=== PATIENT | male | born 1950 | race Caucasian/White ===

== ENCOUNTER 2021-11-20 10:47 | Inpatient (IN) | payer MEDICARE, OTHER ==
[~2021-11-20] VITALS: Ht 170.2 cm; Wt 103.4 kg
--- NOTE | 2021-11-20 10:50 | NUR ---
BIB JAIL STAFF, TOLD BY DR KAUR TO COME HERE,C/O BILATERAL KNEE/LEG PAIN,"CHRONICALLY SHORT OF BREATH BEC.OF 3 VT'S." PT ATTACHED TO MONITOR. VITALS ARE WITHIN NORMAL LIMITS, NO RESPIRATORY DISTRESS NOTED. PT IS A&OX4. DR MARCIAL AT BEDSIDE.
--- NOTE | 2021-11-20 11:01 | NUR ---
IV ESTABLISHED L UPPER ARM 20G. LABS DRAWN AND COLLECTED AT BEDSIDE. CONVERTED TO SALINE LOCK.
--- NOTE | 2021-11-20 11:15 | NUR ---
[facility].
--- NOTE | 2021-11-20 11:18 | NUR ---
COVID TEST COLLECTED AND SENT
[2021-11-20 11:29] LABS: BASOPHILS % (AUTO) 0.4 % (0.0-2.0); EOSINOPHILS % (AUTO) 4.2 % (0.0-6.0); HEMATOCRIT 40 % (39-51); HEMOGLOBIN 13.1 g/dL (13.5-17.5); LYMPHOCYTES % (AUTO) 15.1 % (20.0-44.0); MEAN CORPUSCULAR HGB CONC 33 g/dl (31.0-36.0); MEAN CORPUSCULAR VOLUME 94 fL (80-96); MONOCYTES # (AUTO) 0.9 K/uL (0.1-1.30); MONOCYTES % (AUTO) 13.4 % (2.0-12.0); NEUTROPHILS # (AUTO) 4.3 K/uL (1.8-8.9); NEUTROPHILS % (AUTO) 66.9 % (43.0-81.0); PLATELET COUNT (AUTO) 219 K/uL (150-450); RED BLOOD CELL COUNT(AUTO) 4.21 MIL/uL (4.5-6.0); WHITE BLOOD COUNT (AUTO) 6.4 K/uL (4.3-11.0)
[2021-11-20 11:52] LABS: ALANINE AMINOTRANSFERASE 10 U/L (12-78); ALBUMIN 3.7 g/dL (3.4-5.0); ALKALINE PHOSPHATASE 101 U/L (46-116); ASPARTATE AMINOTRANSFERASE 10 U/L (15-37); BILIRUBIN,DIRECT 0.1 mg/dL (0.0-0.2); BILIRUBIN,TOTAL 0.6 mg/dL (0.2-1.0); CALCIUM, SERUM 8.8 mg/dL (8.5-10.1); CARBON DIOXIDE 33 mmol/L (21-32); CHLORIDE 102 mmol/L (98-107); CREATININE 1.2 mg/dL (0.6-1.3); GLUCOSE 92 mg/dL (74-106); POTASSIUM 3.8 mmol/L (3.5-5.1); SODIUM SERUM 139 mmol/L (136-145); TOTAL PROTEIN, SERUM 8.5 g/dL (6.4-8.2); UREA NITROGEN, BLOOD 18 mg/dL (7-18)
--- NOTE | 2021-11-20 11:54 | NUR ---
HOSPTIALIST SPEAKING WITH DR. MARCIAL.
[2021-11-20] MEDS ORDERED: SACU1TAB PO (12:06)
[2021-11-20] MEDS ORDERED: PANT40TA49 PO (12:06)
[2021-11-20] MEDS ORDERED: ASPI-1169 PO (12:06)
[2021-11-20] MEDS ORDERED: CARV3.12 PO (12:06)
[2021-11-20] MEDS ORDERED: DOCU-141 PO (12:06)
[2021-11-20] MEDS ORDERED: FURO-144 PO (12:06)
[2021-11-20] MEDS ORDERED: SPIR25TA6 PO (12:06)
[2021-11-20] MEDS ORDERED: CHOL50009 PO (12:06)
[2021-11-20] MEDS ORDERED: ATOR40TA PO (12:06)
[2021-11-20] MEDS ORDERED: CLOP75TA15 PO (12:06)
[2021-11-20] MEDS ORDERED: DIGO125T PO (12:06)
[2021-11-20] MEDS ORDERED: FUROSEMIDE 40 MG/4 ML VIAL IV ONE (13:00)
[2021-11-20] MEDS ORDERED: FUROSEMIDE 100 MG/10 ML VIAL ONE (13:40)
[2021-11-20] MEDS ORDERED: LIDOCAINE 2% JEL UROJET 10 ML MM ONE (13:44)
[2021-11-20] MEDS ORDERED: ACETAMINOPHEN 325 MG TABLET PO PRN (14:00)
[2021-11-20] MEDS ORDERED: ONDANSETRON HCL/PF 4 MG/2 ML VIAL IVP PRN (14:00)
--- NOTE | 2021-11-20 14:56 | NUR ---
BED ASSIGNED= 107
[2021-11-20] MEDS ORDERED: IPRATROPIUM NEB FS 0.5 MG/2.5 ML AMPUL.NEB NEB PRN (15:30)
[2021-11-20] MEDS ORDERED: ENOXAPARIN SODIUM 40 MG/0.4 ML DISP.SYRIN SQ ONE (15:35)
--- NOTE | 2021-11-20 15:54 | NUR ---
REPORT GIVEN TO LUCIANA FOR NOLAN
[2021-11-20] MEDS: ENOXAPARIN SODIUM 40 MG/0.4 ML DISP.SYRIN SQ SCH (16:10)
--- NOTE | 2021-11-20 16:29 | NUR ---
PT TRANSFERRED TO ROOM 107 IN STABLE CONDITION
[2021-11-20 17:42] LABS: ABG OXYGEN SATURATION 94.2 % (92.0-98.5); ABG PCO2 42.5 mmHg (35.0-45.0); ABG PH 7.432 (7.350-7.450); ABG PO2 71.2 mmHg (75.0-100.0); AaDO2 27.6 mmHg; COHb 1.1 % (0.5-1.5); MetHb 0.3 % (0.0-1.5); O2Hb 92.9 % (94.0-97.0); SITE, ABG Left Radial; VENT MODE, BG RA
--- NOTE | 2021-11-20 17:50 | NUR ---
ms rn received a new admission from er,71 year old patient, came in w/ sob,dx of heart failure, awake,alert,oriented x4,not in any form of distress, respirations even and unlabored,no sob noted, lungs are diminished,abdomen soft,positive bowel sounds,denies pain at this time, will monitor patient's condition.
--- NOTE | 2021-11-20 17:55 | NUR ---
ms rn lying comfordatbly on be, no distress noted.
--- NOTE | 2021-11-20 18:05 | NUR ---
ms rn orders on file and carried out.
[2021-11-20] MEDS: DOCUSATE SODIUM 100 MG CAPSULE PO SCH (18:42)
[2021-11-20] MEDS: CARVEDILOL 3.125 MG TABLET PO SCH (18:43)
[2021-11-20 20:00] VITALS: BP 126/68
--- NOTE | 2021-11-20 20:00 | NUR ---
RECEIVED PATIENT IN BED, NEW ADMIT FROM AM SHIFT, ALERT/ORIENTED X3, FORGETFUL, ROOM AIR, NO COMPLAIN OF PAIN, AMBULATORY, WAS GIVEN LASIX IN ED, VOIDING VIA TOILET. BLE EDEMA +3, SKIN INTACT, ON ENTRESTO, NON-FORMULARY, NOTIFIED DIVINE RETANA, WILL BRING MEDICATIONS FROM [facility] IN AM.
[2021-11-20] MEDS: ATORVASTATIN 40 MG TABLET PO SCH (22:06)
[2021-11-21 00:26] VITALS: BP 132/69
[2021-11-21 04:00] VITALS: BP 110/65
--- NOTE | 2021-11-21 06:39 | NUR ---
ALERT/ORIENTED X3, FORGETFUL, ROOM AIR, AMBULATORY, NO COMPLAIN OF PAIN, WAS GIVEN LASIX IN ED, VOIDING, BLE EDEMA +3, CARDIO FOLLOWING, GENTLE DIURESIS, BROCHODILATORS, POLYSOMNOGRAM, PULMONARY FUNCTION TEST OUTPATIENT.
--- NOTE | 2021-11-21 07:15 | NUR ---
RN OPENING NOTES RECEIVED PATIENT IN BED, AWAKE, A/O X4, VERBALLY RESPONSIVE. NO SIGNS OF ACUTE DISTRESS NOTED. STABLE ON ROOM AIR, NO SOB NOTED, BREATHING EVEN AND UNLABORED. IV ACCESS ON LEFT UPPER ARM #20G, INTACT AND PATENT, SALINE LOCKED. NO C/O PAIN AT THIS TIME. SAFETY MEASURE IN PLACE. WILL CONTINUE TO MONITOR PATIENT.
[2021-11-21 07:33] LABS: BASOPHILS % (AUTO) 0.6 % (0.0-2.0); EOSINOPHILS % (AUTO) 3.7 % (0.0-6.0); HEMATOCRIT 38 % (39-51); HEMOGLOBIN 12.9 g/dL (13.5-17.5); LYMPHOCYTES % (AUTO) 16.2 % (20.0-44.0); MEAN CORPUSCULAR HGB CONC 34 g/dl (31.0-36.0); MEAN CORPUSCULAR VOLUME 93 fL (80-96); MONOCYTES # (AUTO) 0.8 K/uL (0.1-1.30); MONOCYTES % (AUTO) 12.3 % (2.0-12.0); NEUTROPHILS # (AUTO) 4.2 K/uL (1.8-8.9); NEUTROPHILS % (AUTO) 67.2 % (43.0-81.0); PLATELET COUNT (AUTO) 205 K/uL (150-450); RED BLOOD CELL COUNT(AUTO) 4.11 MIL/uL (4.5-6.0); WHITE BLOOD COUNT (AUTO) 6.2 K/uL (4.3-11.0)
[2021-11-21 07:47] LABS: CALCIUM, SERUM 9.1 mg/dL (8.5-10.1); CARBON DIOXIDE 31 mmol/L (21-32); CHLORIDE 101 mmol/L (98-107); CREATININE 1.2 mg/dL (0.6-1.3); GLUCOSE 98 mg/dL (74-106); MAGNESIUM 2.2 mg/dL (1.8-2.4); POTASSIUM 3.9 mmol/L (3.5-5.1); SODIUM SERUM 139 mmol/L (136-145); UREA NITROGEN, BLOOD 20 mg/dL (7-18)
[2021-11-21 07:53] LABS: CHOLESTEROL 126 mg/dL (<200); HDL CHOLESTEROL 34 mg/dL (40-60); LDL 79 mg/dL (0-99); TRIGLYCERIDES 124 mg/dL (30-150)
[2021-11-21 08:00] VITALS: BP 138/72
[2021-11-21] MEDS: CLOPIDOGREL BISULFATE 75 MG TABLET PO SCH (08:28)
[2021-11-21] MEDS: PANTOPRAZOLE 40 MG TABLET.DR PO SCH (08:28)
[2021-11-21] MEDS: DOCUSATE SODIUM 100 MG CAPSULE PO SCH ×2 (08:28→17:09)
[2021-11-21] MEDS: ASPIRIN 81 MG TAB.CHEW PO SCH (08:28)
[2021-11-21] MEDS: CHOLECALCIFEROL 1,000 UNIT TABLET (VIT D3) PO SCH (08:28)
[2021-11-21] MEDS: SPIRONOLACTONE 25 MG TABLET PO SCH (08:29)
[2021-11-21] MEDS: POTASSIUM CHLORIDE 20 MEQ TAB.PRT.SR PO SCH ×3 (08:29→11:20)
[2021-11-21] MEDS: CARVEDILOL 3.125 MG TABLET PO SCH ×2 (08:29→17:09)
[2021-11-21] MEDS: FUROSEMIDE 100 MG/10 ML VIAL IV SCH ×3 (08:30→17:09)
[2021-11-21] MEDS ORDERED: Medication Not On Formulary EA (Cholecalciferol (Vitamin D3) (Vitamin D3) 5,000 UNITS) PO SCH (09:00)
[2021-11-21] MEDS: ENTRESTO PO SCH ×2 (09:00→17:00)
--- NOTE | 2021-11-21 09:00 | NUR ---
RN NOTES ENTRESTO 24 MG-26 MG NOT ADMINISTERED, MEDICATION NOT AVAILABLE. FAMILY WILL BRING MEDICATION LATER.
[2021-11-21 09:45] LABS: THYROID STIMULATING HORMONE 1.902 uIU/mL (0.358-3.74)
[2021-11-21 12:00] VITALS: BP 104/51
[2021-11-21] MEDS: ENOXAPARIN SODIUM 40 MG/0.4 ML DISP.SYRIN SQ SCH (15:08)
[2021-11-21 16:00] VITALS: BP 125/77
--- NOTE | 2021-11-21 18:40 | NUR ---
RN CLOSING NOTES PATIENT SITTING ON BED, AWAKE, A/O X4, VERBALLY RESPONSIVE. NO SIGNS OF ACUTE DISTRESS NOTED. REMAINS STABLE ON ROOM AIR, BREATHING EVEN AND UNLABORED. IV ACCESS ON LEFT UPPER ARM #20G, INTACT AND PATENT, SALINE LOCKED. DENIES ANY PAIN. ALL DUE MEDS GIVEN, TOLERATED WELL. PATIENT REFUSE TO USE URINAL TO MEASURE URINE OUTPUT. PREFERS TO VOID IN THE TOILET. ENCOURAGE PATIENT TO USE URINAL TO ACCURATELY MEASURE URINE OUTPUT. SAFETY MEASURE MAINTAINED. BED IN LOWEST AND LOCKED POSITION, SIDE RAILS UP X2, CALL LIGHT PLACED WITHIN EASY REACH. WILL ENDORSE TO NEXT SHIFT.
[2021-11-21 20:00] VITALS: BP 104/57
[2021-11-21] MEDS: ATORVASTATIN 40 MG TABLET PO SCH (21:20)
[2021-11-22] VITALS: BP 96/54
[2021-11-22 04:00] VITALS: BP 97/52
--- NOTE | 2021-11-22 07:09 | NUR ---
RN CLOSING NOTES PATIENT IN BED, AWAKE, A/O X4, VERBALLY RESPONSIVE. NO SIGNS OF ACUTE DISTRESS NOTED. REMAINS STABLE ON ROOM AIR, BREATHING EVEN AND UNLABORED. IV ACCESS ON LEFT UPPER ARM #20G, INTACT AND PATENT, SALINE LOCKED. DENIES ANY PAIN. ALL DUE MEDS GIVEN, TOLERATED WELL. PATIENT REFUSE TO USE URINAL TO MEASURE URINE OUTPUT. PREFERS TO VOID IN THE TOILET. ENCOURAGE PATIENT TO USE URINAL TO ACCURATELY MEASURE URINE OUTPUT. SAFETY MEASURE MAINTAINED. BED IN LOWEST AND LOCKED POSITION, SIDE RAILS UP X2, CALL LIGHT PLACED WITHIN EASY REACH. WILL ENDORSE TO NEXT SHIFT.
[2021-11-22 07:20] LABS: BASOPHILS % (AUTO) 0.6 % (0.0-2.0); HEMATOCRIT 39 % (39-51); HEMOGLOBIN 12.8 g/dL (13.5-17.5); LYMPHOCYTES # (AUTO) 1.1 K/uL (0.8-4.8); LYMPHOCYTES % (AUTO) 16.9 % (20.0-44.0); MEAN CORPUSCULAR HGB CONC 33 g/dl (31.0-36.0); MEAN CORPUSCULAR VOLUME 93 fL (80-96); MONOCYTES # (AUTO) 0.8 K/uL (0.1-1.30); MONOCYTES % (AUTO) 12.5 % (2.0-12.0); NEUTROPHILS # (AUTO) 4.2 K/uL (1.8-8.9); PLATELET COUNT (AUTO) 223 K/uL (150-450); RED BLOOD CELL COUNT(AUTO) 4.18 MIL/uL (4.5-6.0); WHITE BLOOD COUNT (AUTO) 6.3 K/uL (4.3-11.0)
[2021-11-22 07:30] LABS: ALBUMIN 3.6 g/dL (3.4-5.0); BILIRUBIN,TOTAL 0.9 mg/dL (0.2-1.0); CALCIUM, SERUM 8.8 mg/dL (8.5-10.1); CREATININE 1.3 mg/dL (0.6-1.3); MAGNESIUM 2.2 mg/dL (1.8-2.4); POTASSIUM 3.5 mmol/L (3.5-5.1); TOTAL PROTEIN, SERUM 8.2 g/dL (6.4-8.2)
--- NOTE | 2021-11-22 07:30 | NUR ---
SAFETY COUNSELOR NOTE PATIENT IN BED, ALERT ORIENTED, ON RA, NO SOB NOTED AT THIS TIME, ON TELEMONITOR V PACING HR 85, LT FA HL INTACT, BED IN LOWEST AND LOCKED POSITION , WILL CONT TO MONITOR
[2021-11-22 08:00] VITALS: BP 119/83
[2021-11-22] MEDS: ASPIRIN 81 MG TAB.CHEW PO SCH (08:34)
[2021-11-22] MEDS: CHOLECALCIFEROL 1,000 UNIT TABLET (VIT D3) PO SCH (08:34)
[2021-11-22] MEDS: SPIRONOLACTONE 25 MG TABLET PO SCH (08:35)
[2021-11-22] MEDS: PANTOPRAZOLE 40 MG TABLET.DR PO SCH (08:35)
[2021-11-22] MEDS: CLOPIDOGREL BISULFATE 75 MG TABLET PO SCH (08:35)
[2021-11-22] MEDS: DOCUSATE SODIUM 100 MG CAPSULE PO SCH ×2 (08:36→16:12)
[2021-11-22] MEDS: CARVEDILOL 3.125 MG TABLET PO SCH ×2 (08:37→16:12)
[2021-11-22] MEDS: ENTRESTO PO SCH ×2 (08:39→16:54)
[2021-11-22] MEDS ORDERED: DIGOXIN 0.125 MG TABLET PO SCH (09:00)
--- NOTE | 2021-11-22 11:00 | NUR ---
telephone quotation clerk note seen by Love blackwell rn director of career resources notified that patient on asa Plavix Lovenox stated ok to give all three Meds will f\u
[2021-11-22 12:00] VITALS: BP 99/59
[2021-11-22] MEDS: ENOXAPARIN SODIUM 40 MG/0.4 ML DISP.SYRIN SQ SCH (13:35)
--- NOTE | 2021-11-22 15:22 | NUR ---
tele grout sewer line repairer note taken to ct chest, all needs attended
[2021-11-22 16:00] VITALS: BP 110/70
--- NOTE | 2021-11-22 17:02 | NUR ---
telephone clerk note rounds made , all needs attended,sitting at edge of bed ,no sob noted , not in distress
--- NOTE | 2021-11-22 18:12 | NUR ---
telephone assembler note ct chest result reported to Love Bey rn p ,no new order gven at this time
--- NOTE | 2021-11-22 18:37 | NUR ---
VIROLOGIST NOTE PATIENT SITTING UP AT EDGE OF BED ,HAVING DINNER , ABLE TO EAT SELF, ON TELE MONITOR V PACING , LT UPPER ARM HL INTACT AND FLUSHED WELL, ABLE TO GO TO BR AND URINATE WELL, BED IN LOWEST AND LOCKED POSITION, NO SOB NOTED AT THIS TIME ,ALL NEEDS ATTENDED,CALL LIGHT WITHIN REACH, WILL CONT TO MONITOR
[2021-11-22 20:00] VITALS: BP 111/60
[2021-11-22] MEDS: ATORVASTATIN 40 MG TABLET PO SCH (21:09)
[2021-11-23] VITALS: BP 108/70
[2021-11-23 04:00] VITALS: BP 104/60
--- NOTE | 2021-11-23 07:30 | NUR ---
FURNACE FILLER OPENING NOTES RECEIVED PATIENT AWAKE IN BED. PATIENT IS ALERT AND ORIENTED TIMES 4, SAO TOMEAN SPEAKER. ABLE TO MAKE NEEDS KNOWN. NO PAIN NOTED. NO SOB NOTED. NO DISCOMFORT NOTED. ON ROOM AIR TOLERATING WELL. AMBULATORY . ABLE TO USE RESTROOM. IV SITE ON THE ERIKA # 20 INTACT AND SALINE LOCKED. ON TELE MONITOR. SAFETY MEASURES IN PLACE. BED LOCKED IN THE LOWEST POSITION. CALL LIGHT AND TABLE IN REACH. WILL CONTINUE TO MONITOR .
[2021-11-23 07:45] LABS: BASOPHILS % (AUTO) 0.8 % (0.0-2.0); EOSINOPHILS % (AUTO) 4.6 % (0.0-6.0); HEMATOCRIT 39 % (39-51); HEMOGLOBIN 12.9 g/dL (13.5-17.5); LYMPHOCYTES # (AUTO) 0.9 K/uL (0.8-4.8); LYMPHOCYTES % (AUTO) 15.7 % (20.0-44.0); MEAN CORPUSCULAR HGB CONC 34 g/dl (31.0-36.0); MEAN CORPUSCULAR VOLUME 93 fL (80-96); MONOCYTES # (AUTO) 0.7 K/uL (0.1-1.30); MONOCYTES % (AUTO) 11.9 % (2.0-12.0); PLATELET COUNT (AUTO) 209 K/uL (150-450); RED BLOOD CELL COUNT(AUTO) 4.16 MIL/uL (4.5-6.0)
[2021-11-23 07:52] LABS: CALCIUM, SERUM 9.4 mg/dL (8.5-10.1); CREATININE 1.3 mg/dL (0.6-1.3); MAGNESIUM 2.2 mg/dL (1.8-2.4); PHOSPHORUS 3.9 mg/dL (2.5-4.9); POTASSIUM 3.5 mmol/L (3.5-5.1)
[2021-11-23 08:00] VITALS: BP 115/53
[2021-11-23] MEDS: ASPIRIN 81 MG TAB.CHEW PO SCH (09:21)
[2021-11-23] MEDS: DOCUSATE SODIUM 100 MG CAPSULE PO SCH (09:21)
[2021-11-23] MEDS: CHOLECALCIFEROL 1,000 UNIT TABLET (VIT D3) PO SCH (09:21)
[2021-11-23] MEDS: PANTOPRAZOLE 40 MG TABLET.DR PO SCH (09:21)
[2021-11-23] MEDS: CARVEDILOL 3.125 MG TABLET PO SCH (09:22)
[2021-11-23] MEDS: SPIRONOLACTONE 25 MG TABLET PO SCH (09:22)
[2021-11-23] MEDS: CLOPIDOGREL BISULFATE 75 MG TABLET PO SCH (09:22)
[2021-11-23] MEDS: ENTRESTO PO SCH (09:26)
[2021-11-23 12:00] VITALS: BP 97/56
[2021-11-23 13:05] LABS: *SPE A/G RATIO 0.8 (0.7-1.7); *SPE ALPHA-1-GLOBULIN 0.2 g/dL (0.0-0.4); *SPE ALPHA-2-GLOBULIN 0.9 g/dL (0.4-1.0); *SPE BETA GLOBULIN 1.2 g/dL (0.7-1.3); *SPE M-SPIKE Not Observed g/dL (Not Observed)
[2021-11-23] MEDS ORDERED: PNEUMOCOCCAL 23-VAL P-SAC VAC 0.5 ML VIAL SQ ONE (13:30)
[2021-11-23] MEDS ORDERED: INFLUENZA VACCINE 2021-22 0.5 ML DISP.SYRIN IM ONE (13:30)
[2021-11-23] MEDS: ENOXAPARIN SODIUM 40 MG/0.4 ML DISP.SYRIN SQ SCH (13:56)
--- NOTE | 2021-11-23 14:30 | NUR ---
RN NOTES CALLED HO MCCURDY RN FROM [facility] WITH PHONE NUMBER [phone] AND GAVE REPORT OF THE PATIENT.
--- NOTE | 2021-11-23 14:30 | NUR ---
RN KAY BROOKS THE POA CALLED AND REMINDED TO GIVE BOTH VACCINES OF FLU AND PNEUMONIA TO THE PATIENT.
--- NOTE | 2021-11-23 14:40 | NUR ---
RN NOTES FLU VACCINE GIVEN TO THE LEFT DELTOID . PNEUMONIA VACCINE GIVEN TO THE RIGHT DELTOID. NO BLEEDING NOTED. COVERED WITH BANDAGE.
--- NOTE | 2021-11-23 15:40 | NUR ---
RN NOTES DISCHARGE PATIENT IN STABLE CONDITION WITH STABLE VITAL SIGNS. NO PAIN NOTED. NO SOB BNOTED NO DISTRESS NOTED. 2 MT FROM AM WEST ARRIVED AROUND 1500. ALL THE BELONGINGS ACCOUNTED AND SIGNED FOR. IV SITE REMOVED. COVERED WITH DRY DRESSING. NO BLEEDING NOTED. EXTERNAL BOILING HOUSE HAND REMOVED. ALL NEEDS ATTENDED. PATIENT LEFT HOSPITAL AT 1540. MD AND CHARGE NURSE AWARE OF THE DISCHARGE.
== END 2021-11-23 15:37 | DRG 291 ==
LOC: ER 10:54 → TELE1 15:06
PROVIDERS: ADMIT Nurse Practitioner Acute Care; ATTEND Nurse Practitioner Acute Care
DX: I11.0 Hypertensive heart disease with heart failure (principal); I50.31 Acute diastolic (congestive) heart failure; D68.59 Other primary thrombophilia; E66.2 Morbid (severe) obesity with alveolar hypoventilation; J98.11 Atelectasis; I25.5 Ischemic cardiomyopathy; Z95.810 Presence of automatic (implantable) cardiac defibrillator; Z20.822 Contact with and (suspected) exposure to COVID-19; I25.2 Old myocardial infarction; I25.10 Atherosclerotic heart disease of native coronary artery without angina pectoris; Z88.8 Allergy status to other drugs, medicaments and biological substances; Z79.02 Long term (current) use of antithrombotics/antiplatelets; Z79.82 Long term (current) use of aspirin; Z79.899 Other long term (current) drug therapy; I73.9 Peripheral vascular disease, unspecified; Z68.35 Body mass index [BMI] 35.0-35.9, adult; Z87.891 Personal history of nicotine dependence; R09.02 Hypoxemia; I50.82 Biventricular heart failure; R91.8 Other nonspecific abnormal finding of lung field
CPT/HCPCS: 36415; 36600; 71045-TC; 71250-TC; 80048-TC; 80053-TC; 80061-TC; 80076-TC; 80162-TC; 82803-TC; 83540-TC; 83735-TC; 83880; 84100-TC; 84155; 84165; 84439-TC; 84443-TC; 84484-TC; 85025-TC; 87081-TC; 90732; 93307-TC; 94799-TC; C9803; G0378; J1650; J1940; J3490; Q2036

== ENCOUNTER 2022-03-05 11:09 | Inpatient (IN) | payer MEDICARE, OTHER ==
[~2022-03-05] VITALS: Ht 154.9 cm; Wt 83.5 kg
[2022-03-05] VITALS (7 sets, daily range): BP systolic 99–129; BP diastolic 63–71
[~2022-03-05 11:09] MED LIST: ASPI-1169 PO; ATOR40TA PO; CARV3.12 PO; CHOL50009 PO; CLOP75TA15 PO; DIGO125T PO; DOCU-141 PO; FURO-144 PO; PANT40TA49 PO; SACU1TAB PO; SPIR25TA6 PO
--- NOTE | 2022-03-05 11:17 | NUR ---
IV LINE IS ESTABLISHED, BLOOD SPECIMEN COLLECTED AND SENT TO THE LAB. THE LINE IS SALINE LOCKED.
--- NOTE | 2022-03-05 11:20 | NUR ---
AMBER FROM [facility] FOR SOB SINCE THIS MORNING, COVID+ PER. THE PATIENT IS ALERT TO HIS NAME. OXYGEN SATURATION IN ROOM AIR IS AT 87%. THE PATIENT IS RECEIVED ON OXYGEN AT 5L/MIN VIA NASAL CANNULA AND SATURATION IS AT 94%. THE PATIENT IS ATTACHED TO THE MONITOR. RT AT THE BEDSIDE. MD AT THE BEDSIDE. WILL CONTINUE TO MONITOR THE PATIENT.
[2022-03-05 11:23] LABS: ABG BASE EXCESS -2.5 mmol/L; ABG PCO2 47.1 mmHg (35.0-45.0); ABG PH 7.323 (7.350-7.450); ABG PO2 79.4 mmHg (75.0-100.0); COHb 0.5 % (0.5-1.5); MetHb 0.4 % (0.0-1.5); O2Hb 92.9 % (94.0-97.0); SITE, ABG Left Radial; VENT MODE, BG 5L NC
--- NOTE | 2022-03-05 11:24 | NUR ---
MOVE SHEET SUBMITTED.
[2022-03-05] MEDS ORDERED: ACETAMINOPHEN 650 MG/SUPP.RECT RC ONE (11:29)
[2022-03-05 11:37] LABS: BASOPHILS % (AUTO) 0.3 % (0.0-2.0); HEMATOCRIT 46 % (39-51); HEMOGLOBIN 14.7 g/dL (13.5-17.5); LYMPHOCYTES # (AUTO) 0.4 K/uL (0.8-4.8); LYMPHOCYTES % (AUTO) 4.6 % (20.0-44.0); MEAN CORPUSCULAR HGB CONC 32 g/dl (31.0-36.0); MEAN CORPUSCULAR VOLUME 90 fL (80-96); MONOCYTES # (AUTO) 0.8 K/uL (0.1-1.30); MONOCYTES % (AUTO) 8.8 % (2.0-12.0); NEUTROPHILS # (AUTO) 7.9 K/uL (1.8-8.9); NEUTROPHILS % (AUTO) 86.3 % (43.0-81.0); PLATELET COUNT (AUTO) 256 K/uL (150-450); RED BLOOD CELL COUNT(AUTO) 5.08 MIL/uL (4.5-6.0); WHITE BLOOD COUNT (AUTO) 9.2 K/uL (4.3-11.0)
--- NOTE | 2022-03-05 11:37 | NUR ---
RT pt placed on hhfnc post abg results on 5lnc. settings 40L 100%. pt tolerating well. follow up abg in 1 hr
[2022-03-05] MEDS ORDERED: MULT-439 PO (11:44)
[2022-03-05] MEDS ORDERED: NUTR1PAC14 PO (11:44)
[2022-03-05] MEDS ORDERED: AMIN887L PO (11:44)
[2022-03-05] MEDS ORDERED: ASCO500C17 PO (11:44)
[2022-03-05] MEDS ORDERED: POTA10CA43 PO (11:44)
--- NOTE | 2022-03-05 11:44 | NUR ---
URINE COLLECTED AND SENT TO THE LAB
--- NOTE | 2022-03-05 11:44 | NUR ---
COVID ANTIGEN SWAB DONE AND SENT TO THE LAB
[2022-03-05 11:48] LABS: CALCIUM, SERUM 8.7 mg/dL (8.5-10.1); CARBON DIOXIDE 29 mmol/L (21-32); CHLORIDE 101 mmol/L (98-107); CREATININE 1.6 mg/dL (0.6-1.3); GLUCOSE 145 mg/dL (74-106); SODIUM SERUM 138 mmol/L (136-145); UREA NITROGEN, BLOOD 29 mg/dL (7-18)
[2022-03-05] MEDS ORDERED: VANCOMYCIN 1 GM in IV D5W 250 ML IV ONE (12:00)
[2022-03-05] MEDS ORDERED: PIPERACILLIN /TAZOBACTAM 3.375 G in IV D5W 50 ML IV ONE (12:00)
[2022-03-05 12:02] LABS: BILIRUBIN,URINE NEGATIVE (NEGATIVE); COLOR,URINE YELLOW (YELLOW); LEUKOCYTE ESTERASE ,URINE NEGATIVE (NEGATIVE); NITRITE, URINE NEGATIVE (NEGATIVE); PROTEIN,URINE 100 mg/dl (NEGATIVE); UGLUCOSE NEGATIVE (NEGATIVE)
[2022-03-05 12:02] LABS: ALANINE AMINOTRANSFERASE 209 U/L (12-78); ALBUMIN 3.2 g/dL (3.4-5.0); ALKALINE PHOSPHATASE 128 U/L (46-116); ASPARTATE AMINOTRANSFERASE 407 U/L (15-37); BILIRUBIN,TOTAL 1.3 mg/dL (0.2-1.0); TOTAL PROTEIN, SERUM 8.4 g/dL (6.4-8.2)
[2022-03-05 12:05] LABS: C-REACTIVE PROTEIN 4.7 mg/dL (0.0-0.9); CREATINE KINASE, TOTAL 135 U/L (39-308)
[2022-03-05 12:22] LABS: D-DIMER 1.92 mg/L(FEU (0.17-0.50)
[2022-03-05 12:53] LABS: ABG BASE EXCESS 0.8 mmol/L; ABG PCO2 63.2 mmHg (35.0-45.0); ABG PH 7.283 (7.350-7.450); COHb 0.6 % (0.5-1.5); MetHb 0.6 % (0.0-1.5); O2Hb 96.9 % (94.0-97.0); SITE, ABG Right Radial; VENT MODE, BG HFNC 40L 100%
[2022-03-05] MEDS ORDERED: ALBUTEROL SULFATE 8 GM HFA.AER.AD IH PRN (13:00)
[2022-03-05] MEDS ORDERED: MAG HYDROX/AL HYDROX/SIMETH 30 ML UDC PO PRN (13:00)
[2022-03-05] MEDS ORDERED: HYDROCODONE/APAP 5/325MG TABLET PO PRN (13:00)
[2022-03-05] MEDS ORDERED: ACETAMINOPHEN 325 MG TABLET PO PRN (13:00)
[2022-03-05] MEDS ORDERED: Z GUARD REMEDY 4 OZ OINT TP PRN (13:00)
[2022-03-05] MEDS ORDERED: ONDANSETRON HCL/PF 4 MG/2 ML VIAL IVP PRN (13:00)
[2022-03-05] MEDS ORDERED: ENOXAPARIN SODIUM 30 MG/0.3 ML DISP.SYRIN SQ SCH (13:00)
[2022-03-05] MEDS ORDERED: MAGNESIUM HYDROXIDE 30 ML UDC PO PRN (13:00)
[2022-03-05 13:12] LABS: BACTERIA,URINE Rare /HPF (None Seen); SQUAMOUS EPITHELIAL CELL,UR Few /HPF (None Seen)
[2022-03-05] MEDS ORDERED: DEXAMETHASONE SOD PHOSPHATE 10 MG/ML VIAL ONE (13:44)
[2022-03-05] MEDS ORDERED: DEXAMETHASONE SOD PHOSPHATE 10 MG/ML VIAL IV ONE (14:00)
[2022-03-05 15:43] LABS: BILIRUBIN,DIRECT 0.5 mg/dL (0.0-0.2)
[2022-03-05] MEDS ORDERED: ENOXAPARIN SODIUM 30 MG/0.3 ML DISP.SYRIN ONE (16:48)
[2022-03-05] MEDS: ENOXAPARIN SODIUM 30 MG/0.3 ML DISP.SYRIN SQ SCH (16:50)
[2022-03-05] MEDS ORDERED: REMDESIVIR (CHARGED) 200 MG, *LOADING DOSE 1 EA in IV NS 0.9% 210 ML IV ONE (17:00)
[2022-03-05] MEDS: CARVEDILOL 3.125 MG TABLET PO SCH (17:00)
--- NOTE | 2022-03-05 18:45 | NUR ---
MID LINE INSITU AT UPPER RIGHT ARM G18
--- NOTE | 2022-03-05 19:25 | NUR ---
ROOM 260
--- NOTE | 2022-03-05 19:50 | NUR ---
REPORT GIVEN TO NURSE ARORA FOR NOLAN
--- NOTE | 2022-03-05 20:30 | NUR ---
RN OPENING NOTES RECEIVED CARE OF PATIENT FROM AM NURSE, PATIENT CONFUSED, MAKING NON COMPREHENSIBLE WORKS. PATIENT ON O2 THERAPY VIA NRB MASK AT 15 L/MIN, NO SOB NOTED, O2 SAT IS 97%. PATIENT'S TELE MONITOR READING SINUS RHYTHM WITH BBB AND PVC, NO DISTRESS NOTED ON PATIENT, HR IS 77. PATIENT NOTED WITH GARNETT DRAINING YELLOW URINE TO GRAVITY. SAFETY MEASURES IMPLEMENTED PER HOSPITAL PROTOCOLS. CARE PLAN REVIEWED. WILL CONTINUE TO MONITOR PATIENT.
[2022-03-05] MEDS: IV NS 0.9% 1,000 ML IV PRN (20:42)
[2022-03-05] MEDS ORDERED: ATORVASTATIN 40 MG TABLET PO SCH (22:00)
[2022-03-06] VITALS (29 sets, daily range): BP systolic 75–121; BP diastolic 31–69
[2022-03-06 05:15] LABS: BASOPHILS % (AUTO) 0.2 % (0.0-2.0); HEMATOCRIT 44 % (39-51); LYMPHOCYTES # (AUTO) 0.3 K/uL (0.8-4.8); LYMPHOCYTES % (AUTO) 3.1 % (20.0-44.0); MEAN CORPUSCULAR HGB CONC 32 g/dl (31.0-36.0); MEAN CORPUSCULAR VOLUME 91 fL (80-96); MONOCYTES # (AUTO) 0.3 K/uL (0.1-1.30); MONOCYTES % (AUTO) 3.1 % (2.0-12.0); NEUTROPHILS # (AUTO) 8.3 K/uL (1.8-8.9); NEUTROPHILS % (AUTO) 93.6 % (43.0-81.0); PLATELET COUNT (AUTO) 187 K/uL (150-450); RED BLOOD CELL COUNT(AUTO) 4.84 MIL/uL (4.5-6.0); WHITE BLOOD COUNT (AUTO) 8.8 K/uL (4.3-11.0)
[2022-03-06 05:37] LABS: ALBUMIN 2.4 g/dL (3.4-5.0); BILIRUBIN,DIRECT 0.4 mg/dL (0.0-0.2); BILIRUBIN,TOTAL 0.9 mg/dL (0.2-1.0); TOTAL PROTEIN, SERUM 6.9 g/dL (6.4-8.2)
[2022-03-06 05:38] LABS: ALANINE AMINOTRANSFERASE 975 U/L (12-78); ALBUMIN 2.4 g/dL (3.4-5.0); ALKALINE PHOSPHATASE 105 U/L (46-116); ASPARTATE AMINOTRANSFERASE 1663 U/L (15-37); BILIRUBIN,TOTAL 0.8 mg/dL (0.2-1.0); CARBON DIOXIDE 33 mmol/L (21-32); CHLORIDE 104 mmol/L (98-107); CREATININE 1.7 mg/dL (0.6-1.3); GLUCOSE 108 mg/dL (74-106); MAGNESIUM 2.3 mg/dL (1.8-2.4); PHOSPHORUS 5.5 mg/dL (2.5-4.9); POTASSIUM 4.5 mmol/L (3.5-5.1); SODIUM SERUM 141 mmol/L (136-145); UREA NITROGEN, BLOOD 34 mg/dL (7-18)
--- NOTE | 2022-03-06 06:45 | NUR ---
RN CLOSING NOTES PATIENT'S NEURO STATUS IMPROVED, PATIENT IS NOW A/O X3, ABLE TO MAKE NEEDS KNOWN. PATIENT IN NO PAIN OR DISCOMFORT AT THIS TIME. PATIENT ON O2 THERAPY VIA NC AT 5L/MIN, NO SOB NOTED, O2 SAT 97%. NO SIGNIFICANT FINDINGS UPON ALL NURSING ASSESSMENTS. SAFETY MEARES KEPT IN PLACE. WILL ENDORSE TO AM NURSE FOR NOLAN.
--- NOTE | 2022-03-06 07:20 | NUR ---
RN OPENING NOTES RECEIVED CARE OF PATIENT FROM PM NURSE, P, A/OX2. PATIENT ON O2 THERAPY VIA NC MASK AT 5 L/MIN, NO SOB NOTED, O2 SAT IS 97%. PATIENT'S TELE MONITOR READING SINUS RHYTHM WITH BBB AND PVC, NO DISTRESS NOTED ON PATIENT, HR IS 84. PATIENT NOTED WITH GARNETT DRAINING YELLOW URINE TO GRAVITY. SAFETY MEASURES IMPLEMENTED PER HOSPITAL PROTOCOLS.
[2022-03-06] MEDS: ASPIRIN 81 MG TAB.CHEW PO SCH (08:12)
[2022-03-06] MEDS: CHOLECALCIFEROL 1,000 UNIT TABLET (VIT D3) PO SCH (08:13)
[2022-03-06] MEDS: DIGOXIN 0.125 MG TABLET PO SCH (08:13)
[2022-03-06] MEDS: DEXAMETHASONE SOD PHOSPHATE 10 MG/ML VIAL IV SCH (08:13)
[2022-03-06] MEDS: PANTOPRAZOLE 40 MG TABLET.DR PO SCH (08:13)
[2022-03-06] MEDS: CARVEDILOL 3.125 MG TABLET PO SCH ×2 (08:14→17:00)
[2022-03-06] MEDS: ENOXAPARIN SODIUM 30 MG/0.3 ML DISP.SYRIN SQ SCH (08:21)
[2022-03-06] MEDS: CLOPIDOGREL BISULFATE 75 MG TABLET PO SCH (08:31)
[2022-03-06] MEDS ORDERED: LOSARTAN POTASSIUM 25 MG TABLET PO ONE (09:00)
[2022-03-06] MEDS: IV NS 0.9% 1,000 ML IV PRN (09:05)
[2022-03-06] MEDS ORDERED: IV NS 0.9% 1,000 ML IV PRN (10:09)
[2022-03-06] MEDS: CEFEPIME 2 GM in IV D5W 100 ML IV SCH (10:41)
[2022-03-06 10:42] LABS: ABG BASE EXCESS 3.7 mmol/L; ABG OXYGEN SATURATION 96.2 % (92.0-98.5); ABG PCO2 75.6 mmHg (35.0-45.0); ABG PH 7.262 (7.350-7.450); ABG PO2 93.6 mmHg (75.0-100.0); AaDO2 104.7 mmHg; MetHb 0.2 % (0.0-1.5); SITE, ABG Right Radial; VENT MODE, BG nasal cannula
[2022-03-06] MEDS ORDERED: diphenhydrAMINE HCL 50 MG/ML VIAL IV ONE (12:00)
[2022-03-06] MEDS ORDERED: ACETAMINOPHEN 325 MG TABLET PO ONE (12:00)
[2022-03-06] MEDS ORDERED: methylPREDNISolone SOD SUCC 40 MG/ML VIAL IV ONE (12:00)
[2022-03-06] MEDS ORDERED: NS 0.9% IV ONE (13:00)
[2022-03-06] MEDS ORDERED: TOCILIZUMAB IV ONE (13:00)
[2022-03-06] MEDS ORDERED: REMDESIVIR (CHARGED) 100 MG in IV NS 0.9% 100 ML IV SCH (15:00)
[2022-03-06] MEDS ORDERED: HEPARIN INFUSION/D5W 500 ML IV PRN (16:00)
[2022-03-06] MEDS ORDERED: HEPARIN SODIUM, PORCINE 5000 UNITS/1 ML VIAL IV ONE (16:30)
--- NOTE | 2022-03-06 18:55 | NUR ---
RN CLOSING NOTES PATIENT'S NEURO STATUS IMPROVED, PATIENT IS NOW A/O X3, ABLE TO MAKE NEEDS KNOWN. PATIENT IN NO PAIN OR DISCOMFORT AT THIS TIME. PATIENT ON O2 THERAPY VIA NC AT 3L/MIN, NO SOB NOTED, O2 SAT 97%. NO SIGNIFICANT FINDINGS UPON ALL NURSING ASSESSMENTS. SAFETY MEARES KEPT IN PLACE. WILL ENDORSE TO PM NURSE FOR NOLAN.
--- NOTE | 2022-03-06 19:30 | NUR ---
ICU OPENING NOTE REPORT RECEIVED PATIENT AWAKE AND ALERT A&OX2-3 CONFUSED AT TIMES. ALL VSS. PATIENT SATTING AT 3L NC. DIET CCHO. VOIDING GARNETT. IV JEREMIAH MIDLINE #20 PATENT AND INTACT. ALL SAFETY FALL PRECAUTIONS IN PLACE BED LOCK ON, BED IN LOWEST POSITION, SIDE RAILS UP, BED ALARM ON. CALL LIGHT WITHIN REACH. WILL CONTINUE TO MONITOR.
[2022-03-07] VITALS (18 sets, daily range): BP systolic 89–128; BP diastolic 25–93
--- NOTE | 2022-03-07 | NUR ---
ICU NOTE HEPRIN DRIP STOPPED PER PROTOCAL aPTT 115.6. RATE WILL BE ADJUSTED WHEN IT IS STARTED AGAIN. PATIENT RESTING COMFORTABLY ON THE BED. BIPAP CURRENTLY ON. ALL SAFETY FALL PRECAUTIONS IN PLACE.
--- NOTE | 2022-03-07 01:00 | NUR ---
ICU NOTE HEPRIN DRIP WAS STARTED AGAIN RATE WAS REDUCED PER PROTOCAL FROM 1200 TO 950 AFTER BEING HELD FOR ONE HOUR PER PROTOCAL. NEW aPTT DRAW ORDER IS SET FOR 0700. PATIENT RESTING WILL CONTINUE TO MONITOR.
--- NOTE | 2022-03-07 06:00 | NUR ---
ICU NOTE PATIENT WAS CLEANED, ALL LINEN AND GOWN WAS CHANGED. SAFETY FALL PRECAUTIONS IN PLACE.
[2022-03-07 06:02] LABS: HEMATOCRIT 39 % (39-51); HEMOGLOBIN 12.5 g/dL (13.5-17.5); LYMPHOCYTES # (AUTO) 0.4 K/uL (0.8-4.8); LYMPHOCYTES % (AUTO) 3.1 % (20.0-44.0); MEAN CORPUSCULAR HGB CONC 32 g/dl (31.0-36.0); MEAN CORPUSCULAR VOLUME 90 fL (80-96); MONOCYTES # (AUTO) 0.5 K/uL (0.1-1.30); NEUTROPHILS % (AUTO) 92.9 % (43.0-81.0); PLATELET COUNT (AUTO) 193 K/uL (150-450); RED BLOOD CELL COUNT(AUTO) 4.37 MIL/uL (4.5-6.0)
[2022-03-07 06:31] LABS: ALANINE AMINOTRANSFERASE 906 U/L (12-78); ALBUMIN 2.4 g/dL (3.4-5.0); ALKALINE PHOSPHATASE 86 U/L (46-116); ASPARTATE AMINOTRANSFERASE 946 U/L (15-37); BILIRUBIN,TOTAL 0.9 mg/dL (0.2-1.0); CALCIUM, SERUM 7.9 mg/dL (8.5-10.1); CARBON DIOXIDE 34 mmol/L (21-32); CHLORIDE 105 mmol/L (98-107); CREATININE 1.5 mg/dL (0.6-1.3); GLUCOSE 104 mg/dL (74-106); MAGNESIUM 2.6 mg/dL (1.8-2.4); PHOSPHORUS 3.4 mg/dL (2.5-4.9); POTASSIUM 4.2 mmol/L (3.5-5.1); SODIUM SERUM 140 mmol/L (136-145); TOTAL PROTEIN, SERUM 6.4 g/dL (6.4-8.2); UREA NITROGEN, BLOOD 42 mg/dL (7-18)
[2022-03-07 06:33] LABS: ALBUMIN 2.4 g/dL (3.4-5.0); BILIRUBIN,DIRECT 0.5 mg/dL (0.0-0.2); BILIRUBIN,TOTAL 0.9 mg/dL (0.2-1.0); TOTAL PROTEIN, SERUM 6.5 g/dL (6.4-8.2)
[2022-03-07 06:55] LABS: C-REACTIVE PROTEIN 6.2 mg/dL (0.0-0.9)
--- NOTE | 2022-03-07 07:05 | NUR ---
SOLAR ENERGY SALES SPECIALIST Bedside report taken from [facility] nurse Haas RN. pt asleep, easily arousable, AAO x2, follows commands but confused. pt moves bue 3/5 and ble 2/5. PERRLA. pt on bipap with fio2 30%, pt tolerating well. spo2 97%, prashant lung sounds diminished. pt nsr v pacing on the monitor. bue and ble pulses present. bowel sounds present. abd soft but rounded. pt has youngblood intact and draining lorin colored urine. sacral and rle redness noted. all lines traced. all drips verified. safety measures in place. will continue to monitor.
--- NOTE | 2022-03-07 07:11 | NUR ---
ICU CLOSING NOTE PATIENT AWAKE AND ALERT A&OX2-3 CONFUSED AT TIMES. ALL VSS. PATIENT SATTING AT 95% ON BIPAP AT NIGHT 3L NC DURING THE DAY. DIET CCHO. VOIDING GARNETT. IV JEREMIAH MIDLINE #20 PATENT AND INTACT. ALL SAFETY FALL PRECAUTIONS IN PLACE BED LOCK ON, BED IN LOWEST POSITION, SIDE RAILS UP, BED ALARM ON. CALL LIGHT WITHIN REACH. ALL QUESTIONS HAVE BEEN ANSWERED AND CARE ENDORSED TO DAY SHIFT RN.
--- NOTE | 2022-03-07 07:45 | NUR ---
TRAILHEAD CONSTRUCTION WORKER Heparin drip decreased to 850 units/hr based on PTT 80 per protocol. witnessed with charge nurse Henrietta FERREIRA
[2022-03-07] MEDS: ASPIRIN 81 MG TAB.CHEW PO SCH (08:17)
[2022-03-07] MEDS: DEXAMETHASONE SOD PHOSPHATE 10 MG/ML VIAL IV SCH (08:17)
[2022-03-07] MEDS: PANTOPRAZOLE 40 MG TABLET.DR PO SCH (08:17)
[2022-03-07] MEDS: CLOPIDOGREL BISULFATE 75 MG TABLET PO SCH (08:18)
[2022-03-07] MEDS: CHOLECALCIFEROL 1,000 UNIT TABLET (VIT D3) PO SCH (08:18)
[2022-03-07] MEDS: CARVEDILOL 3.125 MG TABLET PO SCH ×2 (08:19→17:00)
[2022-03-07] MEDS: DIGOXIN 0.125 MG TABLET PO SCH (08:20)
--- NOTE | 2022-03-07 09:00 | NUR ---
CHRISTIAN EDUCATION DIRECTOR Pt taken off bipap by Orion LOCKHART per md order and placed on 2 L n/c, pt awake, alert and oriented x1 follows commands and talking, pt tolerating well. spo2 >94, other vitals stable. will continue to monitor.
[2022-03-07 09:23] LABS: ALANINE AMINOTRANSFERASE 924 U/L (12-78); ALBUMIN 2.4 g/dL (3.4-5.0); ALKALINE PHOSPHATASE 91 U/L (46-116); ASPARTATE AMINOTRANSFERASE 905 U/L (15-37); BILIRUBIN,TOTAL 0.9 mg/dL (0.2-1.0); CARBON DIOXIDE 31 mmol/L (21-32); CHLORIDE 105 mmol/L (98-107); CREATININE 1.4 mg/dL (0.6-1.3); GLUCOSE 107 mg/dL (74-106); POTASSIUM 4.2 mmol/L (3.5-5.1); SODIUM SERUM 140 mmol/L (136-145); TOTAL PROTEIN, SERUM 6.6 g/dL (6.4-8.2); UREA NITROGEN, BLOOD 42 mg/dL (7-18)
--- NOTE | 2022-03-07 09:45 | NUR ---
BEER MERCHANT Heparin drip off per Dr Young orders, verified and witnessed with charge nurse Henrietta FERREIRA
[2022-03-07 10:01] LABS: ABG BASE EXCESS -0.5 mmol/L; ABG OXYGEN SATURATION 94.4 % (92.0-98.5); ABG PCO2 58.8 mmHg (35.0-45.0); ABG PH 7.286 (7.350-7.450); ABG PO2 83.1 mmHg (75.0-100.0); AaDO2 47.2 mmHg; COHb 0.6 % (0.5-1.5); MetHb 0.4 % (0.0-1.5); O2Hb 93.5 % (94.0-97.0); SITE, ABG Right Radial; VENT MODE, BG NASAL CANNUA
[2022-03-07] MEDS: CEFEPIME 2 GM in IV D5W 100 ML IV SCH ×2 (10:50→21:13)
--- NOTE | 2022-03-07 14:32 | NUR ---
CHAIRMAN OF THE BOARD Dr roel at bedside assessing pt and updated on pt status. md aware that pt off heparin drip in am., pt not on iv meds, pt eating and drinking but is big risk for aspiration. pt on 2 L n/c spo2 93-97%, pt stable to transfer out of ICU, md to review pt chart, possible transfer orders pending. charge nurse Henrietta FERREIRA aware.
--- NOTE | 2022-03-07 17:20 | NUR ---
RN notes: received pt from ICU, alert and oriented x 1,respiration is even and unlabored, on O2 via NC @3l/min,no SOB or respiratory distress noted, midline of right upper arm patent and flushed well, with youngblood catheter patent with yellow anber urine, vital signs checked BP 90/57, temp 98.2,pulse 76,RR 22 O2 sat 96%, noted with bilateral wrist restraint, skin and circulation checked without any complication, bed kept in low and locked position, also noted with left chest pacemaker, siderail up, will monitor pt
--- NOTE | 2022-03-07 17:20 | NUR ---
LIVESTOCK BUYER Pt transfered to tele room 108 via bed with shirt and pants, pt has no other belongings. bedside report given to FELIPA nurse Chica FERREIRA. pt awake, but confused and talking. pt on 2 L n/c tolerating well. all lines traced. vitals stable. safety measures in place. pt reoriented to new room. RN at bedside. no signs of acute distress at this time.
--- NOTE | 2022-03-07 19:46 | NUR ---
DUST OPERATOR CLOSING NOTE: PATIENT AWAKE AND ALERT A&OX2-3 CONFUSED AT TIMES. ALL VSS. PATIENT SATTING AT 95% ON BIPAP AT NIGHT 3L NC DURING THE DAY. DIET CCHO. VOIDING GARNETT. IV JEREMIAH MIDLINE #20 PATENT AND INTACT. ALL SAFETY FALL PRECAUTIONS IN PLACE BED LOCK ON, BED IN LOWEST POSITION, SIDE RAILS UP, BED ALARM ON. CALL LIGHT WITHIN REACH. ALL QUESTIONS HAVE BEEN ANSWERED AND CARE ENDORSED TOIGHT SHIFT RN.
[2022-03-07] MEDS: HEPARIN SODIUM, PORCINE 5000 UNITS/1 ML VIAL SQ SCH (21:17)
[2022-03-08] VITALS (7 sets, daily range): BP systolic 91–135; BP diastolic 55–75
--- NOTE | 2022-03-08 06:56 | NUR ---
RN CLOSING NOTES: PATIENT IN BED A/O X1-2 CONFUSED AST TIMES, AT 3LPM DURING THE DAY AND NOCTURNAL BIPAP, IN ISOLATION PRECAUTIONS FOR POSITIVE COVID, REMAINED STABLE DURING THE NIGHT, IN SOFT WRIST BILATERAL RESTRAINS, NO ABNORMALITY NOTED AT SITE, NO CIRCULATION COM PROMISED, FREQUENT SKIN CHECKS DONE, BED LOCKED AND IN LOWEST POSITION, CALL LIGHT WITHIN REACH. ALL SAFETY MEASURES IN PLACE, WILL ENDORSE TO NEXT SHIFT NURSE FOR CONTINUITY OF CARE.
[2022-03-08 07:11] LABS: BASOPHILS % (AUTO) 0.1 % (0.0-2.0); HEMATOCRIT 41 % (39-51); LYMPHOCYTES # (AUTO) 0.3 K/uL (0.8-4.8); MEAN CORPUSCULAR HGB CONC 32 g/dl (31.0-36.0); MEAN CORPUSCULAR VOLUME 91 fL (80-96); MONOCYTES # (AUTO) 0.5 K/uL (0.1-1.30); MONOCYTES % (AUTO) 5.1 % (2.0-12.0); NEUTROPHILS # (AUTO) 9.9 K/uL (1.8-8.9); NEUTROPHILS % (AUTO) 91.8 % (43.0-81.0); PLATELET COUNT (AUTO) 219 K/uL (150-450); RED BLOOD CELL COUNT(AUTO) 4.54 MIL/uL (4.5-6.0); WHITE BLOOD COUNT (AUTO) 10.8 K/uL (4.3-11.0)
[2022-03-08 07:48] LABS: ALANINE AMINOTRANSFERASE 860 U/L (12-78); ALBUMIN 2.7 g/dL (3.4-5.0); ALKALINE PHOSPHATASE 95 U/L (46-116); ASPARTATE AMINOTRANSFERASE 579 U/L (15-37); BILIRUBIN,DIRECT 0.6 mg/dL (0.0-0.2); CALCIUM, SERUM 8.3 mg/dL (8.5-10.1); CARBON DIOXIDE 36 mmol/L (21-32); CHLORIDE 105 mmol/L (98-107); CREATININE 1.5 mg/dL (0.6-1.3); GLUCOSE 107 mg/dL (74-106); MAGNESIUM 2.7 mg/dL (1.8-2.4); PHOSPHORUS 3.1 mg/dL (2.5-4.9); POTASSIUM 4.3 mmol/L (3.5-5.1); SODIUM SERUM 143 mmol/L (136-145); TOTAL PROTEIN, SERUM 7.2 g/dL (6.4-8.2); UREA NITROGEN, BLOOD 42 mg/dL (7-18)
[2022-03-08] MEDS: PANTOPRAZOLE 40 MG TABLET.DR PO SCH ×2 (07:54→08:09)
[2022-03-08] MEDS: ASPIRIN 81 MG TAB.CHEW PO SCH (08:08)
[2022-03-08] MEDS: DEXAMETHASONE SOD PHOSPHATE 10 MG/ML VIAL IV SCH (08:09)
--- NOTE | 2022-03-08 08:09 | NUR ---
WOUND CARE CONSULT: REVIEWED CHART, NURSING DOCUMENTATION AND PHOTOS WHICH INDICATE REDNESS TO BUTTOCKS AND RT LOWER LEG WOUND/LESION, PRESENT ON ADMISSION. DR VELASCO NOTIFIED OF SURGICAL CONSULT REQUEST. RECOMMENDATIONS MADE FOR SKIN PROTECTION. DISCUSSED WITH NURSING STAFF. MD IN AGREEMENT WITH PLAN OF CARE.
[2022-03-08] MEDS: CHOLECALCIFEROL 1,000 UNIT TABLET (VIT D3) PO SCH (08:10)
[2022-03-08] MEDS: CLOPIDOGREL BISULFATE 75 MG TABLET PO SCH (08:10)
[2022-03-08] MEDS: DIGOXIN 0.125 MG TABLET PO SCH (08:10)
[2022-03-08] MEDS: CARVEDILOL 3.125 MG TABLET PO SCH ×2 (08:11→16:59)
[2022-03-08] MEDS: HEPARIN SODIUM, PORCINE 5000 UNITS/1 ML VIAL SQ SCH ×2 (08:13→21:05)
[2022-03-08] MEDS: CEFEPIME 2 GM in IV D5W 100 ML IV SCH ×2 (12:30→21:06)
--- NOTE | 2022-03-08 19:17 | NUR ---
RN CLOSING NOTE N OPEN NOTE Patient is in bed alert and oriented x 1,respiration is even and unlabored, on O2 via NC @3l/min,no SOB or respiratory distress noted, midline of right upper arm patent and flushed well, youngblood catheter in place draning yellow clear urine, patient has bilateral wrist restraint, skin and circulation checked without any complication, bed is in low and locked position, siderail up, will continue to monitor
--- NOTE | 2022-03-08 19:30 | NUR ---
DERRICK WORKER WELL SERVICE OPENING NOTES: RECEIVED PATIENT IN BED A/O X1-2 CONFUSED AT TIMES, ON O2 VIA NC AT 3LPM DURING THE DAY AND NOCTURNAL BIPAP, IN ISOLATION PRECAUTIONS FOR POSITIVE COVID, IN SOFT WRIST BILATERAL RESTRAINS, IV ACCESS ON JEREMIAH MIDLINE, BED LOCKED AND IN LOWEST POSITION, NOTED WITH GARNETT CATH DRAINING URINE TO GRAVITY, CALL LIGHT WITHIN REACH. ALL SAFETY MEASURES IN PLACE, WILL CONTINUE TO MONITOR CLOSELY.
[2022-03-09] VITALS: BP 97/62
[2022-03-09 04:00] VITALS: BP 97/61
--- NOTE | 2022-03-09 06:56 | NUR ---
DIRECTOR ASSET CLOSING NOTES: PATIENT IN BED A/O X1-2, ON O2 VIA NC AT 3LPM DURING THE DAY AND NOCTURNAL BIPAP, IN ISOLATION PRECAUTIONS FOR POSITIVE COVID, IN SOFT WRIST BILATERAL RESTRAINTS, IV ACCESS ON JEREMIAH MIDLINE RUNNING NS AT TKO, BED LOCKED AND IN LOWEST POSITION, NOTED WITH GARNETT CATH DRAINING URINE TO GRAVITY, ALL DUE MEDS GIVEN, KEPT DRY AND CLEAN, CALL LIGHT WITHIN REACH. ALL SAFETY MEASURES IN PLACE, WILL ENDORSE TO AM SHIFT NURSE.
[2022-03-09 07:32] LABS: BASOPHILS % (AUTO) 0.2 % (0.0-2.0); HEMATOCRIT 38 % (39-51); HEMOGLOBIN 12.3 g/dL (13.5-17.5); LYMPHOCYTES # (AUTO) 0.6 K/uL (0.8-4.8); LYMPHOCYTES % (AUTO) 7.8 % (20.0-44.0); MEAN CORPUSCULAR HGB CONC 32 g/dl (31.0-36.0); MEAN CORPUSCULAR VOLUME 89 fL (80-96); MONOCYTES # (AUTO) 0.7 K/uL (0.1-1.30); NEUTROPHILS # (AUTO) 5.9 K/uL (1.8-8.9); PLATELET COUNT (AUTO) 197 K/uL (150-450); RED BLOOD CELL COUNT(AUTO) 4.29 MIL/uL (4.5-6.0); WHITE BLOOD COUNT (AUTO) 7.2 K/uL (4.3-11.0)
[2022-03-09 07:45] LABS: ALBUMIN 2.5 g/dL (3.4-5.0); BILIRUBIN,DIRECT 0.5 mg/dL (0.0-0.2); TOTAL PROTEIN, SERUM 6.5 g/dL (6.4-8.2)
--- NOTE | 2022-03-09 07:46 | NUR ---
RN NOTES: RECEIVED PATIENT ASLEEP IN BED. A/O X1-2. ON O2 VIA NC AT 3LPM. PT ON NOCTURNAL BIPAP AT HS, ON COVID PRECAUTIONS. PT IN SOFT BILATERAL WRIST RESTRAINS, NO SS OF CIRCULATORY COMPLICATIONS NOTED AT THIS TIME. IV ACCESS ON JEREMIAH MIDLINE IN PLACE AND PATENT. WITH GARNETT CATH DRAINING URINE WELL TO GRAVITY. ALL SAFETY MEASURES IN PLACE. WILL CONTINUE TO MONITOR.
[2022-03-09 08:00] VITALS: BP 95/61
[2022-03-09] MEDS: DIGOXIN 0.125 MG TABLET PO SCH (08:46)
[2022-03-09] MEDS: ASPIRIN 81 MG TAB.CHEW PO SCH (08:46)
[2022-03-09] MEDS: CLOPIDOGREL BISULFATE 75 MG TABLET PO SCH (08:47)
[2022-03-09] MEDS: CARVEDILOL 3.125 MG TABLET PO SCH ×2 (08:47→16:37)
[2022-03-09] MEDS: CHOLECALCIFEROL 1,000 UNIT TABLET (VIT D3) PO SCH (08:48)
[2022-03-09] MEDS: DEXAMETHASONE SOD PHOSPHATE 10 MG/ML VIAL IV SCH (08:49)
[2022-03-09] MEDS: HEPARIN SODIUM, PORCINE 5000 UNITS/1 ML VIAL SQ SCH ×2 (08:52→21:09)
[2022-03-09 09:24] LABS: ALBUMIN 2.6 g/dL (3.4-5.0); CALCIUM, SERUM 8.2 mg/dL (8.5-10.1); CREATININE 1.2 mg/dL (0.6-1.3); MAGNESIUM 2.9 mg/dL (1.8-2.4); PHOSPHORUS 2.9 mg/dL (2.5-4.9); TOTAL PROTEIN, SERUM 6.3 g/dL (6.4-8.2)
[2022-03-09 10:04] LABS: POTASSIUM 4.5 mmol/L (3.5-5.1)
[2022-03-09] MEDS: CEFEPIME 2 GM in IV D5W 100 ML IV SCH ×2 (10:18→21:07)
[2022-03-09 10:23] LABS: ABG BASE EXCESS 2.6 mmol/L; ABG OXYGEN SATURATION 98.5 % (92.0-98.5); ABG PCO2 60.1 mmHg (35.0-45.0); ABG PH 7.319 (7.350-7.450); ABG PO2 134.9 mmHg (75.0-100.0); AaDO2 8.4 mmHg; COHb 0.7 % (0.5-1.5); MetHb 0.3 % (0.0-1.5); O2Hb 97.5 % (94.0-97.0); SITE, ABG Right Radial
[2022-03-09 12:00] VITALS: BP 101/55
[2022-03-09] MEDS: LORAZEPAM INJ 2 MG/ML VIAL IV PRN (12:51)
[2022-03-09 16:00] VITALS: BP 111/67
--- NOTE | 2022-03-09 17:44 | NUR ---
RN NOTES: PATIENT RESTING IN BED. A/O X1-2. ON O2 VIA NC AT 3LPM. PT ON NOCTURNAL BIPAP AT HS, ON COVID PRECAUTIONS. PT IN SOFT BILATERAL WRIST RESTRAINS, NO SS OF CIRCULATORY COMPLICATIONS NOTED AT THIS TIME. IV ACCESS ON JEREMIAH MIDLINE IN PLACE AND PATENT. WITH GARNETT CATH DRAINING URINE WELL TO GRAVITY. DUE MEDICATIONS GIVEN, AM/PM CARE RENDERED. ALL SAFETY MEASURES IN PLACE. WILL CONTINUE TO MONITOR.
--- NOTE | 2022-03-09 19:24 | NUR ---
HARDWARE SUPPLIES SALES REPRESENTATIVE OPENING NOTES RECEIVED PATIENT IN BED SLEEPING BUT EASILY AROUSABLE TO TOUCH AND VOICE, A/O X1-2, ON O2 VIA NC AT 3LPM DURING THE DAY AND NOCTURNAL BIPAP, IN ISOLATION PRECAUTIONS FOR POSITIVE COVID, IN SOFT WRIST BILATERAL RESTRAINS, IV ACCESS ON JEREMIAH MIDLINE RUNNING NS AT TKO, BED LOCKED AND IN LOWEST POSITION, NOTED WITH GARNETT CATH DRAINING URINE TO GRAVITY, CALL LIGHT WITHIN REACH. ALL SAFETY MEASURES IN PLACE, WILL CONTINUE TO MONITOR CLOSELY.
[2022-03-09 20:00] VITALS: BP 105/62
[2022-03-10] VITALS: BP 103/64
[2022-03-10 04:00] VITALS: BP 93/55
[2022-03-10 06:45] LABS: BASOPHILS % (AUTO) 0.2 % (0.0-2.0); EOSINOPHILS % (AUTO) 0.4 % (0.0-6.0); HEMATOCRIT 41 % (39-51); HEMOGLOBIN 12.8 g/dL (13.5-17.5); LYMPHOCYTES # (AUTO) 0.4 K/uL (0.8-4.8); LYMPHOCYTES % (AUTO) 8.1 % (20.0-44.0); MEAN CORPUSCULAR HGB CONC 32 g/dl (31.0-36.0); MEAN CORPUSCULAR VOLUME 91 fL (80-96); MONOCYTES # (AUTO) 0.6 K/uL (0.1-1.30); MONOCYTES % (AUTO) 12.5 % (2.0-12.0); NEUTROPHILS % (AUTO) 78.8 % (43.0-81.0); PLATELET COUNT (AUTO) 122 K/uL (150-450); RED BLOOD CELL COUNT(AUTO) 4.46 MIL/uL (4.5-6.0)
[2022-03-10 07:00] LABS: CALCIUM, SERUM 8.6 mg/dL (8.5-10.1); CREATININE 1.1 mg/dL (0.6-1.3); POTASSIUM 4.5 mmol/L (3.5-5.1)
--- NOTE | 2022-03-10 07:00 | NUR ---
MIS MANAGER CLOSING NOTES: PATIENT REMAINS IN BED A/O X1-2, ON O2 VIA NC AT 3LPM DURING THE DAY AND NOCTURNAL BIPAP, IN ISOLATION PRECAUTIONS FOR POSITIVE COVID, IN SOFT WRIST BILATERAL RESTRAINTS, IV ACCESS ON JEREMIAH MIDLINE RUNNING NS AT TKO, BED LOCKED AND IN LOWEST POSITION, NOTED WITH GARNETT CATH DRAINING BLOODY URINE TO GRAVITY, ALL DUE MEDS GIVEN, KEPT DRY AND CLEAN, CALL LIGHT WITHIN REACH. ALL SAFETY MEASURES IN PLACE, WILL ENDORSE TO AM SHIFT NURSE.
--- NOTE | 2022-03-10 07:38 | NUR ---
RN NOTES RECEIVED PATIENT ASLEEP IN BED. A/O X1-2. ON O2 VIA NC AT 3LPM. RESPONSIVE TO STIMULI. PT ON NOCTURNAL BIPAP AT HS, ON COVID PRECAUTIONS. PT IN SOFT BILATERAL WRIST RESTRAINS, NO SS OF CIRCULATORY COMPLICATIONS NOTED AT THIS TIME. IV ACCESS ON JEREMIAH MIDLINE IN PLACE AND PATENT. WITH GARNETT CATH DRAINING URINE WELL TO GRAVITY. ALL SAFETY MEASURES IN PLACE. WILL CONTINUE TO MONITOR.
[2022-03-10 08:00] VITALS: BP 105/56
[2022-03-10] MEDS: CHOLECALCIFEROL 1,000 UNIT TABLET (VIT D3) PO SCH (09:17)
[2022-03-10] MEDS: ASPIRIN 81 MG TAB.CHEW PO SCH (09:18)
[2022-03-10] MEDS: DEXAMETHASONE SOD PHOSPHATE 10 MG/ML VIAL IV SCH (09:18)
[2022-03-10] MEDS: DIGOXIN 0.125 MG TABLET PO SCH (09:18)
[2022-03-10] MEDS: CLOPIDOGREL BISULFATE 75 MG TABLET PO SCH (09:18)
[2022-03-10] MEDS: HEPARIN SODIUM, PORCINE 5000 UNITS/1 ML VIAL SQ SCH ×2 (09:19→21:22)
[2022-03-10] MEDS ORDERED: FUROSEMIDE 40 MG/4 ML VIAL IV SCH (09:30)
[2022-03-10] MEDS: PANTOPRAZOLE 40 MG TABLET.DR PO SCH (09:46)
[2022-03-10] MEDS: CEFEPIME 2 GM in IV D5W 100 ML IV SCH ×2 (11:06→21:24)
[2022-03-10 12:00] VITALS: BP 103/59
[2022-03-10] MEDS: LORAZEPAM INJ 2 MG/ML VIAL IV PRN (13:03)
[2022-03-10 16:00] VITALS: BP 104/61
--- NOTE | 2022-03-10 18:02 | NUR ---
RN NOTES: PATIENT RESTING ASLEEP IN BED. A/O X1-2. ON O2 VIA NC AT 3LPM. PT ON NOCTURNAL BIPAP AT HS, ON COVID PRECAUTIONS. PT WITH SOFT BILATERAL WRIST RESTRAINS, NO SS OF CIRCULATORY COMPLICATIONS NOTED AT THIS TIME. IV ACCESS ON JEREMIAH MIDLINE IN PLACE AND PATENT. WITH GARNETT CATH DRAINING URINE WELL TO GRAVITY. DUE MEDICATIONS GIVEN, AM/PM CARE RENDERED. ALL SAFETY MEASURES IN PLACE. WILL CONTINUE TO MONITOR.
--- NOTE | 2022-03-10 19:45 | NUR ---
RN NOTE RECEIVED PT SLEEPING, AROUSABLE TO VERBAL AND TOUCH STIMULI. NOT IN ANY DISTRESS. ON O2 AT 3L O2 SAT AT 97%. AV PACING WITH HR 78 ON TELE MONITOR. CALDERON WRIST RESTRAINTS ON, GOOD CIRCULATION. GARNETT CATH IN PLACE, DRAINING SINDI COLORED URINE. ISOLATION PRECAUTION OBSERVED. WILL CONTINUE TO MONITOR.
[2022-03-10 20:00] VITALS: BP 108/61
[2022-03-11] VITALS: BP 116/69
--- NOTE | 2022-03-11 03:40 | NUR ---
RN NOTE PT TOLERATING NOCTURNAL BIPAP.
[2022-03-11 04:00] VITALS: BP 118/60
--- NOTE | 2022-03-11 05:35 | NUR ---
RT NOTE PT TOLERATED NOC BIPAP WELL. NO RESPIRATORY DISTRESS NOTED. PT PLACED ON NASAL CANNULA @ 3 LPM.
[2022-03-11 06:18] LABS: ALANINE AMINOTRANSFERASE 425 U/L (12-78); ALBUMIN 2.3 g/dL (3.4-5.0); ALKALINE PHOSPHATASE 78 U/L (46-116); ASPARTATE AMINOTRANSFERASE 139 U/L (15-37); BILIRUBIN,DIRECT 0.1 mg/dL (0.0-0.2); BILIRUBIN,TOTAL 1.2 mg/dL (0.2-1.0); CALCIUM, SERUM 8.6 mg/dL (8.5-10.1); CHLORIDE 107 mmol/L (98-107); CREATININE 1.1 mg/dL (0.6-1.3); GLUCOSE 91 mg/dL (74-106); POTASSIUM 5.4 mmol/L (3.5-5.1); SODIUM SERUM 142 mmol/L (136-145); TOTAL PROTEIN, SERUM 6.5 g/dL (6.4-8.2); UREA NITROGEN, BLOOD 33 mg/dL (7-18)
[2022-03-11 06:26] LABS: CARBON DIOXIDE 40 mmol/L (21-32)
[2022-03-11 06:32] LABS: BASOPHILS % (AUTO) 0.2 % (0.0-2.0); EOSINOPHILS % (AUTO) 0.1 % (0.0-6.0); HEMATOCRIT 39 % (39-51); HEMOGLOBIN 12.5 g/dL (13.5-17.5); LYMPHOCYTES # (AUTO) 0.5 K/uL (0.8-4.8); LYMPHOCYTES % (AUTO) 8.1 % (20.0-44.0); MEAN CORPUSCULAR HGB CONC 32 g/dl (31.0-36.0); MEAN CORPUSCULAR VOLUME 90 fL (80-96); MONOCYTES # (AUTO) 0.6 K/uL (0.1-1.30); MONOCYTES % (AUTO) 10.7 % (2.0-12.0); NEUTROPHILS # (AUTO) 4.9 K/uL (1.8-8.9); NEUTROPHILS % (AUTO) 80.9 % (43.0-81.0); PLATELET COUNT (AUTO) 189 K/uL (150-450); RED BLOOD CELL COUNT(AUTO) 4.31 MIL/uL (4.5-6.0); WHITE BLOOD COUNT (AUTO) 6.1 K/uL (4.3-11.0)
--- NOTE | 2022-03-11 06:44 | NUR ---
RN NOTE PT TOLERATED NOCTURNAL BIPAP, BACK ON 3L VIA NC SATING 98%. NOT IN ANY DISTRESS. PT AWAKE, ALERT WITH SOME CONFUSION, REDIRECTED. REMAIN AFEBRILE. CONTINUE ON RESTRAINTS, WITH EPISODES OF PULLING OUT TUBINGS. NO SKIN BREAKDOWN NOTED. GARNETT DRAINS WELL. ALL SAFETY MEASURES MAINTAINED. WILL ENDORSE TO NEXT SHIFT NURSE FOR NOLAN.
--- NOTE | 2022-03-11 07:30 | NUR ---
RN NOTE RECEIVED PATIENT IN BED RESTING ALERT ORIENTED X1-2 VERBALLY RESPONSIVE ON 3L OXYGEN VIA NASAL CANNULA,O2:98% IV SITE IS ON RIGHT UPPER ARM MIDLINE INTACT PATENT,GARNETT CATH IN PLACE URINE DRAINING BY GRAVITY,SOFT BILATERAL WRIST RESTRAINS IN PLACE WILL CHECK EVERY 15 MINS FOR SKIN BREAKDOWN,AND CIRCULATION,HEAD OF THE BED ELEVATED,BED IN LOW POSITION AND LOCKED,CALL LIGHT WITHIN REACH,CONTINUE TO MONITOR.
[2022-03-11] MEDS: PANTOPRAZOLE 40 MG TABLET.DR PO SCH (07:41)
[2022-03-11] MEDS: HEPARIN SODIUM, PORCINE 5000 UNITS/1 ML VIAL SQ SCH ×2 (07:45→20:55)
[2022-03-11 08:00] VITALS: BP 112/69
[2022-03-11] MEDS: CHOLECALCIFEROL 1,000 UNIT TABLET (VIT D3) PO SCH (08:44)
[2022-03-11] MEDS: ASPIRIN 81 MG TAB.CHEW PO SCH (08:44)
[2022-03-11] MEDS: CLOPIDOGREL BISULFATE 75 MG TABLET PO SCH (08:44)
[2022-03-11] MEDS: DIGOXIN 0.125 MG TABLET PO SCH (08:45)
[2022-03-11] MEDS: DEXAMETHASONE SOD PHOSPHATE 10 MG/ML VIAL IV SCH (08:45)
[2022-03-11] MEDS: CEFEPIME 2 GM in IV D5W 100 ML IV SCH ×2 (09:01→21:02)
[2022-03-11] MEDS: FUROSEMIDE 40 MG/4 ML VIAL IV SCH ×3 (09:30→18:12)
--- NOTE | 2022-03-11 10:45 | NUR ---
RN NOTE REPORT GIVEN TO VIRAJ FERREIRA FOR CONTINUATION OF CARE.
--- NOTE | 2022-03-11 10:45 | NUR ---
RN NOTE RECEIVED PATIENT FOR NOLAN.
[2022-03-11] MEDS ORDERED: SODIUM POLYSTYRENE SULF. PWD 15 GM UDC PO ONE (11:00)
[2022-03-11] MEDS ORDERED: SODIUM POLYSTYRENE SULFONATE 15 G/60 ML BOTTLE ONE (11:47)
[2022-03-11 12:00] VITALS: BP 106/55
[2022-03-11 16:00] VITALS: BP 103/47
--- NOTE | 2022-03-11 19:15 | NUR ---
RN NOTE RECEIVED PATIENT IN BED RESTING ALERT ORIENTED X 1, VERBALLY RESPONSIVE ON 3L OXYGEN VIA NASAL CANNULA,O2:97% , NOCTURNAL BIPAP. IV SITE IS ON RIGHT UPPER ARM MIDLINE INTACT PATENT,GARNETT CATH IN PLACE URINE DRAINING BY GRAVITY,SOFT BILATERAL WRIST RESTRAINTS IN PLACE, TO BE RENEWED AT 0003. HEAD OF THE BED ELEVATED,BED IN LOW POSITION AND LOCKED,CALL LIGHT WITHIN REACH, WILL ENDORSE TO NIGHT NURSE.
--- NOTE | 2022-03-11 19:37 | NUR ---
LASER OPERATOR OPENING NOTE RECEIVED PT AWAKE IN BED. A/O X1 AND ABLE TO MAKE NEEDS KNOWN. PT ON O2 @ 3LPM VIA NC, SATURATING 97%. NO SOB OR S/S OF RESPIRATORY DISTRESS. ON EXTERNAL ARCHITECTURE MANAGER READING AV PACING. WITH GARNETT CATHETER DRAINING CLEAR YELLOW URINE. WITH BILATERAL SOFT WRIST RESTRAINTS, NOTED WITH GOOD CIRCULATION. IV ACCESS JEREMIAH MIDLINE, INTACT AND PATENT. SAFETY PRECAUTIONS IN PLACE. BED IN LOWEST LOCKED POSITION, HOB ELEVATED, SIDE RAILS UP X3, AND CALL LIGHT AND TABLE WITHIN REACH. ALL NEEDS MET AT THIS TIME.
[2022-03-11 20:00] VITALS: BP 105/52
[2022-03-12] VITALS: BP 106/56
[2022-03-12 04:00] VITALS: BP 106/55
--- NOTE | 2022-03-12 06:42 | NUR ---
FINGERPRINTER CLOSING NOTE PT AWAKE IN BED. A/O X1 AND ABLE TO MAKE NEEDS KNOWN. PT ON O2 @ 3LPM VIA NC, SATURATING 97%. NO SOB OR S/S OF RESPIRATORY DISTRESS. ON EXTERNAL ULTRASOUND TECH READING AV PACING 62 BPM. WITH GARNETT CATHETER DRAINING CLEAR YELLOW URINE, DRAINED 2200 CC THIS SHIFT. WITH BILATERAL SOFT WRIST RESTRAINTS, NOTED WITH GOOD CIRCULATION AND RELEASED Q2H. IV ACCESS JEREMIAH MIDLINE, INTACT AND PATENT. ALL DUE MEDS GIVEN ORDERED. TURNED AND REPOSITIONED Q2H. SAFETY PRECAUTIONS IN PLACE AT ALL TIMES. BED IN LOWEST LOCKED POSITION, HOB ELEVATED, SIDE RAILS UP X3, AND CALL LIGHT AND TABLE WITHIN REACH. ALL NEEDS MET AT THIS TIME AND WILL ENDORSE TO ONCOMING NURSE.
[2022-03-12 07:09] LABS: BASOPHILS % (AUTO) 0.1 % (0.0-2.0); EOSINOPHILS % (AUTO) 0.1 % (0.0-6.0); HEMATOCRIT 39 % (39-51); HEMOGLOBIN 12.5 g/dL (13.5-17.5); LYMPHOCYTES # (AUTO) 0.5 K/uL (0.8-4.8); LYMPHOCYTES % (AUTO) 6.6 % (20.0-44.0); MEAN CORPUSCULAR HGB CONC 32 g/dl (31.0-36.0); MEAN CORPUSCULAR VOLUME 89 fL (80-96); MONOCYTES # (AUTO) 0.8 K/uL (0.1-1.30); MONOCYTES % (AUTO) 11.1 % (2.0-12.0); NEUTROPHILS % (AUTO) 82.1 % (43.0-81.0); PLATELET COUNT (AUTO) 170 K/uL (150-450); RED BLOOD CELL COUNT(AUTO) 4.39 MIL/uL (4.5-6.0); WHITE BLOOD COUNT (AUTO) 7.3 K/uL (4.3-11.0)
[2022-03-12 07:39] LABS: ALANINE AMINOTRANSFERASE 327 U/L (12-78); ALBUMIN 2.4 g/dL (3.4-5.0); ALKALINE PHOSPHATASE 80 U/L (46-116); ASPARTATE AMINOTRANSFERASE 74 U/L (15-37); BILIRUBIN,TOTAL 1.4 mg/dL (0.2-1.0); CALCIUM, SERUM 8.2 mg/dL (8.5-10.1); CHLORIDE 101 mmol/L (98-107); CREATININE 1.1 mg/dL (0.6-1.3); GLUCOSE 93 mg/dL (74-106); MAGNESIUM 2.4 mg/dL (1.8-2.4); PHOSPHORUS 2.7 mg/dL (2.5-4.9); POTASSIUM 3.4 mmol/L (3.5-5.1); SODIUM SERUM 143 mmol/L (136-145); TOTAL PROTEIN, SERUM 6.4 g/dL (6.4-8.2); UREA NITROGEN, BLOOD 29 mg/dL (7-18)
[2022-03-12 08:00] VITALS: BP 100/53
--- NOTE | 2022-03-12 08:00 | NUR ---
RN NOTES RECEIVED PATIENT AWAKE IN BED. A/O X1-2. ON O2 VIA NC AT 3LPM. RESPONSIVE TO STIMULI. PT ON NOCTURNAL BIPAP AT HS, ON COVID PRECAUTIONS. PT IN SOFT BILATERAL WRIST RESTRAINS, NO SS OF CIRCULATORY COMPLICATIONS NOTED AT THIS TIME. IV ACCESS ON JEREMIAH MIDLINE IN PLACE AND PATENT. WITH GARNETT CATH DRAINING URINE WELL TO GRAVITY. ALL SAFETY MEASURES IN PLACE. WILL CONTINUE TO MONITOR.
[2022-03-12 08:32] LABS: CARBON DIOXIDE 59 mmol/L (21-32)
[2022-03-12] MEDS: ASPIRIN 81 MG TAB.CHEW PO SCH (09:11)
[2022-03-12] MEDS: CLOPIDOGREL BISULFATE 75 MG TABLET PO SCH (09:11)
[2022-03-12] MEDS: CHOLECALCIFEROL 1,000 UNIT TABLET (VIT D3) PO SCH (09:11)
[2022-03-12] MEDS: DIGOXIN 0.125 MG TABLET PO SCH (09:12)
[2022-03-12] MEDS: DEXAMETHASONE SOD PHOSPHATE 10 MG/ML VIAL IV SCH (09:14)
[2022-03-12] MEDS: HEPARIN SODIUM, PORCINE 5000 UNITS/1 ML VIAL SQ SCH ×2 (09:15→21:19)
[2022-03-12] MEDS: PANTOPRAZOLE 40 MG TABLET.DR PO SCH (09:18)
[2022-03-12 10:07] LABS: ABG BASE EXCESS 20.5 mmol/L; ABG OXYGEN SATURATION 96.6 % (92.0-98.5); ABG PCO2 67.7 mmHg (35.0-45.0); ABG PH 7.472 (7.350-7.450); ABG PO2 87.2 mmHg (75.0-100.0); AaDO2 61.8 mmHg; COHb 0.9 % (0.5-1.5); MetHb 0.3 % (0.0-1.5); O2Hb 95.4 % (94.0-97.0); SITE, ABG Right Radial; VENT MODE, BG NASAL CANNULA
[2022-03-12] MEDS ORDERED: POTASSIUM CHLORIDE 20 MEQ POWDER PACKET PO SCH (11:00)
[2022-03-12] MEDS: CEFEPIME 2 GM in IV D5W 100 ML IV SCH ×2 (11:28→21:04)
[2022-03-12 12:00] VITALS: BP 104/53
[2022-03-12 16:00] VITALS: BP 110/67
--- NOTE | 2022-03-12 19:25 | NUR ---
HAMMER SETTER OPENING NOTE RECEIVED PATIENT RESTING IN BED; AWAKE, ALERT AND ORIENTED X1. ON O2 INHALATION @ 3LPM VIA NASAL CANNULA SATURATING @ 97%. NOT IN ANY FORM OF RESPIRATORY DISTRESS. DENIES ANY PAIN OR DISCOMFORT OF THIS TIME. WITH BILATERAL SOFT WRIST RESTRAINTS; SKIN CHECKED DONE; SKIN WNL. ON TELEMETRY MONITORING WITH READING OF AV PACING HR - 62 BPM. WITH GARNETT CATHETER IN PLACE DRAINING TO YELLOW ORANGE URINE. WITH JEREMIAH MIDLINE; PATENT, INTACT AND FLUSHES WELL. WITH NOCTURNAL BIPAP. SAFETY PRECAUTIONS IMPLEMENTED: HEAD OF BED ELEVATED, CALL LIGHT AND TABLE WITHIN REACH, SIDE RAILS UP X2, BED IN LOWEST LOCKED POSITION. WILL CONTINUE TO MONITOR
--- NOTE | 2022-03-12 19:31 | NUR ---
RN NOTES: PATIENT RESTING ASLEEP IN BED. A/O X1-2. ON O2 VIA NC AT 2LPM. PT ON NOCTURNAL BIPAP AT HS, ON COVID PRECAUTIONS. PT WITH SOFT BILATERAL WRIST RESTRAINS, NO SS OF CIRCULATORY COMPLICATIONS NOTED AT THIS TIME. IV ACCESS ON JEREMIAH MIDLINE IN PLACE AND PATENT. WITH GARNETT CATH DRAINING URINE WELL TO GRAVITY. DUE MEDICATIONS GIVEN, AM/PM CARE RENDERED. ALL SAFETY MEASURES IN PLACE. WILL CONTINUE TO MONITOR.
[2022-03-12 20:00] VITALS: BP 105/68
[2022-03-12] MEDS: LORAZEPAM INJ 2 MG/ML VIAL IV PRN (21:04)
[2022-03-12] MEDS ORDERED: acetaZOLAMIDE SODIUM 500 MG/VIAL VIAL ONE (23:54)
[2022-03-12] MEDS: acetaZOLAMIDE SODIUM 500 MG/VIAL VIAL IV SCH (23:57)
[2022-03-13] VITALS: BP 108/71
[2022-03-13 04:00] VITALS: BP 108/66
[2022-03-13 06:46] LABS: BASOPHILS % (AUTO) 0.1 % (0.0-2.0); EOSINOPHILS % (AUTO) 0.1 % (0.0-6.0); HEMATOCRIT 39 % (39-51); HEMOGLOBIN 12.8 g/dL (13.5-17.5); LYMPHOCYTES # (AUTO) 0.6 K/uL (0.8-4.8); LYMPHOCYTES % (AUTO) 10.3 % (20.0-44.0); MEAN CORPUSCULAR HGB CONC 32 g/dl (31.0-36.0); MEAN CORPUSCULAR VOLUME 89 fL (80-96); MONOCYTES # (AUTO) 0.6 K/uL (0.1-1.30); NEUTROPHILS # (AUTO) 4.2 K/uL (1.8-8.9); NEUTROPHILS % (AUTO) 77.5 % (43.0-81.0); PLATELET COUNT (AUTO) 158 K/uL (150-450); RED BLOOD CELL COUNT(AUTO) 4.45 MIL/uL (4.5-6.0); WHITE BLOOD COUNT (AUTO) 5.4 K/uL (4.3-11.0)
--- NOTE | 2022-03-13 06:46 | NUR ---
SCRAP BUNCH MAKER CLOSING NOTE PATIENT IN BED; AWAKE, A/O X1. ON NOCTURNAL BIPAP. WITH O2 INHALATION @ 2LPM VIA NC SATURATING @ 97%. IN NO ACUTE DISTRESS. NO S/S OF PAIN OR DISCOMFORT OF THIS TIME. WITH BILATERAL SOFT WRIST RESTRAINTS; SKIN WNL UPON CHECKING. ON TELEMETRY MONITORING WITH READING OF AV PACING HR - 71 BPM. WITH GARNETT CATHETER IN PLACE DRAINING TO YELLOW ORANGE URINE. WITH JEREMIAH MIDLINE; PATENT, INTACT AND FLUSHES WELL. SAFETY PRECAUTIONS IN PLACE: HEAD OF BED ELEVATED, CALL LIGHT AND TABLE WITHIN REACH, SIDE RAILS UP X2, BED IN LOWEST LOCKED POSITION. ENDORSED TO MORNING SHIFT FOR NOLAN.
--- NOTE | 2022-03-13 07:10 | NUR ---
ms rn received on bed, awake, confuse,not in any form of distress, respirations even and unlabored, on 2 liters o2, saturating 97%, denies pain at this time, bilateral soft wrist restrain on, for comfort and safety, no distress noted,all needs attended.
[2022-03-13 07:16] LABS: CALCIUM, SERUM 8.3 mg/dL (8.5-10.1); POTASSIUM 3.6 mmol/L (3.5-5.1)
[2022-03-13 08:00] VITALS: BP 113/64
[2022-03-13] MEDS: PANTOPRAZOLE 40 MG TABLET.DR PO SCH (08:52)
[2022-03-13] MEDS: ASPIRIN 81 MG TAB.CHEW PO SCH (08:52)
[2022-03-13] MEDS: CHOLECALCIFEROL 1,000 UNIT TABLET (VIT D3) PO SCH (08:53)
[2022-03-13] MEDS: CLOPIDOGREL BISULFATE 75 MG TABLET PO SCH (08:53)
[2022-03-13] MEDS: DEXAMETHASONE SOD PHOSPHATE 10 MG/ML VIAL IV SCH (08:53)
[2022-03-13] MEDS: DIGOXIN 0.125 MG TABLET PO SCH (08:53)
[2022-03-13] MEDS: acetaZOLAMIDE SODIUM 500 MG/VIAL VIAL IV SCH (08:54)
[2022-03-13] MEDS: HEPARIN SODIUM, PORCINE 5000 UNITS/1 ML VIAL SQ SCH ×2 (09:00→20:19)
--- NOTE | 2022-03-13 09:00 | NUR ---
ms thompson breakfast served,due meds given,tolerated well.
[2022-03-13] MEDS: CEFEPIME 2 GM in IV D5W 100 ML IV SCH (10:56)
[2022-03-13 12:00] VITALS: BP 98/58
--- NOTE | 2022-03-13 12:30 | NUR ---
ms thompson breakfast served, due meds given,tolerated well.
[2022-03-13 16:00] VITALS: BP 107/63
[2022-03-13] MEDS: LORAZEPAM INJ 2 MG/ML VIAL IV PRN (17:17)
--- NOTE | 2022-03-13 19:00 | NUR ---
RN opening notes Pt is resting in bed comfortably. Pt is alert and orientedX1. On 2 L NC. no SOB. No S/S of distress noted. JEREMIAH midline is inplaced. Horton cath is inplaced and draining yellow urine. Tele monitor showed V-pacing hr at 76. bilateral soft wrist restraint in placed. skin is warm touch and circulation checks Q2hr. Isolation precautions is maintained. Safety precautions is maintained. Bed at low position, brakes locked, side rails upX3, hob elevated, bed alarm is on and call light is within reach. Will continue to monitor.
--- NOTE | 2022-03-13 19:03 | NUR ---
ms rn on bed,no distress noted, all needs attended, will endorse to night monitor for shree.
[2022-03-13 20:00] VITALS: BP 136/85
[2022-03-14] VITALS: BP 101/53
[2022-03-14 04:00] VITALS: BP 124/79
--- NOTE | 2022-03-14 06:40 | NUR ---
RN closing notes Pt is resting in bed comfortably. Pt is alert and orientedX1. On 2 L NC. no SOB. No S/S of distress noted. JEREMIAH midline is inplaced. Horton cath is inplaced and draining urine dark yellow 400ml.Tele monitor showed Vpacing hr at 72. bilateral soft wrist restraint in placed. skin is warm touch and circulation checks Q2hr. Kept Pt clean, dry and comfortable. Isolation precautions is maintained. Safety precautions is maintained. Bed at low position, brakes locked, side rails upX3, hob elevated, bed alarm is on and call light is within reach. Will endorse to am nurse for NOLAN.
[2022-03-14 06:45] LABS: BASOPHILS % (AUTO) 0.4 % (0.0-2.0); EOSINOPHILS % (AUTO) 0.1 % (0.0-6.0); HEMATOCRIT 39 % (39-51); HEMOGLOBIN 12.7 g/dL (13.5-17.5); LYMPHOCYTES # (AUTO) 0.6 K/uL (0.8-4.8); MEAN CORPUSCULAR HGB CONC 33 g/dl (31.0-36.0); MEAN CORPUSCULAR VOLUME 88 fL (80-96); MONOCYTES # (AUTO) 0.6 K/uL (0.1-1.30); MONOCYTES % (AUTO) 12.3 % (2.0-12.0); NEUTROPHILS % (AUTO) 76.2 % (43.0-81.0); PLATELET COUNT (AUTO) 153 K/uL (150-450); RED BLOOD CELL COUNT(AUTO) 4.41 MIL/uL (4.5-6.0); WHITE BLOOD COUNT (AUTO) 5.2 K/uL (4.3-11.0)
[2022-03-14 07:15] LABS: CALCIUM, SERUM 8.4 mg/dL (8.5-10.1); CARBON DIOXIDE 35 mmol/L (21-32); CHLORIDE 100 mmol/L (98-107); CREATININE 1.2 mg/dL (0.6-1.3); GLUCOSE 96 mg/dL (74-106); POTASSIUM 3.7 mmol/L (3.5-5.1); SODIUM SERUM 137 mmol/L (136-145); UREA NITROGEN, BLOOD 30 mg/dL (7-18)
--- NOTE | 2022-03-14 07:35 | NUR ---
PILLOWCASE FOLDER OPENING NOTES: RECEIVED PATIENT IN BED ASLEEP BUT EASILY AROUSES TO VOICE AND TACTILE STIMULI. ON OXYGEN @ 2L/MIN VIA N/C SATING AT 100%. BREATHING EVEN AND UNLABORED. ALERT, ORIENTED X 1. ON PACEMAKER V PACING @ 63. HAS SALINE LOCK ON RIGHT UPPER MIDLINE, FLUSHING WELL, NO S/S OF INFILTRATION. GARNETT CATHETER INTACT, DRAINING WITH YELLOW SINDI URINE. WILL TURN AND REPOSITION ORDERED. HOB KEPT ELEVATED, BED LOCKED AND IN LOWEST POSITION, CALL LIGHT WITHIN REACH. ALL SAFETY MEASURES IN PLACE. WILL CONTINUE TO MONITOR PATIENT THROUGHOUT SHIFT.
[2022-03-14 08:00] VITALS: BP 98/54
[2022-03-14] MEDS: PANTOPRAZOLE 40 MG TABLET.DR PO SCH (08:23)
[2022-03-14] MEDS: DEXAMETHASONE SOD PHOSPHATE 10 MG/ML VIAL IV SCH (08:27)
[2022-03-14] MEDS: HEPARIN SODIUM, PORCINE 5000 UNITS/1 ML VIAL SQ SCH (08:28)
[2022-03-14] MEDS: DIGOXIN 0.125 MG TABLET PO SCH (08:29)
[2022-03-14] MEDS: CHOLECALCIFEROL 1,000 UNIT TABLET (VIT D3) PO SCH (08:29)
[2022-03-14] MEDS: CLOPIDOGREL BISULFATE 75 MG TABLET PO SCH (08:29)
[2022-03-14] MEDS: ASPIRIN 81 MG TAB.CHEW PO SCH (08:30)
[2022-03-14] MEDS: acetaZOLAMIDE SODIUM 500 MG/VIAL VIAL IV SCH (08:30)
[2022-03-14 12:00] VITALS: BP 95/58
--- NOTE | 2022-03-14 13:07 | NUR ---
PER BLUEPRINT MAKER, ORDERED TO BE CHANGED TO CARDIAC PUREED DIET. ORDER NOTED AND CARRIED OUT
[2022-03-14 16:00] VITALS: BP 100/60
--- NOTE | 2022-03-14 18:55 | NUR ---
TURNING MACHINE SET UP OPERATOR CLOSING NOTES: PATIENT IN BED AWAKE, ALERT AND ORIENTED X 1. BREATHING EVEN AND UNLABORED, NO SOB NOTED. ON OXYGEN @ 2L/MIN VIA N/C WITH OXYGEN SATURATION OF 97%. NOTED WITH V PACING OF 68. SALINE LOCK ON RIGHT UPPER ARM INTACT, PATENT, FLUSHING WELL AND NO S/S INFILTRATION. PATIENT KEPT CLEAN AND DRY THROUGHOUT SHIFT, GARNETT CATHETER PATENT AND EMPTIED 600 ML OF YELLOW SINDI URINE. HOB KEPT ELEVATED, SR UP X 3, CALL LIGHT WITHIN REACH. BED LOCKED AND IN LOWEST POSITION. IMPLEMENTED SAFETY MEASURES THROUGHOUT SHIFT. WILL ENDORSE TO NEXT SHIFT NURSE FOR CONTINUITY OF CARE.
--- NOTE | 2022-03-14 19:30 | NUR ---
COMMUNITY LIVING SPECIALIST OPENING NOTES RECEIVED PATIENT IN BED AWAKE AND SCREAMING TO CAREPROVIDER. A/O X1-2, ON O2 VIA NC AT 2LPM DURING THE DAY AND NOCTURNAL BIPAP, IN ISOLATION PRECAUTIONS FOR POSITIVE COVID, IN SOFT WRIST BILATERAL RESTRAINTS, IV ACCESS ON JEREMIAH MIDLINE INTACT, PATENT, AND FLUSHES WELL, BED LOCKED AND IN LOWEST POSITION, NOTED WITH GARNETT CATH DRAINING URINE TO GRAVITY, CALL LIGHT WITHIN REACH. ALL SAFETY MEASURES IN PLACE, WILL CONTINUE TO MONITOR CLOSELY.
[2022-03-14] MEDS: LORAZEPAM INJ 2 MG/ML VIAL IV PRN (19:32)
[2022-03-14 20:00] VITALS: BP 99/65
--- NOTE | 2022-03-14 20:01 | NUR ---
RT NOTE PT AWAKE AT THIS TIME. BIPAP STANDBY. SPO2 @ 97%, HR 76, RR 20. NO RESPIRATORY DISTRESS NOTED. CONT. PULSE OX CONNECTED. WILL PLACE NOC BIPAP AT A LATER TIME.
--- NOTE | 2022-03-14 20:13 | NUR ---
RN NOTE NOTED PT INCREASING ANXIETY, YELLING TO CAREPROVIDERS. ATIVAN 1MG GIVEN PRN ORDER, WASTED PARTIAL DOSE WITH HANNA AGUILAR.
--- NOTE | 2022-03-14 21:15 | NUR ---
RN NOTE HEPARIN Na D/C BY . TOOK OUT FROM THE [facility]. WASTED MEDICATION WITH HANNA AGUILAR.
[2022-03-15] VITALS: BP 105/59
[2022-03-15 04:00] VITALS: BP 106/64
--- NOTE | 2022-03-15 05:37 | NUR ---
RT NOTE ABG DRAWN ON PATIENT. O2 SETTING AT 2L. HANNA BROOKS GIVEN ABG RESULTS.
--- NOTE | 2022-03-15 05:38 | NUR ---
RN NOTE RELAYED ABG RESULT TO DR. HUTTON, AWAITING FOR NEW ORDERS.
[2022-03-15 05:39] LABS: ABG BASE EXCESS 4.6 mmol/L; ABG OXYGEN SATURATION 96.2 % (92.0-98.5); ABG PCO2 54.7 mmHg (35.0-45.0); ABG PH 7.375 (7.350-7.450); ABG PO2 87.8 mmHg (75.0-100.0); AaDO2 47.3 mmHg; COHb 1.4 % (0.5-1.5); MetHb 0.2 % (0.0-1.5); O2Hb 94.7 % (94.0-97.0); SITE, ABG Left Radial; VENT MODE, BG 2LPM N/C
--- NOTE | 2022-03-15 06:25 | NUR ---
BOIL OFF MACHINE OPERATOR CLOTH CLOSING NOTES PATIENT REMAINS CALM IN BED A/O X 2-3, ON O2 VIA NC AT 2LPM, IN ISOLATION PRECAUTIONS, IN SOFT WRIST BILATERAL RESTRAINTS, IV ACCESS ON JEREMIAH MIDLINE INTACT, PATENT, AND FLUSHES WELL, BED LOCKED AND IN LOWEST POSITION, WITH GARNETT CATH DRAINING SINDI COLORED URINE TO GRAVITY, ALL DUE MEDS GIVEN, KEPT DRY AND CLEAN, CALL LIGHT WITHIN REACH. ALL SAFETY MEASURES IN PLACE, WILL ENDORSE TO AM SHIFT NURSE.
--- NOTE | 2022-03-15 07:30 | NUR ---
telemetry monitor opening note Patient is alert and oriented x2-3. patient is on 02 via nasal cannula at 2 liters per minute. patient is isolation precautions due to covid positive. patient has soft wrist bilateral restraints. will release circulation every 2 hours. patient is currently on sinus rhythm.patient has sacral redness. patient has youngblood cathether. yellow/lorin color draining to gravity. patient is on pureed diet. patient has right upper arm midline. iv patent and flushes well. all safety measures in place. call light within reach. bed locked in lowest position. bed alarm call. side rails up x2. will continue to assess throughout shift
[2022-03-15 07:48] LABS: CALCIUM, SERUM 8.6 mg/dL (8.5-10.1); POTASSIUM 4.1 mmol/L (3.5-5.1)
[2022-03-15 08:00] VITALS: BP 96/52
[2022-03-15] MEDS: PANTOPRAZOLE 40 MG TABLET.DR PO SCH (08:32)
[2022-03-15] MEDS: DEXAMETHASONE SOD PHOSPHATE 10 MG/ML VIAL IV SCH (08:32)
[2022-03-15] MEDS: ASPIRIN 81 MG TAB.CHEW PO SCH (08:32)
[2022-03-15] MEDS: CLOPIDOGREL BISULFATE 75 MG TABLET PO SCH (08:33)
[2022-03-15] MEDS: CHOLECALCIFEROL 1,000 UNIT TABLET (VIT D3) PO SCH (08:33)
[2022-03-15] MEDS: DIGOXIN 0.125 MG TABLET PO SCH (08:37)
[2022-03-15 08:45] LABS: BASOPHILS % (AUTO) 0.1 % (0.0-2.0); HEMATOCRIT 40 % (39-51); HEMOGLOBIN 12.9 g/dL (13.5-17.5); LYMPHOCYTES # (AUTO) 0.8 K/uL (0.8-4.8); LYMPHOCYTES % (AUTO) 14.5 % (20.0-44.0); MEAN CORPUSCULAR HGB CONC 33 g/dl (31.0-36.0); MEAN CORPUSCULAR VOLUME 89 fL (80-96); MONOCYTES # (AUTO) 0.7 K/uL (0.1-1.30); MONOCYTES % (AUTO) 12.5 % (2.0-12.0); NEUTROPHILS # (AUTO) 4.2 K/uL (1.8-8.9); NEUTROPHILS % (AUTO) 72.9 % (43.0-81.0); PLATELET COUNT (AUTO) 159 K/uL (150-450); WHITE BLOOD COUNT (AUTO) 5.8 K/uL (4.3-11.0)
[2022-03-15 12:00] VITALS: BP 108/69
[2022-03-15 16:00] VITALS: BP 110/58
--- NOTE | 2022-03-15 19:19 | NUR ---
telegraph and teletype operator closing note Patient is alert and oriented x2-3. patient is on 02 via nasal cannula at 2 liters per minute tolerating above 96%. patient is isolation precautions due to covid positive. patient has soft wrist bilateral restraints. released circulation every 2 hours.no skin or circulation noted at this time. patient is currently on sinus rhythm.patient has sacral redness. patient has youngblood cathether. yellow/lorin color draining to gravity. patient is on pureed diet. patient has right upper arm midline. iv patent and flushes well. all safety measures in place. call light within reach. bed locked in lowest position. bed alarm call. side rails up x2. will endorse to night nurse nurse
--- NOTE | 2022-03-15 19:35 | NUR ---
RN OPENING NOTES RECEIVED PATIENT IN BED, AWAKE, A/OX2-3 WITH CONFUSION AND VERBALLY RESPONSIVE. ON O2 AT 2L/MIN VIA N/C IN THE DAY TIME AND NOCTURNAL BIPAP AND PT TOLERATED WELL. IV ACCESS ON JEREMIAH MIDLINE INTACT AND PATENT. NO S/S OF INFILTRATIONS. ON SOFT WRIST BILATERAL RESTRAINTS. ISOLATIONS PRECAUTION IN PLACE FOR POSITIVE COVID. ALL SAFETY MEASURES IN PLACE. BED IN LOWEST POSITION AND LOCKED, SIDE RAILS UP X3. GARNETT CATH IN PLACE. DRAINING BY GRAVITY. PLACE CALL LIGHT WITHIN REACH. WILL CONTINUE TO MONITOR.
[2022-03-15 20:00] VITALS: BP 109/83
[2022-03-16] VITALS: BP 115/72
[2022-03-16 04:00] VITALS: BP 115/73
[2022-03-16 06:12] LABS: EOSINOPHILS % (AUTO) 0.1 % (0.0-6.0); HEMATOCRIT 38 % (39-51); HEMOGLOBIN 12.5 g/dL (13.5-17.5); LYMPHOCYTES # (AUTO) 0.8 K/uL (0.8-4.8); LYMPHOCYTES % (AUTO) 14.3 % (20.0-44.0); MEAN CORPUSCULAR HGB CONC 33 g/dl (31.0-36.0); MEAN CORPUSCULAR VOLUME 88 fL (80-96); MONOCYTES # (AUTO) 0.7 K/uL (0.1-1.30); MONOCYTES % (AUTO) 12.9 % (2.0-12.0); NEUTROPHILS # (AUTO) 3.9 K/uL (1.8-8.9); NEUTROPHILS % (AUTO) 72.7 % (43.0-81.0); PLATELET COUNT (AUTO) 138 K/uL (150-450); RED BLOOD CELL COUNT(AUTO) 4.29 MIL/uL (4.5-6.0); WHITE BLOOD COUNT (AUTO) 5.4 K/uL (4.3-11.0)
--- NOTE | 2022-03-16 06:13 | NUR ---
PT PLACED ON NOC BIPAP AT APPROXIMALLY 2330. MASK FIT ACCEPTABLY. PT REMAINED ON BIPAP THROUGH END OF SHIFT WITH SPO2 90-94%. Addendum: 03/16/22 at 0616 by KENNETH TELLEZ RT Amended: Links added.
--- NOTE | 2022-03-16 06:37 | NUR ---
RN CLOSING NOTES PATIENT IN BED, AWAKE, A/OX2-3 WITH CONFUSION AND VERBALLY RESPONSIVE. PT REMAIN ON NOCTURNAL BIPAP AND PT TOLERATED WELL. O2 SAT 95%. IV ACCESS ON JEREMIAH MIDLINE INTACT AND PATENT. NO S/S OF INFILTRATIONS. ON SOFT WRIST BILATERAL RESTRAINTS. RELEASED Q 2HOURS TO CHECK CIRCULATION. NO SIGNIFICANT CHANGE NOTED. ISOLATIONS PRECAUTION IN PLACE FOR POSITIVE COVID. NO C/O PAIN OR DISCOMFORT. NO ACUTE DISTRESS. ALL SAFETY MEASURES IN PLACE. BED IN LOWEST POSITION AND LOCKED, SIDE RAILS UP X3. GARNETT CATH IN PLACE. DRAINING BY GRAVITY. PLACE CALL LIGHT WITHIN REACH. WILL ENDORSE TO MORNING SHIFT NURSE.
[2022-03-16 07:10] LABS: CALCIUM, SERUM 8.6 mg/dL (8.5-10.1); CARBON DIOXIDE 32 mmol/L (21-32); CHLORIDE 102 mmol/L (98-107); GLUCOSE 89 mg/dL (74-106); POTASSIUM 3.8 mmol/L (3.5-5.1); SODIUM SERUM 137 mmol/L (136-145); UREA NITROGEN, BLOOD 29 mg/dL (7-18)
--- NOTE | 2022-03-16 07:30 | NUR ---
RN OPENING NOTE PATIENT IS IN BED, ASLEEP BUT EASILY AROUSABLE. ALERT, ORIENTED X 2.WITH OXYGEN VIA NASAL CANNULA AT 2L/MIN, OXYGEN SATURATION AT 96%. SINUS RHYTHM WITH V-PACING ON OFFICE EMPLOYEE. WITH RIGHT UPPER ARM MIDLINE INTACT AND PATENT. DENIES PAIN, BREATHING UNLABORED, AND NOT IN ANY FORM OF DISTRESS. BED IS LOCKED IN LOWEST POSITION, 3 SIDE RAILS UP, CALL LIGHT WITHIN REACH. WILL CONTINUE TO MONITOR THROUGHOUT SHIFT. Addendum: 03/16/22 at 1028 by ROSARIO GUPTA RN WITH BILATERAL SOFT WRIST RESTRAINTS, ADEQUATE CIRCULATION NOTED. WITH GARNETT CATHETER INTACT AND ATTACHED TO URINE BAG DRAINING TO A YELLOW COLORED URINE.
[2022-03-16 08:00] VITALS: BP 114/67
[2022-03-16 08:53] LABS: CALCIUM, SERUM 8.5 mg/dL (8.5-10.1)
[2022-03-16] MEDS: DEXAMETHASONE SOD PHOSPHATE 10 MG/ML VIAL IV SCH (09:20)
[2022-03-16] MEDS: CLOPIDOGREL BISULFATE 75 MG TABLET PO SCH (09:20)
[2022-03-16] MEDS: PANTOPRAZOLE 40 MG TABLET.DR PO SCH (09:20)
[2022-03-16] MEDS: DIGOXIN 0.125 MG TABLET PO SCH (09:21)
[2022-03-16] MEDS: ASPIRIN 81 MG TAB.CHEW PO SCH (09:22)
[2022-03-16] MEDS: CHOLECALCIFEROL 1,000 UNIT TABLET (VIT D3) PO SCH (09:31)
[2022-03-16 09:33] LABS: ALBUMIN 2.6 g/dL (3.4-5.0); BILIRUBIN,TOTAL 1.5 mg/dL (0.2-1.0); POTASSIUM 3.8 mmol/L (3.5-5.1); TOTAL PROTEIN, SERUM 6.5 g/dL (6.4-8.2)
[2022-03-16 12:00] VITALS: BP 110/80
[2022-03-16] MEDS: FLUCONAZOLE (100 MG) 100 MG TABLET PO SCH (12:39)
[2022-03-16 16:00] VITALS: BP 117/72
[2022-03-16] MEDS: NYSTATIN (PYXIS) 500,000 UNIT/5 ML ORAL.SUSP PO SCH (18:26)
--- NOTE | 2022-03-16 19:00 | NUR ---
RN CLOSING NOTE PATIENT REMAINED STABLE THROUGHOUT SHIFT. BREATHING UNLABORED AND NOT IN ANY FORM OF DISTRESS. ABLE TO TOLERATE OXYGEN VIA NASAL CANNULA AT 2L/MIN, SATTING AT 96%. IV SALINE LOCK INTACT AND PATENT. GARNETT CATHETER INTACT. SOFT WRIST RESTRAINTS ARE STILL ON BUT EXTREMITIES HAVE ADEQUATE CIRCULATION. ALL HOSPITAL PRECAUTIONS IN PLACE. WILL ENDORSE TO LABELLING MACHINE OPERATOR NURSE.
--- NOTE | 2022-03-16 19:40 | NUR ---
RN OPENING NOTES RECEIVED PATIENT IN BED, AWAKE, A/O X 2-3 WITH CONFUSION AND VERBALLY RESPONSIVE. ON O2 AT 2L/MIN VIA N/C IN THE DAY TIME AND NOCTURNAL BIPAP AND PT TOLERATED WELL. IV ACCESS ON JEREMIAH MIDLINE INTACT AND PATENT. NO S/S OF INFILTRATIONS. ON SOFT WRIST BILATERAL RESTRAINTS. ISOLATIONS PRECAUTION IN PLACE FOR POSITIVE COVID. ALL SAFETY MEASURES IN PLACE. BED IN LOWEST POSITION AND LOCKED, SIDE RAILS UP X3. GARNETT CATH IN PLACE. DRAINING BY GRAVITY. NOTED YELLOWISH/CLEAR URINE. PLACE CALL LIGHT WITHIN REACH. WILL CONTINUE TO MONITOR.
[2022-03-16 20:00] VITALS: BP 112/71
[2022-03-17] VITALS: BP 117/75
[2022-03-17 04:00] VITALS: BP 128/80
--- NOTE | 2022-03-17 06:34 | NUR ---
RN CLOSING NOTES PATIENT IN BED, AWAKE, A/OX2-3 WITH CONFUSION AND VERBALLY RESPONSIVE. PT BACK TO 2L/MIN O2 VIA N/C. O2 SAT 100%. IV ACCESS ON JEREMIAH MIDLINE INTACT AND PATENT. NO S/S OF INFILTRATIONS. ON SOFT WRIST BILATERAL RESTRAINTS. RELEASED Q 2HOURS TO CHECK CIRCULATION. NO SIGNIFICANT CHANGE DURING THIS SHIFT NOTED. ISOLATIONS PRECAUTION IN PLACE FOR POSITIVE COVID. NO C/O PAIN OR DISCOMFORT. NO ACUTE DISTRESS. ALL SAFETY MEASURES IN PLACE. BED IN LOWEST POSITION AND LOCKED, SIDE RAILS UP X3. GARNETT CATH IN PLACE. DRAINING BY GRAVITY. NOTED YELLOWISH/CLEAR URINE. PLACE CALL LIGHT WITHIN REACH. WILL ENDORSE TO MORNING SHIFT NURSE.
--- NOTE | 2022-03-17 07:30 | NUR ---
TELE/RN OPENING NOTE PATIENT AWAKE AND ALERT A&OX2-3 CONFUSED AT TIMES. ALL VSS. PATIENT SATTING AT 99% ON BIPAP AT NIGHT 2L NC DURING THE DAY. DIET CCHO. VOIDING GARNETT. IV JEREMIAH MIDLINE #20 PATENT AND INTACT. ALL SAFETY FALL PRECAUTIONS IN PLACE BED LOCK ON, BED IN LOWEST POSITION, SIDE RAILS UP, BED ALARM ON. CALL LIGHT WITHIN REACH. WILL CONTINUE TO MONITOR.
[2022-03-17 08:00] VITALS: BP 116/77
[2022-03-17] MEDS: DEXAMETHASONE SOD PHOSPHATE 10 MG/ML VIAL IV SCH (08:23)
[2022-03-17] MEDS: NYSTATIN (PYXIS) 500,000 UNIT/5 ML ORAL.SUSP PO SCH ×3 (08:23→16:18)
[2022-03-17] MEDS: PANTOPRAZOLE 40 MG TABLET.DR PO SCH (08:24)
[2022-03-17] MEDS: FLUCONAZOLE (100 MG) 100 MG TABLET PO SCH (08:24)
[2022-03-17] MEDS: ASPIRIN 81 MG TAB.CHEW PO SCH (08:24)
[2022-03-17] MEDS: CHOLECALCIFEROL 1,000 UNIT TABLET (VIT D3) PO SCH (08:25)
[2022-03-17] MEDS: DIGOXIN 0.125 MG TABLET PO SCH (08:25)
[2022-03-17] MEDS: CLOPIDOGREL BISULFATE 75 MG TABLET PO SCH (08:25)
[2022-03-17 12:00] VITALS: BP 91/54
[2022-03-17 16:00] VITALS: BP 126/84
--- NOTE | 2022-03-17 16:00 | NUR ---
TELE/RN NOTE PATIENT RECEIVED A FULL BED BATH ALL LINEN, AND GOWN WAS CHANGED. GARNTET CATHETER WAS PROVIDED. PATIENT WAS TURNED AND ADJUSTED IN THE BED. ALL SAFETY FALL PRECAUTIONS IN PLACE.
[2022-03-17] MEDS: LORAZEPAM INJ 2 MG/ML VIAL IV PRN (16:18)
--- NOTE | 2022-03-17 16:18 | NUR ---
TELE/RN NOTE PATIENT WAS GIVEN ATIVAN (LORAZEPAM) 1MG/0.5ML OF THE MEDICATION. PATIENT WAS AGITATED HALF WAY OUT OF THE BED. PATIENT RESTING COMFORTABLY ON THE BED. ALL SAFETY FALL PRECAUTIONS IN PLACE.
--- NOTE | 2022-03-17 18:53 | NUR ---
TELE/RN NOTE MEDICATION ATIVAN (LORAZEPAM) WAS WASTED BY MISTAKE TWICE. PATIENT RECEIVED ONE DOSE OF 1MG/0.5ML OF ATIVAN (LORAZEPAM). 1MG/0.5ML WAS WASTED ONLY ONE TIME.
--- NOTE | 2022-03-17 18:57 | NUR ---
TELE/RN CLOSING NOTE PATIENT AWAKE AND ALERT A&OX2-3 CONFUSED AT TIMES. ALL VSS. PATIENT SATTING AT 98% ON BIPAP AT NIGHT 2L NC DURING THE DAY. DIET CCHO. VOIDING GARNETT. IV JEREMIAH MIDLINE #20 PATENT AND INTACT. ALL SAFETY FALL PRECAUTIONS IN PLACE BED LOCK ON, BED IN LOWEST POSITION, SIDE RAILS UP, BED ALARM ON. CALL LIGHT WITHIN REACH. ALL QUESTIONS HAVE BEEN ANSWERED AND CARE ENDORSED TO CONTRACTS OFFICER RN.
--- NOTE | 2022-03-17 19:30 | NUR ---
OPTICAL ASSISTANT OPENING NOTES RECEIVED PATIENT SLEEPING IN BED BUT EASILY AROUSABLE TO TOUCH AND VOICE. A/O X1-2, ON O2 VIA NC AT 2LPM DURING THE DAY AND NOCTURNAL BIPAP, IN ISOLATION PRECAUTIONS FOR POSITIVE COVID, IN SOFT WRIST BILATERAL RESTRAINTS, IV ACCESS ON JEREMIAH MIDLINE INTACT, PATENT, AND FLUSHES WELL, BED LOCKED AND IN LOWEST POSITION, NOTED WITH GARNETT CATH DRAINING URINE TO GRAVITY, CALL LIGHT WITHIN REACH. ALL SAFETY MEASURES IN PLACE, WILL CONTINUE TO MONITOR THROUGHOUT THE SHIFT.
[2022-03-17 20:00] VITALS: BP 122/84
--- NOTE | 2022-03-17 23:14 | NUR ---
RN NOTE CALLED RT TO FOLLOW UP ON PATIENT NOCTURNAL BIPAP.
[2022-03-18] VITALS: BP 99/62
--- NOTE | 2022-03-18 07:30 | NUR ---
telephonic rn opening note patient is asleep.patient is easily arousable. patient is alert and oriented x 2-3/ patient is currently on tele monitor vpacing. patient is fall risk and has youngblood cathether.yellow/lorin colored drainage to gravity.patient has sacral redness and right lower leg wound. patient is on cardiac diet. patient has right upper arm midline. iv patent and flushing well. patient is on noctural bipap at night. patient has bilateral soft wrist restraints. will release circulation every 2 hours. all safety measures in place. call light within reach. bed locked at lowest position. side rails up x2. bed alarm on. will continue to assess throughout shift.
[2022-03-18 08:00] VITALS: BP 112/67
[2022-03-18] MEDS: NYSTATIN (PYXIS) 500,000 UNIT/5 ML ORAL.SUSP PO SCH ×3 (08:19→17:10)
[2022-03-18] MEDS: ASPIRIN 81 MG TAB.CHEW PO SCH (08:19)
[2022-03-18] MEDS: DEXAMETHASONE SOD PHOSPHATE 10 MG/ML VIAL IV SCH (08:19)
[2022-03-18] MEDS: PANTOPRAZOLE 40 MG TABLET.DR PO SCH (08:19)
[2022-03-18] MEDS: CLOPIDOGREL BISULFATE 75 MG TABLET PO SCH (08:20)
[2022-03-18] MEDS: CHOLECALCIFEROL 1,000 UNIT TABLET (VIT D3) PO SCH (08:20)
[2022-03-18] MEDS: DIGOXIN 0.125 MG TABLET PO SCH (08:21)
[2022-03-18] MEDS ORDERED: NYST5ORA PO (10:14)
[2022-03-18] MEDS ORDERED: FLUC100T8 PO (10:14)
[2022-03-18] MEDS ORDERED: DEXA4TAB PO (10:14)
[2022-03-18] MEDS: FLUCONAZOLE (100 MG) 100 MG TABLET PO SCH (10:49)
[2022-03-18 12:00] VITALS: BP 101/66
--- NOTE | 2022-03-18 13:00 | NUR ---
patient pending discharge. gave report to maxwell at [facility]. pending discharge due to unavailable nocturnal bipap equipment
[2022-03-18 16:00] VITALS: BP 105/66
--- NOTE | 2022-03-18 19:25 | NUR ---
RN NOTES RECEIVED PT FOR CONTINUITY OF CARE. PATIENT A/OX2-3IN NO S/SX OF ACUTE DISTRESS AT THIS TIME; CURRENTLY ON 2L OF 02 VIA NC; WITH 02 SAT >92% AT THIS TIME. IV ACCESS PATENT AND INTACT. NOTED GARNETT CATH OUT, WILL REINSERT WITHIN THE SHIFT. WITH BILATERAL SOFT RESTRAINTS IN PLACED, MONITORED AND ASSESSED PER PROTOCOL. SAFETY MEASURES WITHIN THE SHIFT. PATIENT BED ALARM IS ON. HEAD OF BED ELEVATED. BED IS LOCKED, IN LOWEST POSITION AND SIDE RAILS UP. CALL LIGHT WITHIN REACH OF THE PATIENT. WILL CONTINUE TO MONITOR AND REASSESS FOR ANY CHANGES AND WILL CARRY OUT ANY ONGOING AND ACTIVE MD ORDER.
--- NOTE | 2022-03-18 19:41 | NUR ---
television inspector closing note patient is asleep.patient is easily arousable. patient is alert and oriented x 2-3.patient is currently on tele monitor vpacing. patient is fall risk and has Horton catheter.patient has sacral redness and right lower leg wound. changed dressing.kept clean and dry. patient is on cardiac diet. patient has right upper arm midline. iv patent and flushing well. patient is on noctural bipap at night. patient has bilateral soft wrist restraints. released circulation every 2 hours. no skin issues noted at this time. all safety measures in place. call light within reach. bed locked at lowest position. side rails up x2. bed alarm on.endorsed to mine shifter rn
[2022-03-18 20:00] VITALS: BP 107/68
[2022-03-19] VITALS: BP 114/69
[2022-03-19 04:00] VITALS: BP 102/58
--- NOTE | 2022-03-19 04:15 | NUR ---
RN NOTES DURING PT CARE NOTED NO URINE OUTPUT SINCE SATRT OF SHIFT , ATTEMPTED TO REINSERT GARNETT CATH, NO RESISTANCE NOTED BUT WITH BLOODY OUTPUT, POSSUM TRAPPER MADE AWARE AND COUNTER CHECKED, NO RESISTANCE NOTED. BLADDER SCAN DONE >277-280CC. NOTIFIED MEGHAN MONTGOMERY AND PROVIDED CURRENT STATUS AND PLAN (PT FOR DC TO BACK TO [facility]) AND PT CURRENTLY TAKING AND SCHEDULED FOR ASPIRIN AND PLAVIX. ORDERS GIVEN FOR CBC, BMP AND CT ABD &PELVIS. HOLD PLAVIX AND AND ASPIRIN FOR NOW. HOLD PT'S DC FOR NOW. RN ACKNOWLEDGED. WILL CARRY OUT ORDERS. POSSUM TRAPPER MADE AWARE. Addendum: 03/19/22 at 0437 by KIMI OWENS RN WILL CONTINUE TO ASSESS AND MONITOR THROUGHOUT THE SHIFT.
--- NOTE | 2022-03-19 06:45 | NUR ---
RN NOTES REASSESSMENT DONE FOR GARNETT CATH OUTPUT, NO OUTPUT FROM THE BAG BUT WITH BLOODY OUTPUT FROM THE TUBE, TRIED TO IRRIGATE; FLUSHING WITH NO RESISTANCE BUT DOES NOT DRAIN TO BAG. BLADDER SCAN DONE; 450CC. SELLING UNDERWRITER MADE AWARE. NOTIFIED AND PROVIDED UPDATE TO ONCALL (JOHN DENISE) NO NEW ORDERS ONLY TO WAIT FOR CBC, BMP AND CT RESULT AND ENDORSE TO AM SHIFT TO FOLLOW THROUGH WITH AM MD. RN ACKNOWLEDGED WILL ENDORSE TO AM SHIFT.
--- NOTE | 2022-03-19 07:03 | NUR ---
RN CLOSING NOTE: PATIENT REMAINS IN ROOM IN NO SIGNS OF RESPIRATORY DISTRESS, PATIENT STILL ON 2L OF O2 VIA NC;TOLERATING WELL SATURATING @ >95% SP02. PLAN: HOLD FOR DC AT THE MOMENT. HOLD PLAVIX AND ASPIRIN ; AWAITING FOR RESULT OF CBC, BMP ADND CT ABD/PELVIS. PT HAD BLOODY OUTPUT FROM CATHETER UPON INSERTION; NO RESISTANCE UPON INSERTION AND FLUSHING BUT NOT DRAINING. BLADDER SCAN DONE LAST CHECKED WAS 450CC; MD AWARE ( MEGHAN CHAPARRO,GRAY MIXING OPERATOR) SAFETY MEASURES IMPLEMENTED, BED IN LOWEST POSITION, LOCKED, SIDE RAILS UP, CALL LIGHT WITHIN REACH. ALL NEEDS AND ORDERS ADDRESSED DURING THE SHIFT. IV ACCESS MAINTAINED INTACT, SECURED AND FLUSHING WELL. ALL DUE MEDS GIVEN ORDERED & SCHEDULED ; PATIENT TOLERATED WELL. PATIENT KEPT CLEAN AND COMFORTABLE WITHIN THE SHIFT. PATIENT ENDORSED TO INCOMING SHIFT RN WITH STABLE VITAL SIGN AND FOR CONTINUITY OF CARE.
--- NOTE | 2022-03-19 07:30 | NUR ---
television station manager opening NOTE patient is asleep.patient is easily arousable. patient is alert and oriented x 2-3.patient is currently on tele monitor. patient is fall risk and has Youngblood catheter.patient has sacral redness and right lower leg wound. patient is on cardiac diet. patient has right upper arm midline. iv patent and flushing well. patient has bilateral soft wrist restraints. released circulation every 2 hours. no skin issues noted at this time. patient has blood in urine youngblood cathether. all safety measures in place. call light within reach. bed locked at lowest position. side rails up x2. bed alarm on.will continue to assess throughout shift.
[2022-03-19 08:00] VITALS: BP 109/68
--- NOTE | 2022-03-19 08:17 | NUR ---
notified Dr. nicole about blood in urine. patient has Horton catheter. md aware. md report to hold plavix and aspirin. order stat hemoglobin and hemocrit. hold discharge and ordered continuos bladder irrigation. ordered stat H and H, ordered continous bladder irrigation, hold aspirin and plavix. will followup
--- NOTE | 2022-03-19 08:22 | NUR ---
hold aspirin and plavix per md order
[2022-03-19] MEDS: DEXAMETHASONE SOD PHOSPHATE 10 MG/ML VIAL IV SCH (08:29)
[2022-03-19] MEDS: PANTOPRAZOLE 40 MG TABLET.DR PO SCH (08:29)
[2022-03-19] MEDS: FLUCONAZOLE (100 MG) 100 MG TABLET PO SCH (08:29)
[2022-03-19] MEDS: DIGOXIN 0.125 MG TABLET PO SCH (08:29)
[2022-03-19] MEDS: NYSTATIN (PYXIS) 500,000 UNIT/5 ML ORAL.SUSP PO SCH ×3 (08:30→16:50)
[2022-03-19] MEDS: CHOLECALCIFEROL 1,000 UNIT TABLET (VIT D3) PO SCH (08:30)
[2022-03-19 09:30] LABS: BASOPHILS % (AUTO) 0.2 % (0.0-2.0); EOSINOPHILS % (AUTO) 0.1 % (0.0-6.0); HEMATOCRIT 39 % (39-51); HEMOGLOBIN 12.3 g/dL (13.5-17.5); LYMPHOCYTES # (AUTO) 0.5 K/uL (0.8-4.8); LYMPHOCYTES % (AUTO) 6.6 % (20.0-44.0); MEAN CORPUSCULAR HGB CONC 31 g/dl (31.0-36.0); MEAN CORPUSCULAR VOLUME 92 fL (80-96); MONOCYTES # (AUTO) 0.6 K/uL (0.1-1.30); NEUTROPHILS # (AUTO) 6.6 K/uL (1.8-8.9); NEUTROPHILS % (AUTO) 85.1 % (43.0-81.0); PLATELET COUNT (AUTO) 121 K/uL (150-450); RED BLOOD CELL COUNT(AUTO) 4.28 MIL/uL (4.5-6.0); WHITE BLOOD COUNT (AUTO) 7.7 K/uL (4.3-11.0)
[2022-03-19 09:50] LABS: CALCIUM, SERUM 8.5 mg/dL (8.5-10.1); POTASSIUM 3.9 mmol/L (3.5-5.1)
--- NOTE | 2022-03-19 11:12 | NUR ---
NOTIFIED DOCTOR LOWRY BLOOD CLOTS CAME OUT OF GARNETT CATHETER AFTER IRRIGATION AND NOTED WITH BLOCKAGE. GARNETT NOT DRAINING PATIENT COMPLAINING OF DISCOMFORT. BILINGUAL KINDERGARTEN TEACHER NOTIFIED. Addendum: 03/19/22 at 1200 by ISABELLE ORTIZ LVN DOCTOR SÁNCHEZ NOTIFIED OF HBG 12.3 AND HCT 39 STAT LABS.
[2022-03-19 12:00] VITALS: BP 101/61
--- NOTE | 2022-03-19 12:01 | NUR ---
DR. LOWRY WITH ORDERS FOR THREE WAY GARNETT CATHETER TO CONTINUE WITH BLADDER IRRIGATION, BUT DO NOT HOLD TRANSFER. PATIENT CAN GO TODAY. TECHNICAL SALES CONSULTANT NOTIFIED.
--- NOTE | 2022-03-19 12:04 | NUR ---
PATIENT IS AWAKE AND VERBAL STIMULATION. MOIST ORAL MUCOSA. AFTER THREE WAY CATHETER INSERTION AND INITIATION OF BLADDER IRRIGATION BLOOD CLOTS CAME OUT AND DRAINING SLOWLY HEMATURIA. PATIENT STATED "I FEEL SO MUCH BETTER" "I DO NOT HAVE DISCOMFORT ANY MORE." LEASING PROFESSIONAL NOTIFIED. PATIENT HOB ELEVATED BED IN LOW POSITION.
--- NOTE | 2022-03-19 15:00 | NUR ---
called to give report to [facility] but Nicki RN coke handling supervisor left for the day, no other RN could take report. physician practice coordinator said that she would speak with [facility] case operator to followup.informed case operator and said discharge will be for tomorrow morning at 9am
[2022-03-19 16:00] VITALS: BP 114/75
--- NOTE | 2022-03-19 18:53 | NUR ---
telecom manager closing NOTE patient is awake and oriented x2-3. patient is easily arousable. patient is currently on tele monitor running sinus rhytm and vpacing patient is fall risk and has Youngblood catheter.patient has sacral redness and right lower leg wound. patient is on cardiac diet. patient has right upper arm midline. iv patent and flushing well. patient has bilateral soft wrist restraints. released circulation every 2 hours. no skin issues noted at this time. patient has blood in urine youngblood cathether. is aware. patient has [address] way cathether for continous bladder irrigation. urine output color is now clearing and turing pink. blood in urine is clearing and draining well to gravity. all safety measures in place. call light within reach. bed locked at lowest position. side rails up x2. bed alarm on.will continue to assess throughout shift. endorsed to loss prevention agent rn Addendum: 03/19/22 at 1928 by PHU STARK RN urine is now clearing to lorin/light yellow
--- NOTE | 2022-03-19 19:30 | NUR ---
TELE1 RN NOTES RECEIVED ON BED A/O X2-3,ABLE TO COMMUNICATE,BREATHING NON LABORED,O2 OIN USED AT 2L/NC TO KEEP O1 SAT ABOVE 90%,SALINE LOCK RIGHT UPPER ARM MIDLINE INTACT AND PATENT.ON BILATERAL SOFT WRIST RESTRAINTS FOR SAFETY,TRYING TO PULL OUT GARNETT,IV TUBINGS.ISFOLEY CATH IN PLACE DRAINING CLEAR YELOOW OUTPUT,ON CONTINUOUS BLADDER IRRIGATION WITH NS FOR PREVIOUS BLOODY URINE OUTPUT.IOLATION PRECAUTION FOR COVID POSITIVE,CALL LIGHT IN REACH,NEEDS ANTICIPATED. Addendum: 03/19/22 at 2107 by REY LOWERY RN THIS NOTES WAS ENTERED BY [employer]OURCE INTELLIGENCE NURSE,REY LOWERY RN,ACCIDENTALLY ENTERED UNDER DAY SHIFT NURSE USER NAME. AT 1930
[2022-03-19 20:00] VITALS: BP 114/75
--- NOTE | 2022-03-19 20:30 | NUR ---
TELE1 HANNA NOTES HOSPITALIST HOWIE MADE AWARE ABOUT CLEAR URINE OUTPUT,WITH ORDER TO CONTINUE BLADDER IRRIGATION FOR NOW,NOTED AND CARRIED OUT. Addendum: 03/19/22 at 2108 by REY LOWERY RN THIS NOTES ENTERED BY [facility] SHIFT NURSE REY LOWERY RN,ACCIDENTALLY ENTERED UNDER DAY SHIFT NURSE USER NAME
--- NOTE | 2022-03-19 23:00 | NUR ---
COO NOTES EVENING CARE RENDERED,HAD MEDIUM FORMED BOWEL MOVEMENT.SLIGHT BLEEDING NOTED ON PENILE AREA,CLEANED AND KEPT DRY.REPOSITIONED.PUT BACK ON RESTRAINTS ORDERED.CBI IN PROGRESS.
--- NOTE | 2022-03-19 23:44 | NUR ---
PT PLACED ON NOC BIPAP RN NOTIFIED.
[2022-03-20] VITALS: BP 104/68
[2022-03-20 04:00] VITALS: BP 112/70
--- NOTE | 2022-03-20 05:22 | NUR ---
PT TAKEN OFF NOC BIPAP AND PLACED ON 3L NC.
--- NOTE | 2022-03-20 06:38 | NUR ---
TELE1 RN CLOSING NOTES ON BED AWAKE,CONVERSANT,STILL ON CONTINUOS BLADDER IRRIGATION,WITH CLEAR YELLOW OUTPUT,,BIPAP AT NIGHT TOLERATED WELL.NO EPISODE OF SOB NOTED.POSSIBLE D/C BACK TO [facility] TODAY.IN NO ACUTE DISTRESS.ENDORSED TO DAY NURSE FOR NOLAN.
--- NOTE | 2022-03-20 07:30 | NUR ---
RN OPENING NOTE PATIENT IS IN BED, ASLEEP BUT EASILY AROUSABLE. ALERT AND ORIENTED X 2, BREATHING UNLABORED AND NOT IN ANY FORM OF DISTRESS. WITH OXYGEN VIA NASAL CANNULA AT 2L/MIN, SATTING AT 97%. V-PACING ON SHOVEL MECHANIC. WITH GARNETT CATHETER ON CONTINUOUS BLADDER IRRIGATION, ATTACHED TO URINE BAG DRAINING TO CLEAR YELLOW URINE. WITH RIGHT UPPER ARM MIDLINE INTACT AND PATENT. BED IS LOCKED IN LOWEST POSITION, 3 SIDE-RAILS UP, CALL LIGHT WITHIN REACH. WILL CONTINUE TO MONITOR THROUGHOUT SHIFT.
[2022-03-20] MEDS: PANTOPRAZOLE 40 MG TABLET.DR PO SCH (08:32)
[2022-03-20] MEDS: DIGOXIN 0.125 MG TABLET PO SCH (08:33)
[2022-03-20] MEDS: NYSTATIN (PYXIS) 500,000 UNIT/5 ML ORAL.SUSP PO SCH (08:34)
[2022-03-20] MEDS: CHOLECALCIFEROL 1,000 UNIT TABLET (VIT D3) PO SCH (08:34)
[2022-03-20] MEDS: FLUCONAZOLE (100 MG) 100 MG TABLET PO SCH (08:34)
[2022-03-20 08:55] VITALS: BP 110/72
[2022-03-20] MEDS ORDERED: DEXAMETHASONE SOD PHOSPHATE 10 MG/ML VIAL IV SCH (09:00)
--- NOTE | 2022-03-20 10:00 | NUR ---
RN CLOSING NOTE PATIENT IS DISCHARGED TO [facility] VIA AMBULANCE IN STABLE CONDITION. ALL FORMS SIGNED. REFUSED PHOTOGRAPHIC DOCUMENTATION OF SKIN SAYING "THEY ALWAYS TAKE PHOTOS OF IT, IM DONE WITH IT! I JUST WANNA GET OUT OF THIS PLACE." IV MIDLINE REMOVED, CANNULA INTACT, AND IV SITE COVERED WITH DRY DRESSING. PATIENT WENT TO SNF WITH GARNETT CATHETER IN PLACE. DISCHARGE V/S: T 97.6, HR 76, RR 20, O2 97%, BP 115/73.
== END 2022-03-20 10:18 | DRG 871 ==
LOC: ER 11:14 → TRANSITION 15:23 → ICU 19:31 → TELE1 03-07 17:16
PROC: XW033E5 Introduction of Remdesivir Anti-infective into Peripheral Vein, Percutaneous Approach, New Technology Group 5 (ICD-10-PCS; 2022-03-05)
PROC: 05H933Z Insertion of Infusion Device into Right Brachial Vein, Percutaneous Approach (ICD-10-PCS; 2022-03-05)
PROC: 5A09557 Assistance with Respiratory Ventilation, Greater than 96 Consecutive Hours, Continuous Positive Airway Pressure (ICD-10-PCS; principal; 2022-03-07)
DX: A41.89 Other specified sepsis (principal); G92.8 Other toxic encephalopathy; I21.A1 Myocardial infarction type 2; U07.1 COVID-19; J12.82 Pneumonia due to coronavirus disease 2019; J96.02 Acute respiratory failure with hypercapnia; J96.01 Acute respiratory failure with hypoxia; N17.0 Acute kidney failure with tubular necrosis; J15.9 Unspecified bacterial pneumonia; K72.00 Acute and subacute hepatic failure without coma; I13.0 Hypertensive heart and chronic kidney disease with heart failure and stage 1 through stage 4 chronic kidney disease, or unspecified chronic kidney disease; E66.2 Morbid (severe) obesity with alveolar hypoventilation; E87.3 Alkalosis; E87.1 Hypo-osmolality and hyponatremia; B37.0 Candidal stomatitis; L97.819 Non-pressure chronic ulcer of other part of right lower leg with unspecified severity; I25.5 Ischemic cardiomyopathy; E11.22 Type 2 diabetes mellitus with diabetic chronic kidney disease; E11.51 Type 2 diabetes mellitus with diabetic peripheral angiopathy without gangrene; I35.0 Nonrheumatic aortic (valve) stenosis; I25.10 Atherosclerotic heart disease of native coronary artery without angina pectoris; I25.2 Old myocardial infarction; N18.9 Chronic kidney disease, unspecified; K21.9 Gastro-esophageal reflux disease without esophagitis; Z88.8 Allergy status to other drugs, medicaments and biological substances; Z79.02 Long term (current) use of antithrombotics/antiplatelets; Z79.899 Other long term (current) drug therapy; Z79.82 Long term (current) use of aspirin; Z68.34 Body mass index [BMI] 34.0-34.9, adult; E88.09 Other disorders of plasma-protein metabolism, not elsewhere classified; R74.01 Elevation of levels of liver transaminase levels; Y95 Nosocomial condition; T50.995A Adverse effect of other drugs, medicaments and biological substances, initial encounter; Y92.89 Other specified places as the place of occurrence of the external cause; Z95.810 Presence of automatic (implantable) cardiac defibrillator; Z79.01 Long term (current) use of anticoagulants; E87.5 Hyperkalemia; E87.6 Hypokalemia; I73.9 Peripheral vascular disease, unspecified; E78.5 Hyperlipidemia, unspecified; I50.9 Heart failure, unspecified; I87.2 Venous insufficiency (chronic) (peripheral); E11.622 Type 2 diabetes mellitus with other skin ulcer
CPT/HCPCS: 36410; 36415; 36600; 71045-TC; 76700-TC; 80048-TC; 80053-TC; 80076-TC; 81001; 82140-TC; 82248-TC; 82533; 82550-TC; 82728-TC; 82803-TC; 83605-TC; 83615-TC; 83735-TC; 83880; 84100-TC; 84484-TC; 85025-TC; 85378-TC; 85385-TC; 85610-TC; 85730-TC; 86140-TC; 86480; 86850-TC; 87040-TC; 87081-TC; 92526; 92611-TC; 93307-TC; 94660; 94760-TC; 94799-TC; A4216; A4217; C9803; G0378; J0692; J1100; J1120; J1644; J1650; J1940; J2060; J2543; J3262; J3370; J7030; J7050; J7060

== ENCOUNTER 2022-09-06 12:03 | Inpatient (IN) | payer MEDICARE, OTHER ==
[~2022-09-06] VITALS: Ht 170.2 cm; Wt 90.7 kg
[~2022-09-06 12:03] MED LIST changes: +AMIN887L PO; +ASCO500C17 PO; +DEXA4TAB PO; +FLUC100T8 PO; +MULT-439 PO; +NUTR1PAC14 PO; +NYST5ORA PO; +POTA10CA43 PO
--- NOTE | 2022-09-06 12:10 | NUR ---
IV ETSBALISHED R AC 20G. LABS DRAWN AND SENT
[2022-09-06] MEDS ORDERED: MAGN400O6 PO (12:35)
[2022-09-06] MEDS ORDERED: ACET-2605 PO (12:35)
[2022-09-06] MEDS ORDERED: CHOL100043 PO (12:35)
[2022-09-06] MEDS ORDERED: POTA10TA10 PO (12:35)
[2022-09-06] MEDS ORDERED: ACET-868 PO (12:35)
[2022-09-06] MEDS ORDERED: ASCO500T10 PO (12:35)
[2022-09-06 12:40] LABS: BASOPHILS % (AUTO) 0.3 % (0.0-2.0); EOSINOPHILS % (AUTO) 0.8 % (0.0-6.0); HEMATOCRIT 38 % (39-51); HEMOGLOBIN 12.1 g/dL (13.5-17.5); LYMPHOCYTES # (AUTO) 0.5 K/uL (0.8-4.8); LYMPHOCYTES % (AUTO) 8.8 % (20.0-44.0); MEAN CORPUSCULAR HGB CONC 32 g/dl (31.0-36.0); MEAN CORPUSCULAR VOLUME 94 fL (80-96); MONOCYTES # (AUTO) 0.7 K/uL (0.1-1.30); MONOCYTES % (AUTO) 11.9 % (2.0-12.0); NEUTROPHILS # (AUTO) 4.6 K/uL (1.8-8.9); NEUTROPHILS % (AUTO) 78.2 % (43.0-81.0); PLATELET COUNT (AUTO) 197 K/uL (150-450); RED BLOOD CELL COUNT(AUTO) 4.02 MIL/uL (4.5-6.0); WHITE BLOOD COUNT (AUTO) 5.9 K/uL (4.3-11.0)
--- NOTE | 2022-09-06 12:51 | NUR ---
COVID SWAB COLLECTED AND SENT TO LAB
[2022-09-06 12:56] LABS: CALCIUM, SERUM 9.2 mg/dL (8.5-10.1); CARBON DIOXIDE 32 mmol/L (21-32); CHLORIDE 97 mmol/L (98-107); CREATININE 1.4 mg/dL (0.6-1.3); GLUCOSE 106 mg/dL (74-106); POTASSIUM 3.8 mmol/L (3.5-5.1); SODIUM SERUM 134 mmol/L (136-145); UREA NITROGEN, BLOOD 29 mg/dL (7-18)
[2022-09-06 13:06] LABS: ALANINE AMINOTRANSFERASE 14 U/L (12-78); ALBUMIN 3.6 g/dL (3.4-5.0); ALKALINE PHOSPHATASE 93 U/L (46-116); ASPARTATE AMINOTRANSFERASE 22 U/L (15-37); BILIRUBIN,DIRECT 0.5 mg/dL (0.0-0.2); BILIRUBIN,TOTAL 1.5 mg/dL (0.2-1.0); TOTAL PROTEIN, SERUM 8.4 g/dL (6.4-8.2)
--- NOTE | 2022-09-06 13:16 | NUR ---
CALLED NURSING SUP REGARDING PT BED
[2022-09-06] MEDS ORDERED: IOHEXOL-350 100 ML VIAL IV ONE (13:18)
[2022-09-06] MEDS ORDERED: IV NS 0.9% 250 ML IV ONE (13:19)
--- NOTE | 2022-09-06 14:07 | NUR ---
BED 308-5
[2022-09-06] MEDS ORDERED: ONDANSETRON HCL/PF 4 MG/2 ML VIAL IVP PRN (15:30)
[2022-09-06] MEDS ORDERED: MORPHINE SULFATE INJ 2 MG/ML DISP.SYRIN IV PRN (15:30)
[2022-09-06] MEDS ORDERED: hydrALAZINE HCL IV 20 MG VIAL IV PRN (15:30)
--- NOTE | 2022-09-06 15:31 | NUR ---
REPORT GIVEN TO AKANKSHA RN ROOM 308-2 FOR NOLAN
[2022-09-06 15:50] VITALS: BP 99/78
[2022-09-06] MEDS: CARVEDILOL 3.125 MG TABLET PO SCH (17:00)
[2022-09-06] MEDS: DOCUSATE SODIUM 100 MG CAPSULE PO SCH (17:00)
[2022-09-06] MEDS: SACUBITRIL/VALSARTAN 1 EACH TABLET PO SCH (17:00)
[2022-09-06 18:30] VITALS: BP 99/78
--- NOTE | 2022-09-06 18:48 | NUR ---
ACQUISITIONS LOGISTICS ANALYST ADMITTING/CLOSING NOTES RECEIVED PATIENT VIA GURNEY, PATIENT ABLE TO AMBULATE TO BED WITH CANE. A/Ox3, ABLE TO MAKE NEEDS KNOWN. PATIENT IV ACCESS RAC #20 S/L. INTACT AND PATENT. PATIENT ORIENTED TO STAFF AND ROOM, AND HOW TO USE CALL LIGHT. PATIENT STABLE ON ROOM AIR, NO S/S OF RESPIRATORY DISTRESS. PATIENT CONNECTED TO TELE MONITORING SHOWING V-PACING HR 87. NO C/O OF CHEST PAIN OR DISCOMFORT. V/S STABLE. PATIENT FULL BODY ASSESSMENT COMPLETED: CARDIAC SOUNDS WNL, LUNG SOUNDS WNL, GI/ WNL, PATIENT VOIDED IN BEDSIDE COMMODE, SKIN INTACT. SAFETY MEASURES PLACED AND MAINTAINED: BED LOCKED AND IN LOWEST POSITION, HOB ELEVATED, BED ALARM ON, CALL LIGHT WITHIN REACH. WILL ENDORSE TO NEXT SHIFT ANY NOLAN. Addendum: 09/06/22 at 1910 by AKANKSHA ALLEN RN ADDENDUM: PATIENT CHANGED, NOTED WITH SACRAL DISCOLORATION BETWEEN THE BUTTOCK CHEEKS. PHOTO TAKEN AND FILED INTO CHART. WOUND CARE CONSULT ORDERS. ENDORSED TO SENIOR CORPORATE ACCOUNTANT.
--- NOTE | 2022-09-06 19:30 | NUR ---
DRYWALL FINISHER FOREMAN OPENING NOTES RECEIVED PATIENT AWAKE IN BED. PATIENT IS A/O TIMES 3 WITH BEING FORGETFUL. PATIENT IS TAIWANESE SPEAKER AND ABLE TO MAKE NEEDS KNOWN. ON TELE MONITOR AND READING V PACING 87 AT THIS TIME. NO CHEST PAIN NOTED. NO SOB NOTED. NO DISTRESS NOTED. CONTINENT AND USES URINAL. IV ACCESS ON THE RAC G # 20 INTACT AND PATENT AND SL. ALL NEEDS ATTENDED. FALL RISK. REMINDED THE PATIENT TO PRESS CALL LIGHT FOR ANY ASSISTANCE. PATIENT HAS CANE, REMIND THE PATIENT TO ASK FOR ASISTANCE IF NEEDED TO AMBULATE. VERBALIZED UNDERSTANDING. SACRAL DTI NOTED. ALL SAFETY MEASURES IN PLACE. BED LOCKED IN THE LOWEST POSITION. CALL LIGHT AND TABLE IN EASY REACH. SIDE RAILS UP TIMES 2. BED ALARM ON. WILL CONTINUE TO MONITOR CLOSELY.
[2022-09-06 20:00] VITALS: BP 103/60
[2022-09-06] MEDS: HEPARIN SODIUM, PORCINE 5000 UNITS/1 ML VIAL SQ SCH (20:41)
[2022-09-06] MEDS: ATORVASTATIN 40 MG TABLET PO SCH (21:00)
[2022-09-06] MEDS: ACETAMINOPHEN 325 MG TABLET PO PRN (22:26)
[2022-09-07] VITALS: BP 90/54
[2022-09-07 04:00] VITALS: BP 100/62
--- NOTE | 2022-09-07 06:36 | NUR ---
INFORMATION SECURITY SYSTEMS INSTRUCTOR CLOSING NOTES PATIENT AWAKE IN BED. ASKING BOILER FITTER NURSE TO TAKE HIM TO BATHROOM. PATIENT IS A/O TIMES 3 WITH BEING FORGETFUL. PATIENT IS KHM[place] SPEAKER AND ABLE TO MAKE NEEDS KNOWN. ON TELE MONITOR AND READING V PACING 86 AT THIS TIME. NO CHEST PAIN NOTED. NO SOB NOTED. NO DISTRESS NOTED. CONTINENT AND USES URINAL. IV ACCESS ON THE RAC G # 20 INTACT AND PATENT AND SL.ALL DUE MEDS GIVEN ORDERED. ALL NEEDS ATTENDED. FALL RISK. REMINDED THE PATIENT TO PRESS CALL LIGHT FOR ANY ASSISTANCE. PATIENT HAS CANE, REMIND THE PATIENT TO ASK FOR ASSISTANCE IF NEEDED TO AMBULATE. VERBALIZED UNDERSTANDING. SACRAL DTI NOTED. ALL SAFETY MEASURES IN PLACE. BED LOCKED IN THE LOWEST POSITION. CALL LIGHT AND TABLE IN EASY REACH. SIDE RAILS UP TIMES 2. BED ALARM ON. WILL ENDORSE FOR NOLAN.
[2022-09-07 07:18] LABS: BASOPHILS % (AUTO) 0.4 % (0.0-2.0); EOSINOPHILS % (AUTO) 0.5 % (0.0-6.0); HEMATOCRIT 35 % (39-51); HEMOGLOBIN 11.5 g/dL (13.5-17.5); LYMPHOCYTES # (AUTO) 0.4 K/uL (0.8-4.8); LYMPHOCYTES % (AUTO) 9.4 % (20.0-44.0); MEAN CORPUSCULAR HGB CONC 33 g/dl (31.0-36.0); MEAN CORPUSCULAR VOLUME 93 fL (80-96); MONOCYTES # (AUTO) 0.7 K/uL (0.1-1.30); MONOCYTES % (AUTO) 16.7 % (2.0-12.0); NEUTROPHILS # (AUTO) 3.3 K/uL (1.8-8.9); PLATELET COUNT (AUTO) 156 K/uL (150-450); RED BLOOD CELL COUNT(AUTO) 3.78 MIL/uL (4.5-6.0); WHITE BLOOD COUNT (AUTO) 4.5 K/uL (4.3-11.0)
[2022-09-07 07:26] LABS: ALANINE AMINOTRANSFERASE 13 U/L (12-78); ALBUMIN 3.3 g/dL (3.4-5.0); ALKALINE PHOSPHATASE 86 U/L (46-116); ASPARTATE AMINOTRANSFERASE 16 U/L (15-37); BILIRUBIN,TOTAL 1.6 mg/dL (0.2-1.0); CALCIUM, SERUM 9.2 mg/dL (8.5-10.1); CARBON DIOXIDE 26 mmol/L (21-32); CHLORIDE 98 mmol/L (98-107); CREATININE 1.3 mg/dL (0.6-1.3); GLUCOSE 137 mg/dL (74-106); MAGNESIUM 2.3 mg/dL (1.8-2.4); PHOSPHORUS 3.8 mg/dL (2.5-4.9); POTASSIUM 3.8 mmol/L (3.5-5.1); SODIUM SERUM 134 mmol/L (136-145); TOTAL PROTEIN, SERUM 7.5 g/dL (6.4-8.2); UREA NITROGEN, BLOOD 29 mg/dL (7-18)
--- NOTE | 2022-09-07 07:30 | NUR ---
TAPE CALENDER NOTES PT AWAKE, ALERT AND ORIENTED, NO COMPLAINT AT THIS TIME, RESPIRATIONS NORMAL, CALL LIGHT WITHIN REACH, NEEDS ATTENDED.
[2022-09-07 07:32] LABS: IRON, SERUM 37 ug/dl (50-175); TOTAL IRON BINDING CAPACITY 327 ug/dl (250-450)
[2022-09-07 07:41] LABS: FERRITIN 63 ng/mL (8-388); THYROID STIMULATING HORMONE 2.042 uIU/mL (0.358-3.74)
[2022-09-07 08:00] VITALS: BP 112/79
[2022-09-07] MEDS: CLOPIDOGREL BISULFATE 75 MG TABLET PO SCH (08:28)
[2022-09-07] MEDS: PANTOPRAZOLE 40 MG TABLET.DR PO SCH (08:28)
[2022-09-07] MEDS: DOCUSATE SODIUM 100 MG CAPSULE PO SCH ×3 (08:28→17:00)
[2022-09-07] MEDS: ASCORBIC ACID 500 MG TABLET PO SCH (08:28)
[2022-09-07] MEDS: MULTIVIT W/MINERALS 1 TAB TABLET PO SCH (08:28)
[2022-09-07] MEDS: CHOLECALCIFEROL 1,000 UNIT TABLET (VIT D3) PO SCH (08:28)
[2022-09-07] MEDS: SPIRONOLACTONE 25 MG TABLET PO SCH (08:28)
[2022-09-07] MEDS: ASPIRIN 81 MG TAB.CHEW PO SCH (08:28)
[2022-09-07] MEDS: POTASSIUM CHLORIDE 10 MEQ TABLET.SA PO SCH (08:28)
[2022-09-07] MEDS: CARVEDILOL 3.125 MG TABLET PO SCH ×2 (08:29→17:38)
[2022-09-07] MEDS: FUROSEMIDE 40 MG TABLET PO SCH (08:29)
[2022-09-07] MEDS: SACUBITRIL/VALSARTAN 1 EACH TABLET PO SCH ×3 (09:00→17:00)
[2022-09-07] MEDS: HEPARIN SODIUM, PORCINE 5000 UNITS/1 ML VIAL SQ SCH ×2 (09:07→20:32)
[2022-09-07 12:00] VITALS: BP 102/66
[2022-09-07 12:13] LABS: BAND % (MANUAL) 2 % (0.0-5.0); LYMPHOCYTES % (MANUAL) 16 % (16-48); MONOCYTES % (MANUAL) 1 % (0-11.0); NEUTROPHILS % (MANUAL) 66 (42-76); REACTIVE LYMPHOCYTES 15 % (0-0)
[2022-09-07] MEDS: DIGOXIN 0.125 MG TABLET PO SCH (13:39)
[2022-09-07 16:06] VITALS: BP 118/81
[2022-09-07] MEDS: FERROUS SULFATE (325 MG) 325 MG/TAB TABLET PO SCH (17:38)
--- NOTE | 2022-09-07 19:09 | NUR ---
PLANT PULLER NOTES PT IN BED, AWAKE, ALERT, NO COMPLAINT OF PAIN, NOT IN DISTRESS, PM MEDS GIVEN, CALL LIGHT WITHIN REACH, ASSISTED WITH URINAL USE, NEEDS ATTENDED, ENDORSED TO PM SHIFT RN FOR CONTINUITY OF CARE.
--- NOTE | 2022-09-07 19:30 | NUR ---
BRUSH MACHINE SETTER OPENING NOTES RECEIVED PATIENT AWAKE IN BED. PATIENT IS A/O TIMES 3 WITH BEING FORGETFUL. PATIENT IS [place] SPEAKER AND ABLE TO MAKE NEEDS KNOWN. ON TELE MONITOR AND READING V PACING 85 AT THIS TIME. NO CHEST PAIN NOTED. NO SOB NOTED. NO DISTRESS NOTED. CONTINENT AND USES URINAL. IV ACCESS ON THE RAC G # 20 INTACT AND PATENT AND SL. ALL NEEDS ATTENDED. FALL RISK. REMINDED THE PATIENT TO PRESS CALL LIGHT FOR ANY ASSISTANCE. PATIENT HAS CANE, REMIND THE PATIENT TO ASK FOR ASSISTANCE IF NEEDED TO AMBULATE. VERBALIZED UNDERSTANDING. ALL SAFETY MEASURES IN PLACE. BED LOCKED IN THE LOWEST POSITION. CALL LIGHT AND TABLE IN EASY REACH. SIDE RAILS UP TIMES 2. BED ALARM ON. WILL CONTINUE TO MONITOR CLOSELY.
[2022-09-07 20:30] VITALS: BP 104/69
[2022-09-07] MEDS: ATORVASTATIN 40 MG TABLET PO SCH (21:02)
[2022-09-07] MEDS: ACETAMINOPHEN 325 MG TABLET PO PRN (21:58)
[2022-09-08 00:19] VITALS: BP 104/66
[2022-09-08 04:08] VITALS: BP 90/55
[2022-09-08 07:08] LABS: IMMUNOGLOBULIN A, SERUM 319 mg/dL (61-437); IMMUNOGLOBULIN G, SERUM 1843 mg/dL (603-1613); IMMUNOGLOBULIN M, SERUM 111 mg/dL (15-143)
--- NOTE | 2022-09-08 07:30 | NUR ---
WINTERIZER NOTES PT AWAKE, ALERT AND ORIENTED, SITTING IN BED, BREAKFAST SERVED, CALL LIGHT WITHIN REACH, PT REFUSES TO HAVE THE CT ABD PELVIS, STATED THAT HE DOES NOT NEED IT, EXPLAINED RISKS AND BENEFITS, STILL REFUSED.
--- NOTE | 2022-09-08 07:30 | NUR ---
WANT AD RECEIVER CLOSING NOTES PATIENT AWAKE IN BED. PATIENT IS A/O TIMES 3 WITH BEING FORGETFUL. PATIENT IS [place] SPEAKER AND ABLE TO MAKE NEEDS KNOWN. ON TELE MONITOR AND READING V PACING 85 AT THIS TIME. NO CHEST PAIN NOTED. NO SOB NOTED. NO DISTRESS NOTED. CONTINENT AND USES URINAL. IV ACCESS ON THE RAC G # 20 INTACT AND PATENT AND SL.ALL DUE MEDS GIVEN ORDERED. ALL NEEDS ATTENDED. FALL RISK. REMINDED THE PATIENT TO PRESS CALL LIGHT FOR ANY ASSISTANCE. PATIENT HAS CANE, REMIND THE PATIENT TO ASK FOR ASSISTANCE IF NEEDED TO AMBULATE. VERBALIZED UNDERSTANDING. REFUSED TO SIGN THE CONSENT FOR CT OF ABDOMEN. ALL SAFETY MEASURES IN PLACE. BED LOCKED IN THE LOWEST POSITION. CALL LIGHT AND TABLE IN EASY REACH. SIDE RAILS UP TIMES 2. BED ALARM ON. WILL ENDORSE FOR NOLAN.
[2022-09-08 08:00] VITALS: BP 154/89
[2022-09-08] MEDS: PANTOPRAZOLE 40 MG TABLET.DR PO SCH (08:23)
[2022-09-08] MEDS: ASCORBIC ACID 500 MG TABLET PO SCH (08:23)
[2022-09-08] MEDS: CARVEDILOL 3.125 MG TABLET PO SCH ×2 (08:23→16:45)
[2022-09-08] MEDS: FERROUS SULFATE (325 MG) 325 MG/TAB TABLET PO SCH ×2 (08:23→16:52)
[2022-09-08] MEDS: POTASSIUM CHLORIDE 10 MEQ TABLET.SA PO SCH (08:23)
[2022-09-08] MEDS: CLOPIDOGREL BISULFATE 75 MG TABLET PO SCH (08:23)
[2022-09-08] MEDS: FUROSEMIDE 40 MG TABLET PO SCH (08:24)
[2022-09-08] MEDS: SACUBITRIL/VALSARTAN 1 EACH TABLET PO SCH ×2 (08:24→16:45)
[2022-09-08] MEDS: CHOLECALCIFEROL 1,000 UNIT TABLET (VIT D3) PO SCH (08:24)
[2022-09-08] MEDS: ASPIRIN 81 MG TAB.CHEW PO SCH (08:24)
[2022-09-08] MEDS: SPIRONOLACTONE 25 MG TABLET PO SCH (08:24)
[2022-09-08] MEDS: MULTIVIT W/MINERALS 1 TAB TABLET PO SCH (08:24)
[2022-09-08] MEDS: HEPARIN SODIUM, PORCINE 5000 UNITS/1 ML VIAL SQ SCH ×2 (08:26→21:31)
[2022-09-08] MEDS: DOCUSATE SODIUM 100 MG CAPSULE PO SCH ×2 (09:00→16:45)
--- NOTE | 2022-09-08 09:40 | NUR ---
WOUND CARE CONSULT: PT PRESENTS WITH RASH TO INNER BUTTOCKS, PRESENT ON ADMISSION. PT INSISTS ON WEARING HIS SWEATPANTS WITH THE GOWN. RECOMMENDATIONS MADE FOR SKIN PROTECTION. DISCUSSED WITH NURSING STAFF. MD IN AGREEMENT WITH PLAN OF CARE.
[2022-09-08] MEDS ORDERED: Z GUARD REMEDY 4 OZ OINT TP PRN (10:00)
[2022-09-08 10:07] LABS: *SPE A/G RATIO 0.9 (0.7-1.7); *SPE ALPHA-1-GLOBULIN 0.3 g/dL (0.0-0.4); *SPE ALPHA-2-GLOBULIN 0.7 g/dL (0.4-1.0); *SPE BETA GLOBULIN 1.1 g/dL (0.7-1.3); *SPE M-SPIKE Not Observed g/dL (Not Observed)
[2022-09-08 12:00] VITALS: BP 98/60
[2022-09-08] MEDS: DIGOXIN 0.125 MG TABLET PO SCH (13:07)
[2022-09-08] MEDS: CLOTRIMAZOLE 1% 15 GM TUBE TP SCH ×2 (13:14→16:52)
[2022-09-08] MEDS ORDERED: IOHEXOL-300 100 ML VIAL IV ONE (15:08)
[2022-09-08] MEDS ORDERED: CT SWABBABLE VALVE TRANS SET 1 EA INFUS.SET MC ONE (15:08)
[2022-09-08] MEDS ORDERED: IV NS 0.9% 250 ML IV ONE (15:08)
[2022-09-08 15:16] LABS: BASOPHILS % (AUTO) 0.2 % (0.0-2.0); EOSINOPHILS % (AUTO) 0.3 % (0.0-6.0); HEMATOCRIT 36 % (39-51); HEMOGLOBIN 11.5 g/dL (13.5-17.5); LYMPHOCYTES # (AUTO) 0.6 K/uL (0.8-4.8); LYMPHOCYTES % (AUTO) 11.5 % (20.0-44.0); MEAN CORPUSCULAR HGB CONC 32 g/dl (31.0-36.0); MEAN CORPUSCULAR VOLUME 94 fL (80-96); MONOCYTES # (AUTO) 0.7 K/uL (0.1-1.30); MONOCYTES % (AUTO) 13.9 % (2.0-12.0); NEUTROPHILS # (AUTO) 3.7 K/uL (1.8-8.9); NEUTROPHILS % (AUTO) 74.1 % (43.0-81.0); PLATELET COUNT (AUTO) 157 K/uL (150-450); RED BLOOD CELL COUNT(AUTO) 3.81 MIL/uL (4.5-6.0)
[2022-09-08 15:35] LABS: ALANINE AMINOTRANSFERASE 18 U/L (12-78); ALBUMIN 3.4 g/dL (3.4-5.0); ALKALINE PHOSPHATASE 90 U/L (46-116); ASPARTATE AMINOTRANSFERASE 24 U/L (15-37); BILIRUBIN,TOTAL 1.9 mg/dL (0.2-1.0); CALCIUM, SERUM 9.1 mg/dL (8.5-10.1); CARBON DIOXIDE 30 mmol/L (21-32); CHLORIDE 100 mmol/L (98-107); CREATININE 1.6 mg/dL (0.6-1.3); GLUCOSE 96 mg/dL (74-106); SODIUM SERUM 138 mmol/L (136-145); TOTAL PROTEIN, SERUM 7.6 g/dL (6.4-8.2); UREA NITROGEN, BLOOD 31 mg/dL (7-18)
--- NOTE | 2022-09-08 16:20 | NUR ---
LEADER WRITER NOTES PT COMPLETED CT ABD PELVIS WITH CONTRAST, NOTED PT'S CREATININE LEVEL IS 1.6 WHICH JUST RESULTED DUE TO PT'S REFUSAL IN THE MORNING, DR. LOWRY INFORMED AND ORDERED IV NS AT 60 ML/HR CONTINUOUSLY UNTIL FURTHER ORDERS, NOTED AND CARRIED OUT.
[2022-09-08] MEDS: IV NS 0.9% 1,000 ML IV PRN (16:25)
[2022-09-08 16:39] LABS: BILIRUBIN,URINE NEGATIVE (NEGATIVE); COLOR,URINE YELLOW (YELLOW); LEUKOCYTE ESTERASE ,URINE 3+ (NEGATIVE); NITRITE, URINE NEGATIVE (NEGATIVE); PROTEIN,URINE NEGATIVE (NEGATIVE); UGLUCOSE NEGATIVE (NEGATIVE)
[2022-09-08 16:52] LABS: BACTERIA,URINE Many /HPF (None Seen); SQUAMOUS EPITHELIAL CELL,UR Moderate /HPF (None Seen); WBC,URINE 51-80 /HPF (0-3)
--- NOTE | 2022-09-08 18:39 | NUR ---
MARINE WELDER NOTES PT IN BED, RESTING, NO COMPLAINT OF PAIN, NOT IN DISTRESS, TOLERATES ROOM AIR, IV FLUIDS INFUSING ORDERED, RIGHT A/C IV SITE INTACT AND PATENT, NO S/S OF INFILTRATION NOTED, ASSISTED WITH DINNER, CALL LIGHT KEPT WITHIN REACH, KEPT CLEAN, DRY AND COMFORTABLE.
--- NOTE | 2022-09-08 19:41 | NUR ---
PLAYGROUND WORKER OPENING NOTES PT IN BED, RESTING, NO COMPLAINT OF PAIN, NOT IN DISTRESS, TOLERATES ROOM AIR, IV SITE NOTED, WITH RIGHT AC #20 NS INFUSING @ 60ML/HR, IV SITE INTACT AND PATENT, NO S/S OF INFILTRATION NOTED, SAFETY MEASURES APPLIED; BED IN LOWEST POSITION, BED LOCKED, CALL LIGHT KEPT WITHIN REACH, WILL CONTINUE TO MONITOR.
[2022-09-08 20:00] VITALS: BP 107/58
--- NOTE | 2022-09-08 20:40 | NUR ---
RN NOTE ABDOMINAL CT RESULT REPORTED TO LINO LOPEZ. NO NEW ORDERS AT THIS TIME.
--- NOTE | 2022-09-08 20:41 | NUR ---
RN NOTE URINE RESULT REPORTED TO JOHN JOSEPH. RECEIVED NEW ORDER OF [id number]. ORDER IS CARRIED OUT
[2022-09-08] MEDS: ATORVASTATIN 40 MG TABLET PO SCH (21:27)
[2022-09-08] MEDS: CEFTRIAXONE 1 G in IV D5W 50 ML IV SCH (21:32)
[2022-09-09 04:00] VITALS: BP 121/85
[2022-09-09 04:59] VITALS: BP 105/83
--- NOTE | 2022-09-09 06:42 | NUR ---
ASSEMBLER PRODUCT CLOSING NOTES PATIENT IN BED AWAKE, ORIENTED WITH EPISODE OF FORGETFULLNESS AND CONFUSION, NO COMPLAINT OF PAIN, NOT IN DISTRESS, TOLERATES ROOM AIR, WITH RAC #20 NS INFUSING AT 60ML/HR, IV SITE INTACT AND PATENT, NO S/S OF INFILTRATION NOTED, ALL DUE MEDICATION GIVEN, ATTENDED TO ALL NEEDS,SAFETY MEASURES APPLIED; BED IN LOWEST POSITION, BED LOCKED, CALL LIGHT KEPT WITHIN REACH, WILL ENDORSE TO NEXT SHIFT FOR CONTINUITY OF CARE.
--- NOTE | 2022-09-09 07:25 | NUR ---
ASSISTANT VICE PRESIDENT OPENING NOTES PT RECEIVED IN BED, AWAKE. A/O X 3 WITH EPISODES OF FORGETFULNESS. ABLE TO VERBALIZE NEEDS. NO C/O PAIN/DISCOMFORT AT THIS TIME. IV ACCESS AT RAC #20G W/ ONGOING NS AT 60ML/HR, INFUSING WELL, C/D/I. ON RA, NO SIGNS OF ACUTE RESPIRATORY DISTRESS. WITH TRANSPORTER DRIVER ON VS PACING, HR 81. SAFETY MEASURES IN PLACE: BED LOCKED AND IN LOWEST POSITION, CALL LIGHT AND TRAY TABLE WITHIN REACH, SIDE RAILS X 2. WILL CONTINUE TO MONITOR.
[2022-09-09] MEDS: PANTOPRAZOLE 40 MG TABLET.DR PO SCH (07:58)
[2022-09-09 08:00] VITALS: BP 129/79
[2022-09-09] MEDS: FERROUS SULFATE (325 MG) 325 MG/TAB TABLET PO SCH ×2 (08:20→16:56)
[2022-09-09] MEDS: CHOLECALCIFEROL 1,000 UNIT TABLET (VIT D3) PO SCH (08:20)
[2022-09-09] MEDS: DOCUSATE SODIUM 100 MG CAPSULE PO SCH ×2 (08:20→16:55)
[2022-09-09] MEDS: ASPIRIN 81 MG TAB.CHEW PO SCH (08:20)
[2022-09-09] MEDS: ASCORBIC ACID 500 MG TABLET PO SCH (08:20)
[2022-09-09] MEDS: POTASSIUM CHLORIDE 10 MEQ TABLET.SA PO SCH (08:21)
[2022-09-09] MEDS: MULTIVIT W/MINERALS 1 TAB TABLET PO SCH (08:21)
[2022-09-09] MEDS: CARVEDILOL 3.125 MG TABLET PO SCH ×2 (08:21→16:56)
[2022-09-09] MEDS: FUROSEMIDE 40 MG TABLET PO SCH (08:21)
[2022-09-09] MEDS: HEPARIN SODIUM, PORCINE 5000 UNITS/1 ML VIAL SQ SCH ×2 (08:30→21:33)
[2022-09-09] MEDS: CLOTRIMAZOLE 1% 15 GM TUBE TP SCH ×2 (09:00→16:58)
[2022-09-09] MEDS: SPIRONOLACTONE 25 MG TABLET PO SCH (09:56)
[2022-09-09] MEDS: SACUBITRIL/VALSARTAN 1 EACH TABLET PO SCH ×2 (09:56→16:54)
--- NOTE | 2022-09-09 10:35 | NUR ---
RN NOTES PT REFUSED CBC BLOOD DRAW FOR THIS AM. DR. LOWRY IN UNIT MADE AWARE.
--- NOTE | 2022-09-09 11:40 | NUR ---
RN NOTES OCCUPATIONAL THERAPIST PER DIEM CAME AGAIN TO DRAW BLOOD FOR CBC, PT AGAIN REFUSED DESPITE EXPLAINING IMPORTANCE OF OF SAID TEST.
[2022-09-09 12:00] VITALS: BP 108/75
[2022-09-09] MEDS: IV NS 0.9% 1,000 ML IV PRN (13:12)
[2022-09-09] MEDS: DIGOXIN 0.125 MG TABLET PO SCH (13:13)
[2022-09-09 16:00] VITALS: BP 102/67
--- NOTE | 2022-09-09 18:35 | NUR ---
BLEND TECHNICIAN CLOSING NOTES PT RESTING IN BED. A/O X 3. ABLE TO VERBALIZE NEEDS. DID NOT C/O PAIN/DISCOMFORT WITHIN THE SHIFT. MAINTAINED IV ACCESS AT RAC #20G W/ ONGOING NS AT 60ML/HR, INFUSING WELL. ON RA, TOLERATED WELL. ENTRY EXAMINER ON VS PACING WITH PVC, HR 78. NEEDS ATTENDED. SAFETY MEASURES IN PLACE: BED LOCKED AND IN LOWEST POSITION, CALL LIGHT AND TRAY TABLE WITHIN REACH, SIDE RAILS X 2. WILL ENDORSE NOLAN TO SENIOR PRICING ANALYST.
--- NOTE | 2022-09-09 19:43 | NUR ---
PLASTIC EXTRUSION OPERATOR OPENING NOTES PT RESTING IN BED. A/O X 3. ABLE TO VERBALIZE NEEDS. DID NOT C/O PAIN/DISCOMFORT AT THIS TIME. IV ACCESS AT RAC #20G W/ ONGOING NS AT 60ML/HR, INFUSING WELL. ON RA, TOLERATED WELL. MEASUREMENT AND VERIFICATION ENGINEER ON VS PACING WITH PVC, HR 79. SAFETY MEASURES IN PLACE: BED LOCKED AND IN LOWEST POSITION, CALL LIGHT AND TABLE WITHIN REACH, SIDE RAILS X 2.
[2022-09-09 20:15] VITALS: BP 104/72
[2022-09-09] MEDS: CEFTRIAXONE 1 G in IV D5W 50 ML IV SCH (21:32)
[2022-09-09] MEDS: ATORVASTATIN 40 MG TABLET PO SCH (21:32)
[2022-09-10 00:45] VITALS: BP 102/68
[2022-09-10 04:15] VITALS: BP 92/58
--- NOTE | 2022-09-10 06:42 | NUR ---
SCALE ATTENDANT CLOSING NOTES PATIENT RESTING IN BED AWAKE, A/O X 3. ABLE TO VERBALIZE NEEDS. NOT IN DISTRESS, NO LABORED BREATHING, NO COMPLAINS OF PAIN AT THIS TIME. IV ACCESS AT LEFT UPPER ARM #22G, INFUSING WELL. ON ROOM AIR, TOLERATED WELL. GASKET SUPERVISOR ON VS PACING WITH PVC, HR 79. ALL DUE MEDICATION GIVEN, ALL NEEDS ATTENDED TO. SAFETY MEASURES IN PLACE: BED LOCKED AND IN LOWEST POSITION, CALL LIGHT AND TABLE WITHIN REACH, SIDE RAILS X 2. WILL ENDORSE TO NEXT SHIFT FOR CONTINUITY OF CARE.
--- NOTE | 2022-09-10 07:00 | NUR ---
MISSION SYSTEMS ENGINEER OPENING NOTES PATIENT LAYING IN BED, A/O X 3, ABLE TO MAKE NEEDS KNOWN, TOLERATING WELL ON ROOM AIR WITH NO S/S RESPIRATORY DISTRESS. ERIKA # 22 SL CLEAN, INTACT, FLUSHING WELL. AUTOMOBILE SALES CONSULTANT IN PLACE WITH V PACING @ HR 74. SAFETY MEASURES IN PLACE: BED IN LOWEST LOCKED POSITION, SIDE RAILS UP X 2, CALL LIGHT WITHIN REACH. WILL CONTINUE TO MONITOR.
[2022-09-10 08:00] VITALS: BP 116/76
[2022-09-10] MEDS: MULTIVIT W/MINERALS 1 TAB TABLET PO SCH (08:27)
[2022-09-10] MEDS: SPIRONOLACTONE 25 MG TABLET PO SCH (08:27)
[2022-09-10] MEDS: ASPIRIN 81 MG TAB.CHEW PO SCH (08:27)
[2022-09-10] MEDS: PANTOPRAZOLE 40 MG TABLET.DR PO SCH (08:27)
[2022-09-10] MEDS: ASCORBIC ACID 500 MG TABLET PO SCH (08:28)
[2022-09-10] MEDS: FUROSEMIDE 40 MG TABLET PO SCH (08:28)
[2022-09-10] MEDS: POTASSIUM CHLORIDE 10 MEQ TABLET.SA PO SCH (08:28)
[2022-09-10] MEDS: FERROUS SULFATE (325 MG) 325 MG/TAB TABLET PO SCH ×2 (08:28→16:25)
[2022-09-10] MEDS: CHOLECALCIFEROL 1,000 UNIT TABLET (VIT D3) PO SCH (08:31)
[2022-09-10] MEDS: CARVEDILOL 3.125 MG TABLET PO SCH ×2 (08:32→16:07)
[2022-09-10] MEDS: DOCUSATE SODIUM 100 MG CAPSULE PO SCH ×2 (08:32→16:08)
[2022-09-10] MEDS: SACUBITRIL/VALSARTAN 1 EACH TABLET PO SCH ×2 (08:32→16:08)
[2022-09-10] MEDS: HEPARIN SODIUM, PORCINE 5000 UNITS/1 ML VIAL SQ SCH ×2 (08:34→21:27)
[2022-09-10] MEDS: CLOTRIMAZOLE 1% 15 GM TUBE TP SCH ×2 (08:35→16:25)
[2022-09-10 12:00] VITALS: BP 123/70
[2022-09-10] MEDS: DIGOXIN 0.125 MG TABLET PO SCH (12:35)
[2022-09-10 16:00] VITALS: BP 99/54
--- NOTE | 2022-09-10 17:20 | NUR ---
ROUGH RIB GRADER NOTES SPOKE WITH PATIENT FRIEND ALVINO MARGIE WHO STATED SHE IS THE POWER OF HOME ENERGY INSPECTOR FOR THE PATIENT. I PROVIDED OUR FAX NUMBER AND ALVINO STATED SHE WOULD FAX OVER THE POA PAPERWORK.
--- NOTE | 2022-09-10 17:37 | NUR ---
UNABLE TO PERFORM DUPLEX VENOUS EXAM OF LOWER EXTREMITY PATIENT UNCOOPERATIVE TO PUT HIS LEGS IN BED. WILL TRY TOMORROW.
--- NOTE | 2022-09-10 18:35 | NUR ---
BOOSTER ASSEMBLER OPENING NOTES PATIENT LAYING IN BED, A/O X 3, ABLE TO MAKE NEEDS KNOWN, TOLERATING WELL ON ROOM AIR WITH NO S/S RESPIRATORY DISTRESS. ERIKA # 22 SL CLEAN, INTACT, FLUSHING WELL. MANAGER OF RADIOLOGY IN PLACE WITH V PACING @ HR 81. SAFETY MEASURES IN PLACE: BED IN LOWEST LOCKED POSITION, SIDE RAILS UP X 2, CALL LIGHT WITHIN REACH. ALL NEEDS MET. WILL ENDORSE TO MENTAL HEALTH PRACTITIONER FOR NOLAN.
--- NOTE | 2022-09-10 19:52 | NUR ---
FOOD PRODUCTION SUPERVISOR OPENING NOTES RECEIVED PATIENT RESTING IN BED. A/O X 3 WITH EPISODES OF FORGETFULNESS AND CONFUSION. ABLE TO VERBALIZE NEEDS. DID NOT C/O PAIN/DISCOMFORT AT THIS TIME. IV ACCESS AT LAC #22G W/ ONGOING NS AT 60ML/HR, INFUSING WELL. IN ROOM AIR TOLERATING WELL. SEASONAL DRIVER ON VS PACING WITH PVC, HR 79. SAFETY MEASURES IN PLACE: BED LOCKED AND IN LOWEST POSITION, CALL LIGHT AND TABLE WITHIN REACH, SIDE RAILS X 2.
[2022-09-10 20:00] VITALS: BP 123/70
[2022-09-10] MEDS: ATORVASTATIN 40 MG TABLET PO SCH (21:25)
[2022-09-10] MEDS: CEFTRIAXONE 1 G in IV D5W 50 ML IV SCH (21:25)
[2022-09-11] VITALS: BP 118/66
[2022-09-11 04:00] VITALS: BP 123/57
--- NOTE | 2022-09-11 06:45 | NUR ---
SHIPPER CLOSING NOTES PATIENT RESTING IN BED. A/O X 3 WITH EPISODES OF FORGETFULNESS AND CONFUSION. ABLE TO VERBALIZE NEEDS. DID NOT C/O PAIN/DISCOMFORT AT THIS TIME. IV ACCESS AT LAC #22G W/ ONGOING NS AT 60ML/HR, INFUSING WELL. IN ROOM AIR TOLERATING WELL. MACHINE RECORDS UNITS SUPERVISOR ON VS PACING WITH PVC, HR 79. SAFETY MEASURES IN PLACE: BED LOCKED AND IN LOWEST POSITION, CALL LIGHT AND TABLE WITHIN REACH, SIDE RAILS X 2. WILL ENDORSE TO NEXT SHIFT FOR CONTINUITY OF CARE.
--- NOTE | 2022-09-11 07:46 | NUR ---
COAL DIGGER OPENING NOTE Patient in bed, awake. A/O x 3, with episodes of confusion. On room air, breathing evenly and unlabored. No SOB or s/s of distress noted. IV access on ERIKA #22, patient refusing IV fluids at this time. On tele monitoring showing V pacing, HR 76. Safety precautions in place: bed in low, locked position; siderails up x2; call light within reach. Will continue to monitor. Addendum: 09/11/22 at 0844 by BLAYNE ROLDAN RN CORRECTION: Patient is A/O x2
[2022-09-11 08:00] VITALS: BP 140/89
[2022-09-11] MEDS: HEPARIN SODIUM, PORCINE 5000 UNITS/1 ML VIAL SQ SCH ×3 (09:00→21:15)
--- NOTE | 2022-09-11 09:00 | NUR ---
RN NOTE Patient refused Heparin scheduled for 0900, patient states "I don't want to have it everyday.". Will continue to monitor.
[2022-09-11] MEDS: POTASSIUM CHLORIDE 10 MEQ TABLET.SA PO SCH (09:34)
[2022-09-11] MEDS: ASPIRIN 81 MG TAB.CHEW PO SCH (09:34)
[2022-09-11] MEDS: PANTOPRAZOLE 40 MG TABLET.DR PO SCH (09:34)
[2022-09-11] MEDS: DOCUSATE SODIUM 100 MG CAPSULE PO SCH ×2 (09:35→16:24)
[2022-09-11] MEDS: MULTIVIT W/MINERALS 1 TAB TABLET PO SCH (09:35)
[2022-09-11] MEDS: ASCORBIC ACID 500 MG TABLET PO SCH (09:35)
[2022-09-11] MEDS: CARVEDILOL 3.125 MG TABLET PO SCH ×2 (09:35→16:55)
[2022-09-11] MEDS: CHOLECALCIFEROL 1,000 UNIT TABLET (VIT D3) PO SCH (09:35)
[2022-09-11] MEDS: SPIRONOLACTONE 25 MG TABLET PO SCH (09:35)
[2022-09-11] MEDS: FERROUS SULFATE (325 MG) 325 MG/TAB TABLET PO SCH ×2 (09:35→16:24)
[2022-09-11] MEDS: FUROSEMIDE 40 MG TABLET PO SCH (09:35)
[2022-09-11] MEDS: SACUBITRIL/VALSARTAN 1 EACH TABLET PO SCH ×2 (09:37→16:24)
[2022-09-11 10:58] LABS: BASOPHILS % (AUTO) 0.4 % (0.0-2.0); EOSINOPHILS % (AUTO) 0.9 % (0.0-6.0); HEMATOCRIT 39 % (39-51); HEMOGLOBIN 12.4 g/dL (13.5-17.5); LYMPHOCYTES # (AUTO) 0.6 K/uL (0.8-4.8); LYMPHOCYTES % (AUTO) 10.8 % (20.0-44.0); MEAN CORPUSCULAR HGB CONC 32 g/dl (31.0-36.0); MEAN CORPUSCULAR VOLUME 94 fL (80-96); MONOCYTES # (AUTO) 0.7 K/uL (0.1-1.30); MONOCYTES % (AUTO) 12.3 % (2.0-12.0); NEUTROPHILS # (AUTO) 4.2 K/uL (1.8-8.9); NEUTROPHILS % (AUTO) 75.6 % (43.0-81.0); PLATELET COUNT (AUTO) 190 K/uL (150-450); RED BLOOD CELL COUNT(AUTO) 4.12 MIL/uL (4.5-6.0); WHITE BLOOD COUNT (AUTO) 5.5 K/uL (4.3-11.0)
[2022-09-11] MEDS: CLOTRIMAZOLE 1% 15 GM TUBE TP SCH ×2 (11:13→16:30)
[2022-09-11 11:30] LABS: CALCIUM, SERUM 8.8 mg/dL (8.5-10.1); CARBON DIOXIDE 30 mmol/L (21-32); CHLORIDE 98 mmol/L (98-107); CREATININE 1.6 mg/dL (0.6-1.3); GLUCOSE 131 mg/dL (74-106); MAGNESIUM 2.5 mg/dL (1.8-2.4); POTASSIUM 4.4 mmol/L (3.5-5.1); SODIUM SERUM 135 mmol/L (136-145); UREA NITROGEN, BLOOD 38 mg/dL (7-18)
[2022-09-11 12:00] VITALS: BP 108/61
[2022-09-11] MEDS: DIGOXIN 0.125 MG TABLET PO SCH (13:15)
[2022-09-11 16:00] VITALS: BP 99/70
--- NOTE | 2022-09-11 18:55 | NUR ---
CEMENT TESTER ASSISTANT CLOSING NOTE Patient in bed, resting. A/O x 2, with episodes of confusion. On room air, breathing evenly and unlabored. No SOB or s/s of distress noted. IV access on ERIKA #22, patient refusing IV fluids at this time. On tele monitoring showing V pacing, HR 60. All needs attended to. Due meds given. Safety precautions in place: bed in low, locked position; siderails up x2; call light within reach. Will endorse to regional service manager nurse for NOLAN.
--- NOTE | 2022-09-11 19:30 | NUR ---
OCCUPATIONAL HEALTH SPECIALIST OPENING NOTE RECEIVED PT AWAKE IN BED. A/O X2 WITH EPISODES OF CONFUSION. PT STABLE ON ROOM AIR. NO SOB OR S/S OF RESPIRATORY DISTRESS. BREATHING EVEN AND UNLABORED. ON EXTERNAL WAISTLINE JOINER LOCKSTITCH READING V PACING 68 BPM. IV ACCESS ERIKA 22G SL, REFUSING IVF AT THIS TIME. EXPLAINED BENEFITS TO IVF AND PT STILL REFUSED. SAFETY PRECAUTIONS IN PLACE. BED IN LOWEST LOCKED POSITION, HOB ELEVATED, SIDE RAILS UP X3, AND CALL LIGHT AND TABLE WITHIN REACH. ALL NEEDS MET AT THIS TIME.
[2022-09-11 20:00] VITALS: BP 100/57
[2022-09-11] MEDS: CEFTRIAXONE 1 G in IV D5W 50 ML IV SCH (21:13)
[2022-09-11] MEDS: ATORVASTATIN 40 MG TABLET PO SCH (21:13)
[2022-09-12] VITALS: BP 144/52
[2022-09-12 04:00] VITALS: BP 130/57
--- NOTE | 2022-09-12 06:23 | NUR ---
RN NOTE PT REFUSED LAB DRAW. EXPLAINED BENEFITS BUT PT STILL REFUSED.
--- NOTE | 2022-09-12 06:43 | NUR ---
GAME PRESERVE MANAGER CLOSING NOTE PT AWAKE IN BED. A/O X2 WITH EPISODES OF CONFUSION AND FORGETFULNESS. PT STABLE ON ROOM AIR. NO SOB OR S/S OF RESPIRATORY DISTRESS. BREATHING EVEN AND UNLABORED. ON EXTERNAL WAREHOUSE ORDER SELECTOR READING V PACING 74 BPM. IV ACCESS ERIKA 22G SL, REFUSED IVF THIS SHIFT. REFUSED LAB DRAW THIS SHIFT. ALSO NOW REFUSING LUNG BX SCHEDULED TUESDAY. TRIED TO EXPLAIN RISKS AND BENEFITS BUT PT STILL REFUSING. ALL DUE MEDS GIVEN ORDERED. SAFETY PRECAUTIONS IN PLACE AT ALL TIMES. BED IN LOWEST LOCKED POSITION, HOB ELEVATED, SIDE RAILS UP X3, AND CALL LIGHT AND TABLE WITHIN REACH. ALL NEEDS MET AT THIS TIME AND WILL ENDORSE TO ONCOMING NURSE FOR NOLAN.
--- NOTE | 2022-09-12 07:23 | NUR ---
RN OPENING NOTE RECEIVED PATIENT AWAKE, SITTING IN BED. NO SIGNS OF ACUTE DISTRESS NOTED. SATBLE ON ROOM AIR, NO SOB NOTED, BREATHING EVEN AND UNLABORED. DENIES ANY PAIN AT THIS TIME. NOTED WITH IV ACCESS ON LEFT UPPER ARM #22G, INTACT AND PATENT. PATIENT REFUSED IV FLUIDS DESPITE EXPLANATION OF RISKS AND BENEFITS. ON TELE MONITORING, V-PACING @ 878. SAFETY MEASURE IN PLACE, BED IN LOW AND LOCKED POSITION, SIDE RAILS UP X2, CALL LIGHT AND TABLE PLACED WITHIN EASY REACH. WILL CONTINUE TO MONITOR PATIENT. Addendum: 09/12/22 at 1124 by JANY MCADAMS RN *PATIENT V-PACING, HR @78
[2022-09-12 08:00] VITALS: BP 98/58
[2022-09-12] MEDS: CLOTRIMAZOLE 1% 15 GM TUBE TP SCH ×2 (08:56→16:50)
[2022-09-12] MEDS: SACUBITRIL/VALSARTAN 1 EACH TABLET PO SCH ×2 (08:56→16:49)
[2022-09-12] MEDS: ASCORBIC ACID 500 MG TABLET PO SCH (08:56)
[2022-09-12] MEDS: PANTOPRAZOLE 40 MG TABLET.DR PO SCH (08:56)
[2022-09-12] MEDS: MULTIVIT W/MINERALS 1 TAB TABLET PO SCH (08:56)
[2022-09-12] MEDS: ASPIRIN 81 MG TAB.CHEW PO SCH (08:56)
[2022-09-12] MEDS: FERROUS SULFATE (325 MG) 325 MG/TAB TABLET PO SCH ×2 (08:57→16:49)
[2022-09-12] MEDS: POTASSIUM CHLORIDE 10 MEQ TABLET.SA PO SCH (08:57)
[2022-09-12] MEDS: CHOLECALCIFEROL 1,000 UNIT TABLET (VIT D3) PO SCH (08:57)
[2022-09-12] MEDS: DOCUSATE SODIUM 100 MG CAPSULE PO SCH ×2 (08:57→16:49)
[2022-09-12] MEDS: CARVEDILOL 3.125 MG TABLET PO SCH ×2 (08:58→16:49)
[2022-09-12] MEDS: HEPARIN SODIUM, PORCINE 5000 UNITS/1 ML VIAL SQ SCH ×2 (08:59→21:00)
[2022-09-12] MEDS: SPIRONOLACTONE 25 MG TABLET PO SCH (08:59)
[2022-09-12] MEDS: FUROSEMIDE 40 MG TABLET PO SCH (08:59)
[2022-09-12] MEDS: DIGOXIN 0.125 MG TABLET PO SCH (12:23)
[2022-09-12 16:00] VITALS: BP 113/60
--- NOTE | 2022-09-12 17:30 | NUR ---
RN NOTE RECEIVED A CALL FROM LAB C/O GIRISH. PATIENT TESTED POSITIVE FOR COVID-19 ANTIGEN. CN MADE AWARE. ISOLATION PRECAUTION OBSERVED. PATIENT WILL BE TRANSFERRED TO [facility].
--- NOTE | 2022-09-12 18:00 | NUR ---
RN NOTE PATIENT TRANSFERRED TO [facility] ROOM 110 FOR ISOLATION PRECAUTION. PATIENT ACCOMPANIED TO [facility] TRANSPORTED VIA W/C, HANDOFF REPORT GIVEN TO HANNA WALTON. PATIENT REMAINS AWAKE, ALERT AND VERBALLY RESPONSIVE. NO SIGNS OF ACUTE RESPIRATORY DISTRESS NOTED.
--- NOTE | 2022-09-12 18:05 | NUR ---
PATIENT RECEIVED AWAKE, ALERT TO NAME TIME AND PLACE. UNLABORED BREATHING AT ROOM AIR. IV ON LEFT UPPER ARM PATENT SALINE LOCKED. NO COUGH NO CONGESTION NOTED. V/S BP 107/63 HR 71 R 19 T 97.8, 02 SAT 95 %. NO ACUTE DISTRESS NOTED. SITTING IN W/C. ABLE TO PROPEL SELF IN ROOM. ORIENTED TO NEW ROOM AND SURROUNDINGS. ISOLATION PRECAUTIONS MAINTAINED. CALL LIGHT IN REACH. DECLINED TO REST IN BED. BED IS IN LOW POSITION, LOCKED.
[2022-09-12] MEDS: CEFTRIAXONE 1 G in IV D5W 50 ML IV SCH (22:00)
[2022-09-12] MEDS: ATORVASTATIN 40 MG TABLET PO SCH (23:03)
--- NOTE | 2022-09-13 06:45 | NUR ---
Client on bed alert to name 'however,confused. No sob observed nor cardiac resp distress noted. On photo lab technician refused antibiotics and this morning refused to have blood drawn for am labs. To have lung biospy this morning. Client is voiding . No BM on photo lab technician. Day shift nurse observed confusion with client this morning. made comfortable. Will continue to monitor for safety. Advised client to make nurse aware if any untoward manifestations occurs. Client did state understanding of same. In no distress.
--- NOTE | 2022-09-13 07:05 | NUR ---
1930 rec'd client on bed in no resp nor cardiac distress. denies pain and discomfort. Maintained on Isolation for postive covid results.Out of bed standing. alert and oriented x2. Affect pleasant and cooperative. Safety precautions maintained. Will continue to monitor for safety.wWas told in report that patient refused to have flds and refused IV flds on this unit. report nurse stated that was made aware.
[2022-09-13] MEDS: PANTOPRAZOLE 40 MG TABLET.DR PO SCH (07:30)
--- NOTE | 2022-09-13 08:00 | NUR ---
RN OPENING NOTE RECEIVED PATIENT AWAKE, SITTING IN BED. PT IS ALERT AND ORIENTED X 2-3, WITH PERIODS OF CONFUSION AND NEEDS FREQUENT REORIENTATION. NO COMPLAINTS OF PAIN OR DISCOMFORT NOTED AT THIS TIME. PT IS ON ROOM AIR. PT HAS IV ACCESS ON LEFT UPPER ARM. IV INTACT, PATENT AND FLUSHING WELL. ALL SAFETY MEASURES IN PLACE. BED LOCKED AND IN LOWEST POSITION. SIDE RAILS UP X2. BED ALARM ON
[2022-09-13] MEDS: FUROSEMIDE 40 MG TABLET PO SCH (09:00)
[2022-09-13] MEDS: MULTIVIT W/MINERALS 1 TAB TABLET PO SCH (09:00)
[2022-09-13] MEDS: POTASSIUM CHLORIDE 10 MEQ TABLET.SA PO SCH (09:00)
[2022-09-13] MEDS: CARVEDILOL 3.125 MG TABLET PO SCH ×2 (09:00→16:44)
[2022-09-13] MEDS: ASCORBIC ACID 500 MG TABLET PO SCH (09:00)
[2022-09-13] MEDS: ASPIRIN 81 MG TAB.CHEW PO SCH (09:00)
[2022-09-13] MEDS: SPIRONOLACTONE 25 MG TABLET PO SCH (09:00)
[2022-09-13] MEDS: DOCUSATE SODIUM 100 MG CAPSULE PO SCH ×3 (09:00→17:00)
[2022-09-13] MEDS: FERROUS SULFATE (325 MG) 325 MG/TAB TABLET PO SCH ×2 (09:00→16:54)
[2022-09-13] MEDS: SACUBITRIL/VALSARTAN 1 EACH TABLET PO SCH ×2 (09:00→16:44)
[2022-09-13] MEDS: HEPARIN SODIUM, PORCINE 5000 UNITS/1 ML VIAL SQ SCH (09:00)
[2022-09-13] MEDS: CHOLECALCIFEROL 1,000 UNIT TABLET (VIT D3) PO SCH (09:00)
--- NOTE | 2022-09-13 09:29 | NUR ---
rn note 0730 and 0900 medications held due to pt going for ct guided lung biopsy
--- NOTE | 2022-09-13 10:52 | NUR ---
PER RADIOLOGIST DR SANTOS, PT IS POS COVID, WE WILL DO THE PROCEDURE WHEN NEGATIVE, HE SPOKE WITH THE PT P.A. WHO AGREES
--- NOTE | 2022-09-13 11:04 | NUR ---
rn note received call from xray. said they would do ct lung biopsy when pt tests covid negative
[2022-09-13] MEDS: IV NS 0.9% 1,000 ML IV PRN (12:07)
[2022-09-13] MEDS: DIGOXIN 0.125 MG TABLET PO SCH (13:30)
[2022-09-13] MEDS: CLOTRIMAZOLE 1% 15 GM TUBE TP SCH ×2 (16:11→17:38)
--- NOTE | 2022-09-13 18:01 | NUR ---
RN NOTE PT REFUSED STOOL SOFTENER IN PT ROOM. OPENED UP MEDICATION WRAPPER. PT REFUSED. DISCARED COLACE IN SHARPS CONTAINER IN PT ROOM.
--- NOTE | 2022-09-13 18:27 | NUR ---
rn note pt refused to be connected to iv fluids at this time.
--- NOTE | 2022-09-13 19:22 | NUR ---
RN CLOSING NOTE PATIENT AWAKE, IN BED. PT IS ALERT AND ORIENTED X 2-3, WITH PERIODS OF CONFUSION AND NEEDS FREQUENT REORIENTATION. NO COMPLAINTS OF PAIN OR DISCOMFORT NOTED AT THIS TIME. PT IS ON ROOM AIR TOLERATING WELL. PT HAS IV ACCESS ON LEFT UPPER ARM. IV INTACT, PATENT AND FLUSHING WELL. PT USES WHEELCHAIR AND USES CANE. NEEDS STANDBY ASSISTANCE. ALL SAFETY MEASURES IN PLACE. BED LOCKED AND IN LOWEST POSITION. SIDE RAILS UP X2. BED ALARM ON. REINFORCED TO PT TO USE CALL LIGHT FOR ANY ASSISTANCE AND TO NOT GET OUT OF BED ALONE. PT VERBALIZED UNDERSTANDING AND AGREED TO. ENDORSED TO SENIOR EDUCATION SPECIALIST RN FOR CONTINUITY OF CARE.
--- NOTE | 2022-09-13 19:30 | NUR ---
RN OPENING NOTE RECEIVED PATIENT IN BED AWAKE, IN SITTING POSITION. PT IS ALERT AND ORIENTED X 2, WITH PERIODS OF CONFUSION. CURRENTLY ON RA, TOLERATING WELL. NO S/SX OF ACUTE RESPI DISTRESS NOTED AT THIS TIME. NO SOB, NO PAIN. IV ACCESS ON ERIKA, #22g RUNNING NS @ 60 CC/HR. PATENT, INTACT AND FLUSHES WELL. ALL SAFETY MEASURES IN PLACE: BED LOCKED AND IN LOWEST POSITION. SIDE RAILS UP X3, BED ALARM ON, CALL LIGHT AND TABLE WITHIN REACH. WILL CONT TO MONITOR PT.
[2022-09-13 20:00] VITALS: BP 127/67
--- NOTE | 2022-09-13 21:10 | NUR ---
RN NOTE IV GOT PULLED OUT. NEW IV ACCESS PLACED ON ERIKA, #22g.
[2022-09-13] MEDS: CEFTRIAXONE 1 G in IV D5W 50 ML IV SCH (21:47)
[2022-09-13] MEDS: ATORVASTATIN 40 MG TABLET PO SCH (21:47)
[2022-09-14 04:00] VITALS: BP 112/75
--- NOTE | 2022-09-14 06:20 | NUR ---
RN NOTE NO SIGNIFICANT CHANGE T/O THE NIGHT. PT BARELY SLEPT. KEPT GETTING UP FROM BED, LIKES TO SIT ON THE BED SIDE. PT IS A/O X 2, WITH PERIODS OF CONFUSION. FREQUENT REORIENTATION DONE. ALL DUE MEDS GIVEN. NEEDS MET. PM CARE DONE. WILL ENDORSE TO AM SHIFT NURSE FOR NOLAN.
[2022-09-14 08:37] VITALS: BP 92/56
[2022-09-14] MEDS: FUROSEMIDE 40 MG TABLET PO SCH (08:37)
[2022-09-14] MEDS: CARVEDILOL 3.125 MG TABLET PO SCH (08:37)
[2022-09-14] MEDS: ASPIRIN 81 MG TAB.CHEW PO SCH (08:37)
[2022-09-14] MEDS: SPIRONOLACTONE 25 MG TABLET PO SCH (08:38)
[2022-09-14] MEDS: ASCORBIC ACID 500 MG TABLET PO SCH (08:38)
[2022-09-14] MEDS: POTASSIUM CHLORIDE 10 MEQ TABLET.SA PO SCH (08:38)
[2022-09-14] MEDS: MULTIVIT W/MINERALS 1 TAB TABLET PO SCH (08:38)
[2022-09-14] MEDS: CHOLECALCIFEROL 1,000 UNIT TABLET (VIT D3) PO SCH (08:38)
[2022-09-14] MEDS: DOCUSATE SODIUM 100 MG CAPSULE PO SCH (08:38)
[2022-09-14] MEDS: FERROUS SULFATE (325 MG) 325 MG/TAB TABLET PO SCH (08:38)
[2022-09-14] MEDS: PANTOPRAZOLE 40 MG TABLET.DR PO SCH (08:38)
[2022-09-14] MEDS: SACUBITRIL/VALSARTAN 1 EACH TABLET PO SCH (08:39)
[2022-09-14] MEDS: CLOTRIMAZOLE 1% 15 GM TUBE TP SCH (08:39)
[2022-09-14 09:19] LABS: ABG BASE EXCESS 0.6 mmol/L; ABG OXYGEN SATURATION 94.6 % (92.0-98.5); ABG PCO2 39.4 mmHg (35.0-45.0); ABG PO2 82.3 mmHg (75.0-100.0); AaDO2 20.3 mmHg; COHb 0.4 % (0.5-1.5); MetHb 0.2 % (0.0-1.5); SITE, ABG Left Radial; VENT MODE, BG ROOM AIR
--- NOTE | 2022-09-14 12:17 | NUR ---
RN NOTE PATIENT IS DC TO [facility] WILDLIFE MANAGER TIME IS AT 1300. PATIENT IS STABLE A/OX2 CONFUSED AT TIMES, COVID POSITIVE SINCE 09/12/2022. ALL DISCHARGE INSTRUCTION GIVEN TO PATIENT AND ALSO TO DETASSELER STAFF TO HANDLE IT TO THE NURSE IN [facility]. I CALLED AND GAVE THE REPORT TO ROSA FERREIRA AT [facility].
== END 2022-09-14 13:32 | DRG 302 ==
LOC: ER 12:05 → TELE 14:41 → TELE1 09-12 17:53 → MEDSG1 09-12 18:56 → TELE1 09-13 22:03
PROVIDERS: ADMIT Internal Medicine
DX: I25.110 Atherosclerotic heart disease of native coronary artery with unstable angina pectoris (principal); N17.0 Acute kidney failure with tubular necrosis; U07.1 COVID-19; G93.49 Other encephalopathy; E87.1 Hypo-osmolality and hyponatremia; I13.0 Hypertensive heart and chronic kidney disease with heart failure and stage 1 through stage 4 chronic kidney disease, or unspecified chronic kidney disease; I50.42 Chronic combined systolic (congestive) and diastolic (congestive) heart failure; R17 Unspecified jaundice; N39.0 Urinary tract infection, site not specified; E66.2 Morbid (severe) obesity with alveolar hypoventilation; C34.11 Malignant neoplasm of upper lobe, right bronchus or lung; C77.1 Secondary and unspecified malignant neoplasm of intrathoracic lymph nodes; R91.8 Other nonspecific abnormal finding of lung field; N18.9 Chronic kidney disease, unspecified; I25.5 Ischemic cardiomyopathy; I35.0 Nonrheumatic aortic (valve) stenosis; I25.2 Old myocardial infarction; K21.9 Gastro-esophageal reflux disease without esophagitis; Z88.8 Allergy status to other drugs, medicaments and biological substances; Z79.02 Long term (current) use of antithrombotics/antiplatelets; Z79.82 Long term (current) use of aspirin; Z79.899 Other long term (current) drug therapy; E78.5 Hyperlipidemia, unspecified; E66.9 Obesity, unspecified; D64.9 Anemia, unspecified; E80.6 Other disorders of bilirubin metabolism; F03.90 Unspecified dementia, unspecified severity, without behavioral disturbance, psychotic disturbance, mood disturbance, and anxiety; Z95.810 Presence of automatic (implantable) cardiac defibrillator; N14.11 Contrast-induced nephropathy; T50.8X5A Adverse effect of diagnostic agents, initial encounter; E88.09 Other disorders of plasma-protein metabolism, not elsewhere classified; D50.9 Iron deficiency anemia, unspecified; B96.20 Unspecified Escherichia coli [E. coli] as the cause of diseases classified elsewhere; N28.1 Cyst of kidney, acquired; Z68.31 Body mass index [BMI] 31.0-31.9, adult
CPT/HCPCS: 36415; 36600; 71045-TC; 76700-TC; 80048-TC; 80053-TC; 80076-TC; 81001; 82378; 82607-TC; 82728-TC; 82784; 83540-TC; 83735-TC; 84100-TC; 84155; 84165; 84443-TC; 84484-TC; 85025-TC; 85610-TC; 85730-TC; 86334; 87081-TC; 87086-TC; 93307-TC; 93970-TC; C9803; G0378; J0696; J1644; J7030; J7050; J7060; Q9967

== ENCOUNTER 2022-12-08 12:27 | Inpatient (IN) | payer MEDICARE, OTHER ==
[~2022-12-08] VITALS: Ht 152.4 cm; Wt 91.2 kg
[~2022-12-08 12:27] MED LIST changes: +ACET-2605 PO; +ACET-868 PO; -AMIN887L PO; -ASCO500C17 PO; +ASCO500T10 PO; +CHOL100043 PO; -CHOL50009 PO; -DEXA4TAB PO; -FLUC100T8 PO; +MAGN400O6 PO; -NUTR1PAC14 PO; -NYST5ORA PO; -POTA10CA43 PO; +POTA10TA10 PO
[2022-12-08] MEDS ORDERED: FLUMAZENIL 0.5 MG VIAL IV PRN (13:00)
[2022-12-08] MEDS ORDERED: MIDAZOLAM HCL 2 MG/2ML VIAL IV PRN (13:00)
[2022-12-08] MEDS ORDERED: NALOXONE PREFILLED SYRINGE 2 MG/2 ML SYRINGE IV PRN (13:00)
[2022-12-08] MEDS ORDERED: FENTANYL PF 250MCG/5ML AMPUL IV PRN (13:00)
[2022-12-08] MEDS ORDERED: BISA10SU11 RC (14:53)
[2022-12-08] MEDS ORDERED: FERR325T23 PO (14:53)
[2022-12-08] MEDS ORDERED: NA P133E RC (14:53)
--- NOTE | 2022-12-08 14:55 | NUR ---
RN NOTE- PT BROUGHT FROM RADIOLOGY FOR OBSERVATION. VS- BP- 109/50, HR- 74, RR- 22, T- 97.5, 02 SATS 96% ON 2LPM VIA NC. INCREASED O2 TO 5LPM. LUNGS WITH NORMAL VESSICULAR BREATH SOUNDS ON LEFT , DIMINISHED ON RT LOWER LOBE. NO RHONCHI, NO RALES, NO WHEEZES, NO COUGH. PT COMFORTABLE. MONITOR VS, SATS AND LUNG KERNS
[2022-12-08 15:00] VITALS: BP 109/47
--- NOTE | 2022-12-08 15:52 | NUR ---
RN NOTE- DR BASSETT NOTIFIED OF PNEUMOTHORAX. CXR RESULTS PENDING . PT PLACED ON SIMPLE MASK AT 8LPM. O2 SATS AT 98-100%. DR WILLIAM NOTIFIED OF ADMISSION STATUS AND DR CRUZ / FILLER MACHINE OPERATOR PHONED. ORDERED 02 SIMPLE MASK AT 8 LPM. MO TITRATION. CXR FOR AM. COMPLIED
[2022-12-08 16:00] VITALS: BP 135/53
[2022-12-08] MEDS ORDERED: BISACODYL SUPP (10 MG) 10 MG/SUPP.RECT SUPP.RECT RC PRN (16:00)
[2022-12-08] MEDS ORDERED: ONDANSETRON HCL/PF 4 MG/2 ML VIAL IVP PRN (16:00)
[2022-12-08] MEDS ORDERED: ACETAMINOPHEN 325 MG TABLET PO PRN (16:00)
[2022-12-08] MEDS ORDERED: MAGNESIUM HYDROXIDE 30 ML UDC PO PRN (16:00)
[2022-12-08] MEDS ORDERED: MORPHINE SULFATE INJ 2 MG/ML DISP.SYRIN IV PRN (16:00)
[2022-12-08] MEDS ORDERED: NA PHOS,M-B/NA PHOS,DI-BA 1 EA ENEMA RC PRN (16:00)
--- NOTE | 2022-12-08 16:00 | NUR ---
STICKER MACHINE OPERATOR NOTE- PT HAVING RT LUNG BIOPSY DONE. PNEUMOTHORAX RESULTING. PT ADMITTED FOR OBSERVATION. VS - BP- 110/50, HR- 74, RR- 22 T- 97.5, O2 SATS AT 99% ON 8LPM SIMPLE MASK. PMHX- ANEMIA, ANGINA, HTM, CAD, HLD, CRF, RT LUNG MASS RLL. LAST HOSPITALIZATION NOVEMBER 2022. DR HOUSTON PLACED ADMIT ORDERS , TICKET SORTER DR CRUZ ORDERED O2 AT 8LPM SIMPLE MASK AND CXR FOR AM. MONITORING RESP STATUS AND COMFORT. BED LOCKED SIDE RAILS UP, CALL LIGHT IN HAND, FREWQUENT CHECKS. MONITOR / ASSIST
[2022-12-08] MEDS: CARVEDILOL 3.125 MG TABLET PO SCH (16:59)
[2022-12-08] MEDS: SACUBITRIL/VALSARTAN 1 EACH TABLET PO SCH (17:00)
[2022-12-08] MEDS: FERROUS SULFATE (325 MG) 325 MG/TAB TABLET PO SCH (17:09)
[2022-12-08] MEDS: DOCUSATE SODIUM 100 MG CAPSULE PO SCH (17:09)
--- NOTE | 2022-12-08 18:53 | NUR ---
RN CLOSING NOTE- AOX4, AMBULATORY TO BR W STANDBY ASSIST. LUNGS W DIMINISHED SOUNDS TO RT SIDE. O2 SATS AT 99% ON O2 AT 8LPM SIMPLE MASK. CXR AND MODELING AGENCY MANAGER CONSULT IN AM. SIDE RAILS UP, CALL LIGHT IN REACH, COMFORTABLE
[2022-12-08 20:00] VITALS: BP 117/58
--- NOTE | 2022-12-08 20:16 | NUR ---
PRODUCTION DIRECTOR OPENING NOTES: RECEIVED PATIENT AWAKE IN BED, BED IN LOW POSITION CALL LIGHTS WITHIN REACH, NO COMPLAIN OF PAIN AND DISCOMFORT AT THIS TIME, ON 8LPM VIA SIMPLE MASK, PATIENT IS A/O X4 ABLE TO MAKE NEEDS KNOWN, ON TELE MONITOR-, IV LINE AT [place] #20SL, PATIENT KEPT CLEAN AND DRY ALL NEEDS MET WILL CONTINUE TO MONITOR.
[2022-12-08] MEDS ORDERED: ATORVASTATIN 40 MG TABLET PO SCH (22:00)
[2022-12-09] VITALS: BP 111/62
--- NOTE | 2022-12-09 02:25 | NUR ---
RN NOTES: PATIENT REMOVED HIS IV LINE, TELE MONITOR- OFFERED TO RE INSERT NEW IV LINE AND TO CONNECT THE TELE MONITOR- EXPLAINED RISK AND BENEFITS, PATIENT KEPT ON REFUSING CHARGE NURSE WAS MADE AWARE,
[2022-12-09 04:00] VITALS: BP 128/71
[2022-12-09 06:03] LABS: BASOPHILS % (AUTO) 0.3 % (0.0-2.0); EOSINOPHILS % (AUTO) 1.9 % (0.0-6.0); HEMATOCRIT 39 % (39-51); HEMOGLOBIN 12.6 g/dL (13.5-17.5); LYMPHOCYTES # (AUTO) 0.5 K/uL (0.8-4.8); LYMPHOCYTES % (AUTO) 11.2 % (20.0-44.0); MEAN CORPUSCULAR HGB CONC 33 g/dl (31.0-36.0); MEAN CORPUSCULAR VOLUME 100 fL (80-96); MONOCYTES # (AUTO) 0.6 K/uL (0.1-1.30); MONOCYTES % (AUTO) 13.1 % (2.0-12.0); NEUTROPHILS # (AUTO) 3.2 K/uL (1.8-8.9); NEUTROPHILS % (AUTO) 73.5 % (43.0-81.0); PLATELET COUNT (AUTO) 116 K/uL (150-450); RED BLOOD CELL COUNT(AUTO) 3.85 MIL/uL (4.5-6.0); WHITE BLOOD COUNT (AUTO) 4.3 K/uL (4.3-11.0)
[2022-12-09 06:18] LABS: ALBUMIN 3.4 g/dL (3.4-5.0); BILIRUBIN,TOTAL 1.2 mg/dL (0.2-1.0); CALCIUM, SERUM 9.3 mg/dL (8.5-10.1); CREATININE 1.3 mg/dL (0.6-1.3); MAGNESIUM 2.2 mg/dL (1.8-2.4); PHOSPHORUS 4.3 mg/dL (2.5-4.9); POTASSIUM 4.9 mmol/L (3.5-5.1); TOTAL PROTEIN, SERUM 7.7 g/dL (6.4-8.2)
--- NOTE | 2022-12-09 06:55 | NUR ---
RECORDS MANAGEMENT COORDINATOR CLOSING NOTES: PATIENT SLEEP IN BED COMFORTABLY, AROUSABLE TO VERBAL STIMULI,BED IN LOW POSITION CALL LIGHTS WITHIN REACH, NO COMPLAIN OF PAIN AND DISCOMFORT AT THIS TIME, ON SIMPLE MASK AT 8LPM SATURATING WELL, PATIENT IS S/P THORACOTOMY, NO BLEEDING WAS OBSERVED ON THE SITE, REFUSED TELE MONITOR., NOIV LINE PATIENT REFUSED INSERTION, PATIENT KEPT CLEAN AND DRY ALL NEEDS MET ENDORSE TO INCOMING SHIFT.
[2022-12-09 07:00] VITALS: BP 108/78
--- NOTE | 2022-12-09 07:00 | NUR ---
RN OPENING NOTE RECEIVED PATIENT AWAKE IN BED, ALERT AND ORIENTED X3, ON OXYGEN SET AT 8L VIA SIMPLE MASK WITH NO IV ACCESS, REFUSING TO HAVE IV, CHARGE NURSE NOTIFIED, WILL CONTINUE TO ATTEMPT TO INSERT IV FOR PATIENTS SAFETY AND PER HOSPITALS PROTOCOL. PATIENT ABLE TO AMBULATE WITH MINIMAL SUPPORT. PATIENT DENIES ANY PAIN OR DISCOMFORT, NO SOB OR DISTRESS NOTED. SAFETY PRECAUTIONS IN PLACE, BED IN LOWEST AND LOCKED POSITION, SIDE RAILS UPX2 Addendum: 12/09/22 at 0817 by ASTER AMADOR RN SIDE RAILS UP X2, CALL LIGHT AND TABLE WITHIN REACH, HEAD OF BED ELEVATED. WILL CONTINUE TO MONITOR.
[2022-12-09] MEDS ORDERED: PANTOPRAZOLE 40 MG TABLET.DR PO SCH (07:30)
--- NOTE | 2022-12-09 07:38 | NUR ---
RN NOTES: DID TRY TO REINSERT IV LINE ON PATIENT WAS UNABLETO REINSERT, AM NURSE WAS MADE AWARE WILL CONTINUE TO MONITOR.
[2022-12-09] MEDS: DOCUSATE SODIUM 100 MG CAPSULE PO SCH (08:58)
[2022-12-09] MEDS: FERROUS SULFATE (325 MG) 325 MG/TAB TABLET PO SCH (08:59)
[2022-12-09] MEDS ORDERED: FUROSEMIDE 40 MG TABLET PO SCH (09:00)
[2022-12-09] MEDS ORDERED: ASPIRIN 81 MG TAB.CHEW PO SCH (09:00)
[2022-12-09] MEDS ORDERED: SPIRONOLACTONE 25 MG TABLET PO SCH (09:00)
[2022-12-09] MEDS ORDERED: MULTIVIT W/MINERALS 1 TAB TABLET PO SCH (09:00)
[2022-12-09] MEDS ORDERED: DIGOXIN 0.125 MG TABLET PO SCH (09:00)
[2022-12-09] MEDS ORDERED: POTASSIUM CHLORIDE 10 MEQ TABLET.SA PO SCH (09:00)
[2022-12-09] MEDS ORDERED: CHOLECALCIFEROL 1,000 UNIT TABLET (VIT D3) PO SCH (09:00)
[2022-12-09] MEDS ORDERED: CLOPIDOGREL BISULFATE 75 MG TABLET PO SCH (09:00)
[2022-12-09 09:06] VITALS: BP 108/78
[2022-12-09] MEDS: CARVEDILOL 3.125 MG TABLET PO SCH (09:06)
[2022-12-09] MEDS: SACUBITRIL/VALSARTAN 1 EACH TABLET PO SCH (09:14)
--- NOTE | 2022-12-09 15:18 | NUR ---
RN NOTE PATIENT IS READY FOR DISCHARGE TO [facility]IA [facility]. PATIENT DOES NOT HAVE ANY SIGNS OR SYMPTOM SOF SOB, DISTRESS OR DISCOMFORT. RIGHT HAND IV SITE REMOVED, NO BLEEDING, NO WOUNDS, NO CATHETER. [facility] WAS CALLED AND REPORT WAS GIVEN TO OSMIN FERREIRA. PATIENT LEFT [facility]IA [facility] IN STABLED CONDITION. [facility] WAS CALLED AND NOTIFIED.
== END 2022-12-09 15:15 | DRG 199 ==
LOC: CT 12:27 → MED 15:05 → TELE 17:05
PROVIDERS: ADMIT Internal Medicine; ATTEND Internal Medicine
DX: J95.811 Postprocedural pneumothorax (principal); N17.0 Acute kidney failure with tubular necrosis; I25.110 Atherosclerotic heart disease of native coronary artery with unstable angina pectoris; J90 Pleural effusion, not elsewhere classified; I11.0 Hypertensive heart disease with heart failure; I50.9 Heart failure, unspecified; I25.5 Ischemic cardiomyopathy; R91.8 Other nonspecific abnormal finding of lung field; Y84.8 Other medical procedures as the cause of abnormal reaction of the patient, or of later complication, without mention of misadventure at the time of the procedure; Y92.230 Patient room in hospital as the place of occurrence of the external cause; E78.5 Hyperlipidemia, unspecified; I07.1 Rheumatic tricuspid insufficiency; Z95.810 Presence of automatic (implantable) cardiac defibrillator; E66.9 Obesity, unspecified; Z79.899 Other long term (current) drug therapy
CPT/HCPCS: 36415; 71045-TC; 77012-TC; 80053-TC; 83735-TC; 84100-TC; 85025-TC; G0378; J2250; J3010

== ENCOUNTER 2022-12-27 21:49 | Inpatient (IN) | payer MEDICARE, OTHER ==
[~2022-12-27] VITALS: Ht 177.8 cm; Wt 90.7 kg
[~2022-12-27 21:49] MED LIST changes: -ACET-2605 PO; -ASCO500T10 PO; +BISA10SU11 RC; +FERR325T23 PO; +NA P133E RC
[2022-12-27] MEDS ORDERED: IV NS 0.9% 1,000 ML BAG IV ONE (22:30)
[2022-12-27 22:35] LABS: BILIRUBIN,URINE NEGATIVE (NEGATIVE); COLOR,URINE YELLOW (YELLOW); LEUKOCYTE ESTERASE ,URINE TRACE (NEGATIVE); NITRITE, URINE NEGATIVE (NEGATIVE); PH,URINE 5.5 (5.0-8.0); PROTEIN,URINE NEGATIVE (NEGATIVE); UGLUCOSE NEGATIVE (NEGATIVE)
[2022-12-27 22:45] LABS: BASOPHILS % (AUTO) 0.2 % (0.0-2.0); EOSINOPHILS % (AUTO) 0.6 % (0.0-6.0); HEMATOCRIT 45 % (39-51); HEMOGLOBIN 14.3 g/dL (13.5-17.5); LYMPHOCYTES # (AUTO) 0.4 K/uL (0.8-4.8); LYMPHOCYTES % (AUTO) 8.7 % (20.0-44.0); MEAN CORPUSCULAR HGB CONC 32 g/dl (31.0-36.0); MEAN CORPUSCULAR VOLUME 103 fL (80-96); MONOCYTES # (AUTO) 0.5 K/uL (0.1-1.30); MONOCYTES % (AUTO) 13.1 % (2.0-12.0); NEUTROPHILS # (AUTO) 3.2 K/uL (1.8-8.9); NEUTROPHILS % (AUTO) 77.4 % (43.0-81.0); PLATELET COUNT (AUTO) 111 K/uL (150-450); RED BLOOD CELL COUNT(AUTO) 4.36 MIL/uL (4.5-6.0); WHITE BLOOD COUNT (AUTO) 4.1 K/uL (4.3-11.0)
[2022-12-27 22:53] LABS: BACTERIA,URINE Rare /HPF (None Seen); SQUAMOUS EPITHELIAL CELL,UR Few /HPF (None Seen); WBC,URINE 0-2 /HPF (0-3)
[2022-12-27 22:57] LABS: ALANINE AMINOTRANSFERASE 20 U/L (12-78); ALBUMIN 3.5 g/dL (3.4-5.0); ALKALINE PHOSPHATASE 118 U/L (46-116); ASPARTATE AMINOTRANSFERASE 26 U/L (15-37); BILIRUBIN,DIRECT 0.8 mg/dL (0.0-0.2); BILIRUBIN,TOTAL 1.7 mg/dL (0.2-1.0); CALCIUM, SERUM 9.4 mg/dL (8.5-10.1); CARBON DIOXIDE 32 mmol/L (21-32); CHLORIDE 104 mmol/L (98-107); CREATININE 1.6 mg/dL (0.6-1.3); GLUCOSE 110 mg/dL (74-106); POTASSIUM 4.8 mmol/L (3.5-5.1); SODIUM SERUM 142 mmol/L (136-145); TOTAL PROTEIN, SERUM 8.2 g/dL (6.4-8.2); UREA NITROGEN, BLOOD 33 mg/dL (7-18)
[2022-12-27 23:02] LABS: ALCOHOL, BLOOD < 3 mg/dL (0-0)
[2022-12-27 23:26] LABS: SERUM AMMONIA 32 umol/L (11-32)
[2022-12-27] MEDS ORDERED: CEFEPIME 1 GM VIAL ONE (23:29)
[2022-12-27] MEDS ORDERED: CEFEPIME 1 GM in IV D5W 50 ML IV ONE (23:30)
[2022-12-28] VITALS (17 sets, daily range): BP systolic 93–122; BP diastolic 51–79
[2022-12-28] MEDS ORDERED: BISACODYL SUPP (10 MG) 10 MG/SUPP.RECT SUPP.RECT RC PRN
[2022-12-28] MEDS ORDERED: MAGNESIUM HYDROXIDE 30 ML UDC PO PRN
[2022-12-28] MEDS ORDERED: NA PHOS,M-B/NA PHOS,DI-BA 1 EA ENEMA RC PRN
[2022-12-28] MEDS ORDERED: ACETAMINOPHEN 325 MG TABLET PO PRN
[2022-12-28] MEDS ORDERED: VANCOMYCIN 1 GM /D5W 250 ML PB IV ONE (00:56)
[2022-12-28] MEDS ORDERED: VANCOMYCIN 1 GM in IV D5W 250ml IV ONE (01:00)
[2022-12-28] MEDS: IV NS 0.9% 250 ML IV PRN ×2 (01:29→21:24)
[2022-12-28] MEDS ORDERED: VANCOMYCIN 500 MG in IV D5W 100 ML IV ONE (06:30)
[2022-12-28] MEDS: CEFEPIME 2 GM in IV D5W 100 ML IV SCH ×2 (08:58→21:25)
[2022-12-28] MEDS: ASPIRIN 81 MG TAB.CHEW PO SCH (09:00)
[2022-12-28] MEDS: FERROUS SULFATE (325 MG) 325 MG/TAB TABLET PO SCH ×2 (09:00→16:47)
[2022-12-28] MEDS: DIGOXIN 0.125 MG TABLET PO SCH (09:00)
[2022-12-28] MEDS ORDERED: CEFEPIME 1 GM in IV D5W 50 ML IV SCH (09:00)
[2022-12-28] MEDS: MULTIVITAMINS,THERAGRAN 1 UDTAB TABLET PO SCH (09:00)
[2022-12-28] MEDS: CARVEDILOL 3.125 MG TABLET PO SCH ×2 (09:00→21:00)
[2022-12-28] MEDS: CLOPIDOGREL BISULFATE 75 MG TABLET PO SCH (09:00)
[2022-12-28] MEDS: DOCUSATE SODIUM 100 MG CAPSULE PO SCH ×2 (09:00→16:47)
[2022-12-28] MEDS: CHOLECALCIFEROL 1,000 UNIT TABLET (VIT D3) PO SCH (09:00)
[2022-12-28 10:11] LABS: ABG BASE EXCESS 0.6 mmol/L; ABG OXYGEN SATURATION 97.6 % (92.0-98.5); ABG PCO2 88.4 mmHg (35.0-45.0); ABG PH 7.178 (7.350-7.450); ABG PO2 126.8 mmHg (75.0-100.0); COHb 0.9 % (0.5-1.5); MetHb 0.3 % (0.0-1.5); O2Hb 96.4 % (94.0-97.0); SITE, ABG Right Radial; VENT MODE, BG 3 LPM NC
[2022-12-28 14:31] LABS: ABG PCO2 46.6 mmHg (35.0-45.0); ABG PH 7.362 (7.350-7.450); ABG PO2 79.4 mmHg (75.0-100.0); COHb 0.4 % (0.5-1.5); MetHb 0.3 % (0.0-1.5); O2Hb 94.8 % (94.0-97.0); VENT MODE, BG 20/5 RR 20 25%
[2022-12-28] MEDS ORDERED: FUROSEMIDE 20 MG/2 ML VIAL IV SCH (16:30)
[2022-12-28] MEDS: ATORVASTATIN 40 MG TABLET PO SCH (21:51)
[2022-12-29] VITALS (24 sets, daily range): BP systolic 97–131; BP diastolic 56–94
[2022-12-29 03:58] LABS: CALCIUM, SERUM 8.9 mg/dL (8.5-10.1); CARBON DIOXIDE 32 mmol/L (21-32); CHLORIDE 106 mmol/L (98-107); CREATININE 1.5 mg/dL (0.6-1.3); GLUCOSE 81 mg/dL (74-106); SODIUM SERUM 145 mmol/L (136-145); UREA NITROGEN, BLOOD 32 mg/dL (7-18)
[2022-12-29] MEDS ORDERED: VANCOMYCIN 1.25 GM in IV D5W 250 ML IV SCH (06:00)
[2022-12-29] MEDS: CEFEPIME 2 GM in IV D5W 100 ML IV SCH ×2 (08:56→21:03)
[2022-12-29] MEDS: CHOLECALCIFEROL 1,000 UNIT TABLET (VIT D3) PO SCH (08:57)
[2022-12-29] MEDS: DOCUSATE SODIUM 100 MG CAPSULE PO SCH ×2 (08:57→17:36)
[2022-12-29] MEDS: DIGOXIN 0.125 MG TABLET PO SCH (08:57)
[2022-12-29] MEDS: ASPIRIN 81 MG TAB.CHEW PO SCH (08:57)
[2022-12-29] MEDS: CLOPIDOGREL BISULFATE 75 MG TABLET PO SCH (08:57)
[2022-12-29] MEDS: FERROUS SULFATE (325 MG) 325 MG/TAB TABLET PO SCH ×2 (08:57→17:36)
[2022-12-29] MEDS: CARVEDILOL 3.125 MG TABLET PO SCH ×2 (08:57→21:06)
[2022-12-29] MEDS: MULTIVITAMINS,THERAGRAN 1 UDTAB TABLET PO SCH (08:57)
[2022-12-29 10:07] LABS: ABG BASE EXCESS 4.2 mmol/L; ABG PCO2 59.8 mmHg (35.0-45.0); ABG PH 7.342 (7.350-7.450); ABG PO2 97.6 mmHg (75.0-100.0); AaDO2 31.5 mmHg; COHb 1.1 % (0.5-1.5); MetHb 0.4 % (0.0-1.5); O2Hb 95.5 % (94.0-97.0); SITE, ABG Right Radial
[2022-12-29] MEDS: IPRATROPIUM NEB FS 0.5 MG/2.5 ML AMPUL.NEB NEB SCH ×3 (10:30→19:37)
[2022-12-29] MEDS: methylPREDNISolone SOD SUCC 125 MG/2ML VIAL IV SCH (11:37)
[2022-12-29] MEDS: ATORVASTATIN 40 MG TABLET PO SCH (21:06)
[2022-12-30] VITALS (26 sets, daily range): BP systolic 92–126; BP diastolic 47–72
[2022-12-30] MEDS: IPRATROPIUM NEB FS 0.5 MG/2.5 ML AMPUL.NEB NEB SCH ×4 (01:04→19:53)
[2022-12-30 04:02] LABS: HEMATOCRIT 39 % (39-51); HEMOGLOBIN 12.5 g/dL (13.5-17.5); LYMPHOCYTES # (AUTO) 0.1 K/uL (0.8-4.8); LYMPHOCYTES % (AUTO) 3.9 % (20.0-44.0); MEAN CORPUSCULAR HGB CONC 32 g/dl (31.0-36.0); MEAN CORPUSCULAR VOLUME 101 fL (80-96); MONOCYTES # (AUTO) 0.3 K/uL (0.1-1.30); MONOCYTES % (AUTO) 6.9 % (2.0-12.0); NEUTROPHILS # (AUTO) 3.4 K/uL (1.8-8.9); NEUTROPHILS % (AUTO) 89.2 % (43.0-81.0); PLATELET COUNT (AUTO) 105 K/uL (150-450); RED BLOOD CELL COUNT(AUTO) 3.84 MIL/uL (4.5-6.0); WHITE BLOOD COUNT (AUTO) 3.8 K/uL (4.3-11.0)
[2022-12-30 04:41] LABS: CALCIUM, SERUM 9.2 mg/dL (8.5-10.1); CARBON DIOXIDE 33 mmol/L (21-32); CHLORIDE 105 mmol/L (98-107); CREATININE 1.4 mg/dL (0.6-1.3); GLUCOSE 113 mg/dL (74-106); POTASSIUM 4.2 mmol/L (3.5-5.1); SODIUM SERUM 139 mmol/L (136-145); UREA NITROGEN, BLOOD 34 mg/dL (7-18)
[2022-12-30] MEDS: CEFEPIME 2 GM in IV D5W 100 ML IV SCH ×2 (08:28→21:18)
[2022-12-30] MEDS: ASPIRIN 81 MG TAB.CHEW PO SCH (08:29)
[2022-12-30] MEDS: DOCUSATE SODIUM 100 MG CAPSULE PO SCH ×2 (08:30→17:28)
[2022-12-30] MEDS: MULTIVITAMINS,THERAGRAN 1 UDTAB TABLET PO SCH (08:30)
[2022-12-30] MEDS: CHOLECALCIFEROL 1,000 UNIT TABLET (VIT D3) PO SCH (08:30)
[2022-12-30] MEDS: methylPREDNISolone SOD SUCC 125 MG/2ML VIAL IV SCH (08:30)
[2022-12-30] MEDS: FERROUS SULFATE (325 MG) 325 MG/TAB TABLET PO SCH ×2 (08:30→17:28)
[2022-12-30] MEDS: DIGOXIN 0.125 MG TABLET PO SCH (08:32)
[2022-12-30] MEDS: CLOPIDOGREL BISULFATE 75 MG TABLET PO SCH (08:36)
[2022-12-30] MEDS: THERAHONEY GEL 1.5 OZ TUBE TP SCH (08:37)
[2022-12-30] MEDS: CARVEDILOL 3.125 MG TABLET PO SCH ×2 (09:18→21:19)
[2022-12-30] MEDS: IV NS 0.9% 250 ML IV PRN (09:32)
[2022-12-30] MEDS: POTASSIUM CHLORIDE 20 MEQ TAB.PRT.SR PO SCH ×2 (10:44→11:34)
[2022-12-30] MEDS: FUROSEMIDE 40 MG/4 ML VIAL IV SCH ×3 (10:44→18:12)
[2022-12-30 15:26] LABS: THYROID STIMULATING HORMONE 1.832 uIU/mL (0.358-3.74)
[2022-12-30] MEDS: ATORVASTATIN 40 MG TABLET PO SCH (21:20)
[2022-12-31] VITALS (20 sets, daily range): BP systolic 91–130; BP diastolic 51–77
[2022-12-31] MEDS: IPRATROPIUM NEB FS 0.5 MG/2.5 ML AMPUL.NEB NEB SCH ×4 (01:31→19:54)
[2022-12-31 08:09] LABS: BASOPHILS % (AUTO) 0.1 % (0.0-2.0); EOSINOPHILS % (AUTO) 0.1 % (0.0-6.0); HEMATOCRIT 39 % (39-51); HEMOGLOBIN 12.6 g/dL (13.5-17.5); LYMPHOCYTES # (AUTO) 0.3 K/uL (0.8-4.8); MEAN CORPUSCULAR HGB CONC 33 g/dl (31.0-36.0); MEAN CORPUSCULAR VOLUME 100 fL (80-96); MONOCYTES # (AUTO) 0.7 K/uL (0.1-1.30); MONOCYTES % (AUTO) 9.3 % (2.0-12.0); NEUTROPHILS # (AUTO) 6.1 K/uL (1.8-8.9); NEUTROPHILS % (AUTO) 86.5 % (43.0-81.0); PLATELET COUNT (AUTO) 108 K/uL (150-450); RED BLOOD CELL COUNT(AUTO) 3.88 MIL/uL (4.5-6.0); WHITE BLOOD COUNT (AUTO) 7.1 K/uL (4.3-11.0)
[2022-12-31] MEDS: CLOPIDOGREL BISULFATE 75 MG TABLET PO SCH (08:14)
[2022-12-31] MEDS: FERROUS SULFATE (325 MG) 325 MG/TAB TABLET PO SCH ×2 (08:14→16:16)
[2022-12-31] MEDS: CHOLECALCIFEROL 1,000 UNIT TABLET (VIT D3) PO SCH (08:14)
[2022-12-31] MEDS: ASPIRIN 81 MG TAB.CHEW PO SCH (08:14)
[2022-12-31] MEDS: DOCUSATE SODIUM 100 MG CAPSULE PO SCH ×2 (08:14→16:16)
[2022-12-31] MEDS: methylPREDNISolone SOD SUCC 125 MG/2ML VIAL IV SCH (08:15)
[2022-12-31] MEDS: MULTIVITAMINS,THERAGRAN 1 UDTAB TABLET PO SCH (08:15)
[2022-12-31] MEDS: DIGOXIN 0.125 MG TABLET PO SCH (08:15)
[2022-12-31] MEDS: THERAHONEY GEL 1.5 OZ TUBE TP SCH (08:16)
[2022-12-31] MEDS: CEFEPIME 2 GM in IV D5W 100 ML IV SCH ×2 (08:16→21:37)
[2022-12-31] MEDS: CARVEDILOL 3.125 MG TABLET PO SCH ×2 (08:17→21:37)
[2022-12-31 09:09] LABS: ALANINE AMINOTRANSFERASE 17 U/L (12-78); ALBUMIN 3.1 g/dL (3.4-5.0); ALKALINE PHOSPHATASE 85 U/L (46-116); ASPARTATE AMINOTRANSFERASE 18 U/L (15-37); BILIRUBIN,TOTAL 1.1 mg/dL (0.2-1.0); CALCIUM, SERUM 9.4 mg/dL (8.5-10.1); CARBON DIOXIDE 32 mmol/L (21-32); CHLORIDE 106 mmol/L (98-107); CREATININE 1.4 mg/dL (0.6-1.3); GLUCOSE 107 mg/dL (74-106); MAGNESIUM 2.2 mg/dL (1.8-2.4); POTASSIUM 3.9 mmol/L (3.5-5.1); SODIUM SERUM 143 mmol/L (136-145); TOTAL PROTEIN, SERUM 7.3 g/dL (6.4-8.2); UREA NITROGEN, BLOOD 35 mg/dL (7-18)
[2022-12-31 13:07] LABS: *ANA ANTI-CENTROMERE B AB <0.2 AI (0.0-0.9); *ANA ANTI-DNA(DS) AB, QN 4 IU/mL (0-9); *ANA ANTI-JO-1 <0.2 AI (0.0-0.9); *ANA ANTICHROMATIN ANTIBODY <0.2 AI (0.0-0.9); *ANA RNP ANTIBODIES <0.2 AI (0.0-0.9); *ANA SJOGREN'S ANTI-SS-A <0.2 AI (0.0-0.9); *ANA SJOGREN'S ANTI-SS-B <0.2 AI (0.0-0.9); *ANAANTI-SCLERODERMA-70 AB <0.2 AI (0.0-0.9); *ANASMITH AB <0.2 AI (0.0-0.9)
[2022-12-31] MEDS: ATORVASTATIN 40 MG TABLET PO SCH (21:36)
[2023-01-01] VITALS (16 sets, daily range): BP systolic 92–139; BP diastolic 51–77
[2023-01-01] MEDS: IPRATROPIUM NEB FS 0.5 MG/2.5 ML AMPUL.NEB NEB SCH ×4 (01:10→19:57)
[2023-01-01] MEDS ORDERED: LORAZEPAM INJ 2 MG/ML VIAL IV PRN (01:30)
[2023-01-01 06:15] LABS: EOSINOPHILS % (AUTO) 0.1 % (0.0-6.0); HEMATOCRIT 42 % (39-51); HEMOGLOBIN 13.4 g/dL (13.5-17.5); LYMPHOCYTES # (AUTO) 0.4 K/uL (0.8-4.8); LYMPHOCYTES % (AUTO) 4.7 % (20.0-44.0); MEAN CORPUSCULAR HGB CONC 32 g/dl (31.0-36.0); MEAN CORPUSCULAR VOLUME 101 fL (80-96); MONOCYTES # (AUTO) 0.7 K/uL (0.1-1.30); MONOCYTES % (AUTO) 9.5 % (2.0-12.0); NEUTROPHILS # (AUTO) 6.7 K/uL (1.8-8.9); NEUTROPHILS % (AUTO) 85.7 % (43.0-81.0); PLATELET COUNT (AUTO) 116 K/uL (150-450); RED BLOOD CELL COUNT(AUTO) 4.12 MIL/uL (4.5-6.0); WHITE BLOOD COUNT (AUTO) 7.8 K/uL (4.3-11.0)
[2023-01-01 08:06] LABS: IMMUNOGLOBULIN A, SERUM 333 mg/dL (61-437); IMMUNOGLOBULIN G, SERUM 2088 mg/dL (603-1613); IMMUNOGLOBULIN M, SERUM 137 mg/dL (15-143)
[2023-01-01] MEDS: CEFEPIME 2 GM in IV D5W 100 ML IV SCH ×2 (08:56→20:00)
[2023-01-01] MEDS: CHOLECALCIFEROL 1,000 UNIT TABLET (VIT D3) PO SCH (08:57)
[2023-01-01] MEDS: ASPIRIN 81 MG TAB.CHEW PO SCH (08:57)
[2023-01-01] MEDS: DOCUSATE SODIUM 100 MG CAPSULE PO SCH ×2 (08:57→17:00)
[2023-01-01] MEDS: MULTIVITAMINS,THERAGRAN 1 UDTAB TABLET PO SCH (08:57)
[2023-01-01] MEDS: FERROUS SULFATE (325 MG) 325 MG/TAB TABLET PO SCH ×2 (08:57→17:00)
[2023-01-01] MEDS: DIGOXIN 0.125 MG TABLET PO SCH (08:58)
[2023-01-01] MEDS: CARVEDILOL 3.125 MG TABLET PO SCH ×2 (08:58→20:01)
[2023-01-01] MEDS: methylPREDNISolone SOD SUCC 125 MG/2ML VIAL IV SCH (08:59)
[2023-01-01] MEDS: THERAHONEY GEL 1.5 OZ TUBE TP SCH (08:59)
[2023-01-01 10:02] LABS: ABG BASE EXCESS 2.8 mmol/L; ABG OXYGEN SATURATION 97.4 % (92.0-98.5); ABG PCO2 59.9 mmHg (35.0-45.0); ABG PH 7.323 (7.350-7.450); ABG PO2 106.4 mmHg (75.0-100.0); COHb 0.8 % (0.5-1.5); MetHb 0.3 % (0.0-1.5); O2Hb 96.3 % (94.0-97.0); SITE, ABG Right Radial; VENT MODE, BG nasal cannula
[2023-01-01 17:17] LABS: OCCULT BLOOD STOOL NEGATIVE (NEGATIVE)
[2023-01-01] MEDS: IV NS 0.9% 250 ML IV PRN (21:16)
[2023-01-01] MEDS: ATORVASTATIN 40 MG TABLET PO SCH (22:00)
[2023-01-02] VITALS (16 sets, daily range): BP systolic 96–115; BP diastolic 54–85
[2023-01-02] MEDS: IPRATROPIUM NEB FS 0.5 MG/2.5 ML AMPUL.NEB NEB SCH ×4 (01:26→20:12)
[2023-01-02 04:56] LABS: CALCIUM, SERUM 9.1 mg/dL (8.5-10.1); CARBON DIOXIDE 35 mmol/L (21-32); CHLORIDE 106 mmol/L (98-107); CREATININE 1.4 mg/dL (0.6-1.3); GLUCOSE 91 mg/dL (74-106); POTASSIUM 4.3 mmol/L (3.5-5.1); SODIUM SERUM 143 mmol/L (136-145); UREA NITROGEN, BLOOD 35 mg/dL (7-18)
[2023-01-02 05:00] LABS: BASOPHILS % (AUTO) 0.1 % (0.0-2.0); EOSINOPHILS % (AUTO) 0.1 % (0.0-6.0); HEMATOCRIT 40 % (39-51); HEMOGLOBIN 12.9 g/dL (13.5-17.5); LYMPHOCYTES # (AUTO) 0.3 K/uL (0.8-4.8); LYMPHOCYTES % (AUTO) 5.4 % (20.0-44.0); MEAN CORPUSCULAR HGB CONC 32 g/dl (31.0-36.0); MEAN CORPUSCULAR VOLUME 101 fL (80-96); MONOCYTES # (AUTO) 0.6 K/uL (0.1-1.30); MONOCYTES % (AUTO) 10.1 % (2.0-12.0); NEUTROPHILS # (AUTO) 4.7 K/uL (1.8-8.9); NEUTROPHILS % (AUTO) 84.3 % (43.0-81.0); PLATELET COUNT (AUTO) 90 K/uL (150-450); RED BLOOD CELL COUNT(AUTO) 3.93 MIL/uL (4.5-6.0); WHITE BLOOD COUNT (AUTO) 5.6 K/uL (4.3-11.0)
[2023-01-02 06:12] LABS: LYMPHOCYTES % (MANUAL) 6 % (16-48); MONOCYTES % (MANUAL) 7 % (0-11.0); NEUTROPHILS % (MANUAL) 87 (42-76)
[2023-01-02] MEDS: ASPIRIN 81 MG TAB.CHEW PO SCH (08:15)
[2023-01-02] MEDS: CHOLECALCIFEROL 1,000 UNIT TABLET (VIT D3) PO SCH (08:15)
[2023-01-02] MEDS: methylPREDNISolone SOD SUCC 125 MG/2ML VIAL IV SCH (08:15)
[2023-01-02] MEDS: CEFEPIME 2 GM in IV D5W 100 ML IV SCH ×2 (08:15→21:47)
[2023-01-02] MEDS: DOCUSATE SODIUM 100 MG CAPSULE PO SCH ×2 (08:15→16:32)
[2023-01-02] MEDS: DIGOXIN 0.125 MG TABLET PO SCH (08:16)
[2023-01-02] MEDS: CARVEDILOL 3.125 MG TABLET PO SCH ×2 (08:16→21:00)
[2023-01-02] MEDS: MULTIVITAMINS,THERAGRAN 1 UDTAB TABLET PO SCH (08:16)
[2023-01-02] MEDS: THERAHONEY GEL 1.5 OZ TUBE TP SCH (08:24)
[2023-01-02 09:31] LABS: ABG BASE EXCESS 8.7 mmol/L; ABG OXYGEN SATURATION 94.8 % (92.0-98.5); ABG PH 7.394 (7.350-7.450); ABG PO2 76.9 mmHg (75.0-100.0); AaDO2 22.8 mmHg; COHb 0.9 % (0.5-1.5); MetHb 0.3 % (0.0-1.5); O2Hb 93.7 % (94.0-97.0); SITE, ABG Right Radial; VENT MODE, BG nasal cannula
[2023-01-02] MEDS: ATORVASTATIN 40 MG TABLET PO SCH (21:48)
[2023-01-03] VITALS: BP 105/64
[2023-01-03] MEDS: IPRATROPIUM NEB FS 0.5 MG/2.5 ML AMPUL.NEB NEB SCH ×4 (01:57→20:12)
[2023-01-03 02:06] LABS: *SPE A/G RATIO 0.9 (0.7-1.7); *SPE ALPHA-1-GLOBULIN 0.2 g/dL (0.0-0.4); *SPE ALPHA-2-GLOBULIN 0.5 g/dL (0.4-1.0); *SPE BETA GLOBULIN 0.9 g/dL (0.7-1.3); *SPE M-SPIKE Not Observed g/dL (Not Observed)
[2023-01-03] MEDS: IV NS 0.9% 250 ML IV PRN ×2 (02:17→08:02)
[2023-01-03 04:00] VITALS: BP 99/51
[2023-01-03 07:27] LABS: BASOPHILS % (AUTO) 0.2 % (0.0-2.0); EOSINOPHILS % (AUTO) 0.2 % (0.0-6.0); HEMATOCRIT 42 % (39-51); HEMOGLOBIN 13.7 g/dL (13.5-17.5); LYMPHOCYTES # (AUTO) 0.4 K/uL (0.8-4.8); MEAN CORPUSCULAR HGB CONC 33 g/dl (31.0-36.0); MEAN CORPUSCULAR VOLUME 100 fL (80-96); MONOCYTES # (AUTO) 0.7 K/uL (0.1-1.30); MONOCYTES % (AUTO) 10.9 % (2.0-12.0); NEUTROPHILS # (AUTO) 5.1 K/uL (1.8-8.9); NEUTROPHILS % (AUTO) 82.7 % (43.0-81.0); PLATELET COUNT (AUTO) 91 K/uL (150-450); RED BLOOD CELL COUNT(AUTO) 4.16 MIL/uL (4.5-6.0); WHITE BLOOD COUNT (AUTO) 6.1 K/uL (4.3-11.0)
[2023-01-03 07:39] LABS: CALCIUM, SERUM 9.4 mg/dL (8.5-10.1); CREATININE 1.3 mg/dL (0.6-1.3); POTASSIUM 4.6 mmol/L (3.5-5.1)
[2023-01-03 08:00] VITALS: BP 125/76
[2023-01-03] MEDS: THERAHONEY GEL 1.5 OZ TUBE TP SCH (08:07)
[2023-01-03] MEDS: CEFEPIME 2 GM in IV D5W 100 ML IV SCH ×2 (08:07→20:50)
[2023-01-03] MEDS: methylPREDNISolone SOD SUCC 125 MG/2ML VIAL IV SCH (08:08)
[2023-01-03] MEDS: ASPIRIN 81 MG TAB.CHEW PO SCH (08:10)
[2023-01-03] MEDS: DOCUSATE SODIUM 100 MG CAPSULE PO SCH ×2 (08:10→16:00)
[2023-01-03] MEDS: CHOLECALCIFEROL 1,000 UNIT TABLET (VIT D3) PO SCH (08:10)
[2023-01-03] MEDS: CARVEDILOL 3.125 MG TABLET PO SCH ×2 (08:10→21:17)
[2023-01-03] MEDS: MULTIVITAMINS,THERAGRAN 1 UDTAB TABLET PO SCH (08:11)
[2023-01-03] MEDS: DIGOXIN 0.125 MG TABLET PO SCH (08:11)
[2023-01-03 12:00] VITALS: BP 116/55
[2023-01-03 16:00] VITALS: BP 106/66
[2023-01-03 20:00] VITALS: BP 113/70
[2023-01-03] MEDS: ATORVASTATIN 40 MG TABLET PO SCH (21:17)
[2023-01-03 22:10] LABS: LYMPHOCYTES % (MANUAL) 10 % (16-48); MONOCYTES % (MANUAL) 12 % (0-11.0); NEUTROPHILS % (MANUAL) 78 (42-76)
[2023-01-04] VITALS: BP 95/56
[2023-01-04] MEDS: IPRATROPIUM NEB FS 0.5 MG/2.5 ML AMPUL.NEB NEB SCH ×4 (02:02→20:11)
[2023-01-04 04:00] VITALS: BP 109/70
[2023-01-04 06:19] LABS: BASOPHILS % (AUTO) 0.3 % (0.0-2.0); EOSINOPHILS % (AUTO) 0.3 % (0.0-6.0); HEMATOCRIT 40 % (39-51); HEMOGLOBIN 13.3 g/dL (13.5-17.5); LYMPHOCYTES # (AUTO) 0.4 K/uL (0.8-4.8); LYMPHOCYTES % (AUTO) 7.7 % (20.0-44.0); MEAN CORPUSCULAR HGB CONC 33 g/dl (31.0-36.0); MEAN CORPUSCULAR VOLUME 100 fL (80-96); MONOCYTES # (AUTO) 0.6 K/uL (0.1-1.30); MONOCYTES % (AUTO) 9.9 % (2.0-12.0); NEUTROPHILS # (AUTO) 4.7 K/uL (1.8-8.9); NEUTROPHILS % (AUTO) 81.8 % (43.0-81.0); PLATELET COUNT (AUTO) 84 K/uL (150-450); RED BLOOD CELL COUNT(AUTO) 3.99 MIL/uL (4.5-6.0); WHITE BLOOD COUNT (AUTO) 5.7 K/uL (4.3-11.0)
[2023-01-04 07:00] LABS: CALCIUM, SERUM 9.1 mg/dL (8.5-10.1); CARBON DIOXIDE 32 mmol/L (21-32); CHLORIDE 104 mmol/L (98-107); CREATININE 1.3 mg/dL (0.6-1.3); GLUCOSE 103 mg/dL (74-106); POTASSIUM 4.3 mmol/L (3.5-5.1); SODIUM SERUM 141 mmol/L (136-145); UREA NITROGEN, BLOOD 36 mg/dL (7-18)
[2023-01-04 08:00] VITALS: BP 113/70
[2023-01-04] MEDS: THERAHONEY GEL 1.5 OZ TUBE TP SCH (09:00)
[2023-01-04] MEDS: CARVEDILOL 3.125 MG TABLET PO SCH ×2 (09:00→21:28)
[2023-01-04] MEDS ORDERED: IOHEXOL-300 100 ML VIAL IV ONE (10:21)
[2023-01-04] MEDS ORDERED: CT SWABBABLE VALVE TRANS SET 1 EA INFUS.SET MC ONE (10:21)
[2023-01-04] MEDS ORDERED: IOHEXOL 240MG/ML 50 ML IV ONE (10:22)
[2023-01-04] MEDS ORDERED: IV NS 0.9% 250 ML IV ONE (10:22)
[2023-01-04 10:46] LABS: BAND % (MANUAL) 2 % (0.0-5.0); BASOPHILS % (MANUAL) 0 % (0.0-2.0); EOSINOPHILS % (MANUAL) 1 % (0-4); LYMPHOCYTES % (MANUAL) 5 % (16-48); MONOCYTES % (MANUAL) 8 % (0-11.0); NEUTROPHILS % (MANUAL) 84 (42-76)
[2023-01-04 12:00] VITALS: BP 103/62
[2023-01-04 16:00] VITALS: BP 110/76
[2023-01-04] MEDS: DOCUSATE SODIUM 100 MG CAPSULE PO SCH ×2 (17:00→17:57)
[2023-01-04] MEDS: methylPREDNISolone SOD SUCC 125 MG/2ML VIAL IV SCH (17:56)
[2023-01-04] MEDS: CEFEPIME 2 GM in IV D5W 100 ML IV SCH ×2 (17:56→21:27)
[2023-01-04] MEDS: DIGOXIN 0.125 MG TABLET PO SCH (17:57)
[2023-01-04] MEDS: ASPIRIN 81 MG TAB.CHEW PO SCH (17:58)
[2023-01-04] MEDS: FERROUS SULFATE (325 MG) 325 MG/TAB TABLET PO SCH (17:58)
[2023-01-04] MEDS: CHOLECALCIFEROL 1,000 UNIT TABLET (VIT D3) PO SCH (17:58)
[2023-01-04] MEDS: MULTIVITAMINS,THERAGRAN 1 UDTAB TABLET PO SCH (17:58)
[2023-01-04 20:00] VITALS: BP 115/68
[2023-01-04] MEDS: ATORVASTATIN 40 MG TABLET PO SCH (21:27)
[2023-01-05] VITALS: BP 104/67
[2023-01-05] MEDS: IPRATROPIUM NEB FS 0.5 MG/2.5 ML AMPUL.NEB NEB SCH ×4 (02:24→19:38)
[2023-01-05 04:00] VITALS: BP 105/63
[2023-01-05 06:58] LABS: BASOPHILS % (AUTO) 0.1 % (0.0-2.0); HEMATOCRIT 39 % (39-51); HEMOGLOBIN 12.7 g/dL (13.5-17.5); LYMPHOCYTES # (AUTO) 0.2 K/uL (0.8-4.8); LYMPHOCYTES % (AUTO) 3.7 % (20.0-44.0); MEAN CORPUSCULAR HGB CONC 33 g/dl (31.0-36.0); MEAN CORPUSCULAR VOLUME 101 fL (80-96); MONOCYTES # (AUTO) 0.2 K/uL (0.1-1.30); MONOCYTES % (AUTO) 5.5 % (2.0-12.0); NEUTROPHILS % (AUTO) 90.7 % (43.0-81.0); PLATELET COUNT (AUTO) 78 K/uL (150-450); RED BLOOD CELL COUNT(AUTO) 3.84 MIL/uL (4.5-6.0); WHITE BLOOD COUNT (AUTO) 4.4 K/uL (4.3-11.0)
[2023-01-05 07:16] LABS: CALCIUM, SERUM 8.8 mg/dL (8.5-10.1); CARBON DIOXIDE 35 mmol/L (21-32); CHLORIDE 105 mmol/L (98-107); CREATININE 1.3 mg/dL (0.6-1.3); GLUCOSE 107 mg/dL (74-106); MAGNESIUM 2.4 mg/dL (1.8-2.4); PHOSPHORUS 2.8 mg/dL (2.5-4.9); POTASSIUM 4.4 mmol/L (3.5-5.1); SODIUM SERUM 141 mmol/L (136-145); UREA NITROGEN, BLOOD 36 mg/dL (7-18)
[2023-01-05 08:00] VITALS: BP 112/67
[2023-01-05] MEDS: ASPIRIN 81 MG TAB.CHEW PO SCH ×2 (09:00→09:06)
[2023-01-05] MEDS: MULTIVITAMINS,THERAGRAN 1 UDTAB TABLET PO SCH (09:06)
[2023-01-05] MEDS: methylPREDNISolone SOD SUCC 125 MG/2ML VIAL IV SCH (09:06)
[2023-01-05] MEDS: DIGOXIN 0.125 MG TABLET PO SCH (09:07)
[2023-01-05] MEDS: DOCUSATE SODIUM 100 MG CAPSULE PO SCH ×2 (09:08→16:46)
[2023-01-05] MEDS: CEFEPIME 2 GM in IV D5W 100 ML IV SCH ×2 (09:08→21:19)
[2023-01-05] MEDS: CHOLECALCIFEROL 1,000 UNIT TABLET (VIT D3) PO SCH (09:08)
[2023-01-05] MEDS: FERROUS SULFATE (325 MG) 325 MG/TAB TABLET PO SCH ×2 (09:08→16:46)
[2023-01-05] MEDS: CARVEDILOL 3.125 MG TABLET PO SCH ×2 (09:08→21:19)
[2023-01-05] MEDS: THERAHONEY GEL 1.5 OZ TUBE TP SCH (09:08)
[2023-01-05 12:00] VITALS: BP_SYST 113; BP_SYST 119; BP_DIAS 64; BP_DIAS 73
[2023-01-05 15:22] LABS: LYMPHOCYTES % (MANUAL) 2 % (16-48); MONOCYTES % (MANUAL) 7 % (0-11.0); NEUTROPHILS % (MANUAL) 91 (42-76)
[2023-01-05 16:00] VITALS: BP 113/64
[2023-01-05 20:00] VITALS: BP 109/63
[2023-01-05] MEDS: ATORVASTATIN 40 MG TABLET PO SCH (21:19)
[2023-01-06] VITALS: BP 108/58
[2023-01-06] MEDS: IPRATROPIUM NEB FS 0.5 MG/2.5 ML AMPUL.NEB NEB SCH ×3 (01:15→13:33)
[2023-01-06 04:06] VITALS: BP 99/60
[2023-01-06 05:59] LABS: BASOPHILS % (AUTO) 0.1 % (0.0-2.0); HEMATOCRIT 43 % (39-51); HEMOGLOBIN 14.1 g/dL (13.5-17.5); LYMPHOCYTES # (AUTO) 0.4 K/uL (0.8-4.8); LYMPHOCYTES % (AUTO) 4.6 % (20.0-44.0); MEAN CORPUSCULAR HGB CONC 33 g/dl (31.0-36.0); MEAN CORPUSCULAR VOLUME 101 fL (80-96); MONOCYTES # (AUTO) 0.7 K/uL (0.1-1.30); MONOCYTES % (AUTO) 8.4 % (2.0-12.0); NEUTROPHILS # (AUTO) 7.3 K/uL (1.8-8.9); NEUTROPHILS % (AUTO) 86.9 % (43.0-81.0); PLATELET COUNT (AUTO) 100 K/uL (150-450); RED BLOOD CELL COUNT(AUTO) 4.29 MIL/uL (4.5-6.0); WHITE BLOOD COUNT (AUTO) 8.4 K/uL (4.3-11.0)
[2023-01-06 06:06] LABS: CREATININE 1.3 mg/dL (0.6-1.3); POTASSIUM 4.6 mmol/L (3.5-5.1)
[2023-01-06 08:00] VITALS: BP 118/84
[2023-01-06] MEDS: DOCUSATE SODIUM 100 MG CAPSULE PO SCH (08:55)
[2023-01-06] MEDS: CARVEDILOL 3.125 MG TABLET PO SCH (08:55)
[2023-01-06] MEDS: FERROUS SULFATE (325 MG) 325 MG/TAB TABLET PO SCH (08:55)
[2023-01-06] MEDS: ASPIRIN 81 MG TAB.CHEW PO SCH (08:56)
[2023-01-06] MEDS: DIGOXIN 0.125 MG TABLET PO SCH (08:56)
[2023-01-06] MEDS: CEFEPIME 2 GM in IV D5W 100 ML IV SCH (08:56)
[2023-01-06] MEDS: MULTIVITAMINS,THERAGRAN 1 UDTAB TABLET PO SCH (08:57)
[2023-01-06] MEDS: CHOLECALCIFEROL 1,000 UNIT TABLET (VIT D3) PO SCH (08:57)
[2023-01-06] MEDS: THERAHONEY GEL 1.5 OZ TUBE TP SCH (08:57)
[2023-01-06] MEDS ORDERED: predniSONE 20 MG TABLET PO SCH (09:00)
[2023-01-06] MEDS ORDERED: PRED20TA PO (10:37)
[2023-01-06 12:00] VITALS: BP 106/69
== END 2023-01-06 14:30 | DRG 193 ==
LOC: ER 21:50 → TELE1 23:38 → ICU 12-28 10:23 → TELE-TD 12-31 17:48 → ICU 01-01 10:36 → TELE-TD 01-02 14:14 → TELE1 01-03 15:57
PROVIDERS: ADMIT Nurse Practitioner Acute Care; ATTEND Nurse Practitioner Acute Care
PROC: 05H633Z Insertion of Infusion Device into Left Subclavian Vein, Percutaneous Approach (ICD-10-PCS; principal; 2022-12-28)
PROC: B547ZZA Ultrasonography of Left Subclavian Vein, Guidance (ICD-10-PCS; 2022-12-28)
PROC: 5A09357 Assistance with Respiratory Ventilation, Less than 24 Consecutive Hours, Continuous Positive Airway Pressure (ICD-10-PCS; 2022-12-28)
PROC: 0W993ZZ Drainage of Right Pleural Cavity, Percutaneous Approach (ICD-10-PCS; 2023-01-06)
DX: J15.9 Unspecified bacterial pneumonia (principal); G92.8 Other toxic encephalopathy; N17.0 Acute kidney failure with tubular necrosis; J96.01 Acute respiratory failure with hypoxia; J96.02 Acute respiratory failure with hypercapnia; N39.0 Urinary tract infection, site not specified; D61.818 Other pancytopenia; E87.3 Alkalosis; J90 Pleural effusion, not elsewhere classified; J98.11 Atelectasis; I13.0 Hypertensive heart and chronic kidney disease with heart failure and stage 1 through stage 4 chronic kidney disease, or unspecified chronic kidney disease; L97.828 Non-pressure chronic ulcer of other part of left lower leg with other specified severity; E78.5 Hyperlipidemia, unspecified; I25.2 Old myocardial infarction; I25.5 Ischemic cardiomyopathy; I48.91 Unspecified atrial fibrillation; I50.9 Heart failure, unspecified; K21.9 Gastro-esophageal reflux disease without esophagitis; N18.9 Chronic kidney disease, unspecified; R79.1 Abnormal coagulation profile; Z79.02 Long term (current) use of antithrombotics/antiplatelets; Z79.82 Long term (current) use of aspirin; I25.10 Atherosclerotic heart disease of native coronary artery without angina pectoris; Z20.822 Contact with and (suspected) exposure to COVID-19; Z95.810 Presence of automatic (implantable) cardiac defibrillator; D53.9 Nutritional anemia, unspecified; B96.89 Other specified bacterial agents as the cause of diseases classified elsewhere; R59.1 Generalized enlarged lymph nodes; R91.8 Other nonspecific abnormal finding of lung field; D69.6 Thrombocytopenia, unspecified; D72.819 Decreased white blood cell count, unspecified; I87.2 Venous insufficiency (chronic) (peripheral)
CPT/HCPCS: 36410; 36415; 36600; 70450-TC; 70470-TC; 71045-TC; 71250-TC; 71260-TC; 76770-TC; 80048-TC; 80053-TC; 80076-TC; 80162-TC; 81001; 82140-TC; 82272-TC; 82378; 82533; 82607-TC; 82728-TC; 82784; 82803-TC; 82962-TC; 83540-TC; 83605-TC; 83735-TC; 84100-TC; 84155; 84165; 84443-TC; 84484-TC; 85025-TC; 85610-TC; 85730-TC; 86225; 86235; 86334; 86431-TC; 86706; 86803; 87040-TC; 87081-TC; 87102-TC; 87340; 88108-TC; 88305-TC; 88312-TC; 89051-TC; 92526; 92611-TC; 94660; 94762-TC; 94799-TC; A4223; A4349; C9803; G0378; G0480; J0692; J1940; J2060; J2930; J3370; J7030; J7050; J7060; Q9966; Q9967

== ENCOUNTER 2023-04-05 13:00 | Inpatient (IN) | payer MEDICARE, OTHER ==
[~2023-04-05] VITALS: Ht 172.7 cm; Wt 93.9 kg
[~2023-04-05 13:00] MED LIST changes: +PRED20TA PO
[2023-04-05 13:58] LABS: APPEARANCE,URINE CLEAR (CLEAR); BILIRUBIN,URINE NEGATIVE (NEGATIVE); BLOOD, URINE NEGATIVE Ery/uL (NEGATIVE); COLOR,URINE YELLOW (YELLOW); KETONES,URINE NEGATIVE (NEGATIVE); LEUKOCYTE ESTERASE ,URINE NEGATIVE (NEGATIVE); NITRITE, URINE NEGATIVE (NEGATIVE); PH,URINE 5.5 (5.0-8.0); PROTEIN,URINE 1+ mg/dl (NEGATIVE); UGLUCOSE NEGATIVE (NEGATIVE)
[2023-04-05 14:04] LABS: BASOPHILS % (AUTO) 0.9 % (0.0-2.0); EOSINOPHILS # (AUTO) 0.4 K/uL (0.0-0.7); EOSINOPHILS % (AUTO) 9.7 % (0.0-6.0); HEMATOCRIT 38 % (39-51); HEMOGLOBIN 12.4 g/dL (13.5-17.5); LYMPHOCYTES # (AUTO) 0.4 K/uL (0.8-4.8); LYMPHOCYTES % (AUTO) 8.6 % (20.0-44.0); MEAN CORPUSCULAR HEMOGLOBIN 35 PG (26.0-33.0); MEAN CORPUSCULAR HGB CONC 32 g/dl (31.0-36.0); MEAN CORPUSCULAR VOLUME 107 fL (80-96); MONOCYTES # (AUTO) 0.6 K/uL (0.1-1.30); MONOCYTES % (AUTO) 13.6 % (2.0-12.0); NEUTROPHILS % (AUTO) 67.2 % (43.0-81.0); PLATELET COUNT (AUTO) 116 K/uL (150-450); RED CELL DISTRIBUTION WIDTH 16.4 % (11.5-15.0); WHITE BLOOD COUNT (AUTO) 4.5 K/uL (4.3-11.0)
[2023-04-05 14:12] LABS: CALCIUM, SERUM 9.4 mg/dL (8.5-10.1); CARBON DIOXIDE 35 mmol/L (21-32); CHLORIDE 105 mmol/L (98-107); CREATININE 1.4 mg/dL (0.6-1.3); GLUCOSE 99 mg/dL (74-106); POTASSIUM 4.6 mmol/L (3.5-5.1); SODIUM SERUM 140 mmol/L (136-145); UREA NITROGEN, BLOOD 32 mg/dL (7-18)
[2023-04-05 14:18] LABS: ALANINE AMINOTRANSFERASE 14 U/L (12-78); ALBUMIN 3.6 g/dL (3.4-5.0); ALKALINE PHOSPHATASE 120 U/L (46-116); ASPARTATE AMINOTRANSFERASE 20 U/L (15-37); BILIRUBIN,DIRECT 0.7 mg/dL (0.0-0.2); BILIRUBIN,TOTAL 1.6 mg/dL (0.2-1.0); LIPASE 23 U/L (73-393); TOTAL PROTEIN, SERUM 8.1 g/dL (6.4-8.2)
[2023-04-05] MEDS ORDERED: COLL30OI TP (15:23)
[2023-04-05] MEDS ORDERED: CRAN425C6 PO (15:23)
[2023-04-05] MEDS ORDERED: MELA5TAB PO (15:23)
[2023-04-05] MEDS ORDERED: TAMS-12 PO (15:23)
[2023-04-05] MEDS ORDERED: ACET-2605 PO (15:23)
[2023-04-05] MEDS ORDERED: XEROFORM TD (15:23)
[2023-04-05 15:50] LABS: ANISOCYTOSIS 1+; EOSINOPHILS % (MANUAL) 8 % (0-4); LYMPHOCYTES % (MANUAL) 9 % (16-48); MONOCYTES % (MANUAL) 17 % (0-11.0); NEUTROPHILS % (MANUAL) 66 (42-76); PLATELET ESTIMATE DECREASED
[2023-04-05] MEDS ORDERED: ACETAMINOPHEN 325 MG TABLET PO PRN (18:30)
[2023-04-05] MEDS ORDERED: Z GUARD REMEDY 4 OZ OINT TP PRN (18:30)
[2023-04-05] MEDS ORDERED: ONDANSETRON HCL/PF 4 MG/2 ML VIAL IVP PRN (18:30)
[2023-04-05] MEDS ORDERED: MORPHINE SULFATE INJ 2 MG/ML DISP.SYRIN IV PRN (18:30)
[2023-04-05] MEDS ORDERED: HYDROCODONE/APAP 5/325MG TABLET PO PRN (18:30)
[2023-04-05] MEDS ORDERED: MAG HYDROX/AL HYDROX/SIMETH 30 ML UDC PO PRN (18:30)
[2023-04-05] MEDS ORDERED: MAGNESIUM HYDROXIDE 30 ML UDC PO PRN (18:30)
[2023-04-05 18:55] VITALS: BP 126/56; TEMP 98.2; O2SAT 96
[2023-04-05 20:21] VITALS: O2SAT 96
[2023-04-05 20:47] VITALS: BP 102/75; TEMP 97.5; O2SAT 96
[2023-04-05] MEDS ORDERED: LORAZEPAM INJ 2 MG/ML VIAL IV ONE (22:30)
[2023-04-06] VITALS (15 sets, daily range): BP systolic 95–125; BP diastolic 53–77; TEMP 97.6–98.7; O2SAT 24–100
[2023-04-06 07:24] LABS: BASOPHILS % (AUTO) 0.5 % (0.0-2.0); EOSINOPHILS # (AUTO) 0.1 K/uL (0.0-0.7); EOSINOPHILS % (AUTO) 1.7 % (0.0-6.0); HEMATOCRIT 39 % (39-51); HEMOGLOBIN 12.7 g/dL (13.5-17.5); LYMPHOCYTES # (AUTO) 0.3 K/uL (0.8-4.8); LYMPHOCYTES % (AUTO) 5.4 % (20.0-44.0); MEAN CORPUSCULAR HEMOGLOBIN 35 PG (26.0-33.0); MEAN CORPUSCULAR HGB CONC 33 g/dl (31.0-36.0); MEAN CORPUSCULAR VOLUME 107 fL (80-96); MONOCYTES # (AUTO) 0.8 K/uL (0.1-1.30); MONOCYTES % (AUTO) 14.5 % (2.0-12.0); NEUTROPHILS # (AUTO) 4.3 K/uL (1.8-8.9); NEUTROPHILS % (AUTO) 77.9 % (43.0-81.0); PLATELET COUNT (AUTO) 131 K/uL (150-450); RED BLOOD CELL COUNT(AUTO) 3.66 MIL/uL (4.5-6.0); RED CELL DISTRIBUTION WIDTH 15.8 % (11.5-15.0); WHITE BLOOD COUNT (AUTO) 5.6 K/uL (4.3-11.0)
[2023-04-06] MEDS ORDERED: PANTOPRAZOLE 40 MG TABLET.DR PO SCH (07:30)
[2023-04-06 07:44] LABS: CALCIUM, SERUM 9.6 mg/dL (8.5-10.1); CARBON DIOXIDE 31 mmol/L (21-32); CHLORIDE 104 mmol/L (98-107); CREATININE 1.5 mg/dL (0.6-1.3); GLUCOSE 107 mg/dL (74-106); MAGNESIUM 2.2 mg/dL (1.8-2.4); PHOSPHORUS 4.9 mg/dL (2.5-4.9); POTASSIUM 5.2 mmol/L (3.5-5.1); SODIUM SERUM 141 mmol/L (136-145); UREA NITROGEN, BLOOD 36 mg/dL (7-18)
[2023-04-06 08:32] LABS: DIGOXIN 1.43 ng/mL (0.90-2.00)
[2023-04-06 08:36] LABS: CHOLESTEROL 111 mg/dL (<200); HDL CHOLESTEROL 42 mg/dL (40-60); LDL 65 mg/dL (0-99); TRIGLYCERIDES 58 mg/dL (30-150)
[2023-04-06] MEDS: FUROSEMIDE 40 MG/4 ML VIAL IV SCH ×3 (09:06→16:07)
[2023-04-06] MEDS: PANTOPRAZOLE 40 MG VIAL IV SCH (10:40)
[2023-04-06 15:15] LABS: ABG BASE EXCESS 2.4 mmol/L; ABG OXYGEN SATURATION 97.2 % (92.0-98.5); ABG PCO2 73.5 mmHg (35.0-45.0); ABG PH 7.254 (7.350-7.450); ABG PO2 104.6 mmHg (75.0-100.0); COHb 1.1 % (0.5-1.5); MetHb 0.3 % (0.0-1.5); O2Hb 95.8 % (94.0-97.0); SITE, ABG Right Radial; VENT MODE, BG 2 LPM NC
[2023-04-06 15:16] LABS: ABG BASE EXCESS 1.5 mmol/L; ABG OXYGEN SATURATION 97.3 % (92.0-98.5); ABG PCO2 60.6 mmHg (35.0-45.0); ABG PH 7.302 (7.350-7.450); ABG PO2 109.9 mmHg (75.0-100.0); ABG TOTAL HEMOGLOBIN 13.3 G/dL (13.5-18.0); AaDO2 105.6 mmHg; COHb 1.1 % (0.5-1.5); MetHb 0.3 % (0.0-1.5); O2Hb 95.9 % (94.0-97.0); SITE, ABG Right Radial; VENT MODE, BG 15/5 40%
[2023-04-07] VITALS (29 sets, daily range): BP systolic 90–114; BP diastolic 56–74; TEMP 97.5–98.5; O2SAT 88–100
[2023-04-07 06:26] LABS: BASOPHILS % (AUTO) 0.5 % (0.0-2.0); EOSINOPHILS # (AUTO) 0.3 K/uL (0.0-0.7); EOSINOPHILS % (AUTO) 6.5 % (0.0-6.0); HEMATOCRIT 35 % (39-51); HEMOGLOBIN 11.4 g/dL (13.5-17.5); LYMPHOCYTES # (AUTO) 0.4 K/uL (0.8-4.8); LYMPHOCYTES % (AUTO) 7.7 % (20.0-44.0); MEAN CORPUSCULAR HEMOGLOBIN 35 PG (26.0-33.0); MEAN CORPUSCULAR HGB CONC 33 g/dl (31.0-36.0); MEAN CORPUSCULAR VOLUME 106 fL (80-96); MONOCYTES # (AUTO) 0.6 K/uL (0.1-1.30); MONOCYTES % (AUTO) 11.9 % (2.0-12.0); NEUTROPHILS # (AUTO) 3.8 K/uL (1.8-8.9); NEUTROPHILS % (AUTO) 73.4 % (43.0-81.0); PLATELET COUNT (AUTO) 118 K/uL (150-450); RED BLOOD CELL COUNT(AUTO) 3.26 MIL/uL (4.5-6.0); RED CELL DISTRIBUTION WIDTH 15.7 % (11.5-15.0); WHITE BLOOD COUNT (AUTO) 5.2 K/uL (4.3-11.0)
[2023-04-07 06:55] LABS: ALANINE AMINOTRANSFERASE 23 U/L (12-78); ALBUMIN 3.1 g/dL (3.4-5.0); ALKALINE PHOSPHATASE 96 U/L (46-116); ASPARTATE AMINOTRANSFERASE 29 U/L (15-37); BILIRUBIN,TOTAL 2.2 mg/dL (0.2-1.0); CALCIUM, SERUM 9.1 mg/dL (8.5-10.1); CARBON DIOXIDE 34 mmol/L (21-32); CHLORIDE 105 mmol/L (98-107); CREATININE 1.6 mg/dL (0.6-1.3); GLUCOSE 90 mg/dL (74-106); PHOSPHORUS 4.1 mg/dL (2.5-4.9); SODIUM SERUM 145 mmol/L (136-145); TOTAL PROTEIN, SERUM 7.1 g/dL (6.4-8.2); UREA NITROGEN, BLOOD 37 mg/dL (7-18)
[2023-04-07] MEDS: FUROSEMIDE 40 MG/4 ML VIAL IV SCH ×3 (08:56→16:07)
[2023-04-07] MEDS: THERAHONEY GEL 1.5 OZ TUBE TP SCH (08:57)
[2023-04-07] MEDS: PROSOURCE / PROSTAT (PYXIS) 30 ML UDC PO SCH ×3 (09:57→17:11)
[2023-04-07] MEDS: IPRATROPIUM NEB FS 0.5 MG/2.5 ML AMPUL.NEB NEB SCH ×3 (10:43→19:22)
[2023-04-07] MEDS: PANTOPRAZOLE 40 MG VIAL IV SCH (10:44)
[2023-04-07] MEDS: methylPREDNISolone SOD SUCC 125 MG/2ML VIAL IV SCH (10:44)
[2023-04-07] MEDS: ENOXAPARIN SODIUM 40 MG/0.4 ML DISP.SYRIN SQ SCH (10:47)
[2023-04-07] MEDS ORDERED: NA PHOS,M-B/NA PHOS,DI-BA 1 EA ENEMA RC PRN (12:30)
[2023-04-07] MEDS ORDERED: BISACODYL SUPP (10 MG) 10 MG/SUPP.RECT SUPP.RECT RC PRN (12:30)
[2023-04-07] MEDS: DIGOXIN 0.125 MG TABLET PO SCH (13:34)
[2023-04-07] MEDS: CARVEDILOL 3.125 MG TABLET PO SCH (17:00)
[2023-04-07] MEDS: FERROUS SULFATE (325 MG) 325 MG/TAB TABLET PO SCH (17:11)
[2023-04-07] MEDS: SACUBITRIL/VALSARTAN 1 EACH TABLET PO SCH (17:11)
[2023-04-07] MEDS: ATORVASTATIN 40 MG TABLET PO SCH (22:15)
[2023-04-08] VITALS (23 sets, daily range): BP systolic 85–106; BP diastolic 48–67; TEMP 97.7–98.2; O2SAT 95–100
[2023-04-08] MEDS: IPRATROPIUM NEB FS 0.5 MG/2.5 ML AMPUL.NEB NEB SCH ×4 (01:23→20:14)
[2023-04-08 05:27] LABS: BASOPHILS % (AUTO) 0.2 % (0.0-2.0); EOSINOPHILS % (AUTO) 0.1 % (0.0-6.0); HEMATOCRIT 34 % (39-51); HEMOGLOBIN 11.1 g/dL (13.5-17.5); LYMPHOCYTES # (AUTO) 0.3 K/uL (0.8-4.8); LYMPHOCYTES % (AUTO) 6.5 % (20.0-44.0); MEAN CORPUSCULAR HEMOGLOBIN 35 PG (26.0-33.0); MEAN CORPUSCULAR HGB CONC 33 g/dl (31.0-36.0); MEAN CORPUSCULAR VOLUME 105 fL (80-96); MONOCYTES # (AUTO) 0.5 K/uL (0.1-1.30); MONOCYTES % (AUTO) 10.9 % (2.0-12.0); NEUTROPHILS # (AUTO) 3.6 K/uL (1.8-8.9); NEUTROPHILS % (AUTO) 82.3 % (43.0-81.0); PLATELET COUNT (AUTO) 121 K/uL (150-450); RED BLOOD CELL COUNT(AUTO) 3.21 MIL/uL (4.5-6.0); RED CELL DISTRIBUTION WIDTH 15.4 % (11.5-15.0); WHITE BLOOD COUNT (AUTO) 4.3 K/uL (4.3-11.0)
[2023-04-08 05:41] LABS: ALANINE AMINOTRANSFERASE 26 U/L (12-78); ALKALINE PHOSPHATASE 99 U/L (46-116); ASPARTATE AMINOTRANSFERASE 25 U/L (15-37); BILIRUBIN,TOTAL 1.5 mg/dL (0.2-1.0); CALCIUM, SERUM 9.1 mg/dL (8.5-10.1); CARBON DIOXIDE 37 mmol/L (21-32); CHLORIDE 106 mmol/L (98-107); CREATININE 1.6 mg/dL (0.6-1.3); GLUCOSE 105 mg/dL (74-106); PHOSPHORUS 3.7 mg/dL (2.5-4.9); POTASSIUM 3.8 mmol/L (3.5-5.1); SODIUM SERUM 145 mmol/L (136-145); TOTAL PROTEIN, SERUM 7.1 g/dL (6.4-8.2); UREA NITROGEN, BLOOD 39 mg/dL (7-18)
[2023-04-08] MEDS: CARVEDILOL 3.125 MG TABLET PO SCH ×2 (08:22→17:00)
[2023-04-08] MEDS: DOCUSATE SODIUM 100 MG CAPSULE PO SCH (08:22)
[2023-04-08] MEDS: MULTIVITAMINS,THERAGRAN 1 UDTAB TABLET PO SCH (08:22)
[2023-04-08] MEDS: FERROUS SULFATE (325 MG) 325 MG/TAB TABLET PO SCH ×2 (08:22→17:18)
[2023-04-08] MEDS: PANTOPRAZOLE 40 MG TABLET.DR PO SCH (08:22)
[2023-04-08] MEDS: CLOPIDOGREL BISULFATE 75 MG TABLET PO SCH (08:22)
[2023-04-08] MEDS: ASPIRIN 81 MG TAB.CHEW PO SCH (08:22)
[2023-04-08] MEDS: CHOLECALCIFEROL 1,000 UNIT TABLET (VIT D3) PO SCH (08:22)
[2023-04-08] MEDS: methylPREDNISolone SOD SUCC 125 MG/2ML VIAL IV SCH (08:24)
[2023-04-08] MEDS: PROSOURCE / PROSTAT (PYXIS) 30 ML UDC PO SCH ×3 (08:26→17:15)
[2023-04-08] MEDS: ENOXAPARIN SODIUM 40 MG/0.4 ML DISP.SYRIN SQ SCH (08:30)
[2023-04-08] MEDS: SACUBITRIL/VALSARTAN 1 EACH TABLET PO SCH ×2 (09:00→17:18)
[2023-04-08] MEDS: THERAHONEY GEL 1.5 OZ TUBE TP SCH ×2 (09:36→09:37)
[2023-04-08] MEDS: TAMSULOSIN 0.4 MG CAP.SR.24H PO SCH (09:37)
[2023-04-08] MEDS: DIGOXIN 0.125 MG TABLET PO SCH (12:33)
[2023-04-08 13:08] LABS: ABG BASE EXCESS 2.3 mmol/L; ABG OXYGEN SATURATION 97.1 % (92.0-98.5); ABG PCO2 55.1 mmHg (35.0-45.0); ABG PO2 103.3 mmHg (75.0-100.0); ABG TOTAL HEMOGLOBIN 12.4 G/dL (13.5-18.0); AaDO2 31.3 mmHg; COHb 0.4 % (0.5-1.5); MetHb 0.3 % (0.0-1.5); O2Hb 96.4 % (94.0-97.0); SITE, ABG Right Radial
[2023-04-08] MEDS: ATORVASTATIN 40 MG TABLET PO SCH ×2 (22:00→22:15)
[2023-04-09] VITALS (13 sets, daily range): BP systolic 84–110; BP diastolic 52–67; TEMP 97.5–98.8; O2SAT 90–98
[2023-04-09] MEDS: IPRATROPIUM NEB FS 0.5 MG/2.5 ML AMPUL.NEB NEB SCH ×4 (02:07→20:59)
[2023-04-09 06:17] LABS: CALCIUM, SERUM 9.1 mg/dL (8.5-10.1); CARBON DIOXIDE 37 mmol/L (21-32); CHLORIDE 104 mmol/L (98-107); CREATININE 1.5 mg/dL (0.6-1.3); GLUCOSE 98 mg/dL (74-106); SODIUM SERUM 143 mmol/L (136-145); UREA NITROGEN, BLOOD 44 mg/dL (7-18)
[2023-04-09] MEDS: methylPREDNISolone SOD SUCC 125 MG/2ML VIAL IV SCH (08:36)
[2023-04-09] MEDS: ASPIRIN 81 MG TAB.CHEW PO SCH (08:36)
[2023-04-09] MEDS: CARVEDILOL 3.125 MG TABLET PO SCH ×2 (08:37→16:14)
[2023-04-09] MEDS: TAMSULOSIN 0.4 MG CAP.SR.24H PO SCH (08:37)
[2023-04-09] MEDS: CLOPIDOGREL BISULFATE 75 MG TABLET PO SCH (08:37)
[2023-04-09] MEDS: DOCUSATE SODIUM 100 MG CAPSULE PO SCH (08:37)
[2023-04-09] MEDS: CHOLECALCIFEROL 1,000 UNIT TABLET (VIT D3) PO SCH (08:37)
[2023-04-09] MEDS: PANTOPRAZOLE 40 MG TABLET.DR PO SCH (08:37)
[2023-04-09] MEDS: MULTIVITAMINS,THERAGRAN 1 UDTAB TABLET PO SCH (08:37)
[2023-04-09] MEDS: FERROUS SULFATE (325 MG) 325 MG/TAB TABLET PO SCH ×2 (08:37→16:13)
[2023-04-09] MEDS: PROSOURCE / PROSTAT (PYXIS) 30 ML UDC PO SCH ×3 (08:38→16:14)
[2023-04-09] MEDS: THERAHONEY GEL 1.5 OZ TUBE TP SCH ×2 (08:39)
[2023-04-09] MEDS: ENOXAPARIN SODIUM 40 MG/0.4 ML DISP.SYRIN SQ SCH (08:41)
[2023-04-09] MEDS: SACUBITRIL/VALSARTAN 1 EACH TABLET PO SCH ×2 (08:44→16:13)
[2023-04-09] MEDS: DIGOXIN 0.125 MG TABLET PO SCH (12:01)
[2023-04-09] MEDS: ATORVASTATIN 40 MG TABLET PO SCH (21:37)
[2023-04-10] VITALS (12 sets, daily range): BP systolic 84–111; BP diastolic 36–70; TEMP 97.8–99.1; O2SAT 93–97
[2023-04-10] MEDS: IPRATROPIUM NEB FS 0.5 MG/2.5 ML AMPUL.NEB NEB SCH ×4 (00:32→19:40)
[2023-04-10 06:43] LABS: CALCIUM, SERUM 9.3 mg/dL (8.5-10.1); CREATININE 1.3 mg/dL (0.6-1.3); POTASSIUM 4.1 mmol/L (3.5-5.1)
[2023-04-10] MEDS: SACUBITRIL/VALSARTAN 1 EACH TABLET PO SCH ×2 (09:00→16:33)
[2023-04-10] MEDS: CARVEDILOL 3.125 MG TABLET PO SCH ×2 (09:00→16:32)
[2023-04-10] MEDS: SPIRONOLACTONE 25 MG TABLET PO SCH (09:00)
[2023-04-10] MEDS: methylPREDNISolone SOD SUCC 125 MG/2ML VIAL IV SCH (09:40)
[2023-04-10] MEDS: FERROUS SULFATE (325 MG) 325 MG/TAB TABLET PO SCH ×2 (09:40→16:36)
[2023-04-10] MEDS: CLOPIDOGREL BISULFATE 75 MG TABLET PO SCH (09:41)
[2023-04-10] MEDS: ASPIRIN 81 MG TAB.CHEW PO SCH (09:41)
[2023-04-10] MEDS: TAMSULOSIN 0.4 MG CAP.SR.24H PO SCH (09:41)
[2023-04-10] MEDS: PROSOURCE / PROSTAT (PYXIS) 30 ML UDC PO SCH ×3 (09:41→16:36)
[2023-04-10] MEDS: DOCUSATE SODIUM 100 MG CAPSULE PO SCH (09:41)
[2023-04-10] MEDS: CHOLECALCIFEROL 1,000 UNIT TABLET (VIT D3) PO SCH (09:41)
[2023-04-10] MEDS: PANTOPRAZOLE 40 MG TABLET.DR PO SCH (09:41)
[2023-04-10] MEDS: MULTIVITAMINS,THERAGRAN 1 UDTAB TABLET PO SCH (09:41)
[2023-04-10] MEDS: THERAHONEY GEL 1.5 OZ TUBE TP SCH ×2 (09:43)
[2023-04-10] MEDS: ENOXAPARIN SODIUM 40 MG/0.4 ML DISP.SYRIN SQ SCH (09:50)
[2023-04-10] MEDS: DIGOXIN 0.125 MG TABLET PO SCH (13:43)
[2023-04-10] MEDS: ATORVASTATIN 40 MG TABLET PO SCH (21:25)
[2023-04-11] MEDS: IPRATROPIUM NEB FS 0.5 MG/2.5 ML AMPUL.NEB NEB SCH ×3 (00:42→13:28)
[2023-04-11 07:33] VITALS: O2SAT 95
[2023-04-11 07:44] LABS: CREATININE 1.3 mg/dL (0.6-1.3); POTASSIUM 4.3 mmol/L (3.5-5.1)
[2023-04-11 08:00] VITALS: BP 96/73; TEMP 97.6; O2SAT 96
[2023-04-11 09:00] VITALS: BP 96/73
[2023-04-11] MEDS: SPIRONOLACTONE 25 MG TABLET PO SCH (09:00)
[2023-04-11] MEDS: CARVEDILOL 3.125 MG TABLET PO SCH (09:00)
[2023-04-11] MEDS: THERAHONEY GEL 1.5 OZ TUBE TP SCH ×2 (09:00→09:29)
[2023-04-11] MEDS: SACUBITRIL/VALSARTAN 1 EACH TABLET PO SCH (09:00)
[2023-04-11] MEDS: ASPIRIN 81 MG TAB.CHEW PO SCH (09:14)
[2023-04-11] MEDS: PANTOPRAZOLE 40 MG TABLET.DR PO SCH (09:14)
[2023-04-11] MEDS: CHOLECALCIFEROL 1,000 UNIT TABLET (VIT D3) PO SCH (09:14)
[2023-04-11] MEDS: TAMSULOSIN 0.4 MG CAP.SR.24H PO SCH (09:14)
[2023-04-11] MEDS: DOCUSATE SODIUM 100 MG CAPSULE PO SCH (09:14)
[2023-04-11] MEDS: MULTIVITAMINS,THERAGRAN 1 UDTAB TABLET PO SCH (09:14)
[2023-04-11] MEDS: FERROUS SULFATE (325 MG) 325 MG/TAB TABLET PO SCH (09:14)
[2023-04-11] MEDS: CLOPIDOGREL BISULFATE 75 MG TABLET PO SCH (09:14)
[2023-04-11] MEDS: methylPREDNISolone SOD SUCC 125 MG/2ML VIAL IV SCH (09:16)
[2023-04-11] MEDS: PROSOURCE / PROSTAT (PYXIS) 30 ML UDC PO SCH ×2 (09:16→13:12)
[2023-04-11] MEDS: ENOXAPARIN SODIUM 40 MG/0.4 ML DISP.SYRIN SQ SCH (09:17)
[2023-04-11] MEDS: DIGOXIN 0.125 MG TABLET PO SCH (13:14)
[2023-04-11 13:28] VITALS: O2SAT 95
[2023-04-11 13:42] VITALS: O2SAT 98
== END 2023-04-11 14:45 | DRG 291 ==
LOC: ER 13:09 → MEDSG1 15:46 → TELE1 18:33 → ICU 04-06 08:40 → TELE 04-08 18:01 → MED 04-09 08:06
PROVIDERS: ADMIT Nurse Practitioner Acute Care; ATTEND Nurse Practitioner Acute Care
PROC: 5A09457 Assistance with Respiratory Ventilation, 24-96 Consecutive Hours, Continuous Positive Airway Pressure (ICD-10-PCS; principal; 2023-04-06)
DX: I13.0 Hypertensive heart and chronic kidney disease with heart failure and stage 1 through stage 4 chronic kidney disease, or unspecified chronic kidney disease (principal); G93.41 Metabolic encephalopathy; N17.0 Acute kidney failure with tubular necrosis; J96.21 Acute and chronic respiratory failure with hypoxia; J96.22 Acute and chronic respiratory failure with hypercapnia; I50.23 Acute on chronic systolic (congestive) heart failure; D68.69 Other thrombophilia; I48.20 Chronic atrial fibrillation, unspecified; J98.11 Atelectasis; J90 Pleural effusion, not elsewhere classified; E66.2 Morbid (severe) obesity with alveolar hypoventilation; I87.311 Chronic venous hypertension (idiopathic) with ulcer of right lower extremity; L97.819 Non-pressure chronic ulcer of other part of right lower leg with unspecified severity; I42.9 Cardiomyopathy, unspecified; N18.9 Chronic kidney disease, unspecified; D53.9 Nutritional anemia, unspecified; E78.5 Hyperlipidemia, unspecified; F32.A Depression, unspecified; F41.9 Anxiety disorder, unspecified; I25.10 Atherosclerotic heart disease of native coronary artery without angina pectoris; N28.1 Cyst of kidney, acquired; Z79.82 Long term (current) use of aspirin; Z20.822 Contact with and (suspected) exposure to COVID-19; R53.1 Weakness; Z74.09 Other reduced mobility; N40.0 Benign prostatic hyperplasia without lower urinary tract symptoms; I27.20 Pulmonary hypertension, unspecified; Z87.891 Personal history of nicotine dependence; Z86.16 Personal history of COVID-19; Z68.31 Body mass index [BMI] 31.0-31.9, adult; Z95.1 Presence of aortocoronary bypass graft; I25.2 Old myocardial infarction; Z95.810 Presence of automatic (implantable) cardiac defibrillator; I87.2 Venous insufficiency (chronic) (peripheral); F39 Unspecified mood [affective] disorder; I35.0 Nonrheumatic aortic (valve) stenosis; I73.9 Peripheral vascular disease, unspecified; J44.9 Chronic obstructive pulmonary disease, unspecified
CPT/HCPCS: 36415; 36600; 71045-TC; 76770-TC; 80048-TC; 80053-TC; 80061-TC; 80076-TC; 80162-TC; 82962-TC; 83690-TC; 83735-TC; 84100-TC; 84484-TC; 85025-TC; 87081-TC; 93307-TC; 93970-TC; 94660; 94799-TC; 97110-TC; 97116-TC; 97530-TC; A4349; C9113; G0378; J1650; J1940; J2060; J2930; J7070

== ENCOUNTER 2023-06-01 17:34 | Inpatient (IN) | payer MEDICARE, OTHER ==
[~2023-06-01] VITALS: Ht 167.6 cm; Wt 93.2 kg
[~2023-06-01 17:34] MED LIST changes: +ACET-2605 PO; +COLL30OI TP; +CRAN425C6 PO; +MELA5TAB PO; -PRED20TA PO; +TAMS-12 PO; +XEROFORM TD
[2023-06-01] MEDS ORDERED: ASCO-352 PO (18:42)
[2023-06-01] MEDS ORDERED: EYEL1KIT TP (18:42)
[2023-06-01] MEDS ORDERED: QUET25TA PO (18:42)
[2023-06-01] MEDS ORDERED: POLY15DR40 EACHEYE (18:42)
[2023-06-01] MEDS ORDERED: METO2.5T2 PO (18:42)
[2023-06-01] MEDS ORDERED: GUAI100S11 PO (18:42)
[2023-06-01 18:55] LABS: BASOPHILS % (AUTO) 0.4 % (0.0-2.0); EOSINOPHILS % (AUTO) 0.8 % (0.0-6.0); HEMATOCRIT 39 % (39-51); HEMOGLOBIN 13.1 g/dL (13.5-17.5); LYMPHOCYTES # (AUTO) 0.4 K/uL (0.8-4.8); LYMPHOCYTES % (AUTO) 8.3 % (20.0-44.0); MEAN CORPUSCULAR HEMOGLOBIN 35 PG (26.0-33.0); MEAN CORPUSCULAR HGB CONC 34 g/dl (31.0-36.0); MEAN CORPUSCULAR VOLUME 103 fL (80-96); MONOCYTES # (AUTO) 0.6 K/uL (0.1-1.30); MONOCYTES % (AUTO) 12.3 % (2.0-12.0); NEUTROPHILS # (AUTO) 3.6 K/uL (1.8-8.9); NEUTROPHILS % (AUTO) 78.2 % (43.0-81.0); PLATELET COUNT (AUTO) 121 K/uL (150-450); RED BLOOD CELL COUNT(AUTO) 3.79 MIL/uL (4.5-6.0); RED CELL DISTRIBUTION WIDTH 14.7 % (11.5-15.0); WHITE BLOOD COUNT (AUTO) 4.7 K/uL (4.3-11.0)
[2023-06-01 19:19] LABS: CALCIUM, SERUM 9.5 mg/dL (8.5-10.1); CARBON DIOXIDE 33 mmol/L (21-32); CHLORIDE 97 mmol/L (98-107); CREATININE 1.9 mg/dL (0.6-1.3); GLUCOSE 105 mg/dL (74-106); POTASSIUM 4.9 mmol/L (3.5-5.1); SODIUM SERUM 136 mmol/L (136-145); UREA NITROGEN, BLOOD 66 mg/dL (7-18)
[2023-06-01 19:31] LABS: ALANINE AMINOTRANSFERASE 19 U/L (12-78); ALBUMIN 3.3 g/dL (3.4-5.0); ALKALINE PHOSPHATASE 117 U/L (46-116); ASPARTATE AMINOTRANSFERASE 19 U/L (15-37); BILIRUBIN,DIRECT 0.7 mg/dL (0.0-0.2); BILIRUBIN,TOTAL 1.2 mg/dL (0.2-1.0); NT-PRO BNP 12216 pg/mL (0-125); TOTAL PROTEIN, SERUM 7.8 g/dL (6.4-8.2)
[2023-06-01] MEDS ORDERED: ONDANSETRON HCL/PF 4 MG/2 ML VIAL IVP PRN (20:00)
[2023-06-01] MEDS ORDERED: AZITHROMYCIN 500 MG in IV D5W 250 ML IV ONE (20:00)
[2023-06-01] MEDS ORDERED: CEFTRIAXONE 1GM BAG (ER ONLY) 50 ML IV ONE ×2 (20:00→20:32)
[2023-06-01] MEDS ORDERED: ACETAMINOPHEN 325 MG TABLET PO PRN (20:00)
[2023-06-01] MEDS ORDERED: hydrALAZINE HCL IV 20 MG VIAL IV PRN (20:00)
[2023-06-01] MEDS ORDERED: MORPHINE SULFATE INJ 2 MG/ML DISP.SYRIN IV PRN (20:00)
[2023-06-01] MEDS ORDERED: AZITHROMYCIN 500 MG VIAL ONE (20:32)
[2023-06-01 21:00] VITALS: BP 97/69; TEMP 94.5; O2SAT 97
[2023-06-01] MEDS: QUETIAPINE FUMARATE 25 MG TABLET PO SCH (21:00)
[2023-06-01] MEDS ORDERED: FUROSEMIDE 40 MG/4 ML VIAL IV SCH (22:00)
[2023-06-02] VITALS (88 sets, daily range): BP systolic 78–112; BP diastolic 52–99; TEMP 97.2–97.9; O2SAT 89–99
[2023-06-02] MEDS ORDERED: MIDODRINE HCL (5MG) 5 MG TABLET PO PRN (01:14)
[2023-06-02] MEDS: IPRATROPIUM NEB FS 0.5 MG/2.5 ML AMPUL.NEB NEB SCH ×4 (01:30→19:26)
[2023-06-02] MEDS: ALBUTEROL FS 2.5 MG/0.5 ML VIAL.NEB NEB SCH ×4 (01:30→19:26)
[2023-06-02] MEDS ORDERED: IV NS 0.9% 500 ML IV ONE (02:30)
[2023-06-02] MEDS ORDERED: NOREPINEPHRINE 4 MG/4 ML AMPUL IV ONE ×2 (04:53→04:59)
[2023-06-02] MEDS ORDERED: NOREPINEPHRINE 32 MG in IV NS 0.9% 218 ML IV PRN (05:00)
[2023-06-02 07:05] LABS: BASOPHILS % (AUTO) 0.4 % (0.0-2.0); EOSINOPHILS % (AUTO) 0.1 % (0.0-6.0); HEMATOCRIT 41 % (39-51); HEMOGLOBIN 13.5 g/dL (13.5-17.5); LYMPHOCYTES # (AUTO) 0.3 K/uL (0.8-4.8); LYMPHOCYTES % (AUTO) 4.5 % (20.0-44.0); MEAN CORPUSCULAR HEMOGLOBIN 34 PG (26.0-33.0); MEAN CORPUSCULAR HGB CONC 33 g/dl (31.0-36.0); MEAN CORPUSCULAR VOLUME 103 fL (80-96); MONOCYTES # (AUTO) 0.7 K/uL (0.1-1.30); MONOCYTES % (AUTO) 10.2 % (2.0-12.0); NEUTROPHILS # (AUTO) 5.8 K/uL (1.8-8.9); NEUTROPHILS % (AUTO) 84.8 % (43.0-81.0); PLATELET COUNT (AUTO) 134 K/uL (150-450); RED BLOOD CELL COUNT(AUTO) 3.93 MIL/uL (4.5-6.0); WHITE BLOOD COUNT (AUTO) 6.9 K/uL (4.3-11.0)
[2023-06-02 07:23] LABS: ALANINE AMINOTRANSFERASE 19 U/L (12-78); ALBUMIN 3.2 g/dL (3.4-5.0); ALKALINE PHOSPHATASE 123 U/L (46-116); ASPARTATE AMINOTRANSFERASE 31 U/L (15-37); BILIRUBIN,TOTAL 1.3 mg/dL (0.2-1.0); CALCIUM, SERUM 9.6 mg/dL (8.5-10.1); CARBON DIOXIDE 28 mmol/L (21-32); CHLORIDE 98 mmol/L (98-107); CREATININE 2.1 mg/dL (0.6-1.3); GLUCOSE 98 mg/dL (74-106); MAGNESIUM 2.4 mg/dL (1.8-2.4); PHOSPHORUS 6.5 mg/dL (2.5-4.9); POTASSIUM 5.8 mmol/L (3.5-5.1); SODIUM SERUM 134 mmol/L (136-145); UREA NITROGEN, BLOOD 69 mg/dL (7-18)
[2023-06-02] MEDS ORDERED: PANTOPRAZOLE 40 MG TABLET.DR PO SCH (07:30)
[2023-06-02] MEDS ORDERED: CLOPIDOGREL BISULFATE 75 MG TABLET PO SCH (09:00)
[2023-06-02] MEDS ORDERED: POTASSIUM CHLORIDE 10 MEQ TABLET.SA PO SCH (09:00)
[2023-06-02] MEDS ORDERED: ASPIRIN 81 MG TAB.CHEW PO SCH (09:00)
[2023-06-02] MEDS ORDERED: SACUBITRIL/VALSARTAN 1 EACH TABLET PO SCH (09:00)
[2023-06-02] MEDS: QUETIAPINE FUMARATE 25 MG TABLET PO SCH ×2 (09:00→20:33)
[2023-06-02] MEDS ORDERED: TAMSULOSIN 0.4 MG CAP.SR.24H PO SCH (09:00)
[2023-06-02] MEDS ORDERED: DOCUSATE SODIUM 100 MG CAPSULE PO SCH (09:00)
[2023-06-02] MEDS ORDERED: SPIRONOLACTONE 25 MG TABLET PO SCH (09:00)
[2023-06-02] MEDS: CARVEDILOL 3.125 MG TABLET PO SCH ×2 (09:00→16:16)
[2023-06-02] MEDS ORDERED: FUROSEMIDE 40 MG TABLET PO SCH (09:00)
[2023-06-02] MEDS ORDERED: FERROUS SULFATE (325 MG) 325 MG/TAB TABLET PO SCH (09:00)
[2023-06-02] MEDS: Z GUARD REMEDY 4 OZ OINT TP SCH (10:09)
[2023-06-02] MEDS: CLOTRIMAZOLE 1% 15 GM TUBE TP SCH ×2 (10:10→16:17)
[2023-06-02] MEDS: PANTOPRAZOLE 40 MG VIAL IV SCH (10:11)
[2023-06-02] MEDS ORDERED: SODIUM POLYSTYRENE SULFONATE 15 G/60 ML BOTTLE PO ONE ×2 (13:00→16:30)
[2023-06-02 13:09] LABS: ALBUMIN 3.3 g/dL (3.4-5.0); BILIRUBIN,DIRECT 0.6 mg/dL (0.0-0.2); BILIRUBIN,TOTAL 1.3 mg/dL (0.2-1.0)
[2023-06-02 15:33] LABS: INR 1.67 (0.91-1.10); PROTHROMBIN TIME 17.1 SECS (9.2-11.1)
[2023-06-02 16:37] LABS: CALCIUM, SERUM 9.8 mg/dL (8.5-10.1); CARBON DIOXIDE 25 mmol/L (21-32); CHLORIDE 97 mmol/L (98-107); CREATININE 2.3 mg/dL (0.6-1.3); GLUCOSE 78 mg/dL (74-106); POTASSIUM 5.6 mmol/L (3.5-5.1); SODIUM SERUM 133 mmol/L (136-145); UREA NITROGEN, BLOOD 73 mg/dL (7-18)
[2023-06-02 17:11] LABS: MAGNESIUM 2.5 mg/dL (1.8-2.4); PHOSPHORUS 7.3 mg/dL (2.5-4.9)
[2023-06-02] MEDS ORDERED: QUETIAPINE FUMARATE 25 MG TABLET GT ONE (18:00)
[2023-06-02 18:56] LABS: CALCIUM, SERUM 9.6 mg/dL (8.5-10.1); CARBON DIOXIDE 29 mmol/L (21-32); CHLORIDE 98 mmol/L (98-107); CREATININE 2.5 mg/dL (0.6-1.3); GLUCOSE 98 mg/dL (74-106); POTASSIUM 5.2 mmol/L (3.5-5.1); SODIUM SERUM 136 mmol/L (136-145); UREA NITROGEN, BLOOD 75 mg/dL (7-18)
[2023-06-03] VITALS (100 sets, daily range): BP systolic 47–127; BP diastolic 37–114; TEMP 98.1–99.2; O2SAT 93–100
[2023-06-03] MEDS: IPRATROPIUM NEB FS 0.5 MG/2.5 ML AMPUL.NEB NEB SCH ×4 (00:54→19:13)
[2023-06-03] MEDS: ALBUTEROL FS 2.5 MG/0.5 ML VIAL.NEB NEB SCH ×4 (00:54→19:13)
[2023-06-03 04:01] LABS: ABG OXYGEN SATURATION 95.9 % (92.0-98.5); ABG PCO2 88.9 mmHg (35.0-45.0); ABG PH 7.131 (7.350-7.450); ABG PO2 97.6 mmHg (75.0-100.0); ABG TOTAL HEMOGLOBIN 15.5 G/dL (13.5-18.0); AaDO2 158.9 mmHg; COHb 1.4 % (0.5-1.5); MetHb 0.3 % (0.0-1.5); O2Hb 94.3 % (94.0-97.0); SITE, ABG Left Radial; VENT MODE, BG VENTI MASK 50%
[2023-06-03 04:51] LABS: HEMATOCRIT 43 % (39-51); HEMOGLOBIN 13.9 g/dL (13.5-17.5); LYMPHOCYTES # (AUTO) 0.2 K/uL (0.8-4.8); LYMPHOCYTES % (AUTO) 3.2 % (20.0-44.0); MEAN CORPUSCULAR HEMOGLOBIN 34 PG (26.0-33.0); MEAN CORPUSCULAR HGB CONC 32 g/dl (31.0-36.0); MEAN CORPUSCULAR VOLUME 106 fL (80-96); MONOCYTES # (AUTO) 0.7 K/uL (0.1-1.30); MONOCYTES % (AUTO) 10.3 % (2.0-12.0); NEUTROPHILS # (AUTO) 5.6 K/uL (1.8-8.9); NEUTROPHILS % (AUTO) 86.5 % (43.0-81.0); PLATELET COUNT (AUTO) 125 K/uL (150-450); RED BLOOD CELL COUNT(AUTO) 4.09 MIL/uL (4.5-6.0); RED CELL DISTRIBUTION WIDTH 15.2 % (11.5-15.0); WHITE BLOOD COUNT (AUTO) 6.5 K/uL (4.3-11.0)
[2023-06-03 05:03] LABS: ALANINE AMINOTRANSFERASE 133 U/L (12-78); ALBUMIN 3.4 g/dL (3.4-5.0); ALKALINE PHOSPHATASE 139 U/L (46-116); ASPARTATE AMINOTRANSFERASE 227 U/L (15-37); BILIRUBIN,TOTAL 1.4 mg/dL (0.2-1.0); CALCIUM, SERUM 9.7 mg/dL (8.5-10.1); CARBON DIOXIDE 29 mmol/L (21-32); CHLORIDE 97 mmol/L (98-107); CREATININE 2.9 mg/dL (0.6-1.3); GLUCOSE 99 mg/dL (74-106); MAGNESIUM 2.6 mg/dL (1.8-2.4); POTASSIUM 5.4 mmol/L (3.5-5.1); SODIUM SERUM 135 mmol/L (136-145); TOTAL PROTEIN, SERUM 8.4 g/dL (6.4-8.2)
[2023-06-03 05:07] LABS: UREA NITROGEN, BLOOD 80 mg/dL (7-18)
[2023-06-03 05:35] LABS: ABG BASE EXCESS -5.4 mmol/L; ABG OXYGEN SATURATION 96.4 % (92.0-98.5); ABG PCO2 81.4 mmHg (35.0-45.0); ABG PH 7.124 (7.350-7.450); ABG PO2 106.2 mmHg (75.0-100.0); ABG TOTAL HEMOGLOBIN 15.2 G/dL (13.5-18.0); AaDO2 158.7 mmHg; COHb 1.2 % (0.5-1.5); MetHb 0.5 % (0.0-1.5); O2Hb 94.8 % (94.0-97.0); SITE, ABG Left Radial
[2023-06-03 05:35] LABS: BAND % (MANUAL) 1 % (0.0-5.0); LYMPHOCYTES % (MANUAL) 5 % (16-48); MONOCYTES % (MANUAL) 8 % (0-11.0); NEUTROPHILS % (MANUAL) 86 (42-76); PLATELET ESTIMATE DECREASED
[2023-06-03] MEDS: HEPARIN SODIUM, PORCINE 5000 UNITS/1 ML VIAL SQ SCH ×2 (06:00→16:27)
[2023-06-03] MEDS ORDERED: ETOMIDATE 2 MG/ML VIAL IV ONE ×2 (06:30→09:35)
[2023-06-03] MEDS: PROPOFOL 100 ML IV PRN ×4 (06:48→21:08)
[2023-06-03] MEDS: NOREPINEPHRINE 8 MG in IV NS 0.9% 242 ML IV PRN ×2 (07:17→21:09)
[2023-06-03] MEDS ORDERED: PHARMACY TO CHANGE PO MEDS TO GT/NG XX PRN (07:30)
[2023-06-03 08:18] LABS: SITE, ABG Left Radial
[2023-06-03] MEDS: CARVEDILOL 3.125 MG TABLET GT SCH ×2 (09:00→15:41)
[2023-06-03] MEDS ORDERED: METOLAZONE 2.5 MG TABLET PO SCH (09:00)
[2023-06-03] MEDS: DOCUSATE SODIUM LIQ 100 MG/10 ML UDC GT SCH (09:12)
[2023-06-03] MEDS: PANTOPRAZOLE 40 MG VIAL IV SCH (09:12)
[2023-06-03] MEDS: TAMSULOSIN 0.4 MG CAP.SR.24H GT SCH (09:13)
[2023-06-03] MEDS: ASPIRIN 81 MG TAB.CHEW GT SCH (09:13)
[2023-06-03] MEDS: FERROUS SULFATE (325 MG) 325 MG/TAB TABLET GT SCH (09:13)
[2023-06-03] MEDS: QUETIAPINE FUMARATE 25 MG TABLET GT SCH ×2 (09:13→21:00)
[2023-06-03] MEDS: Z GUARD REMEDY 4 OZ OINT TP SCH (09:14)
[2023-06-03] MEDS: CLOTRIMAZOLE 1% 15 GM TUBE TP SCH ×2 (09:14→16:27)
[2023-06-03] MEDS: SEVELAMER CARBONATE 800 MG POWD.PACK GT SCH ×2 (09:21→16:27)
[2023-06-03] MEDS ORDERED: SODIUM POLYSTYRENE SULFONATE 15 G/60 ML BOTTLE NG ONE (09:30)
[2023-06-03] MEDS ORDERED: BUMETANIDE INJ 6 MG in IV NS 0.9% 36 ML IV ONE (09:30)
[2023-06-03] MEDS ORDERED: ROCURONIUM BROMIDE 50 MG/5 ML IV ONE (09:35)
[2023-06-03] MEDS: IV NS 0.9% 250 ML IV PRN (09:48)
[2023-06-03 12:09] LABS: ABG BASE EXCESS 2.4 mmol/L; ABG OXYGEN SATURATION 98.7 % (92.0-98.5); ABG PCO2 37.5 mmHg (35.0-45.0); ABG PH 7.461 (7.350-7.450); ABG PO2 126.7 mmHg (75.0-100.0); ABG TOTAL HEMOGLOBIN 14.2 G/dL (13.5-18.0); AaDO2 332.1 mmHg; MetHb 0.2 % (0.0-1.5); O2Hb 97.5 % (94.0-97.0)
[2023-06-03 15:15] LABS: CALCIUM, SERUM 9.3 mg/dL (8.5-10.1); CARBON DIOXIDE 29 mmol/L (21-32); CHLORIDE 98 mmol/L (98-107); GLUCOSE 100 mg/dL (74-106); MAGNESIUM 2.4 mg/dL (1.8-2.4); PHOSPHORUS 6.6 mg/dL (2.5-4.9); POTASSIUM 5.3 mmol/L (3.5-5.1); SODIUM SERUM 137 mmol/L (136-145)
[2023-06-03 15:17] LABS: UREA NITROGEN, BLOOD 88 mg/dL (7-18)
[2023-06-03] MEDS ORDERED: METOLAZONE 2.5 MG TABLET NG ONE (16:00)
[2023-06-04] VITALS (97 sets, daily range): BP systolic 57–121; BP diastolic 42–94; TEMP 97.2–99; O2SAT 91–99
[2023-06-04] MEDS: PROPOFOL 100 ML IV PRN ×5 (01:23→21:20)
[2023-06-04] MEDS: ALBUTEROL FS 2.5 MG/0.5 ML VIAL.NEB NEB SCH ×4 (01:27→19:44)
[2023-06-04] MEDS: IPRATROPIUM NEB FS 0.5 MG/2.5 ML AMPUL.NEB NEB SCH ×4 (01:27→19:44)
[2023-06-04] MEDS: SEVELAMER CARBONATE 800 MG POWD.PACK GT SCH ×3 (01:38→19:02)
[2023-06-04 05:58] LABS: BASOPHILS % (AUTO) 0.3 % (0.0-2.0); EOSINOPHILS % (AUTO) 0.5 % (0.0-6.0); HEMATOCRIT 40 % (39-51); HEMOGLOBIN 13.4 g/dL (13.5-17.5); LYMPHOCYTES # (AUTO) 0.6 K/uL (0.8-4.8); LYMPHOCYTES % (AUTO) 7.7 % (20.0-44.0); MEAN CORPUSCULAR HEMOGLOBIN 34 PG (26.0-33.0); MEAN CORPUSCULAR HGB CONC 34 g/dl (31.0-36.0); MEAN CORPUSCULAR VOLUME 100 fL (80-96); MONOCYTES # (AUTO) 0.9 K/uL (0.1-1.30); MONOCYTES % (AUTO) 12.7 % (2.0-12.0); NEUTROPHILS # (AUTO) 5.7 K/uL (1.8-8.9); NEUTROPHILS % (AUTO) 78.8 % (43.0-81.0); PLATELET COUNT (AUTO) 141 K/uL (150-450); RED BLOOD CELL COUNT(AUTO) 3.95 MIL/uL (4.5-6.0); RED CELL DISTRIBUTION WIDTH 14.5 % (11.5-15.0); WHITE BLOOD COUNT (AUTO) 7.2 K/uL (4.3-11.0)
[2023-06-04] MEDS: HEPARIN SODIUM, PORCINE 5000 UNITS/1 ML VIAL SQ SCH ×2 (06:00→19:04)
[2023-06-04] MEDS: IV NS 0.9% 250 ML IV PRN (06:00)
[2023-06-04 06:22] LABS: CALCIUM, SERUM 9.1 mg/dL (8.5-10.1); CARBON DIOXIDE 30 mmol/L (21-32); CHLORIDE 95 mmol/L (98-107); GLUCOSE 114 mg/dL (74-106); POTASSIUM 3.5 mmol/L (3.5-5.1); SODIUM SERUM 137 mmol/L (136-145)
[2023-06-04 06:30] LABS: UREA NITROGEN, BLOOD 89 mg/dL (7-18)
[2023-06-04 08:28] LABS: MAGNESIUM 2.1 mg/dL (1.8-2.4); PHOSPHORUS 3.8 mg/dL (2.5-4.9)
[2023-06-04] MEDS: CARVEDILOL 3.125 MG TABLET GT SCH ×2 (09:00→17:00)
[2023-06-04] MEDS: methylPREDNISolone SOD SUCC 40 MG/ML VIAL IV SCH ×2 (09:31→19:02)
[2023-06-04] MEDS: NOREPINEPHRINE 8 MG in IV NS 0.9% 242 ML IV PRN (09:31)
[2023-06-04] MEDS: QUETIAPINE FUMARATE 25 MG TABLET GT SCH ×2 (09:32→21:00)
[2023-06-04] MEDS: FERROUS SULFATE (325 MG) 325 MG/TAB TABLET GT SCH (09:32)
[2023-06-04] MEDS: ASPIRIN 81 MG TAB.CHEW GT SCH (09:32)
[2023-06-04] MEDS: PANTOPRAZOLE 40 MG/PACK PACK NG SCH (09:32)
[2023-06-04] MEDS: DOCUSATE SODIUM LIQ 100 MG/10 ML UDC GT SCH (09:32)
[2023-06-04] MEDS: TAMSULOSIN 0.4 MG CAP.SR.24H GT SCH (09:33)
[2023-06-04] MEDS: CLOTRIMAZOLE 1% 15 GM TUBE TP SCH ×2 (09:33→19:03)
[2023-06-04] MEDS: Z GUARD REMEDY 4 OZ OINT TP SCH (09:33)
[2023-06-04 11:00] LABS: ABG BASE EXCESS 6.7 mmol/L; ABG OXYGEN SATURATION 94.4 % (92.0-98.5); ABG PH 7.595 (7.350-7.450); ABG PO2 70.1 mmHg (75.0-100.0); ABG TOTAL HEMOGLOBIN 15.4 G/dL (13.5-18.0); AaDO2 253.8 mmHg; COHb 0.5 % (0.5-1.5); MetHb 0.2 % (0.0-1.5); O2Hb 93.7 % (94.0-97.0); PEEP,BG 5 cm H2O; SITE, ABG Right Radial; VT, ABG 550 mL
[2023-06-04] MEDS: NEPRO 1,000 ML BOTTLE GT PRN (12:21)
[2023-06-04] MEDS: FLUDROCORTISONE 0.1 MG TABLET NG SCH ×2 (12:23→19:03)
[2023-06-04] MEDS: CEFEPIME 1 GM in IV D5W 50 ML IV SCH ×2 (12:59→21:09)
[2023-06-04 13:49] LABS: ABG BASE EXCESS 6.2 mmol/L; ABG OXYGEN SATURATION 96.8 % (92.0-98.5); ABG PCO2 35.8 mmHg (35.0-45.0); ABG PH 7.526 (7.350-7.450); ABG PO2 90.4 mmHg (75.0-100.0); ABG TOTAL HEMOGLOBIN 15.7 G/dL (13.5-18.0); AaDO2 225.8 mmHg; COHb 0.7 % (0.5-1.5); MetHb 0.3 % (0.0-1.5); O2Hb 95.8 % (94.0-97.0); PEEP,BG 5 cm H2O; SITE, ABG Right Radial; VT, ABG 550 mL
[2023-06-04] MEDS ORDERED: NOREPINEPHRINE 32 MG in IV NS 0.9% 218 ML IV PRN ×5 (17:00→17:48)
[2023-06-04] MEDS ORDERED: NOREPINEPHRINE 32 MG in IV NS 0.9% 250 ML IV PRN (17:00)
[2023-06-04] MEDS: NOREPINEPHRINE 32 MG in IV NS 0.9% 218 ML IV PRN (17:56)
[2023-06-04 20:26] LABS: CREATININE, URINE 19.3 MG/DL (30.0-125.0); URINE TOTAL PROTEIN 9.6 mg/dL (0-11.9)
[2023-06-04 20:27] LABS: APPEARANCE,URINE CLEAR (CLEAR); BILIRUBIN,URINE NEGATIVE (NEGATIVE); BLOOD, URINE TRACE-INTA Ery/uL (NEGATIVE); COLOR,URINE YELLOW (YELLOW); KETONES,URINE NEGATIVE (NEGATIVE); LEUKOCYTE ESTERASE ,URINE NEGATIVE (NEGATIVE); NITRITE, URINE NEGATIVE (NEGATIVE); PH,URINE 5.5 (5.0-8.0); PROTEIN,URINE NEGATIVE (NEGATIVE); UGLUCOSE NEGATIVE (NEGATIVE); UROBILINOGEN,URINE 0.2 EU/dL (0.2)
[2023-06-04 20:35] LABS: ADD URINE CULTURE NO; BACTERIA,URINE Rare /HPF (None Seen); SQUAMOUS EPITHELIAL CELL,UR Rare /HPF (None Seen); WBC,URINE NONE SEEN /HPF (0-3)
[2023-06-05] VITALS (96 sets, daily range): BP systolic 78–121; BP diastolic 52–86; TEMP 96.7–98.3; O2SAT 89–100
[2023-06-05] MEDS: methylPREDNISolone SOD SUCC 40 MG/ML VIAL IV SCH ×3 (00:42→18:27)
[2023-06-05] MEDS: SEVELAMER CARBONATE 800 MG POWD.PACK GT SCH ×3 (00:43→18:27)
[2023-06-05] MEDS: FLUDROCORTISONE 0.1 MG TABLET NG SCH ×4 (00:43→18:27)
[2023-06-05] MEDS: IV NS 0.9% 250 ML IV PRN ×2 (01:41→01:44)
[2023-06-05] MEDS: ALBUTEROL FS 2.5 MG/0.5 ML VIAL.NEB NEB SCH ×4 (01:55→19:42)
[2023-06-05] MEDS: IPRATROPIUM NEB FS 0.5 MG/2.5 ML AMPUL.NEB NEB SCH ×4 (01:55→19:42)
[2023-06-05] MEDS: PROPOFOL 100 ML IV PRN ×2 (02:07→07:58)
[2023-06-05 05:52] LABS: BASOPHILS % (AUTO) 0.3 % (0.0-2.0); HEMATOCRIT 45 % (39-51); HEMOGLOBIN 15.4 g/dL (13.5-17.5); LYMPHOCYTES # (AUTO) 0.1 K/uL (0.8-4.8); LYMPHOCYTES % (AUTO) 2.3 % (20.0-44.0); MEAN CORPUSCULAR HEMOGLOBIN 34 PG (26.0-33.0); MEAN CORPUSCULAR HGB CONC 34 g/dl (31.0-36.0); MEAN CORPUSCULAR VOLUME 100 fL (80-96); MONOCYTES # (AUTO) 0.1 K/uL (0.1-1.30); MONOCYTES % (AUTO) 2.1 % (2.0-12.0); NEUTROPHILS # (AUTO) 5.8 K/uL (1.8-8.9); NEUTROPHILS % (AUTO) 95.3 % (43.0-81.0); PLATELET COUNT (AUTO) 156 K/uL (150-450); RED BLOOD CELL COUNT(AUTO) 4.48 MIL/uL (4.5-6.0); RED CELL DISTRIBUTION WIDTH 14.7 % (11.5-15.0); WHITE BLOOD COUNT (AUTO) 6.1 K/uL (4.3-11.0)
[2023-06-05 05:57] LABS: CALCIUM, SERUM 9.5 mg/dL (8.5-10.1); CARBON DIOXIDE 33 mmol/L (21-32); CHLORIDE 96 mmol/L (98-107); CREATININE 2.7 mg/dL (0.6-1.3); GLUCOSE 169 mg/dL (74-106); POTASSIUM 3.1 mmol/L (3.5-5.1); SODIUM SERUM 136 mmol/L (136-145); UREA NITROGEN, BLOOD 79 mg/dL (7-18)
[2023-06-05] MEDS: HEPARIN SODIUM, PORCINE 5000 UNITS/1 ML VIAL SQ SCH ×2 (06:18→18:29)
[2023-06-05] MEDS ORDERED: POTASSIUM CHLORIDE 20 MEQ POWDER PACKET GT ONE (08:00)
[2023-06-05] MEDS: CARVEDILOL 3.125 MG TABLET GT SCH ×2 (08:21→16:45)
[2023-06-05 08:25] LABS: MAGNESIUM 2.1 mg/dL (1.8-2.4); PHOSPHORUS 4.6 mg/dL (2.5-4.9)
[2023-06-05] MEDS: CEFEPIME 1 GM in IV D5W 50 ML IV SCH ×2 (09:16→21:16)
[2023-06-05] MEDS: DOCUSATE SODIUM LIQ 100 MG/10 ML UDC GT SCH (09:16)
[2023-06-05] MEDS: TAMSULOSIN 0.4 MG CAP.SR.24H GT SCH (09:17)
[2023-06-05] MEDS: PANTOPRAZOLE 40 MG/PACK PACK NG SCH (09:17)
[2023-06-05] MEDS: QUETIAPINE FUMARATE 25 MG TABLET GT SCH ×2 (09:18→21:13)
[2023-06-05] MEDS: ASPIRIN 81 MG TAB.CHEW GT SCH (09:18)
[2023-06-05] MEDS: CLOTRIMAZOLE 1% 15 GM TUBE TP SCH ×2 (09:19→18:28)
[2023-06-05] MEDS: FERROUS SULFATE (325 MG) 325 MG/TAB TABLET GT SCH (09:19)
[2023-06-05] MEDS: Z GUARD REMEDY 4 OZ OINT TP SCH (09:20)
[2023-06-05 09:34] LABS: ABG BASE EXCESS 6.7 mmol/L; ABG OXYGEN SATURATION 96.7 % (92.0-98.5); ABG PCO2 37.7 mmHg (35.0-45.0); ABG PH 7.517 (7.350-7.450); ABG PO2 87.3 mmHg (75.0-100.0); ABG TOTAL HEMOGLOBIN 16.7 G/dL (13.5-18.0); AaDO2 154.5 mmHg; COHb 0.6 % (0.5-1.5); MetHb 0.3 % (0.0-1.5); O2Hb 95.8 % (94.0-97.0); SITE, ABG Right Radial
[2023-06-05] MEDS: NEPRO 1,000 ML BOTTLE GT PRN (13:30)
[2023-06-05] MEDS: ACETYLCYSTEINE 10% SOLN 400 MG/4 ML VIAL NEB SCH ×2 (15:54→23:42)
[2023-06-05] MEDS: NOREPINEPHRINE 32 MG in IV NS 0.9% 218 ML IV PRN (17:29)
[2023-06-06] VITALS (94 sets, daily range): BP systolic 88–130; BP diastolic 53–98; TEMP 97.2–99; O2SAT 90–100
[2023-06-06] MEDS: FLUDROCORTISONE 0.1 MG TABLET NG SCH ×4 (00:04→17:02)
[2023-06-06] MEDS: methylPREDNISolone SOD SUCC 40 MG/ML VIAL IV SCH ×4 (00:04→20:43)
[2023-06-06] MEDS: SEVELAMER CARBONATE 800 MG POWD.PACK GT SCH ×3 (00:04→16:56)
[2023-06-06] MEDS: IPRATROPIUM NEB FS 0.5 MG/2.5 ML AMPUL.NEB NEB SCH ×4 (01:01→19:53)
[2023-06-06] MEDS: ALBUTEROL FS 2.5 MG/0.5 ML VIAL.NEB NEB SCH ×4 (01:01→19:53)
[2023-06-06] MEDS: HEPARIN SODIUM, PORCINE 5000 UNITS/1 ML VIAL SQ SCH ×2 (05:24→17:02)
[2023-06-06 05:53] LABS: CALCIUM, SERUM 9.2 mg/dL (8.5-10.1); CARBON DIOXIDE 35 mmol/L (21-32); CHLORIDE 98 mmol/L (98-107); CREATININE 2.4 mg/dL (0.6-1.3); GLUCOSE 131 mg/dL (74-106); MAGNESIUM 2.1 mg/dL (1.8-2.4); PHOSPHORUS 4.3 mg/dL (2.5-4.9); SODIUM SERUM 143 mmol/L (136-145); UREA NITROGEN, BLOOD 78 mg/dL (7-18)
[2023-06-06 05:57] LABS: BASOPHILS # (AUTO) 0.1 K/uL (0.0-0.2); BASOPHILS % (AUTO) 0.5 % (0.0-2.0); HEMATOCRIT 42 % (39-51); HEMOGLOBIN 14.1 g/dL (13.5-17.5); LYMPHOCYTES # (AUTO) 0.2 K/uL (0.8-4.8); LYMPHOCYTES % (AUTO) 1.4 % (20.0-44.0); MEAN CORPUSCULAR HEMOGLOBIN 34 PG (26.0-33.0); MEAN CORPUSCULAR HGB CONC 34 g/dl (31.0-36.0); MEAN CORPUSCULAR VOLUME 100 fL (80-96); MONOCYTES # (AUTO) 0.3 K/uL (0.1-1.30); MONOCYTES % (AUTO) 2.8 % (2.0-12.0); NEUTROPHILS # (AUTO) 10.3 K/uL (1.8-8.9); NEUTROPHILS % (AUTO) 95.3 % (43.0-81.0); PLATELET COUNT (AUTO) 155 K/uL (150-450); RED BLOOD CELL COUNT(AUTO) 4.15 MIL/uL (4.5-6.0); RED CELL DISTRIBUTION WIDTH 14.8 % (11.5-15.0); WHITE BLOOD COUNT (AUTO) 10.8 K/uL (4.3-11.0)
[2023-06-06 06:33] LABS: POTASSIUM 2.8 mmol/L (3.5-5.1)
[2023-06-06] MEDS: ACETYLCYSTEINE 10% SOLN 400 MG/4 ML VIAL NEB SCH ×3 (07:42→23:36)
[2023-06-06] MEDS: POTASSIUM CL. PREMIX PERIPHER. 50 ML IV SCH ×6 (08:31→14:27)
[2023-06-06] MEDS: PANTOPRAZOLE 40 MG/PACK PACK NG SCH (08:34)
[2023-06-06] MEDS: CARVEDILOL 3.125 MG TABLET GT SCH ×2 (08:34→16:56)
[2023-06-06] MEDS: FERROUS SULFATE (325 MG) 325 MG/TAB TABLET GT SCH (08:34)
[2023-06-06] MEDS: TAMSULOSIN 0.4 MG CAP.SR.24H GT SCH (08:34)
[2023-06-06] MEDS: DOCUSATE SODIUM LIQ 100 MG/10 ML UDC GT SCH (08:34)
[2023-06-06] MEDS: ASPIRIN 81 MG TAB.CHEW GT SCH (08:34)
[2023-06-06] MEDS: QUETIAPINE FUMARATE 25 MG TABLET GT SCH ×2 (08:35→20:43)
[2023-06-06] MEDS: CLOTRIMAZOLE 1% 15 GM TUBE TP SCH ×2 (08:36→16:56)
[2023-06-06] MEDS: Z GUARD REMEDY 4 OZ OINT TP SCH (08:36)
[2023-06-06 09:23] LABS: ABG BASE EXCESS 12.1 mmol/L; ABG OXYGEN SATURATION 93.1 % (92.0-98.5); ABG PCO2 52.3 mmHg (35.0-45.0); ABG PH 7.477 (7.350-7.450); ABG PO2 70.5 mmHg (75.0-100.0); ABG TOTAL HEMOGLOBIN 14.7 G/dL (13.5-18.0); COHb 0.8 % (0.5-1.5); MetHb 0.4 % (0.0-1.5); SITE, ABG Right Radial; VENT MODE, BG CPAP +5 PS12 30%
[2023-06-06] MEDS: CEFEPIME 1 GM in IV D5W 50 ML IV SCH ×2 (09:29→20:43)
[2023-06-06 14:49] LABS: HIV-1 p24 ANTIGEN NON REACTIVE (NONREACTIVE); HIV-1/2 ANTIBODY NON REACTIVE (NONREACTIVE)
[2023-06-06] MEDS ORDERED: acetaZOLAMIDE SODIUM 500 MG/VIAL VIAL IV ONE (16:00)
[2023-06-06] MEDS: NEPRO 1,000 ML BOTTLE GT PRN (16:16)
[2023-06-06] MEDS ORDERED: POTASSIUM CHLORIDE 20 MEQ POWDER PACKET GT ONE (19:00)
[2023-06-06] MEDS: NOREPINEPHRINE 8 MG in IV NS 0.9% 242 ML IV PRN (19:02)
[2023-06-07] VITALS (91 sets, daily range): BP systolic 83–107; BP diastolic 50–82; TEMP 97.8–98.6; O2SAT 73–100
[2023-06-07] MEDS: SEVELAMER CARBONATE 800 MG POWD.PACK GT SCH ×3 (00:09→16:40)
[2023-06-07] MEDS: FLUDROCORTISONE 0.1 MG TABLET NG SCH ×5 (00:09→23:33)
[2023-06-07] MEDS: IPRATROPIUM NEB FS 0.5 MG/2.5 ML AMPUL.NEB NEB SCH ×4 (01:37→20:20)
[2023-06-07] MEDS: ALBUTEROL FS 2.5 MG/0.5 ML VIAL.NEB NEB SCH ×4 (01:37→20:20)
[2023-06-07 04:20] LABS: BASOPHILS % (AUTO) 0.3 % (0.0-2.0); HEMATOCRIT 40 % (39-51); HEMOGLOBIN 13.2 g/dL (13.5-17.5); LYMPHOCYTES # (AUTO) 0.2 K/uL (0.8-4.8); LYMPHOCYTES % (AUTO) 1.8 % (20.0-44.0); MEAN CORPUSCULAR HEMOGLOBIN 34 PG (26.0-33.0); MEAN CORPUSCULAR HGB CONC 33 g/dl (31.0-36.0); MEAN CORPUSCULAR VOLUME 103 fL (80-96); MONOCYTES # (AUTO) 0.5 K/uL (0.1-1.30); MONOCYTES % (AUTO) 5.8 % (2.0-12.0); NEUTROPHILS # (AUTO) 8.4 K/uL (1.8-8.9); NEUTROPHILS % (AUTO) 92.1 % (43.0-81.0); PLATELET COUNT (AUTO) 152 K/uL (150-450); RED BLOOD CELL COUNT(AUTO) 3.85 MIL/uL (4.5-6.0); RED CELL DISTRIBUTION WIDTH 15.2 % (11.5-15.0); WHITE BLOOD COUNT (AUTO) 9.1 K/uL (4.3-11.0)
[2023-06-07 04:46] LABS: CALCIUM, SERUM 9.1 mg/dL (8.5-10.1); CARBON DIOXIDE 39 mmol/L (21-32); CHLORIDE 102 mmol/L (98-107); CREATININE 2.4 mg/dL (0.6-1.3); GLUCOSE 118 mg/dL (74-106); SODIUM SERUM 144 mmol/L (136-145)
[2023-06-07 05:09] LABS: UREA NITROGEN, BLOOD 80 mg/dL (7-18)
[2023-06-07] MEDS: HEPARIN SODIUM, PORCINE 5000 UNITS/1 ML VIAL SQ SCH ×2 (05:38→17:01)
[2023-06-07] MEDS ORDERED: DC PROPOFOL WHEN EXTUBATED XX PRN ×2 (08:00→08:45)
[2023-06-07 08:12] LABS: ABG BASE EXCESS 10.6 mmol/L; ABG OXYGEN SATURATION 96.1 % (92.0-98.5); ABG PCO2 51.1 mmHg (35.0-45.0); ABG PH 7.467 (7.350-7.450); ABG PO2 85.1 mmHg (75.0-100.0); ABG TOTAL HEMOGLOBIN 14.2 G/dL (13.5-18.0); AaDO2 68.8 mmHg; COHb 0.9 % (0.5-1.5); MetHb 0.2 % (0.0-1.5); SITE, ABG Right Radial
[2023-06-07] MEDS: DOCUSATE SODIUM LIQ 100 MG/10 ML UDC GT SCH (08:14)
[2023-06-07] MEDS: ASPIRIN 81 MG TAB.CHEW GT SCH (08:15)
[2023-06-07] MEDS: methylPREDNISolone SOD SUCC 40 MG/ML VIAL IV SCH ×2 (08:15→20:32)
[2023-06-07] MEDS: FERROUS SULFATE (325 MG) 325 MG/TAB TABLET GT SCH (08:15)
[2023-06-07] MEDS: PANTOPRAZOLE 40 MG/PACK PACK NG SCH (08:15)
[2023-06-07] MEDS: QUETIAPINE FUMARATE 25 MG TABLET GT SCH ×2 (08:15→20:32)
[2023-06-07] MEDS: CARVEDILOL 3.125 MG TABLET GT SCH ×2 (08:16→16:41)
[2023-06-07] MEDS: TAMSULOSIN 0.4 MG CAP.SR.24H GT SCH (08:16)
[2023-06-07] MEDS: CEFEPIME 1 GM in IV D5W 50 ML IV SCH ×2 (08:23→20:32)
[2023-06-07] MEDS: ACETYLCYSTEINE 10% SOLN 400 MG/4 ML VIAL NEB SCH ×3 (08:26→23:20)
[2023-06-07] MEDS: CLOTRIMAZOLE 1% 15 GM TUBE TP SCH ×2 (09:37→16:41)
[2023-06-07] MEDS: Z GUARD REMEDY 4 OZ OINT TP PRN (09:37)
[2023-06-07] MEDS: Z GUARD REMEDY 4 OZ OINT TP SCH (09:38)
[2023-06-07] MEDS: NOREPINEPHRINE 8 MG in IV NS 0.9% 242 ML IV PRN (17:25)
[2023-06-08] VITALS (99 sets, daily range): BP systolic 82–117; BP diastolic 59–93; TEMP 98–98.6; O2SAT 89–100
[2023-06-08] MEDS: SEVELAMER CARBONATE 800 MG POWD.PACK GT SCH ×3 (01:31→17:28)
[2023-06-08] MEDS: IPRATROPIUM NEB FS 0.5 MG/2.5 ML AMPUL.NEB NEB SCH ×4 (01:33→20:09)
[2023-06-08] MEDS: ALBUTEROL FS 2.5 MG/0.5 ML VIAL.NEB NEB SCH ×4 (01:33→20:09)
[2023-06-08] MEDS: NOREPINEPHRINE 8 MG in IV NS 0.9% 242 ML IV PRN (04:06)
[2023-06-08 04:37] LABS: HEMATOCRIT 42 % (39-51); HEMOGLOBIN 13.7 g/dL (13.5-17.5); LYMPHOCYTES # (AUTO) 0.1 K/uL (0.8-4.8); LYMPHOCYTES % (AUTO) 1.8 % (20.0-44.0); MEAN CORPUSCULAR HEMOGLOBIN 34 PG (26.0-33.0); MEAN CORPUSCULAR HGB CONC 32 g/dl (31.0-36.0); MEAN CORPUSCULAR VOLUME 104 fL (80-96); MONOCYTES # (AUTO) 0.4 K/uL (0.1-1.30); MONOCYTES % (AUTO) 5.8 % (2.0-12.0); NEUTROPHILS # (AUTO) 6.4 K/uL (1.8-8.9); NEUTROPHILS % (AUTO) 92.4 % (43.0-81.0); PLATELET COUNT (AUTO) 148 K/uL (150-450); RED BLOOD CELL COUNT(AUTO) 4.06 MIL/uL (4.5-6.0); WHITE BLOOD COUNT (AUTO) 6.9 K/uL (4.3-11.0)
[2023-06-08 05:00] LABS: ALBUMIN 2.7 g/dL (3.4-5.0); BILIRUBIN,DIRECT 0.7 mg/dL (0.0-0.2); BILIRUBIN,TOTAL 1.2 mg/dL (0.2-1.0); TOTAL PROTEIN, SERUM 7.6 g/dL (6.4-8.2)
[2023-06-08] MEDS: FLUDROCORTISONE 0.1 MG TABLET NG SCH ×4 (05:34→23:52)
[2023-06-08] MEDS: HEPARIN SODIUM, PORCINE 5000 UNITS/1 ML VIAL SQ SCH ×2 (06:32→17:30)
[2023-06-08 07:16] LABS: BAND % (MANUAL) 1 % (0.0-5.0); LYMPHOCYTES % (MANUAL) 3 % (16-48); MONOCYTES % (MANUAL) 7 % (0-11.0); NEUTROPHILS % (MANUAL) 89 (42-76)
[2023-06-08 07:17] LABS: ANISOCYTOSIS 1+; PLATELET ESTIMATE DECREASED
[2023-06-08] MEDS: ACETYLCYSTEINE 10% SOLN 400 MG/4 ML VIAL NEB SCH ×3 (07:41→23:15)
[2023-06-08] MEDS: methylPREDNISolone SOD SUCC 40 MG/ML VIAL IV SCH ×2 (08:38→20:33)
[2023-06-08] MEDS: CEFEPIME 1 GM in IV D5W 50 ML IV SCH ×2 (08:38→20:33)
[2023-06-08] MEDS: DOCUSATE SODIUM LIQ 100 MG/10 ML UDC GT SCH (08:39)
[2023-06-08] MEDS: ASPIRIN 81 MG TAB.CHEW GT SCH (08:39)
[2023-06-08] MEDS: PANTOPRAZOLE 40 MG/PACK PACK NG SCH (08:39)
[2023-06-08] MEDS: QUETIAPINE FUMARATE 25 MG TABLET GT SCH ×2 (08:39→20:33)
[2023-06-08] MEDS: FERROUS SULFATE (325 MG) 325 MG/TAB TABLET GT SCH (08:39)
[2023-06-08] MEDS: TAMSULOSIN 0.4 MG CAP.SR.24H GT SCH (08:39)
[2023-06-08] MEDS: CARVEDILOL 3.125 MG TABLET GT SCH ×2 (08:41→17:25)
[2023-06-08] MEDS: Z GUARD REMEDY 4 OZ OINT TP SCH (08:42)
[2023-06-08] MEDS: CLOTRIMAZOLE 1% 15 GM TUBE TP SCH ×2 (08:42→17:30)
[2023-06-08 09:23] LABS: CALCIUM, SERUM 9.2 mg/dL (8.5-10.1); CARBON DIOXIDE 31 mmol/L (21-32); CHLORIDE 100 mmol/L (98-107); CREATININE 2.2 mg/dL (0.6-1.3); GLUCOSE 134 mg/dL (74-106); POTASSIUM 3.8 mmol/L (3.5-5.1); SODIUM SERUM 142 mmol/L (136-145)
[2023-06-08 09:24] LABS: UREA NITROGEN, BLOOD 84 mg/dL (7-18)
[2023-06-08 10:11] LABS: ABG BASE EXCESS 8.4 mmol/L; ABG OXYGEN SATURATION 97.6 % (92.0-98.5); ABG PCO2 59.3 mmHg (35.0-45.0); ABG PH 7.395 (7.350-7.450); ABG PO2 100.9 mmHg (75.0-100.0); ABG TOTAL HEMOGLOBIN 14.6 G/dL (13.5-18.0); AaDO2 65.2 mmHg; COHb 1.5 % (0.5-1.5); MetHb 0.3 % (0.0-1.5); O2Hb 95.8 % (94.0-97.0); SITE, ABG Right Radial
[2023-06-08] MEDS: ALBUTEROL FS 2.5 MG/0.5 ML VIAL.NEB NEB PRN (23:15)
[2023-06-09] VITALS (104 sets, daily range): BP systolic 85–111; BP diastolic 62–88; O2SAT 91–100
[2023-06-09] MEDS: ALBUTEROL FS 2.5 MG/0.5 ML VIAL.NEB NEB SCH ×4 (01:21→19:34)
[2023-06-09] MEDS: IPRATROPIUM NEB FS 0.5 MG/2.5 ML AMPUL.NEB NEB SCH ×4 (01:21→19:34)
[2023-06-09] MEDS: SEVELAMER CARBONATE 800 MG POWD.PACK GT SCH ×3 (01:41→17:48)
[2023-06-09] MEDS: NOREPINEPHRINE 8 MG in IV NS 0.9% 242 ML IV PRN (01:48)
[2023-06-09 04:28] LABS: BASOPHILS % (AUTO) 0.3 % (0.0-2.0); HEMATOCRIT 41 % (39-51); HEMOGLOBIN 13.3 g/dL (13.5-17.5); LYMPHOCYTES # (AUTO) 0.1 K/uL (0.8-4.8); LYMPHOCYTES % (AUTO) 1.6 % (20.0-44.0); MEAN CORPUSCULAR HEMOGLOBIN 34 PG (26.0-33.0); MEAN CORPUSCULAR HGB CONC 33 g/dl (31.0-36.0); MEAN CORPUSCULAR VOLUME 104 fL (80-96); MONOCYTES # (AUTO) 0.4 K/uL (0.1-1.30); MONOCYTES % (AUTO) 5.5 % (2.0-12.0); NEUTROPHILS # (AUTO) 6.7 K/uL (1.8-8.9); NEUTROPHILS % (AUTO) 92.6 % (43.0-81.0); PLATELET COUNT (AUTO) 117 K/uL (150-450); RED BLOOD CELL COUNT(AUTO) 3.89 MIL/uL (4.5-6.0); RED CELL DISTRIBUTION WIDTH 15.4 % (11.5-15.0); WHITE BLOOD COUNT (AUTO) 7.3 K/uL (4.3-11.0)
[2023-06-09 04:44] LABS: ALANINE AMINOTRANSFERASE 100 U/L (12-78); ALBUMIN 2.7 g/dL (3.4-5.0); ALKALINE PHOSPHATASE 83 U/L (46-116); ASPARTATE AMINOTRANSFERASE 48 U/L (15-37); BILIRUBIN,TOTAL 1.4 mg/dL (0.2-1.0); CALCIUM, SERUM 9.4 mg/dL (8.5-10.1); CARBON DIOXIDE 36 mmol/L (21-32); CHLORIDE 99 mmol/L (98-107); CREATININE 2.3 mg/dL (0.6-1.3); GLUCOSE 137 mg/dL (74-106); MAGNESIUM 2.7 mg/dL (1.8-2.4); POTASSIUM 3.7 mmol/L (3.5-5.1); SODIUM SERUM 141 mmol/L (136-145); TOTAL PROTEIN, SERUM 7.5 g/dL (6.4-8.2)
[2023-06-09 04:56] LABS: UREA NITROGEN, BLOOD 95 mg/dL (7-18)
[2023-06-09] MEDS: FLUDROCORTISONE 0.1 MG TABLET NG SCH ×4 (06:18→23:41)
[2023-06-09] MEDS: HEPARIN SODIUM, PORCINE 5000 UNITS/1 ML VIAL SQ SCH ×2 (06:21→17:50)
[2023-06-09 06:56] LABS: MONOCYTES % (MANUAL) 6 % (0-11.0); NEUTROPHILS % (MANUAL) 94 (42-76)
[2023-06-09 06:57] LABS: ANISOCYTOSIS 1+; PLATELET ESTIMATE DECREASED
[2023-06-09] MEDS: ACETYLCYSTEINE 10% SOLN 400 MG/4 ML VIAL NEB SCH ×3 (07:34→23:21)
[2023-06-09] MEDS: IV NS 0.9% 250 ML IV PRN (07:59)
[2023-06-09 08:00] LABS: LYMPHOCYTES % (MANUAL) 0 % (16-48)
[2023-06-09] MEDS: CARVEDILOL 3.125 MG TABLET GT SCH ×2 (09:00→17:00)
[2023-06-09] MEDS: CEFEPIME 1 GM in IV D5W 50 ML IV SCH (09:32)
[2023-06-09] MEDS: DOCUSATE SODIUM LIQ 100 MG/10 ML UDC GT SCH (09:32)
[2023-06-09] MEDS: TAMSULOSIN 0.4 MG CAP.SR.24H GT SCH (09:33)
[2023-06-09] MEDS: ASPIRIN 81 MG TAB.CHEW GT SCH (09:33)
[2023-06-09] MEDS: FERROUS SULFATE (325 MG) 325 MG/TAB TABLET GT SCH (09:33)
[2023-06-09] MEDS: PANTOPRAZOLE 40 MG/PACK PACK NG SCH (09:33)
[2023-06-09] MEDS: Z GUARD REMEDY 4 OZ OINT TP SCH (09:35)
[2023-06-09] MEDS: CLOTRIMAZOLE 1% 15 GM TUBE TP SCH ×2 (09:35→17:49)
[2023-06-09] MEDS: methylPREDNISolone SOD SUCC 40 MG/ML VIAL IV SCH ×2 (10:09→20:50)
[2023-06-09] MEDS: NEPRO 1,000 ML BOTTLE GT PRN (12:26)
[2023-06-10] VITALS (62 sets, daily range): BP systolic 92–114; BP diastolic 59–92; TEMP 98; O2SAT 90–100
[2023-06-10] MEDS: IPRATROPIUM NEB FS 0.5 MG/2.5 ML AMPUL.NEB NEB SCH ×4 (01:13→19:13)
[2023-06-10] MEDS: ALBUTEROL FS 2.5 MG/0.5 ML VIAL.NEB NEB SCH ×4 (01:13→19:13)
[2023-06-10] MEDS: SEVELAMER CARBONATE 800 MG POWD.PACK GT SCH ×3 (01:32→17:00)
[2023-06-10] MEDS: NOREPINEPHRINE 8 MG in IV NS 0.9% 242 ML IV PRN (05:37)
[2023-06-10] MEDS: FLUDROCORTISONE 0.1 MG TABLET NG SCH ×3 (05:42→17:09)
[2023-06-10] MEDS: HEPARIN SODIUM, PORCINE 5000 UNITS/1 ML VIAL SQ SCH (05:47)
[2023-06-10] MEDS: ACETYLCYSTEINE 10% SOLN 400 MG/4 ML VIAL NEB SCH ×3 (07:35→23:01)
[2023-06-10] MEDS: FERROUS SULFATE (325 MG) 325 MG/TAB TABLET GT SCH (08:40)
[2023-06-10] MEDS: ASPIRIN 81 MG TAB.CHEW GT SCH (08:40)
[2023-06-10] MEDS: PANTOPRAZOLE 40 MG/PACK PACK NG SCH (08:40)
[2023-06-10] MEDS: methylPREDNISolone SOD SUCC 40 MG/ML VIAL IV SCH ×2 (08:40→20:47)
[2023-06-10] MEDS: TAMSULOSIN 0.4 MG CAP.SR.24H GT SCH (08:40)
[2023-06-10] MEDS: DOCUSATE SODIUM LIQ 100 MG/10 ML UDC GT SCH (08:40)
[2023-06-10] MEDS: CARVEDILOL 3.125 MG TABLET GT SCH ×2 (08:41→17:00)
[2023-06-10] MEDS: CLOTRIMAZOLE 1% 15 GM TUBE TP SCH ×2 (08:42→17:00)
[2023-06-10] MEDS: Z GUARD REMEDY 4 OZ OINT TP SCH (08:43)
[2023-06-10] MEDS ORDERED: MIDODRINE HCL (5MG) 5 MG TABLET GT PRN (10:56)
[2023-06-10] MEDS: ALBUTEROL FS 2.5 MG/0.5 ML VIAL.NEB NEB PRN (23:02)
[2023-06-11] VITALS (71 sets, daily range): BP systolic 79–123; BP diastolic 51–95; TEMP 98.4–99; O2SAT 89–99
[2023-06-11] MEDS: SEVELAMER CARBONATE 800 MG POWD.PACK GT SCH ×3 (00:32→17:39)
[2023-06-11] MEDS: FLUDROCORTISONE 0.1 MG TABLET NG SCH ×4 (00:32→17:39)
[2023-06-11] MEDS: ALBUTEROL FS 2.5 MG/0.5 ML VIAL.NEB NEB SCH ×5 (01:31→19:35)
[2023-06-11] MEDS: IPRATROPIUM NEB FS 0.5 MG/2.5 ML AMPUL.NEB NEB SCH ×5 (01:31→19:35)
[2023-06-11] MEDS: NEPRO 1,000 ML BOTTLE GT PRN (05:28)
[2023-06-11] MEDS: ACETYLCYSTEINE 10% SOLN 400 MG/4 ML VIAL NEB SCH ×3 (07:55→22:59)
[2023-06-11] MEDS: IV NS 0.9% 250 ML IV PRN (08:05)
[2023-06-11 08:06] LABS: HBSAG SCREEN Negative (Negative); HEPATITIS A AB, IgM Negative (Negative); HEPATITIS B CORE AB, IgM Negative (Negative)
[2023-06-11 09:34] LABS: ABG BASE EXCESS 9.1 mmol/L; ABG OXYGEN SATURATION 93.1 % (92.0-98.5); ABG PCO2 67.9 mmHg (35.0-45.0); ABG PH 7.362 (7.350-7.450); ABG PO2 71.5 mmHg (75.0-100.0); ABG TOTAL HEMOGLOBIN 15.8 G/dL (13.5-18.0); AaDO2 77.2 mmHg; COHb 1.3 % (0.5-1.5); MetHb 0.3 % (0.0-1.5); O2Hb 91.6 % (94.0-97.0); SITE, ABG Right Radial; VENT MODE, BG 3LPM NC
[2023-06-11] MEDS: DOCUSATE SODIUM LIQ 100 MG/10 ML UDC GT SCH (09:37)
[2023-06-11] MEDS: methylPREDNISolone SOD SUCC 40 MG/ML VIAL IV SCH ×2 (09:37→20:29)
[2023-06-11] MEDS: TAMSULOSIN 0.4 MG CAP.SR.24H GT SCH (09:37)
[2023-06-11] MEDS: ASPIRIN 81 MG TAB.CHEW GT SCH (09:37)
[2023-06-11] MEDS: PANTOPRAZOLE 40 MG/PACK PACK NG SCH (09:38)
[2023-06-11] MEDS: FERROUS SULFATE (325 MG) 325 MG/TAB TABLET GT SCH (09:38)
[2023-06-11] MEDS: CARVEDILOL 3.125 MG TABLET GT SCH ×2 (09:38→17:38)
[2023-06-11] MEDS: FUROSEMIDE 100 MG/10 ML VIAL IV SCH ×3 (09:39→17:39)
[2023-06-11 09:40] LABS: BASOPHILS % (AUTO) 0.4 % (0.0-2.0); EOSINOPHILS % (AUTO) 0.2 % (0.0-6.0); HEMATOCRIT 46 % (39-51); HEMOGLOBIN 14.9 g/dL (13.5-17.5); LYMPHOCYTES # (AUTO) 0.1 K/uL (0.8-4.8); LYMPHOCYTES % (AUTO) 1.2 % (20.0-44.0); MEAN CORPUSCULAR HEMOGLOBIN 34 PG (26.0-33.0); MEAN CORPUSCULAR HGB CONC 32 g/dl (31.0-36.0); MEAN CORPUSCULAR VOLUME 104 fL (80-96); MONOCYTES # (AUTO) 0.4 K/uL (0.1-1.30); MONOCYTES % (AUTO) 3.7 % (2.0-12.0); NEUTROPHILS # (AUTO) 10.2 K/uL (1.8-8.9); NEUTROPHILS % (AUTO) 94.5 % (43.0-81.0); PLATELET COUNT (AUTO) 149 K/uL (150-450); RED BLOOD CELL COUNT(AUTO) 4.43 MIL/uL (4.5-6.0); RED CELL DISTRIBUTION WIDTH 15.4 % (11.5-15.0); WHITE BLOOD COUNT (AUTO) 10.8 K/uL (4.3-11.0)
[2023-06-11 09:56] LABS: ALANINE AMINOTRANSFERASE 113 U/L (12-78); ALBUMIN 3.2 g/dL (3.4-5.0); ALKALINE PHOSPHATASE 106 U/L (46-116); ASPARTATE AMINOTRANSFERASE 65 U/L (15-37); BILIRUBIN,TOTAL 1.9 mg/dL (0.2-1.0); CALCIUM, SERUM 9.9 mg/dL (8.5-10.1); CARBON DIOXIDE 34 mmol/L (21-32); CHLORIDE 100 mmol/L (98-107); CREATININE 2.2 mg/dL (0.6-1.3); GLUCOSE 155 mg/dL (74-106); POTASSIUM 3.7 mmol/L (3.5-5.1); SODIUM SERUM 142 mmol/L (136-145); TOTAL PROTEIN, SERUM 8.4 g/dL (6.4-8.2)
[2023-06-11 09:59] LABS: UREA NITROGEN, BLOOD 104 mg/dL (7-18)
[2023-06-11] MEDS: CLOTRIMAZOLE 1% 15 GM TUBE TP SCH ×2 (10:15→17:39)
[2023-06-11] MEDS: Z GUARD REMEDY 4 OZ OINT TP SCH (10:16)
[2023-06-11 13:32] LABS: ABG BASE EXCESS 11.6 mmol/L; ABG OXYGEN SATURATION 98.7 % (92.0-98.5); ABG PCO2 41.6 mmHg (35.0-45.0); ABG PH 7.545 (7.350-7.450); ABG PO2 147.2 mmHg (75.0-100.0); AaDO2 524.2 mmHg; COHb 0.7 % (0.5-1.5); MetHb 0.4 % (0.0-1.5); O2Hb 97.6 % (94.0-97.0); PEEP,BG 5 cm H2O; SITE, ABG Right Femoral; VT, ABG 500 mL
[2023-06-11] MEDS: NOREPINEPHRINE 8 MG in IV NS 0.9% 242 ML IV PRN (13:57)
[2023-06-11] MEDS ORDERED: ROCURONIUM BROMIDE 50 MG/5 ML IV ONE (15:25)
[2023-06-11] MEDS ORDERED: ETOMIDATE 2 MG/ML VIAL IV ONE (15:25)
[2023-06-11] MEDS: PROPOFOL 100 ML IV PRN (21:25)
[2023-06-12] VITALS (94 sets, daily range): BP systolic 85–115; BP diastolic 59–91; TEMP 98–98.9; O2SAT 89–99
[2023-06-12] MEDS: FLUDROCORTISONE 0.1 MG TABLET NG SCH ×4 (00:41→17:44)
[2023-06-12] MEDS: SEVELAMER CARBONATE 800 MG POWD.PACK GT SCH ×3 (00:41→17:44)
[2023-06-12] MEDS: ALBUTEROL FS 2.5 MG/0.5 ML VIAL.NEB NEB SCH ×4 (01:07→19:51)
[2023-06-12] MEDS: IPRATROPIUM NEB FS 0.5 MG/2.5 ML AMPUL.NEB NEB SCH ×4 (01:07→19:51)
[2023-06-12 05:12] LABS: ABG BASE EXCESS 12.9 mmol/L; ABG OXYGEN SATURATION 99.3 % (92.0-98.5); ABG PCO2 52.9 mmHg (35.0-45.0); ABG PH 7.481 (7.350-7.450); ABG PO2 236.2 mmHg (75.0-100.0); ABG TOTAL HEMOGLOBIN 14.2 G/dL (13.5-18.0); AaDO2 423.9 mmHg; COHb 0.6 % (0.5-1.5); MetHb 0.2 % (0.0-1.5); O2Hb 98.5 % (94.0-97.0); SITE, ABG Right Radial; VENT MODE, BG AC 14 500 100% +5
[2023-06-12 05:54] LABS: BASOPHILS % (AUTO) 0.1 % (0.0-2.0); EOSINOPHILS # (AUTO) 0.1 K/uL (0.0-0.7); HEMATOCRIT 30 % (39-51); HEMOGLOBIN 10.1 g/dL (13.5-17.5); LYMPHOCYTES # (AUTO) 0.1 K/uL (0.8-4.8); LYMPHOCYTES % (AUTO) 2.2 % (20.0-44.0); MEAN CORPUSCULAR HEMOGLOBIN 36 PG (26.0-33.0); MEAN CORPUSCULAR HGB CONC 34 g/dl (31.0-36.0); MEAN CORPUSCULAR VOLUME 107 fL (80-96); MONOCYTES # (AUTO) 0.3 K/uL (0.1-1.30); MONOCYTES % (AUTO) 4.7 % (2.0-12.0); NEUTROPHILS # (AUTO) 5.6 K/uL (1.8-8.9); PLATELET COUNT (AUTO) 100 K/uL (150-450); RED BLOOD CELL COUNT(AUTO) 2.83 MIL/uL (4.5-6.0); RED CELL DISTRIBUTION WIDTH 15.9 % (11.5-15.0); WHITE BLOOD COUNT (AUTO) 6.1 K/uL (4.3-11.0)
[2023-06-12] MEDS: PROPOFOL 100 ML IV PRN ×3 (06:11→23:37)
[2023-06-12] MEDS: IV NS 0.9% 250 ML IV PRN ×2 (06:11→23:43)
[2023-06-12] MEDS: NOREPINEPHRINE 8 MG in IV NS 0.9% 242 ML IV PRN ×2 (06:11→23:38)
[2023-06-12] MEDS: NEPRO 1,000 ML BOTTLE GT PRN (06:12)
[2023-06-12 06:35] LABS: ALANINE AMINOTRANSFERASE 64 U/L (12-78); ALBUMIN 1.8 g/dL (3.4-5.0); ALKALINE PHOSPHATASE 53 U/L (46-116); BILIRUBIN,TOTAL 1.4 mg/dL (0.2-1.0); CALCIUM, SERUM 6.9 mg/dL (8.5-10.1); CARBON DIOXIDE 29 mmol/L (21-32); CHLORIDE 106 mmol/L (98-107); GLUCOSE 246 mg/dL (74-106); MAGNESIUM 2.2 mg/dL (1.8-2.4); PHOSPHORUS 2.7 mg/dL (2.5-4.9); SODIUM SERUM 142 mmol/L (136-145); TOTAL PROTEIN, SERUM 5.2 g/dL (6.4-8.2)
[2023-06-12] MEDS: ACETYLCYSTEINE 10% SOLN 400 MG/4 ML VIAL NEB SCH ×3 (07:36→23:42)
[2023-06-12 08:10] LABS: ASPARTATE AMINOTRANSFERASE 46 U/L (15-37)
[2023-06-12 08:15] LABS: ABG BASE EXCESS 13.8 mmol/L; ABG OXYGEN SATURATION 98.8 % (92.0-98.5); ABG PCO2 46.1 mmHg (35.0-45.0); ABG PH 7.536 (7.350-7.450); ABG PO2 142.5 mmHg (75.0-100.0); ABG TOTAL HEMOGLOBIN 14.1 G/dL (13.5-18.0); AaDO2 415.7 mmHg; COHb 0.3 % (0.5-1.5); MetHb 0.3 % (0.0-1.5); O2Hb 98.2 % (94.0-97.0); PEEP,BG 5 cm H2O; SITE, ABG Right Radial; VENT MODE, BG AC 85%; VT, ABG 500 mL
[2023-06-12 08:15] LABS: UREA NITROGEN, BLOOD 92 mg/dL (7-18)
[2023-06-12 08:17] LABS: POTASSIUM 2.5 mmol/L (3.5-5.1)
[2023-06-12] MEDS: Z GUARD REMEDY 4 OZ OINT TP SCH (09:00)
[2023-06-12] MEDS: CARVEDILOL 3.125 MG TABLET GT SCH ×2 (10:30→17:46)
[2023-06-12] MEDS: DOCUSATE SODIUM LIQ 100 MG/10 ML UDC GT SCH (10:31)
[2023-06-12] MEDS: FERROUS SULFATE (325 MG) 325 MG/TAB TABLET GT SCH (10:31)
[2023-06-12] MEDS: ASPIRIN 81 MG TAB.CHEW GT SCH (10:31)
[2023-06-12] MEDS: TAMSULOSIN 0.4 MG CAP.SR.24H GT SCH (10:32)
[2023-06-12] MEDS: methylPREDNISolone SOD SUCC 40 MG/ML VIAL IV SCH ×2 (10:32→20:26)
[2023-06-12] MEDS: PANTOPRAZOLE 40 MG/PACK PACK NG SCH (10:32)
[2023-06-12] MEDS: CLOTRIMAZOLE 1% 15 GM TUBE TP SCH ×2 (10:33→17:44)
[2023-06-13] VITALS (97 sets, daily range): BP systolic 71–134; BP diastolic 49–92; TEMP 98–98.8; O2SAT 88–100
[2023-06-13] MEDS: FLUDROCORTISONE 0.1 MG TABLET NG SCH ×4 (00:37→17:57)
[2023-06-13] MEDS: SEVELAMER CARBONATE 800 MG POWD.PACK GT SCH ×3 (00:38→17:57)
[2023-06-13] MEDS: IPRATROPIUM NEB FS 0.5 MG/2.5 ML AMPUL.NEB NEB SCH ×4 (01:24→20:05)
[2023-06-13] MEDS: ALBUTEROL FS 2.5 MG/0.5 ML VIAL.NEB NEB SCH ×4 (01:24→20:05)
[2023-06-13] MEDS: PROPOFOL 100 ML IV PRN ×2 (05:29→18:10)
[2023-06-13 06:13] LABS: ABG BASE EXCESS 11.1 mmol/L; ABG OXYGEN SATURATION 98.8 % (92.0-98.5); ABG PCO2 59.2 mmHg (35.0-45.0); ABG PH 7.425 (7.350-7.450); ABG PO2 140.3 mmHg (75.0-100.0); AaDO2 331.6 mmHg; COHb 0.8 % (0.5-1.5); MetHb 0.2 % (0.0-1.5); O2Hb 97.8 % (94.0-97.0); PEEP,BG 5 cm H2O; SITE, ABG Right Radial; VT, ABG 500 mL
[2023-06-13] MEDS: ACETYLCYSTEINE 10% SOLN 400 MG/4 ML VIAL NEB SCH ×3 (06:52→23:38)
[2023-06-13] MEDS: methylPREDNISolone SOD SUCC 40 MG/ML VIAL IV SCH ×2 (08:39→20:42)
[2023-06-13] MEDS: DOCUSATE SODIUM LIQ 100 MG/10 ML UDC GT SCH (08:39)
[2023-06-13] MEDS: ASPIRIN 81 MG TAB.CHEW GT SCH (08:40)
[2023-06-13] MEDS: PANTOPRAZOLE 40 MG/PACK PACK NG SCH (08:40)
[2023-06-13] MEDS: FERROUS SULFATE (325 MG) 325 MG/TAB TABLET GT SCH (08:40)
[2023-06-13] MEDS: TAMSULOSIN 0.4 MG CAP.SR.24H GT SCH (08:40)
[2023-06-13] MEDS: CARVEDILOL 3.125 MG TABLET GT SCH ×2 (09:00→20:34)
[2023-06-13] MEDS: Z GUARD REMEDY 4 OZ OINT TP SCH (09:20)
[2023-06-13] MEDS: CLOTRIMAZOLE 1% 15 GM TUBE TP SCH ×2 (09:20→17:55)
[2023-06-13 11:49] LABS: ALANINE AMINOTRANSFERASE 80 U/L (12-78); ALBUMIN 2.7 g/dL (3.4-5.0); ALKALINE PHOSPHATASE 74 U/L (46-116); ASPARTATE AMINOTRANSFERASE 38 U/L (15-37); BILIRUBIN,TOTAL 1.4 mg/dL (0.2-1.0); CALCIUM, SERUM 9.4 mg/dL (8.5-10.1); CARBON DIOXIDE 37 mmol/L (21-32); CHLORIDE 103 mmol/L (98-107); CREATININE 2.7 mg/dL (0.6-1.3); GLUCOSE 144 mg/dL (74-106); MAGNESIUM 2.9 mg/dL (1.8-2.4); PHOSPHORUS 3.9 mg/dL (2.5-4.9); POTASSIUM 3.2 mmol/L (3.5-5.1); SODIUM SERUM 148 mmol/L (136-145); TOTAL PROTEIN, SERUM 6.9 g/dL (6.4-8.2)
[2023-06-13 12:03] LABS: HEMATOCRIT 38 % (39-51); HEMOGLOBIN 12.4 g/dL (13.5-17.5); LYMPHOCYTES # (AUTO) 0.2 K/uL (0.8-4.8); MEAN CORPUSCULAR HEMOGLOBIN 34 PG (26.0-33.0); MEAN CORPUSCULAR HGB CONC 32 g/dl (31.0-36.0); MEAN CORPUSCULAR VOLUME 104 fL (80-96); MONOCYTES # (AUTO) 0.6 K/uL (0.1-1.30); MONOCYTES % (AUTO) 7.4 % (2.0-12.0); NEUTROPHILS # (AUTO) 7.1 K/uL (1.8-8.9); NEUTROPHILS % (AUTO) 90.6 % (43.0-81.0); PLATELET COUNT (AUTO) 134 K/uL (150-450); RED CELL DISTRIBUTION WIDTH 15.6 % (11.5-15.0); WHITE BLOOD COUNT (AUTO) 7.9 K/uL (4.3-11.0)
[2023-06-13 12:03] LABS: UREA NITROGEN, BLOOD 126 mg/dL (7-18)
[2023-06-13 13:23] LABS: BAND % (MANUAL) 1 % (0.0-5.0); LYMPHOCYTES % (MANUAL) 3 % (16-48); MONOCYTES % (MANUAL) 8 % (0-11.0); NEUTROPHILS % (MANUAL) 88 (42-76); PLATELET ESTIMATE DECREASED
[2023-06-13] MEDS: NOREPINEPHRINE 8 MG in IV NS 0.9% 242 ML IV PRN (19:00)
[2023-06-13] MEDS: IV NS 0.9% 250 ML IV PRN (20:29)
[2023-06-14] VITALS (97 sets, daily range): BP systolic 92–114; BP diastolic 59–79; TEMP 97.7–99.7; O2SAT 85–97
[2023-06-14] MEDS: FLUDROCORTISONE 0.1 MG TABLET NG SCH ×5 (00:39→23:10)
[2023-06-14] MEDS: SEVELAMER CARBONATE 800 MG POWD.PACK GT SCH ×3 (00:39→17:40)
[2023-06-14] MEDS: ALBUTEROL FS 2.5 MG/0.5 ML VIAL.NEB NEB SCH ×4 (02:05→20:02)
[2023-06-14] MEDS: IPRATROPIUM NEB FS 0.5 MG/2.5 ML AMPUL.NEB NEB SCH ×4 (02:05→20:02)
[2023-06-14] MEDS: ACETYLCYSTEINE 10% SOLN 400 MG/4 ML VIAL NEB SCH ×3 (07:50→23:54)
[2023-06-14] MEDS: DOCUSATE SODIUM LIQ 100 MG/10 ML UDC GT SCH (08:26)
[2023-06-14] MEDS: ASPIRIN 81 MG TAB.CHEW GT SCH (08:27)
[2023-06-14] MEDS: TAMSULOSIN 0.4 MG CAP.SR.24H GT SCH (08:27)
[2023-06-14] MEDS: methylPREDNISolone SOD SUCC 40 MG/ML VIAL IV SCH ×2 (08:27→20:39)
[2023-06-14] MEDS: PANTOPRAZOLE 40 MG/PACK PACK NG SCH (08:27)
[2023-06-14] MEDS: CARVEDILOL 3.125 MG TABLET GT SCH ×2 (08:27→20:11)
[2023-06-14] MEDS: FERROUS SULFATE (325 MG) 325 MG/TAB TABLET GT SCH (08:27)
[2023-06-14] MEDS: Z GUARD REMEDY 4 OZ OINT TP SCH (08:28)
[2023-06-14] MEDS: CLOTRIMAZOLE 1% 15 GM TUBE TP SCH ×2 (08:28→17:34)
[2023-06-14] MEDS ORDERED: POTASSIUM CHLORIDE 20 MEQ POWDER PACKET GT ONE (09:30)
[2023-06-14 09:52] LABS: ABG BASE EXCESS 12.9 mmol/L; ABG OXYGEN SATURATION 97.9 % (92.0-98.5); ABG PH 7.513 (7.350-7.450); ABG PO2 104.3 mmHg (75.0-100.0); ABG TOTAL HEMOGLOBIN 14.1 G/dL (13.5-18.0); AaDO2 125.7 mmHg; COHb 0.7 % (0.5-1.5); MetHb 0.3 % (0.0-1.5); O2Hb 96.9 % (94.0-97.0); SITE, ABG Right Femoral
[2023-06-14] MEDS: NOREPINEPHRINE 8 MG in IV NS 0.9% 242 ML IV PRN (14:02)
[2023-06-14] MEDS: IV NS 0.9% 250 ML IV PRN (14:23)
[2023-06-14] MEDS: NEPRO 1,000 ML BOTTLE GT PRN (14:24)
[2023-06-15] VITALS (68 sets, daily range): BP systolic 76–113; BP diastolic 57–89; TEMP 98.7–99.5; O2SAT 89–100
[2023-06-15] MEDS: SEVELAMER CARBONATE 800 MG POWD.PACK GT SCH ×3 (00:33→17:13)
[2023-06-15] MEDS: ALBUTEROL FS 2.5 MG/0.5 ML VIAL.NEB NEB SCH ×4 (01:41→19:45)
[2023-06-15] MEDS: IPRATROPIUM NEB FS 0.5 MG/2.5 ML AMPUL.NEB NEB SCH ×4 (01:41→19:45)
[2023-06-15 04:23] LABS: BASOPHILS % (AUTO) 0.3 % (0.0-2.0); HEMATOCRIT 40 % (39-51); HEMOGLOBIN 13.1 g/dL (13.5-17.5); LYMPHOCYTES # (AUTO) 0.1 K/uL (0.8-4.8); LYMPHOCYTES % (AUTO) 1.1 % (20.0-44.0); MEAN CORPUSCULAR HEMOGLOBIN 34 PG (26.0-33.0); MEAN CORPUSCULAR HGB CONC 33 g/dl (31.0-36.0); MEAN CORPUSCULAR VOLUME 104 fL (80-96); MONOCYTES # (AUTO) 0.2 K/uL (0.1-1.30); MONOCYTES % (AUTO) 2.7 % (2.0-12.0); NEUTROPHILS # (AUTO) 7.5 K/uL (1.8-8.9); NEUTROPHILS % (AUTO) 95.9 % (43.0-81.0); PLATELET COUNT (AUTO) 142 K/uL (150-450); RED BLOOD CELL COUNT(AUTO) 3.83 MIL/uL (4.5-6.0); RED CELL DISTRIBUTION WIDTH 15.8 % (11.5-15.0); WHITE BLOOD COUNT (AUTO) 7.8 K/uL (4.3-11.0)
[2023-06-15 04:26] LABS: CALCIUM, SERUM 9.2 mg/dL (8.5-10.1); CARBON DIOXIDE 39 mmol/L (21-32); CHLORIDE 105 mmol/L (98-107); CREATININE 1.9 mg/dL (0.6-1.3); GLUCOSE 156 mg/dL (74-106); SODIUM SERUM 148 mmol/L (136-145)
[2023-06-15 04:51] LABS: POTASSIUM 2.8 mmol/L (3.5-5.1)
[2023-06-15 04:52] LABS: UREA NITROGEN, BLOOD 106 mg/dL (7-18)
[2023-06-15] MEDS: FLUDROCORTISONE 0.1 MG TABLET NG SCH ×3 (05:11→17:13)
[2023-06-15] MEDS: NEPRO 1,000 ML BOTTLE GT PRN (05:30)
[2023-06-15 07:35] LABS: LYMPHOCYTES % (MANUAL) 2 % (16-48); MONOCYTES % (MANUAL) 6 % (0-11.0); NEUTROPHILS % (MANUAL) 92 (42-76); PLATELET ESTIMATE DECREASED
[2023-06-15] MEDS: ACETYLCYSTEINE 10% SOLN 400 MG/4 ML VIAL NEB SCH ×3 (08:04→23:00)
[2023-06-15] MEDS: methylPREDNISolone SOD SUCC 40 MG/ML VIAL IV SCH ×2 (08:59→20:49)
[2023-06-15] MEDS: DOCUSATE SODIUM LIQ 100 MG/10 ML UDC GT SCH (08:59)
[2023-06-15] MEDS: ASPIRIN 81 MG TAB.CHEW GT SCH (08:59)
[2023-06-15] MEDS: TAMSULOSIN 0.4 MG CAP.SR.24H GT SCH (09:00)
[2023-06-15] MEDS: FERROUS SULFATE (325 MG) 325 MG/TAB TABLET GT SCH (09:00)
[2023-06-15] MEDS: PANTOPRAZOLE 40 MG/PACK PACK NG SCH (09:00)
[2023-06-15] MEDS: CARVEDILOL 3.125 MG TABLET GT SCH ×2 (09:00→20:48)
[2023-06-15] MEDS ORDERED: POTASSIUM CHLORIDE 20 MEQ POWDER PACKET NG SCH (09:30)
[2023-06-15] MEDS: CLOTRIMAZOLE 1% 15 GM TUBE TP SCH ×2 (09:43→17:13)
[2023-06-15] MEDS: Z GUARD REMEDY 4 OZ OINT TP SCH (09:44)
[2023-06-15] MEDS ORDERED: NEUTRA PHOS 1 POWD.PACKET PEG ONE (10:30)
[2023-06-15 14:56] LABS: CARBON DIOXIDE 34 mmol/L (21-32); CHLORIDE 107 mmol/L (98-107); CREATININE 1.9 mg/dL (0.6-1.3); GLUCOSE 146 mg/dL (74-106); POTASSIUM 4.6 mmol/L (3.5-5.1); SODIUM SERUM 146 mmol/L (136-145)
[2023-06-15 15:10] LABS: UREA NITROGEN, BLOOD 103 mg/dL (7-18)
[2023-06-15] MEDS: IV NS 0.9% 250 ML IV PRN (18:26)
[2023-06-15] MEDS: NOREPINEPHRINE 8 MG in IV NS 0.9% 242 ML IV PRN (21:21)
[2023-06-16] VITALS (95 sets, daily range): BP systolic 89–127; BP diastolic 51–105; TEMP 97.8–99.8; O2SAT 94–99
[2023-06-16] MEDS: FLUDROCORTISONE 0.1 MG TABLET NG SCH ×5 (00:04→23:39)
[2023-06-16] MEDS: IPRATROPIUM NEB FS 0.5 MG/2.5 ML AMPUL.NEB NEB SCH ×4 (01:45→19:43)
[2023-06-16] MEDS: ALBUTEROL FS 2.5 MG/0.5 ML VIAL.NEB NEB SCH ×4 (01:45→19:42)
[2023-06-16] MEDS: SEVELAMER CARBONATE 800 MG POWD.PACK GT SCH ×3 (01:46→17:30)
[2023-06-16 03:59] LABS: BASOPHILS % (AUTO) 0.1 % (0.0-2.0); HEMATOCRIT 40 % (39-51); LYMPHOCYTES # (AUTO) 0.1 K/uL (0.8-4.8); LYMPHOCYTES % (AUTO) 1.2 % (20.0-44.0); MEAN CORPUSCULAR HEMOGLOBIN 34 PG (26.0-33.0); MEAN CORPUSCULAR HGB CONC 33 g/dl (31.0-36.0); MEAN CORPUSCULAR VOLUME 104 fL (80-96); MONOCYTES # (AUTO) 0.3 K/uL (0.1-1.30); MONOCYTES % (AUTO) 3.5 % (2.0-12.0); NEUTROPHILS # (AUTO) 8.8 K/uL (1.8-8.9); NEUTROPHILS % (AUTO) 95.2 % (43.0-81.0); PLATELET COUNT (AUTO) 120 K/uL (150-450); RED BLOOD CELL COUNT(AUTO) 3.83 MIL/uL (4.5-6.0); RED CELL DISTRIBUTION WIDTH 15.4 % (11.5-15.0); WHITE BLOOD COUNT (AUTO) 9.2 K/uL (4.3-11.0)
[2023-06-16 04:10] LABS: ALANINE AMINOTRANSFERASE 73 U/L (12-78); ALBUMIN 2.5 g/dL (3.4-5.0); ALKALINE PHOSPHATASE 87 U/L (46-116); ASPARTATE AMINOTRANSFERASE 40 U/L (15-37); BILIRUBIN,TOTAL 1.7 mg/dL (0.2-1.0); CALCIUM, SERUM 9.1 mg/dL (8.5-10.1); CARBON DIOXIDE 38 mmol/L (21-32); CHLORIDE 106 mmol/L (98-107); CREATININE 1.9 mg/dL (0.6-1.3); GLUCOSE 150 mg/dL (74-106); MAGNESIUM 2.9 mg/dL (1.8-2.4); PHOSPHORUS 2.3 mg/dL (2.5-4.9); POTASSIUM 3.6 mmol/L (3.5-5.1); SODIUM SERUM 148 mmol/L (136-145); TOTAL PROTEIN, SERUM 6.8 g/dL (6.4-8.2)
[2023-06-16 04:16] LABS: UREA NITROGEN, BLOOD 96 mg/dL (7-18)
[2023-06-16] MEDS: ACETYLCYSTEINE 10% SOLN 400 MG/4 ML VIAL NEB SCH ×3 (07:05→23:20)
[2023-06-16] MEDS ORDERED: NEUTRA PHOS 1 POWD.PACKET PO ONE (08:30)
[2023-06-16] MEDS: PANTOPRAZOLE 40 MG/PACK PACK NG SCH (09:03)
[2023-06-16] MEDS: TAMSULOSIN 0.4 MG CAP.SR.24H GT SCH (09:04)
[2023-06-16] MEDS: methylPREDNISolone SOD SUCC 40 MG/ML VIAL IV SCH ×2 (09:04→21:31)
[2023-06-16] MEDS: FERROUS SULFATE (325 MG) 325 MG/TAB TABLET GT SCH (09:04)
[2023-06-16] MEDS: DOCUSATE SODIUM LIQ 100 MG/10 ML UDC GT SCH (09:04)
[2023-06-16] MEDS: CARVEDILOL 3.125 MG TABLET GT SCH ×2 (09:07→21:32)
[2023-06-16] MEDS: ASPIRIN 81 MG TAB.CHEW GT SCH (09:07)
[2023-06-16] MEDS: CLOTRIMAZOLE 1% 15 GM TUBE TP SCH ×2 (09:08→17:00)
[2023-06-16] MEDS: Z GUARD REMEDY 4 OZ OINT TP PRN ×2 (09:08→09:09)
[2023-06-16] MEDS: Z GUARD REMEDY 4 OZ OINT TP SCH (09:10)
[2023-06-16] MEDS ORDERED: FUROSEMIDE 20 MG/2 ML VIAL IV ONE (09:30)
[2023-06-16] MEDS: POTASSIUM CHLORIDE 20 MEQ TAB.PRT.SR PO SCH ×3 (11:24→11:26)
[2023-06-16 12:19] LABS: ANISOCYTOSIS 1+; LYMPHOCYTES % (MANUAL) 1 % (16-48); MONOCYTES % (MANUAL) 4 % (0-11.0); NEUTROPHILS % (MANUAL) 95 (42-76); PLATELET ESTIMATE DECREASED
[2023-06-17] VITALS (84 sets, daily range): BP systolic 71–121; BP diastolic 11–95; TEMP 98–98.8; O2SAT 84–99
[2023-06-17] MEDS: ALBUTEROL FS 2.5 MG/0.5 ML VIAL.NEB NEB SCH ×4 (01:23→19:31)
[2023-06-17] MEDS: IPRATROPIUM NEB FS 0.5 MG/2.5 ML AMPUL.NEB NEB SCH ×4 (01:23→19:31)
[2023-06-17] MEDS: PROPOFOL 100 ML IV PRN ×2 (02:17→18:06)
[2023-06-17] MEDS: SEVELAMER CARBONATE 800 MG POWD.PACK GT SCH ×3 (02:30→17:57)
[2023-06-17] MEDS: FLUDROCORTISONE 0.1 MG TABLET NG SCH ×4 (06:15→23:51)
[2023-06-17] MEDS: ACETYLCYSTEINE 10% SOLN 400 MG/4 ML VIAL NEB SCH ×3 (07:35→23:07)
[2023-06-17] MEDS: IV NS 0.9% 250 ML IV PRN ×2 (08:42→21:38)
[2023-06-17] MEDS: NOREPINEPHRINE 8 MG in IV NS 0.9% 242 ML IV PRN (08:52)
[2023-06-17] MEDS: NEPRO 1,000 ML BOTTLE GT PRN (08:58)
[2023-06-17] MEDS: methylPREDNISolone SOD SUCC 40 MG/ML VIAL IV SCH ×2 (10:27→21:37)
[2023-06-17] MEDS: TAMSULOSIN 0.4 MG CAP.SR.24H GT SCH (10:27)
[2023-06-17] MEDS: FERROUS SULFATE (325 MG) 325 MG/TAB TABLET GT SCH (10:27)
[2023-06-17] MEDS: ASPIRIN 81 MG TAB.CHEW GT SCH (10:27)
[2023-06-17] MEDS: PANTOPRAZOLE 40 MG/PACK PACK NG SCH (10:27)
[2023-06-17] MEDS: DOCUSATE SODIUM LIQ 100 MG/10 ML UDC GT SCH (10:27)
[2023-06-17] MEDS: CLOTRIMAZOLE 1% 15 GM TUBE TP SCH ×2 (10:28→17:58)
[2023-06-17] MEDS: Z GUARD REMEDY 4 OZ OINT TP SCH (10:29)
[2023-06-17] MEDS: CARVEDILOL 3.125 MG TABLET GT SCH ×2 (10:31→21:37)
[2023-06-18] VITALS (78 sets, daily range): BP systolic 75–121; BP diastolic 47–85; TEMP 97.9–99.1; O2SAT 95–100
[2023-06-18] MEDS: SEVELAMER CARBONATE 800 MG POWD.PACK GT SCH ×3 (00:27→18:34)
[2023-06-18] MEDS: ALBUTEROL FS 2.5 MG/0.5 ML VIAL.NEB NEB SCH ×4 (01:16→19:56)
[2023-06-18] MEDS: IPRATROPIUM NEB FS 0.5 MG/2.5 ML AMPUL.NEB NEB SCH ×4 (01:16→19:56)
[2023-06-18] MEDS: NOREPINEPHRINE 8 MG in IV NS 0.9% 242 ML IV PRN ×2 (01:18→14:41)
[2023-06-18 05:28] LABS: HEMOGLOBIN 13.1 g/dL (13.5-17.5); MEAN CORPUSCULAR VOLUME 104 fL (80-96); MONOCYTES # (AUTO) 0.3 K/uL (0.1-1.30); NEUTROPHILS % (AUTO) 93.9 % (43.0-81.0)
[2023-06-18 05:36] LABS: ALANINE AMINOTRANSFERASE 83 U/L (12-78); ALBUMIN 2.5 g/dL (3.4-5.0); ALKALINE PHOSPHATASE 86 U/L (46-116); ASPARTATE AMINOTRANSFERASE 44 U/L (15-37); BILIRUBIN,TOTAL 2.9 mg/dL (0.2-1.0); CALCIUM, SERUM 8.9 mg/dL (8.5-10.1); CARBON DIOXIDE 35 mmol/L (21-32); CHLORIDE 106 mmol/L (98-107); CREATININE 2.4 mg/dL (0.6-1.3); GLUCOSE 183 mg/dL (74-106); PHOSPHORUS 3.9 mg/dL (2.5-4.9); POTASSIUM 3.9 mmol/L (3.5-5.1); SODIUM SERUM 148 mmol/L (136-145); TOTAL PROTEIN, SERUM 6.7 g/dL (6.4-8.2)
[2023-06-18 05:38] LABS: HEMATOCRIT 40 % (39-51); LYMPHOCYTES # (AUTO) 0.2 K/uL (0.8-4.8); LYMPHOCYTES % (AUTO) 2.3 % (20.0-44.0); MEAN CORPUSCULAR HEMOGLOBIN 34 PG (26.0-33.0); MEAN CORPUSCULAR HGB CONC 33 g/dl (31.0-36.0); MONOCYTES % (AUTO) 3.8 % (2.0-12.0); PLATELET COUNT (AUTO) 113 K/uL (150-450); RED BLOOD CELL COUNT(AUTO) 3.86 MIL/uL (4.5-6.0); RED CELL DISTRIBUTION WIDTH 15.6 % (11.5-15.0); WHITE BLOOD COUNT (AUTO) 7.4 K/uL (4.3-11.0)
[2023-06-18 05:41] LABS: UREA NITROGEN, BLOOD 119 mg/dL (7-18)
[2023-06-18] MEDS: FLUDROCORTISONE 0.1 MG TABLET NG SCH ×4 (06:02→23:08)
[2023-06-18] MEDS: PROPOFOL 100 ML IV PRN ×2 (06:03→19:53)
[2023-06-18 07:00] LABS: ABG BASE EXCESS 11.6 mmol/L; ABG OXYGEN SATURATION 98.8 % (92.0-98.5); ABG PCO2 42.1 mmHg (35.0-45.0); ABG PH 7.542 (7.350-7.450); ABG TOTAL HEMOGLOBIN 14.1 G/dL (13.5-18.0); AaDO2 96.8 mmHg; COHb 0.8 % (0.5-1.5); MetHb 0.2 % (0.0-1.5); O2Hb 97.8 % (94.0-97.0); SITE, ABG Right Radial
[2023-06-18] MEDS: ACETYLCYSTEINE 10% SOLN 400 MG/4 ML VIAL NEB SCH ×3 (07:19→23:54)
[2023-06-18] MEDS: DOCUSATE SODIUM LIQ 100 MG/10 ML UDC GT SCH (10:59)
[2023-06-18] MEDS: PANTOPRAZOLE 40 MG/PACK PACK NG SCH (10:59)
[2023-06-18] MEDS: TAMSULOSIN 0.4 MG CAP.SR.24H GT SCH (11:00)
[2023-06-18] MEDS: ASPIRIN 81 MG TAB.CHEW GT SCH (11:00)
[2023-06-18] MEDS: CARVEDILOL 3.125 MG TABLET GT SCH ×2 (11:01→21:27)
[2023-06-18] MEDS: FERROUS SULFATE (325 MG) 325 MG/TAB TABLET GT SCH (11:01)
[2023-06-18] MEDS: methylPREDNISolone SOD SUCC 40 MG/ML VIAL IV SCH ×2 (11:01→21:26)
[2023-06-18] MEDS: Z GUARD REMEDY 4 OZ OINT TP SCH (11:12)
[2023-06-18] MEDS: CLOTRIMAZOLE 1% 15 GM TUBE TP SCH ×2 (11:12→18:33)
[2023-06-18 11:57] LABS: ANISOCYTOSIS 1+; BASOPHILS % (MANUAL) 0 % (0.0-2.0); EOSINOPHILS % (MANUAL) 2 % (0-4); LYMPHOCYTES % (MANUAL) 6 % (16-48); MONOCYTES % (MANUAL) 5 % (0-11.0); NEUTROPHILS % (MANUAL) 87 (42-76); PLATELET ESTIMATE DECREASED
[2023-06-18] MEDS: ACETAMINOPHEN 650 MG/20.3 ML UDC GT PRN (18:33)
[2023-06-18] MEDS: NEPRO 1,000 ML BOTTLE GT PRN (22:52)
[2023-06-19] VITALS (30 sets, daily range): BP systolic 94–114; BP diastolic 53–80; TEMP 97.5–98.5; O2SAT 98–100
[2023-06-19] MEDS: SEVELAMER CARBONATE 800 MG POWD.PACK GT SCH ×3 (00:31→17:21)
[2023-06-19] MEDS: ALBUTEROL FS 2.5 MG/0.5 ML VIAL.NEB NEB SCH ×4 (01:49→19:48)
[2023-06-19] MEDS: IPRATROPIUM NEB FS 0.5 MG/2.5 ML AMPUL.NEB NEB SCH ×4 (01:49→19:48)
[2023-06-19] MEDS: FLUDROCORTISONE 0.1 MG TABLET NG SCH ×3 (05:00→17:21)
[2023-06-19 05:03] LABS: HEMATOCRIT 37 % (39-51); HEMOGLOBIN 12.3 g/dL (13.5-17.5); LYMPHOCYTES # (AUTO) 0.1 K/uL (0.8-4.8); LYMPHOCYTES % (AUTO) 2.3 % (20.0-44.0); MEAN CORPUSCULAR HEMOGLOBIN 34 PG (26.0-33.0); MEAN CORPUSCULAR HGB CONC 33 g/dl (31.0-36.0); MEAN CORPUSCULAR VOLUME 103 fL (80-96); MONOCYTES # (AUTO) 0.3 K/uL (0.1-1.30); MONOCYTES % (AUTO) 5.2 % (2.0-12.0); NEUTROPHILS # (AUTO) 5.3 K/uL (1.8-8.9); NEUTROPHILS % (AUTO) 92.5 % (43.0-81.0); PLATELET COUNT (AUTO) 97 K/uL (150-450); RED BLOOD CELL COUNT(AUTO) 3.64 MIL/uL (4.5-6.0); RED CELL DISTRIBUTION WIDTH 15.5 % (11.5-15.0); WHITE BLOOD COUNT (AUTO) 5.8 K/uL (4.3-11.0)
[2023-06-19 05:28] LABS: ALANINE AMINOTRANSFERASE 88 U/L (12-78); ALBUMIN 2.1 g/dL (3.4-5.0); ALKALINE PHOSPHATASE 75 U/L (46-116); ASPARTATE AMINOTRANSFERASE 52 U/L (15-37); BILIRUBIN,TOTAL 2.3 mg/dL (0.2-1.0); CALCIUM, SERUM 8.7 mg/dL (8.5-10.1); CARBON DIOXIDE 35 mmol/L (21-32); CHLORIDE 106 mmol/L (98-107); CREATININE 2.1 mg/dL (0.6-1.3); GLUCOSE 160 mg/dL (74-106); MAGNESIUM 2.8 mg/dL (1.8-2.4); PHOSPHORUS 3.1 mg/dL (2.5-4.9); SODIUM SERUM 147 mmol/L (136-145); TOTAL PROTEIN, SERUM 5.9 g/dL (6.4-8.2); UREA NITROGEN, BLOOD 112 mg/dL (7-18)
[2023-06-19 06:04] LABS: LYMPHOCYTES % (MANUAL) 2 % (16-48); MONOCYTES % (MANUAL) 4 % (0-11.0); NEUTROPHILS % (MANUAL) 94 (42-76)
[2023-06-19 06:05] LABS: PLATELET ESTIMATE DECREASED
[2023-06-19] MEDS: ACETYLCYSTEINE 10% SOLN 400 MG/4 ML VIAL NEB SCH ×3 (07:06→23:51)
[2023-06-19] MEDS ORDERED: POTASSIUM CHLORIDE 20 MEQ POWDER PACKET GT ONE (08:00)
[2023-06-19] MEDS: CARVEDILOL 3.125 MG TABLET GT SCH ×2 (09:00→21:00)
[2023-06-19] MEDS: TAMSULOSIN 0.4 MG CAP.SR.24H GT SCH (09:16)
[2023-06-19] MEDS: methylPREDNISolone SOD SUCC 40 MG/ML VIAL IV SCH ×2 (09:16→21:06)
[2023-06-19] MEDS: FERROUS SULFATE (325 MG) 325 MG/TAB TABLET GT SCH (09:16)
[2023-06-19] MEDS: ASPIRIN 81 MG TAB.CHEW GT SCH (09:16)
[2023-06-19] MEDS: PANTOPRAZOLE 40 MG/PACK PACK NG SCH (09:16)
[2023-06-19] MEDS: DOCUSATE SODIUM LIQ 100 MG/10 ML UDC GT SCH (09:16)
[2023-06-19] MEDS: CLOTRIMAZOLE 1% 15 GM TUBE TP SCH ×2 (09:24→16:48)
[2023-06-19] MEDS: Z GUARD REMEDY 4 OZ OINT TP PRN (09:24)
[2023-06-19] MEDS: Z GUARD REMEDY 4 OZ OINT TP SCH (09:25)
[2023-06-19] MEDS: PROPOFOL 100 ML IV PRN (12:42)
[2023-06-19] MEDS ORDERED: FENTANYL PF 100MCG/2ML AMPUL IV ONE (14:00)
[2023-06-19] MEDS ORDERED: MIDAZOLAM HCL 2 MG/2ML VIAL IV ONE (14:00)
[2023-06-19] MEDS ORDERED: ROCURONIUM BROMIDE 50 MG/5 ML IV ONE (14:00)
[2023-06-20] VITALS (41 sets, daily range): BP systolic 93–114; BP diastolic 54–75; TEMP 97.5–99.3; O2SAT 97–100
[2023-06-20] MEDS: FLUDROCORTISONE 0.1 MG TABLET NG SCH ×4 (00:24→17:20)
[2023-06-20] MEDS: IPRATROPIUM NEB FS 0.5 MG/2.5 ML AMPUL.NEB NEB SCH ×4 (01:51→19:53)
[2023-06-20] MEDS: ALBUTEROL FS 2.5 MG/0.5 ML VIAL.NEB NEB SCH ×4 (01:52→19:53)
[2023-06-20] MEDS: PROPOFOL 100 ML IV PRN (02:00)
[2023-06-20] MEDS: SEVELAMER CARBONATE 800 MG POWD.PACK GT SCH ×3 (02:11→17:20)
[2023-06-20 05:45] LABS: HEMATOCRIT 37 % (39-51); HEMOGLOBIN 12.2 g/dL (13.5-17.5); LYMPHOCYTES # (AUTO) 0.1 K/uL (0.8-4.8); LYMPHOCYTES % (AUTO) 1.8 % (20.0-44.0); MEAN CORPUSCULAR HEMOGLOBIN 34 PG (26.0-33.0); MEAN CORPUSCULAR HGB CONC 33 g/dl (31.0-36.0); MEAN CORPUSCULAR VOLUME 102 fL (80-96); MONOCYTES # (AUTO) 0.4 K/uL (0.1-1.30); MONOCYTES % (AUTO) 8.6 % (2.0-12.0); NEUTROPHILS # (AUTO) 4.1 K/uL (1.8-8.9); NEUTROPHILS % (AUTO) 89.6 % (43.0-81.0); PLATELET COUNT (AUTO) 95 K/uL (150-450); RED BLOOD CELL COUNT(AUTO) 3.63 MIL/uL (4.5-6.0); RED CELL DISTRIBUTION WIDTH 15.1 % (11.5-15.0); WHITE BLOOD COUNT (AUTO) 4.5 K/uL (4.3-11.0)
[2023-06-20 05:54] LABS: CALCIUM, SERUM 8.6 mg/dL (8.5-10.1); CARBON DIOXIDE 36 mmol/L (21-32); CHLORIDE 107 mmol/L (98-107); CREATININE 1.5 mg/dL (0.6-1.3); GLUCOSE 137 mg/dL (74-106); MAGNESIUM 2.6 mg/dL (1.8-2.4); PHOSPHORUS 2.6 mg/dL (2.5-4.9); SODIUM SERUM 148 mmol/L (136-145)
[2023-06-20 05:55] LABS: UREA NITROGEN, BLOOD 90 mg/dL (7-18)
[2023-06-20] MEDS: ACETYLCYSTEINE 10% SOLN 400 MG/4 ML VIAL NEB SCH ×2 (07:41→16:06)
[2023-06-20] MEDS: PANTOPRAZOLE 40 MG/PACK PACK NG SCH (08:45)
[2023-06-20] MEDS: DOCUSATE SODIUM LIQ 100 MG/10 ML UDC GT SCH (08:45)
[2023-06-20] MEDS: TAMSULOSIN 0.4 MG CAP.SR.24H GT SCH (08:45)
[2023-06-20] MEDS: methylPREDNISolone SOD SUCC 40 MG/ML VIAL IV SCH ×2 (08:45→21:05)
[2023-06-20] MEDS: ASPIRIN 81 MG TAB.CHEW GT SCH (08:46)
[2023-06-20] MEDS: FERROUS SULFATE (325 MG) 325 MG/TAB TABLET GT SCH (08:46)
[2023-06-20] MEDS: CLOTRIMAZOLE 1% 15 GM TUBE TP SCH ×2 (08:47→17:21)
[2023-06-20] MEDS: Z GUARD REMEDY 4 OZ OINT TP SCH (08:47)
[2023-06-20] MEDS: CARVEDILOL 3.125 MG TABLET GT SCH ×2 (09:00→21:00)
[2023-06-20] MEDS ORDERED: POTASSIUM CHLORIDE 20 MEQ POWDER PACKET GT ONE (09:00)
[2023-06-20 10:51] LABS: ANISOCYTOSIS 1+; BASOPHILS % (MANUAL) 0 % (0.0-2.0); EOSINOPHILS % (MANUAL) 0 % (0-4); LYMPHOCYTES % (MANUAL) 4 % (16-48); MONOCYTES % (MANUAL) 5 % (0-11.0); NEUTROPHILS % (MANUAL) 91 (42-76); PLATELET ESTIMATE DECREASED; STOMATOCYTES 1+
[2023-06-20] MEDS ORDERED: CELLULOSE,OXIDIZED 1 EACH EACH MC ONE (11:00)
[2023-06-21] VITALS (40 sets, daily range): BP systolic 97–112; BP diastolic 45–76; TEMP 98.6–99; O2SAT 98–100
[2023-06-21] MEDS: FLUDROCORTISONE 0.1 MG TABLET NG SCH ×4 (00:04→17:06)
[2023-06-21] MEDS: ACETYLCYSTEINE 10% SOLN 400 MG/4 ML VIAL NEB SCH ×3 (00:09→13:06)
[2023-06-21] MEDS ORDERED: GELATIN SPONGE,ABSORBABLE 1 SPONGE SPONGE TP ONE (01:19)
[2023-06-21] MEDS: SEVELAMER CARBONATE 800 MG POWD.PACK GT SCH ×3 (01:30→17:06)
[2023-06-21] MEDS: IPRATROPIUM NEB FS 0.5 MG/2.5 ML AMPUL.NEB NEB SCH ×4 (02:22→19:52)
[2023-06-21] MEDS: ALBUTEROL FS 2.5 MG/0.5 ML VIAL.NEB NEB SCH ×4 (02:22→19:52)
[2023-06-21] MEDS ORDERED: CELLULOSE,OXIDIZED 1 PKT EACH MC ONE (02:30)
[2023-06-21 05:31] LABS: BASOPHILS % (AUTO) 0.1 % (0.0-2.0); HEMATOCRIT 38 % (39-51); HEMOGLOBIN 12.3 g/dL (13.5-17.5); LYMPHOCYTES # (AUTO) 0.1 K/uL (0.8-4.8); LYMPHOCYTES % (AUTO) 1.4 % (20.0-44.0); MEAN CORPUSCULAR HEMOGLOBIN 34 PG (26.0-33.0); MEAN CORPUSCULAR HGB CONC 33 g/dl (31.0-36.0); MEAN CORPUSCULAR VOLUME 103 fL (80-96); MONOCYTES # (AUTO) 0.3 K/uL (0.1-1.30); MONOCYTES % (AUTO) 5.4 % (2.0-12.0); NEUTROPHILS # (AUTO) 5.7 K/uL (1.8-8.9); NEUTROPHILS % (AUTO) 93.1 % (43.0-81.0); PLATELET COUNT (AUTO) 84 K/uL (150-450); RED BLOOD CELL COUNT(AUTO) 3.63 MIL/uL (4.5-6.0); RED CELL DISTRIBUTION WIDTH 14.9 % (11.5-15.0); WHITE BLOOD COUNT (AUTO) 6.1 K/uL (4.3-11.0)
[2023-06-21 05:36] LABS: CALCIUM, SERUM 8.8 mg/dL (8.5-10.1); CREATININE 1.3 mg/dL (0.6-1.3); INR 1.16 (0.91-1.10); MAGNESIUM 2.6 mg/dL (1.8-2.4); PARTIAL THROMBOPLASTIN TIME 21.6 SEC (24.3-34.3); PHOSPHORUS 2.5 mg/dL (2.5-4.9); POTASSIUM 3.4 mmol/L (3.5-5.1); PROTHROMBIN TIME 12.2 SECS (9.2-11.1)
[2023-06-21] MEDS ORDERED: POTASSIUM CHLORIDE 20 MEQ POWDER PACKET GT ONE (08:30)
[2023-06-21] MEDS: CARVEDILOL 3.125 MG TABLET GT SCH ×2 (08:59→21:00)
[2023-06-21] MEDS: methylPREDNISolone SOD SUCC 40 MG/ML VIAL IV SCH ×2 (09:00→21:28)
[2023-06-21] MEDS: TAMSULOSIN 0.4 MG CAP.SR.24H GT SCH (09:00)
[2023-06-21] MEDS: FERROUS SULFATE (325 MG) 325 MG/TAB TABLET GT SCH (09:00)
[2023-06-21] MEDS: PANTOPRAZOLE 40 MG/PACK PACK NG SCH (09:00)
[2023-06-21] MEDS: ASPIRIN 81 MG TAB.CHEW GT SCH (09:00)
[2023-06-21] MEDS: DOCUSATE SODIUM LIQ 100 MG/10 ML UDC GT SCH (09:00)
[2023-06-21] MEDS ORDERED: POTASSIUM CL. PREMIX PERIPHER. 50 ML IV SCH (09:00)
[2023-06-21] MEDS: CLOTRIMAZOLE 1% 15 GM TUBE TP SCH ×2 (09:01→17:07)
[2023-06-21] MEDS: Z GUARD REMEDY 4 OZ OINT TP SCH (09:02)
[2023-06-21] MEDS: Z GUARD REMEDY 4 OZ OINT TP PRN (09:02)
[2023-06-21] MEDS: IV D5W 1,000 ML IV PRN (09:07)
[2023-06-21 10:15] LABS: ANISOCYTOSIS 1+; BASOPHILS % (MANUAL) 0 % (0.0-2.0); EOSINOPHILS % (MANUAL) 0 % (0-4); LYMPHOCYTES % (MANUAL) 5 % (16-48); MONOCYTES % (MANUAL) 8 % (0-11.0); NEUTROPHILS % (MANUAL) 87 (42-76); PLATELET ESTIMATE DECREASED
[2023-06-21] MEDS: THERAHONEY GEL 1.5 OZ TUBE TP SCH (14:26)
[2023-06-22] VITALS (28 sets, daily range): BP systolic 96–114; BP diastolic 58–91; TEMP 98–98.7; O2SAT 98–100
[2023-06-22] MEDS: ACETYLCYSTEINE 10% SOLN 400 MG/4 ML VIAL NEB SCH ×4 (00:11→23:27)
[2023-06-22] MEDS: SEVELAMER CARBONATE 800 MG POWD.PACK GT SCH ×3 (01:30→17:11)
[2023-06-22] MEDS: ALBUTEROL FS 2.5 MG/0.5 ML VIAL.NEB NEB SCH ×4 (01:50→19:40)
[2023-06-22] MEDS: IPRATROPIUM NEB FS 0.5 MG/2.5 ML AMPUL.NEB NEB SCH ×4 (01:50→19:38)
[2023-06-22] MEDS: IV D5W 1,000 ML IV PRN ×2 (04:22→23:13)
[2023-06-22 04:58] LABS: BASOPHILS % (AUTO) 0.2 % (0.0-2.0); HEMATOCRIT 35 % (39-51); HEMOGLOBIN 11.4 g/dL (13.5-17.5); LYMPHOCYTES # (AUTO) 0.1 K/uL (0.8-4.8); LYMPHOCYTES % (AUTO) 1.3 % (20.0-44.0); MEAN CORPUSCULAR HEMOGLOBIN 34 PG (26.0-33.0); MEAN CORPUSCULAR HGB CONC 33 g/dl (31.0-36.0); MEAN CORPUSCULAR VOLUME 102 fL (80-96); MONOCYTES # (AUTO) 0.2 K/uL (0.1-1.30); MONOCYTES % (AUTO) 3.3 % (2.0-12.0); NEUTROPHILS # (AUTO) 6.6 K/uL (1.8-8.9); NEUTROPHILS % (AUTO) 95.2 % (43.0-81.0); PLATELET COUNT (AUTO) 75 K/uL (150-450); RED BLOOD CELL COUNT(AUTO) 3.39 MIL/uL (4.5-6.0); RED CELL DISTRIBUTION WIDTH 14.8 % (11.5-15.0); WHITE BLOOD COUNT (AUTO) 6.9 K/uL (4.3-11.0)
[2023-06-22] MEDS: FLUDROCORTISONE 0.1 MG TABLET NG SCH ×5 (05:06→23:19)
[2023-06-22 05:34] LABS: CALCIUM, SERUM 8.8 mg/dL (8.5-10.1); CARBON DIOXIDE 34 mmol/L (21-32); CHLORIDE 110 mmol/L (98-107); CREATININE 1.1 mg/dL (0.6-1.3); GLUCOSE 123 mg/dL (74-106); MAGNESIUM 2.5 mg/dL (1.8-2.4); PHOSPHORUS 2.8 mg/dL (2.5-4.9); POTASSIUM 3.6 mmol/L (3.5-5.1); SODIUM SERUM 147 mmol/L (136-145); UREA NITROGEN, BLOOD 64 mg/dL (7-18)
[2023-06-22] MEDS: DOCUSATE SODIUM LIQ 100 MG/10 ML UDC GT SCH (08:54)
[2023-06-22] MEDS: TAMSULOSIN 0.4 MG CAP.SR.24H GT SCH (08:54)
[2023-06-22] MEDS: PANTOPRAZOLE 40 MG/PACK PACK NG SCH (08:54)
[2023-06-22] MEDS: ASPIRIN 81 MG TAB.CHEW GT SCH (08:55)
[2023-06-22] MEDS: FERROUS SULFATE (325 MG) 325 MG/TAB TABLET GT SCH (08:55)
[2023-06-22] MEDS: methylPREDNISolone SOD SUCC 40 MG/ML VIAL IV SCH ×2 (08:55→21:00)
[2023-06-22] MEDS: Z GUARD REMEDY 4 OZ OINT TP SCH (08:56)
[2023-06-22] MEDS: CARVEDILOL 3.125 MG TABLET GT SCH ×2 (08:56→21:00)
[2023-06-22] MEDS: CLOTRIMAZOLE 1% 15 GM TUBE TP SCH ×2 (08:56→17:09)
[2023-06-22] MEDS: THERAHONEY GEL 1.5 OZ TUBE TP SCH (08:56)
[2023-06-22 10:11] LABS: LYMPHOCYTES % (MANUAL) 1 % (16-48); MONOCYTES % (MANUAL) 3 % (0-11.0); NEUTROPHILS % (MANUAL) 96 (42-76); PLATELET ESTIMATE DECREASED
[2023-06-22 10:12] LABS: ANISOCYTOSIS 1+
[2023-06-23] VITALS (57 sets, daily range): BP systolic 93–119; BP diastolic 57–93; TEMP 97.6–98.8; O2SAT 94–100
[2023-06-23] MEDS: IPRATROPIUM NEB FS 0.5 MG/2.5 ML AMPUL.NEB NEB SCH ×4 (01:10→19:45)
[2023-06-23] MEDS: ALBUTEROL FS 2.5 MG/0.5 ML VIAL.NEB NEB SCH ×4 (01:10→19:45)
[2023-06-23] MEDS: SEVELAMER CARBONATE 800 MG POWD.PACK GT SCH ×3 (01:30→17:29)
[2023-06-23] MEDS: FLUDROCORTISONE 0.1 MG TABLET NG SCH ×3 (06:00→17:29)
[2023-06-23] MEDS: ACETYLCYSTEINE 10% SOLN 400 MG/4 ML VIAL NEB SCH ×3 (07:35→23:26)
[2023-06-23] MEDS: ASPIRIN 81 MG TAB.CHEW GT SCH (10:51)
[2023-06-23] MEDS: FERROUS SULFATE (325 MG) 325 MG/TAB TABLET GT SCH (10:51)
[2023-06-23] MEDS: methylPREDNISolone SOD SUCC 40 MG/ML VIAL IV SCH ×2 (10:51→20:34)
[2023-06-23] MEDS: CARVEDILOL 3.125 MG TABLET GT SCH ×2 (10:52→20:36)
[2023-06-23] MEDS: PANTOPRAZOLE 40 MG/PACK PACK NG SCH (10:52)
[2023-06-23] MEDS: TAMSULOSIN 0.4 MG CAP.SR.24H GT SCH (10:52)
[2023-06-23] MEDS: CLOTRIMAZOLE 1% 15 GM TUBE TP SCH ×2 (10:53→17:26)
[2023-06-23] MEDS: DOCUSATE SODIUM LIQ 100 MG/10 ML UDC GT SCH (10:54)
[2023-06-23] MEDS: Z GUARD REMEDY 4 OZ OINT TP SCH (10:54)
[2023-06-23] MEDS: THERAHONEY GEL 1.5 OZ TUBE TP SCH (10:55)
[2023-06-23 13:07] LABS: ABG BASE EXCESS 6.8 mmol/L; ABG OXYGEN SATURATION 98.9 % (92.0-98.5); ABG PCO2 36.3 mmHg (35.0-45.0); ABG PO2 148.5 mmHg (75.0-100.0); ABG TOTAL HEMOGLOBIN 13.7 G/dL (13.5-18.0); COHb 0.9 % (0.5-1.5); MetHb 0.1 % (0.0-1.5); O2Hb 97.9 % (94.0-97.0); SITE, ABG Left Radial; VENT MODE, BG SIMV 4 500 40% +5
[2023-06-23] MEDS: IV D5W 1,000 ML IV PRN (17:37)
[2023-06-24] VITALS (19 sets, daily range): BP systolic 85–112; BP diastolic 52–77; TEMP 98–98.5; O2SAT 87–100
[2023-06-24] MEDS: FLUDROCORTISONE 0.1 MG TABLET NG SCH ×4 (00:46→17:26)
[2023-06-24] MEDS: ALBUTEROL FS 2.5 MG/0.5 ML VIAL.NEB NEB SCH ×4 (01:20→20:34)
[2023-06-24] MEDS: IPRATROPIUM NEB FS 0.5 MG/2.5 ML AMPUL.NEB NEB SCH ×4 (01:20→20:35)
[2023-06-24] MEDS: SEVELAMER CARBONATE 800 MG POWD.PACK GT SCH ×3 (01:48→17:25)
[2023-06-24] MEDS: ACETYLCYSTEINE 10% SOLN 400 MG/4 ML VIAL NEB SCH ×3 (07:28→23:52)
[2023-06-24 09:08] LABS: BASOPHILS % (AUTO) 0.4 % (0.0-2.0); HEMATOCRIT 32 % (39-51); HEMOGLOBIN 10.4 g/dL (13.5-17.5); LYMPHOCYTES # (AUTO) 0.2 K/uL (0.8-4.8); LYMPHOCYTES % (AUTO) 2.8 % (20.0-44.0); MEAN CORPUSCULAR HEMOGLOBIN 34 PG (26.0-33.0); MEAN CORPUSCULAR HGB CONC 33 g/dl (31.0-36.0); MEAN CORPUSCULAR VOLUME 103 fL (80-96); MONOCYTES # (AUTO) 0.2 K/uL (0.1-1.30); MONOCYTES % (AUTO) 3.8 % (2.0-12.0); NEUTROPHILS # (AUTO) 5.2 K/uL (1.8-8.9); PLATELET COUNT (AUTO) 73 K/uL (150-450); RED BLOOD CELL COUNT(AUTO) 3.09 MIL/uL (4.5-6.0); RED CELL DISTRIBUTION WIDTH 14.9 % (11.5-15.0); WHITE BLOOD COUNT (AUTO) 5.6 K/uL (4.3-11.0)
[2023-06-24] MEDS: DOCUSATE SODIUM LIQ 100 MG/10 ML UDC GT SCH (09:26)
[2023-06-24] MEDS: methylPREDNISolone SOD SUCC 40 MG/ML VIAL IV SCH ×2 (09:26→21:43)
[2023-06-24] MEDS: TAMSULOSIN 0.4 MG CAP.SR.24H GT SCH (09:27)
[2023-06-24] MEDS: PANTOPRAZOLE 40 MG/PACK PACK NG SCH (09:27)
[2023-06-24] MEDS: FERROUS SULFATE (325 MG) 325 MG/TAB TABLET GT SCH (09:27)
[2023-06-24] MEDS: ASPIRIN 81 MG TAB.CHEW GT SCH (09:27)
[2023-06-24] MEDS: CARVEDILOL 3.125 MG TABLET GT SCH ×2 (09:27→21:46)
[2023-06-24] MEDS: THERAHONEY GEL 1.5 OZ TUBE TP SCH (09:28)
[2023-06-24] MEDS: Z GUARD REMEDY 4 OZ OINT TP SCH (09:28)
[2023-06-24] MEDS: CLOTRIMAZOLE 1% 15 GM TUBE TP SCH ×2 (09:28→16:14)
[2023-06-24 09:30] LABS: ALBUMIN 1.9 g/dL (3.4-5.0); BILIRUBIN,TOTAL 2.5 mg/dL (0.2-1.0); CALCIUM, SERUM 8.1 mg/dL (8.5-10.1); CREATININE 1.2 mg/dL (0.6-1.3); MAGNESIUM 2.1 mg/dL (1.8-2.4); PHOSPHORUS 3.1 mg/dL (2.5-4.9); POTASSIUM 3.1 mmol/L (3.5-5.1); TOTAL PROTEIN, SERUM 5.4 g/dL (6.4-8.2)
[2023-06-24 11:26] LABS: ANISOCYTOSIS 1+; BAND % (MANUAL) 2 % (0.0-5.0); BASOPHILS % (MANUAL) 0 % (0.0-2.0); EOSINOPHILS % (MANUAL) 0 % (0-4); LYMPHOCYTES % (MANUAL) 5 % (16-48); MONOCYTES % (MANUAL) 2 % (0-11.0); NEUTROPHILS % (MANUAL) 91 (42-76); PLATELET ESTIMATE DECREASED; STOMATOCYTES 1+
[2023-06-24] MEDS: NEPRO 1,000 ML BOTTLE GT PRN (12:00)
[2023-06-24] MEDS ORDERED: POTASSIUM CHLORIDE 20 MEQ POWDER PACKET GT ONE (12:00)
[2023-06-24] MEDS: IV D5W 1,000 ML IV PRN (14:06)
[2023-06-25] VITALS (11 sets, daily range): BP systolic 106–138; BP diastolic 68–80; TEMP 97.4–98.2; O2SAT 97–99
[2023-06-25] MEDS: FLUDROCORTISONE 0.1 MG TABLET NG SCH ×4 (00:46→17:24)
[2023-06-25] MEDS: SEVELAMER CARBONATE 800 MG POWD.PACK GT SCH ×3 (00:59→17:24)
[2023-06-25] MEDS: IPRATROPIUM NEB FS 0.5 MG/2.5 ML AMPUL.NEB NEB SCH ×4 (02:18→20:06)
[2023-06-25] MEDS: ALBUTEROL FS 2.5 MG/0.5 ML VIAL.NEB NEB SCH ×4 (02:18→20:06)
[2023-06-25 07:19] LABS: BASOPHILS % (AUTO) 0.1 % (0.0-2.0); HEMATOCRIT 34 % (39-51); HEMOGLOBIN 11.2 g/dL (13.5-17.5); LYMPHOCYTES # (AUTO) 0.1 K/uL (0.8-4.8); LYMPHOCYTES % (AUTO) 1.8 % (20.0-44.0); MEAN CORPUSCULAR HEMOGLOBIN 34 PG (26.0-33.0); MEAN CORPUSCULAR HGB CONC 33 g/dl (31.0-36.0); MEAN CORPUSCULAR VOLUME 103 fL (80-96); MONOCYTES # (AUTO) 0.2 K/uL (0.1-1.30); MONOCYTES % (AUTO) 3.4 % (2.0-12.0); NEUTROPHILS % (AUTO) 94.7 % (43.0-81.0); PLATELET COUNT (AUTO) 83 K/uL (150-450); RED BLOOD CELL COUNT(AUTO) 3.32 MIL/uL (4.5-6.0); RED CELL DISTRIBUTION WIDTH 15.1 % (11.5-15.0); WHITE BLOOD COUNT (AUTO) 6.4 K/uL (4.3-11.0)
[2023-06-25 07:45] LABS: ALANINE AMINOTRANSFERASE 121 U/L (12-78); ALBUMIN 2.2 g/dL (3.4-5.0); ALKALINE PHOSPHATASE 120 U/L (46-116); ASPARTATE AMINOTRANSFERASE 69 U/L (15-37); BILIRUBIN,TOTAL 2.2 mg/dL (0.2-1.0); CALCIUM, SERUM 8.6 mg/dL (8.5-10.1); CARBON DIOXIDE 31 mmol/L (21-32); CHLORIDE 103 mmol/L (98-107); CREATININE 1.2 mg/dL (0.6-1.3); GLUCOSE 133 mg/dL (74-106); MAGNESIUM 2.4 mg/dL (1.8-2.4); PHOSPHORUS 2.9 mg/dL (2.5-4.9); POTASSIUM 3.8 mmol/L (3.5-5.1); SODIUM SERUM 138 mmol/L (136-145); TOTAL PROTEIN, SERUM 5.9 g/dL (6.4-8.2); UREA NITROGEN, BLOOD 61 mg/dL (7-18)
[2023-06-25] MEDS: ACETYLCYSTEINE 10% SOLN 400 MG/4 ML VIAL NEB SCH ×2 (08:13→14:31)
[2023-06-25] MEDS: FERROUS SULFATE (325 MG) 325 MG/TAB TABLET GT SCH (08:20)
[2023-06-25] MEDS: TAMSULOSIN 0.4 MG CAP.SR.24H GT SCH (08:20)
[2023-06-25] MEDS: DOCUSATE SODIUM LIQ 100 MG/10 ML UDC GT SCH (08:20)
[2023-06-25] MEDS: ASPIRIN 81 MG TAB.CHEW GT SCH (08:20)
[2023-06-25] MEDS: PANTOPRAZOLE 40 MG/PACK PACK NG SCH (08:21)
[2023-06-25] MEDS: CARVEDILOL 3.125 MG TABLET GT SCH ×2 (08:21→21:36)
[2023-06-25] MEDS: methylPREDNISolone SOD SUCC 40 MG/ML VIAL IV SCH ×2 (08:21→21:37)
[2023-06-25] MEDS: THERAHONEY GEL 1.5 OZ TUBE TP SCH (08:22)
[2023-06-25] MEDS: Z GUARD REMEDY 4 OZ OINT TP SCH (08:32)
[2023-06-25 10:05] LABS: LYMPHOCYTES % (MANUAL) 2 % (16-48); MONOCYTES % (MANUAL) 3 % (0-11.0); NEUTROPHILS % (MANUAL) 95 (42-76); PLATELET ESTIMATE DECREASED
[2023-06-25 10:06] LABS: ANISOCYTOSIS 1+
[2023-06-25] MEDS: IV D5W 1,000 ML IV PRN (10:57)
[2023-06-25] MEDS: CLOTRIMAZOLE 1% 15 GM TUBE TP SCH ×2 (11:53→17:20)
[2023-06-25] MEDS: NEPRO 1,000 ML BOTTLE GT PRN (16:59)
[2023-06-25] MEDS: POLYETHYLENE GLYCOL 3350 17 GM POWD.PACK PO SCH (21:39)
[2023-06-25] MEDS: SENNOSIDES 8.6 MG TABLET PO SCH (21:40)
[2023-06-26] VITALS (10 sets, daily range): BP systolic 101–153; BP diastolic 56–80; TEMP 98–209.8; O2SAT 96–99
[2023-06-26] MEDS: ACETYLCYSTEINE 10% SOLN 400 MG/4 ML VIAL NEB SCH ×4 (00:47→23:45)
[2023-06-26] MEDS: FLUDROCORTISONE 0.1 MG TABLET NG SCH ×4 (01:02→17:30)
[2023-06-26] MEDS: SEVELAMER CARBONATE 800 MG POWD.PACK GT SCH ×3 (01:03→17:29)
[2023-06-26] MEDS: IPRATROPIUM NEB FS 0.5 MG/2.5 ML AMPUL.NEB NEB SCH ×4 (01:12→19:29)
[2023-06-26] MEDS: ALBUTEROL FS 2.5 MG/0.5 ML VIAL.NEB NEB SCH ×4 (01:12→19:29)
[2023-06-26] MEDS: PANTOPRAZOLE 40 MG/PACK PACK NG SCH (08:49)
[2023-06-26] MEDS: CARVEDILOL 3.125 MG TABLET GT SCH ×2 (08:50→21:29)
[2023-06-26] MEDS: FERROUS SULFATE (325 MG) 325 MG/TAB TABLET GT SCH (08:50)
[2023-06-26] MEDS: DOCUSATE SODIUM LIQ 100 MG/10 ML UDC GT SCH (08:50)
[2023-06-26] MEDS: CLOTRIMAZOLE 1% 15 GM TUBE TP SCH ×2 (08:50→17:26)
[2023-06-26] MEDS: ASPIRIN 81 MG TAB.CHEW GT SCH (08:50)
[2023-06-26] MEDS: TAMSULOSIN 0.4 MG CAP.SR.24H GT SCH (08:50)
[2023-06-26] MEDS: methylPREDNISolone SOD SUCC 40 MG/ML VIAL IV SCH ×2 (08:50→21:28)
[2023-06-26] MEDS: THERAHONEY GEL 1.5 OZ TUBE TP SCH (08:51)
[2023-06-26] MEDS: Z GUARD REMEDY 4 OZ OINT TP SCH (08:51)
[2023-06-26] MEDS: NEPRO 1,000 ML BOTTLE GT PRN (15:11)
[2023-06-26] MEDS: POLYETHYLENE GLYCOL 3350 17 GM POWD.PACK PO SCH (21:29)
[2023-06-26] MEDS: SENNOSIDES 8.6 MG TABLET PO SCH (21:29)
[2023-06-27] VITALS (17 sets, daily range): BP systolic 96–146; BP diastolic 58–102; TEMP 97.3–98.7; O2SAT 96–100
[2023-06-27] MEDS: SEVELAMER CARBONATE 800 MG POWD.PACK GT SCH ×3 (01:30→17:36)
[2023-06-27] MEDS: IPRATROPIUM NEB FS 0.5 MG/2.5 ML AMPUL.NEB NEB SCH ×4 (01:44→20:54)
[2023-06-27] MEDS: ALBUTEROL FS 2.5 MG/0.5 ML VIAL.NEB NEB SCH ×4 (01:44→20:54)
[2023-06-27] MEDS: FLUDROCORTISONE 0.1 MG TABLET NG SCH ×5 (06:22→23:30)
[2023-06-27 07:32] LABS: BASOPHILS % (AUTO) 0.1 % (0.0-2.0); HEMATOCRIT 33 % (39-51); HEMOGLOBIN 11.2 g/dL (13.5-17.5); LYMPHOCYTES # (AUTO) 0.1 K/uL (0.8-4.8); LYMPHOCYTES % (AUTO) 1.1 % (20.0-44.0); MEAN CORPUSCULAR HEMOGLOBIN 34 PG (26.0-33.0); MEAN CORPUSCULAR HGB CONC 34 g/dl (31.0-36.0); MEAN CORPUSCULAR VOLUME 102 fL (80-96); MONOCYTES # (AUTO) 0.3 K/uL (0.1-1.30); MONOCYTES % (AUTO) 2.8 % (2.0-12.0); NEUTROPHILS # (AUTO) 8.6 K/uL (1.8-8.9); PLATELET COUNT (AUTO) 82 K/uL (150-450); RED BLOOD CELL COUNT(AUTO) 3.28 MIL/uL (4.5-6.0); RED CELL DISTRIBUTION WIDTH 14.6 % (11.5-15.0)
[2023-06-27 07:48] LABS: ALANINE AMINOTRANSFERASE 109 U/L (12-78); ALKALINE PHOSPHATASE 127 U/L (46-116); ASPARTATE AMINOTRANSFERASE 46 U/L (15-37); BILIRUBIN,TOTAL 1.6 mg/dL (0.2-1.0); CALCIUM, SERUM 8.3 mg/dL (8.5-10.1); CARBON DIOXIDE 31 mmol/L (21-32); CHLORIDE 102 mmol/L (98-107); CREATININE 0.9 mg/dL (0.6-1.3); GLUCOSE 103 mg/dL (74-106); MAGNESIUM 2.3 mg/dL (1.8-2.4); PHOSPHORUS 1.7 mg/dL (2.5-4.9); POTASSIUM 3.3 mmol/L (3.5-5.1); SODIUM SERUM 136 mmol/L (136-145); TOTAL PROTEIN, SERUM 5.6 g/dL (6.4-8.2); UREA NITROGEN, BLOOD 54 mg/dL (7-18)
[2023-06-27] MEDS: ACETYLCYSTEINE 10% SOLN 400 MG/4 ML VIAL NEB SCH ×3 (08:02→23:12)
[2023-06-27] MEDS: CLOTRIMAZOLE 1% 15 GM TUBE TP SCH ×2 (08:22→17:30)
[2023-06-27] MEDS: Z GUARD REMEDY 4 OZ OINT TP SCH (08:22)
[2023-06-27] MEDS: THERAHONEY GEL 1.5 OZ TUBE TP SCH (08:23)
[2023-06-27] MEDS: PANTOPRAZOLE 40 MG/PACK PACK NG SCH (08:50)
[2023-06-27] MEDS: DOCUSATE SODIUM LIQ 100 MG/10 ML UDC GT SCH (08:50)
[2023-06-27] MEDS: TAMSULOSIN 0.4 MG CAP.SR.24H GT SCH (08:50)
[2023-06-27] MEDS: ASPIRIN 81 MG TAB.CHEW GT SCH (08:50)
[2023-06-27] MEDS: FERROUS SULFATE (325 MG) 325 MG/TAB TABLET GT SCH (08:50)
[2023-06-27] MEDS: methylPREDNISolone SOD SUCC 40 MG/ML VIAL IV SCH ×2 (08:51→21:07)
[2023-06-27] MEDS: CARVEDILOL 3.125 MG TABLET GT SCH ×2 (08:51→21:09)
[2023-06-27] MEDS ORDERED: POTASSIUM PHOSPHATE MM 15 MMOL in IV NS 0.9% 250 ML IV SCH (10:00)
[2023-06-27 14:09] LABS: ANISOCYTOSIS 1+; LYMPHOCYTES % (MANUAL) 1 % (16-48); MONOCYTES % (MANUAL) 4 % (0-11.0); NEUTROPHILS % (MANUAL) 95 (42-76); PLATELET ESTIMATE DECREASED
[2023-06-27 14:10] LABS: OVALOCYTES OCC
[2023-06-27] MEDS ORDERED: NEUTRA PHOS 1 POWD.PACKET NG ONE (16:30)
[2023-06-27] MEDS: NEPRO 1,000 ML BOTTLE GT PRN (17:33)
[2023-06-27] MEDS ORDERED: EPINEPHRINE (1:10,000) SYRINGE 1 MG/10 ML DISP.SYRIN IVP ONE (20:33)
[2023-06-27] MEDS: SENNOSIDES 8.6 MG TABLET PO SCH (21:06)
[2023-06-27] MEDS: POLYETHYLENE GLYCOL 3350 17 GM POWD.PACK PO SCH (21:06)
[2023-06-27 21:26] LABS: ABG BASE EXCESS 0.6 mmol/L; ABG OXYGEN SATURATION 99.2 % (92.0-98.5); ABG PCO2 46.2 mmHg (35.0-45.0); ABG PH 7.373 (7.350-7.450); ABG PO2 198.5 mmHg (75.0-100.0); ABG TOTAL HEMOGLOBIN 13.8 G/dL (13.5-18.0); MetHb 0.3 % (0.0-1.5); O2Hb 98.9 % (94.0-97.0); PEEP,BG 5 cm H2O; SITE, ABG Left Radial; VT, ABG 500 mL
[2023-06-28] VITALS (33 sets, daily range): BP systolic 89–139; BP diastolic 54–115; TEMP 97.7–98.8; O2SAT 92–100
[2023-06-28] MEDS: SEVELAMER CARBONATE 800 MG POWD.PACK GT SCH ×3 (00:54→17:55)
[2023-06-28] MEDS: IPRATROPIUM NEB FS 0.5 MG/2.5 ML AMPUL.NEB NEB SCH ×4 (01:07→20:08)
[2023-06-28] MEDS: ALBUTEROL FS 2.5 MG/0.5 ML VIAL.NEB NEB SCH ×4 (01:07→20:08)
[2023-06-28 04:39] LABS: BASOPHILS % (AUTO) 0.1 % (0.0-2.0); EOSINOPHILS % (AUTO) 0.1 % (0.0-6.0); HEMATOCRIT 33 % (39-51); HEMOGLOBIN 11.1 g/dL (13.5-17.5); LYMPHOCYTES # (AUTO) 0.1 K/uL (0.8-4.8); LYMPHOCYTES % (AUTO) 0.6 % (20.0-44.0); MEAN CORPUSCULAR HEMOGLOBIN 34 PG (26.0-33.0); MEAN CORPUSCULAR HGB CONC 33 g/dl (31.0-36.0); MEAN CORPUSCULAR VOLUME 102 fL (80-96); MONOCYTES # (AUTO) 0.3 K/uL (0.1-1.30); MONOCYTES % (AUTO) 2.6 % (2.0-12.0); NEUTROPHILS # (AUTO) 10.9 K/uL (1.8-8.9); NEUTROPHILS % (AUTO) 96.6 % (43.0-81.0); PLATELET COUNT (AUTO) 81 K/uL (150-450); RED BLOOD CELL COUNT(AUTO) 3.25 MIL/uL (4.5-6.0); RED CELL DISTRIBUTION WIDTH 15.2 % (11.5-15.0); WHITE BLOOD COUNT (AUTO) 11.3 K/uL (4.3-11.0)
[2023-06-28 04:50] LABS: CALCIUM, SERUM 8.2 mg/dL (8.5-10.1); CREATININE 1.1 mg/dL (0.6-1.3); MAGNESIUM 2.3 mg/dL (1.8-2.4); PHOSPHORUS 3.2 mg/dL (2.5-4.9); POTASSIUM 3.7 mmol/L (3.5-5.1)
[2023-06-28] MEDS: FLUDROCORTISONE 0.1 MG TABLET NG SCH ×3 (05:32→17:52)
[2023-06-28] MEDS: ACETYLCYSTEINE 10% SOLN 400 MG/4 ML VIAL NEB SCH ×3 (07:35→23:53)
[2023-06-28] MEDS: CARVEDILOL 3.125 MG TABLET GT SCH ×2 (09:00→21:26)
[2023-06-28] MEDS: PANTOPRAZOLE 40 MG/PACK PACK NG SCH (09:31)
[2023-06-28] MEDS: DOCUSATE SODIUM LIQ 100 MG/10 ML UDC GT SCH (09:31)
[2023-06-28] MEDS: methylPREDNISolone SOD SUCC 40 MG/ML VIAL IV SCH (09:31)
[2023-06-28] MEDS: FERROUS SULFATE (325 MG) 325 MG/TAB TABLET GT SCH (09:31)
[2023-06-28] MEDS: TAMSULOSIN 0.4 MG CAP.SR.24H GT SCH (09:31)
[2023-06-28] MEDS: CLOTRIMAZOLE 1% 15 GM TUBE TP SCH ×2 (09:33→17:52)
[2023-06-28] MEDS: THERAHONEY GEL 1.5 OZ TUBE TP SCH (09:33)
[2023-06-28] MEDS: Z GUARD REMEDY 4 OZ OINT TP PRN (09:33)
[2023-06-28] MEDS: ASPIRIN 81 MG TAB.CHEW GT SCH (09:35)
[2023-06-28] MEDS: Z GUARD REMEDY 4 OZ OINT TP SCH (10:08)
[2023-06-28 12:52] LABS: ANISOCYTOSIS 1+; BAND % (MANUAL) 4 % (0.0-5.0); BASOPHILS % (MANUAL) 0 % (0.0-2.0); EOSINOPHILS % (MANUAL) 0 % (0-4); LYMPHOCYTES % (MANUAL) 5 % (16-48); MONOCYTES % (MANUAL) 4 % (0-11.0); NEUTROPHILS % (MANUAL) 87 (42-76); PLATELET ESTIMATE DECREASED
[2023-06-28] MEDS: NEPRO 1,000 ML BOTTLE GT PRN (17:59)
[2023-06-28] MEDS: SENNOSIDES 8.6 MG TABLET PO SCH (21:25)
[2023-06-28] MEDS: POLYETHYLENE GLYCOL 3350 17 GM POWD.PACK PO SCH (21:25)
[2023-06-29] VITALS (28 sets, daily range): BP systolic 99–115; BP diastolic 58–94; TEMP 97.6–98.6; O2SAT 95–100
[2023-06-29] MEDS: FLUDROCORTISONE 0.1 MG TABLET NG SCH ×4 (00:23→17:18)
[2023-06-29] MEDS: SEVELAMER CARBONATE 800 MG POWD.PACK GT SCH ×3 (00:49→17:18)
[2023-06-29] MEDS: IPRATROPIUM NEB FS 0.5 MG/2.5 ML AMPUL.NEB NEB SCH ×4 (02:00→20:23)
[2023-06-29] MEDS: ALBUTEROL FS 2.5 MG/0.5 ML VIAL.NEB NEB SCH ×4 (02:00→20:23)
[2023-06-29 04:49] LABS: BASOPHILS % (AUTO) 0.1 % (0.0-2.0); EOSINOPHILS % (AUTO) 0.1 % (0.0-6.0); HEMATOCRIT 34 % (39-51); HEMOGLOBIN 11.3 g/dL (13.5-17.5); LYMPHOCYTES # (AUTO) 0.1 K/uL (0.8-4.8); LYMPHOCYTES % (AUTO) 1.2 % (20.0-44.0); MEAN CORPUSCULAR HEMOGLOBIN 34 PG (26.0-33.0); MEAN CORPUSCULAR HGB CONC 34 g/dl (31.0-36.0); MEAN CORPUSCULAR VOLUME 101 fL (80-96); MONOCYTES # (AUTO) 0.4 K/uL (0.1-1.30); MONOCYTES % (AUTO) 3.9 % (2.0-12.0); NEUTROPHILS # (AUTO) 10.1 K/uL (1.8-8.9); NEUTROPHILS % (AUTO) 94.7 % (43.0-81.0); PLATELET COUNT (AUTO) 79 K/uL (150-450); RED BLOOD CELL COUNT(AUTO) 3.31 MIL/uL (4.5-6.0); RED CELL DISTRIBUTION WIDTH 14.9 % (11.5-15.0); WHITE BLOOD COUNT (AUTO) 10.6 K/uL (4.3-11.0)
[2023-06-29 05:07] LABS: CALCIUM, SERUM 8.4 mg/dL (8.5-10.1); CARBON DIOXIDE 31 mmol/L (21-32); CHLORIDE 102 mmol/L (98-107); GLUCOSE 101 mg/dL (74-106); MAGNESIUM 2.3 mg/dL (1.8-2.4); PHOSPHORUS 1.8 mg/dL (2.5-4.9); POTASSIUM 3.5 mmol/L (3.5-5.1); SODIUM SERUM 137 mmol/L (136-145); UREA NITROGEN, BLOOD 58 mg/dL (7-18)
[2023-06-29] MEDS: ACETYLCYSTEINE 10% SOLN 400 MG/4 ML VIAL NEB SCH ×2 (07:43→15:02)
[2023-06-29] MEDS: methylPREDNISolone SOD SUCC 40 MG/ML VIAL IV SCH (08:23)
[2023-06-29] MEDS: ASPIRIN 81 MG TAB.CHEW GT SCH (08:23)
[2023-06-29] MEDS: FERROUS SULFATE (325 MG) 325 MG/TAB TABLET GT SCH (08:23)
[2023-06-29] MEDS: TAMSULOSIN 0.4 MG CAP.SR.24H GT SCH (08:23)
[2023-06-29] MEDS: PANTOPRAZOLE 40 MG/PACK PACK NG SCH (08:23)
[2023-06-29] MEDS: DOCUSATE SODIUM LIQ 100 MG/10 ML UDC GT SCH (08:23)
[2023-06-29] MEDS: CARVEDILOL 3.125 MG TABLET GT SCH ×2 (08:27→21:00)
[2023-06-29] MEDS: Z GUARD REMEDY 4 OZ OINT TP SCH (08:38)
[2023-06-29] MEDS: THERAHONEY GEL 1.5 OZ TUBE TP SCH (08:38)
[2023-06-29] MEDS: CLOTRIMAZOLE 1% 15 GM TUBE TP SCH ×2 (08:38→17:18)
[2023-06-29] MEDS: ACETAMINOPHEN 650 MG/20.3 ML UDC GT PRN (09:53)
[2023-06-29 11:37] LABS: ANISOCYTOSIS 1+; BASOPHILS % (MANUAL) 0 % (0.0-2.0); EOSINOPHILS % (MANUAL) 0 % (0-4); LYMPHOCYTES % (MANUAL) 5 % (16-48); MONOCYTES % (MANUAL) 4 % (0-11.0); NEUTROPHILS % (MANUAL) 91 (42-76); PLATELET ESTIMATE DECREASED
[2023-06-29] MEDS ORDERED: NEUTRA PHOS 1 POWD.PACKET NG ONE (16:00)
[2023-06-29] MEDS: SENNOSIDES 8.6 MG TABLET PO SCH (21:52)
[2023-06-29] MEDS: POLYETHYLENE GLYCOL 3350 17 GM POWD.PACK PO SCH (21:52)
[2023-06-29] MEDS: NEPRO 1,000 ML BOTTLE GT PRN (23:09)
[2023-06-30] VITALS: BP 99/59; TEMP 98.2; O2SAT 100
[2023-06-30] MEDS: FLUDROCORTISONE 0.1 MG TABLET NG SCH ×3 (00:12→12:06)
[2023-06-30] MEDS: SEVELAMER CARBONATE 800 MG POWD.PACK GT SCH ×4 (00:39→17:30)
[2023-06-30] MEDS: IPRATROPIUM NEB FS 0.5 MG/2.5 ML AMPUL.NEB NEB SCH ×4 (01:51→20:17)
[2023-06-30] MEDS: ALBUTEROL FS 2.5 MG/0.5 ML VIAL.NEB NEB SCH ×4 (01:51→20:17)
[2023-06-30] MEDS: ACETYLCYSTEINE 10% SOLN 400 MG/4 ML VIAL NEB SCH ×3 (01:51→15:30)
[2023-06-30 04:00] VITALS: BP 101/58; TEMP 98.4; O2SAT 100
[2023-06-30 06:36] LABS: BASOPHILS # (AUTO) 0.1 K/uL (0.0-0.2); BASOPHILS % (AUTO) 1.2 % (0.0-2.0); EOSINOPHILS % (AUTO) 0.1 % (0.0-6.0); HEMATOCRIT 34 % (39-51); HEMOGLOBIN 11.1 g/dL (13.5-17.5); LYMPHOCYTES # (AUTO) 0.2 K/uL (0.8-4.8); MEAN CORPUSCULAR HEMOGLOBIN 34 PG (26.0-33.0); MEAN CORPUSCULAR HGB CONC 33 g/dl (31.0-36.0); MEAN CORPUSCULAR VOLUME 103 fL (80-96); MONOCYTES # (AUTO) 0.4 K/uL (0.1-1.30); MONOCYTES % (AUTO) 4.7 % (2.0-12.0); NEUTROPHILS # (AUTO) 8.2 K/uL (1.8-8.9); PLATELET COUNT (AUTO) 72 K/uL (150-450); RED BLOOD CELL COUNT(AUTO) 3.27 MIL/uL (4.5-6.0)
[2023-06-30 06:43] LABS: CALCIUM, SERUM 7.9 mg/dL (8.5-10.1); CREATININE 0.9 mg/dL (0.6-1.3); MAGNESIUM 2.5 mg/dL (1.8-2.4); POTASSIUM 4.1 mmol/L (3.5-5.1)
[2023-06-30] MEDS: DOCUSATE SODIUM LIQ 100 MG/10 ML UDC GT SCH (09:01)
[2023-06-30] MEDS: TAMSULOSIN 0.4 MG CAP.SR.24H GT SCH (09:01)
[2023-06-30] MEDS: FERROUS SULFATE (325 MG) 325 MG/TAB TABLET GT SCH (09:01)
[2023-06-30] MEDS: Z GUARD REMEDY 4 OZ OINT TP SCH (09:01)
[2023-06-30] MEDS: ASPIRIN 81 MG TAB.CHEW GT SCH (09:01)
[2023-06-30] MEDS: methylPREDNISolone SOD SUCC 40 MG/ML VIAL IV SCH (09:01)
[2023-06-30] MEDS: PANTOPRAZOLE 40 MG/PACK PACK NG SCH (09:01)
[2023-06-30] MEDS: THERAHONEY GEL 1.5 OZ TUBE TP SCH (09:02)
[2023-06-30] MEDS: CARVEDILOL 3.125 MG TABLET GT SCH ×2 (09:03→21:31)
[2023-06-30] MEDS: CLOTRIMAZOLE 1% 15 GM TUBE TP SCH ×2 (09:07→17:55)
[2023-06-30 10:24] VITALS: BP 135/95; TEMP 98.8; O2SAT 100
[2023-06-30 11:41] LABS: LYMPHOCYTES % (MANUAL) 3 % (16-48); MONOCYTES % (MANUAL) 5 % (0-11.0); NEUTROPHILS % (MANUAL) 92 (42-76); PLATELET ESTIMATE DECREASED
[2023-06-30 11:42] LABS: ANISOCYTOSIS 1+
[2023-06-30 13:03] VITALS: BP 105/66; TEMP 99.4; O2SAT 100
[2023-06-30] MEDS ORDERED: NEUTRA PHOS 1 POWD.PACKET NG ONE (16:00)
[2023-06-30] MEDS: APIXABAN 5 MG TABLET GT SCH (17:25)
[2023-06-30 18:01] VITALS: BP 104/73; TEMP 98.1; O2SAT 100
[2023-06-30 20:00] VITALS: BP 108/70; TEMP 98.4
[2023-06-30] MEDS: POLYETHYLENE GLYCOL 3350 17 GM POWD.PACK PO SCH (21:30)
[2023-06-30] MEDS: SENNOSIDES 8.6 MG TABLET PO SCH (21:31)
[2023-07-01] VITALS: BP 94/70; TEMP 98.6; O2SAT 100
[2023-07-01] MEDS: FLUDROCORTISONE 0.1 MG TABLET NG SCH ×2 (00:24→12:29)
[2023-07-01] MEDS: SEVELAMER CARBONATE 800 MG POWD.PACK GT SCH ×3 (00:25→16:51)
[2023-07-01] MEDS: ACETYLCYSTEINE 10% SOLN 400 MG/4 ML VIAL NEB SCH ×3 (01:23→14:01)
[2023-07-01] MEDS: ALBUTEROL FS 2.5 MG/0.5 ML VIAL.NEB NEB SCH ×3 (01:23→14:01)
[2023-07-01] MEDS: IPRATROPIUM NEB FS 0.5 MG/2.5 ML AMPUL.NEB NEB SCH ×3 (01:23→14:01)
[2023-07-01 04:00] VITALS: BP 108/67; TEMP 98.6; O2SAT 99
[2023-07-01 08:00] VITALS: BP 101/62; TEMP 98.3; O2SAT 100
[2023-07-01] MEDS: CARVEDILOL 3.125 MG TABLET GT SCH (09:00)
[2023-07-01] MEDS: DOCUSATE SODIUM LIQ 100 MG/10 ML UDC GT SCH (09:11)
[2023-07-01] MEDS: TAMSULOSIN 0.4 MG CAP.SR.24H GT SCH (09:12)
[2023-07-01] MEDS: ASPIRIN 81 MG TAB.CHEW GT SCH (09:12)
[2023-07-01] MEDS: PANTOPRAZOLE 40 MG/PACK PACK NG SCH (09:12)
[2023-07-01] MEDS: methylPREDNISolone SOD SUCC 40 MG/ML VIAL IV SCH (09:12)
[2023-07-01] MEDS: FERROUS SULFATE (325 MG) 325 MG/TAB TABLET GT SCH (09:12)
[2023-07-01] MEDS: APIXABAN 5 MG TABLET GT SCH ×2 (09:13→16:50)
[2023-07-01] MEDS: CLOTRIMAZOLE 1% 15 GM TUBE TP SCH ×2 (09:48→16:52)
[2023-07-01] MEDS: Z GUARD REMEDY 4 OZ OINT TP PRN ×2 (09:48→09:49)
[2023-07-01] MEDS: THERAHONEY GEL 1.5 OZ TUBE TP SCH (09:49)
[2023-07-01] MEDS: Z GUARD REMEDY 4 OZ OINT TP SCH (09:50)
[2023-07-01 12:00] VITALS: BP 97/64; TEMP 98.1; O2SAT 95
[2023-07-01 16:00] VITALS: BP 96/63; TEMP 97.9; O2SAT 95
[2023-07-02] MEDS ORDERED: FAMOTIDINE (20 MG) 20 MG TABLET GT SCH (09:00)
== END 2023-07-01 19:30 | DRG 4 ==
LOC: ER 17:35 → TELE 20:24 → MED 21:27 → TELE 21:52 → ICU 06-02 03:33 → TELE-TD 06-24 15:57 → TELE1 06-25 11:09 → ICU 06-27 20:10 → TELE1 06-29 09:28
PROVIDERS: ADMIT Internal Medicine; ATTEND Nurse Practitioner Family
PROC: 05H633Z Insertion of Infusion Device into Left Subclavian Vein, Percutaneous Approach (ICD-10-PCS; 2023-06-02)
PROC: B547ZZA Ultrasonography of Left Subclavian Vein, Guidance (ICD-10-PCS; 2023-06-02)
PROC: 5A1955Z Respiratory Ventilation, Greater than 96 Consecutive Hours (ICD-10-PCS; principal; 2023-06-03)
PROC: 0BH17EZ Insertion of Endotracheal Airway into Trachea, Via Natural or Artificial Opening (ICD-10-PCS; 2023-06-03)
PROC: 5A1955Z Respiratory Ventilation, Greater than 96 Consecutive Hours (ICD-10-PCS; 2023-06-11)
PROC: 0BH17EZ Insertion of Endotracheal Airway into Trachea, Via Natural or Artificial Opening (ICD-10-PCS; 2023-06-11)
PROC: 02HV33Z Insertion of Infusion Device into Superior Vena Cava, Percutaneous Approach (ICD-10-PCS; 2023-06-12)
PROC: B548ZZA Ultrasonography of Superior Vena Cava, Guidance (ICD-10-PCS; 2023-06-12)
PROC: 5A1955Z Respiratory Ventilation, Greater than 96 Consecutive Hours (ICD-10-PCS; 2023-06-17)
PROC: 0B113F4 Bypass Trachea to Cutaneous with Tracheostomy Device, Percutaneous Approach (ICD-10-PCS; 2023-06-19)
PROC: 0BJ08ZZ Inspection of Tracheobronchial Tree, Via Natural or Artificial Opening Endoscopic (ICD-10-PCS; 2023-06-19)
PROC: 05HM33Z Insertion of Infusion Device into Right Internal Jugular Vein, Percutaneous Approach (ICD-10-PCS; 2023-06-19)
PROC: B543ZZA Ultrasonography of Right Jugular Veins, Guidance (ICD-10-PCS; 2023-06-19)
PROC: 5A1D70Z Performance of Urinary Filtration, Intermittent, Less than 6 Hours Per Day (ICD-10-PCS; 2023-06-20)
PROC: 5A1D70Z Performance of Urinary Filtration, Intermittent, Less than 6 Hours Per Day (ICD-10-PCS; 2023-06-20)
PROC: 0DH63UZ Insertion of Feeding Device into Stomach, Percutaneous Approach (ICD-10-PCS; 2023-06-22)
PROC: 5A12012 Performance of Cardiac Output, Single, Manual (ICD-10-PCS; 2023-06-27)
DX: J96.21 Acute and chronic respiratory failure with hypoxia (principal); A41.9 Sepsis, unspecified organism; G93.41 Metabolic encephalopathy; N17.0 Acute kidney failure with tubular necrosis; R65.21 Severe sepsis with septic shock; J15.9 Unspecified bacterial pneumonia; I46.9 Cardiac arrest, cause unspecified; K76.7 Hepatorenal syndrome; I50.23 Acute on chronic systolic (congestive) heart failure; I13.0 Hypertensive heart and chronic kidney disease with heart failure and stage 1 through stage 4 chronic kidney disease, or unspecified chronic kidney disease; E87.1 Hypo-osmolality and hyponatremia; J90 Pleural effusion, not elsewhere classified; F03.92 Unspecified dementia, unspecified severity, with psychotic disturbance; I82.622 Acute embolism and thrombosis of deep veins of left upper extremity; J98.11 Atelectasis; R18.8 Other ascites; E27.40 Unspecified adrenocortical insufficiency; E87.4 Mixed disorder of acid-base balance; I82.612 Acute embolism and thrombosis of superficial veins of left upper extremity; I42.9 Cardiomyopathy, unspecified; J96.22 Acute and chronic respiratory failure with hypercapnia; I27.20 Pulmonary hypertension, unspecified; N18.9 Chronic kidney disease, unspecified; D69.6 Thrombocytopenia, unspecified; D53.9 Nutritional anemia, unspecified; E83.41 Hypermagnesemia; E83.39 Other disorders of phosphorus metabolism; E78.5 Hyperlipidemia, unspecified; I25.10 Atherosclerotic heart disease of native coronary artery without angina pectoris; I48.91 Unspecified atrial fibrillation; F41.9 Anxiety disorder, unspecified; F32.A Depression, unspecified; Z95.1 Presence of aortocoronary bypass graft; Z87.01 Personal history of pneumonia (recurrent); Z95.810 Presence of automatic (implantable) cardiac defibrillator; Z86.16 Personal history of COVID-19; Z79.82 Long term (current) use of aspirin; K29.70 Gastritis, unspecified, without bleeding; Z20.822 Contact with and (suspected) exposure to COVID-19; I35.0 Nonrheumatic aortic (valve) stenosis; S80.812A Abrasion, left lower leg, initial encounter; S80.811A Abrasion, right lower leg, initial encounter; X58.XXXA Exposure to other specified factors, initial encounter; Y93.9 Activity, unspecified; Y92.129 Unspecified place in nursing home as the place of occurrence of the external cause; I25.2 Old myocardial infarction; E87.5 Hyperkalemia; E83.9 Disorder of mineral metabolism, unspecified; R13.10 Dysphagia, unspecified; Z86.73 Personal history of transient ischemic attack (TIA), and cerebral infarction without residual deficits; L89.156 Pressure-induced deep tissue damage of sacral region; L89.326 Pressure-induced deep tissue damage of left buttock; L89.316 Pressure-induced deep tissue damage of right buttock; L53.9 Erythematous condition, unspecified; K74.60 Unspecified cirrhosis of liver; R74.01 Elevation of levels of liver transaminase levels; I73.9 Peripheral vascular disease, unspecified; M89.8X9 Other specified disorders of bone, unspecified site; N40.0 Benign prostatic hyperplasia without lower urinary tract symptoms
CPT/HCPCS: 31720; 36410; 36415; 36569; 36600; 43246; 70450-TC; 71045-TC; 76705-TC; 76770-TC; 80048-TC; 80053-TC; 80076-TC; 81001; 82140-TC; 82533; 82570-TC; 82803-TC; 82962-TC; 83605-TC; 83735-TC; 83880; 84100-TC; 84132-TC; 84300-TC; 84478-TC; 84484-TC; 85025-TC; 85610-TC; 85730-TC; 87040-TC; 87081-TC; 87086-TC; 87806; 90935-TC; 92526; 92611-TC; 93971-TC; 94002; 94002-TC; 94003-TC; 94664-TC; 94760-TC; 94762-TC; 94799-TC; A4223; A6253; A6403; A7526; C9113; G0378; J0171; J0456; J0690; J0692; J0696; J1100; J1120; J1644; J1940; J2250; J2405; J2704; J2920; J3010; J3480; J3490; J7030; J7040; J7042; J7050; J7060; J7070